=== PATIENT | male | born 1945 | race Caucasian/White ===

== ENCOUNTER 2019-03-18 05:10 | Day surgery (SDC) | payer MEDICARE, OTHER, SELFPAY ==
[2019-03-17 16:34] VITALS: BMI 34.4
[2019-03-18] VITALS (14 sets, daily range): BP systolic 109–154; BP diastolic 58–87; PULSE 63–74; RESP 14–18; TEMP 36.7; O2SAT 96–100
[2019-03-18 09:02] LABS: Basophils Percent Auto 0.2 % (0.2-1.2); Eosinophils Percent Auto 0.2 % (0-4.4); Hematocrit 47.1 % (42.0-52.0); Hemoglobin 15.4 g/dL (14.0-18.0); Immature Granulocyte Absolute 0.04 K/mm3 (0.00-0.031); Immature Granulocyte Percent A 0.3 % (0-0.5); Lymphocytes Absolute Auto 2.06 K/mm3 (0.9-3.2); Lymphocytes Percent Auto 16.9 % (18.3-44.2); Mean Corpuscular HGB Conc 32.7 g/dl (32-36); Mean Corpuscular Hemoglobin 29.4 pg (26-34); Mean Corpuscular Volume 89.9 fl (80-100); Mean Platelet Volume 10.6 fl (7.4-10.4); Monocytes Absolute Auto 0.7 K/mm3 (0.1-0.6); Neutrophils Absolute Auto 9.3 K/mm3 (1.3-6.7); Neutrophils Percent Auto 76.4 % (45.5-73.1); Platelet Count Result 303 k/mm3 (150-375); Red Blood Count 5.24 M/mm3 (4.6-6.20); Red Cell Distribution Width 13.5 % (11.5-14.5); White Blood Count 12.2 K/mm3 (4.5-10.0)
[2019-03-18 09:12] LABS: Prothrombin Time 12.6 Seconds (11.1-14.7)
[2019-03-18 09:14] LABS: Blood Urea Nitrogen 37 mg/dL (9-20); Calcium 9.8 mg/dL (8.4-10.2); Carbon Dioxide 27 mmol/L (22-30); Chloride 99 mmol/L (98-107); Estimated CRCL calculation 42 ml/min; Estimated Glomerular Filt Rate 35; Glucose 110 mg/dL (75-110); Potassium 3.9 mmol/L (3.4-5.0); Sodium 140 mmol/L (137-145)
--- NOTE | 2019-03-18 09:43 | SUR.PREOP ---
0840 PATIENT ARRIVES TO [facility] ROOM 5 FOR R/LHC WITH DR. SOL. AT BEDSIDE, ORIENTED TO UNIT, PROCEDURE EXPLAINED, ALL QUESTIONS ANSWERED, IV STARTED, LABS DRAWN AND SENT, VITALS TAKEN, CONSENT SIGNED, AND GROIN SHAVED.
--- NOTE | 2019-03-18 10:18 | WPDHPUPDATE1 ---
History and Physical Update Update Date/Time: 03/18/19 10:18 Patient with aortic stenosis, a decline in LV function, COPD, chronic kidney disease. I had requested the patient stop his Naprosyn prior to the cardiac catheterization to help protect his renal function, but he only reduced it to once daily. He has not seen Dr. Main yet. History and Physical has been reviewed, including an updated exam of the patient. There are NO changes in the patient's condition. Risks, benefits, and alternatives have been discussed and questions answered. Reviewed possible risks and complications with patient including breathing problems, bleeding problems, blood vessel problems, unanticipated surgery, allergic reactions, kidney problems, CVA, MS, and among others. In particular we discussed the risk of acute renal problems. Patient understands risks and desires to proceed. patient agrees to proceed with procedure.
--- NOTE | 2019-03-18 10:20 | WPDMODSED ---
Moderate Sedation Note-Pt Data Patient Data Allergies Allergy/AdvReac Type Severity Reaction Status Date / Time No Known Allergies Allergy Unknown Verified 02/25/19 12:50 Home Medications Medication Instructions Recorded Confirmed Type amlodipine 10 mg tablet 10 mg PO HS 03/05/19 03/17/19 History aspirin 81 mg tablet,delayed 81 mg PO HS 03/05/19 03/17/19 History release budesonide-formoterol HFA 160 2 puff INHALATION Q12H 03/05/19 03/17/19 History mcg-4.5 mcg/actuation aerosol inhaler chlorthalidone 25 mg tablet 12.5 mg PO DAILY 03/05/19 03/17/19 History furosemide 20 mg tablet 20 mg PO DAILY tablet 03/05/19 03/17/19 History lisinopril 20 mg tablet 20 mg PO DAILY 03/05/19 03/17/19 History naproxen 500 mg tablet,delayed See Rx Instructions PO DAILY 03/05/19 03/17/19 History release tablet tamsulosin 0.4 mg capsule 0.4 mg PO BID 03/05/19 03/17/19 History albuterol sulfate [Ventolin HFA] 2 puff INHALATION Q4H PRN 03/17/19 03/17/19 History lovastatin 20 mg PO QMWF 03/17/19 03/17/19 History montelukast 10 mg PO DAILY 03/17/19 03/17/19 History Current Medications: Active Medications Sodium Chloride (Normal Saline Iv) 500 mls @ 100 mls/hr IV CONT .Q5H HAYLEY Sedation/Anesthesia: No previous sedation/anesthesia problems (including family history). [facility] Past Medical History Medical History Allergic rhinitis Aortic regurgitation Aortic stenosis BCC (basal cell carcinoma of skin) CKD (chronic kidney disease), stage III Congestive heart failure Hypertensive heart disease with heart failure IFG (impaired fasting glucose) Moderate persistent asthma without complication Wellness examination Family History Family History Father Family history of cardiovascular disease Other Asthma Social History Social History Smoking status: Current every day smoker Alcohol intake: current Gender identity (if verbalized by the patient): Male Mod Sed Physical Exam Physical Exam Pre Procedural Exam: Normal: Appearance, Eyes, Ears, Nose, Neck, Throat, Airway, Lungs, Heart Size (3/6 harsh WES upper sternal borders), Heart Rate, Heart Rhythm, Neuro Exam, Abdomen, Kidneys, Genitalia, Extremities (Femoral pulses intact with no bruits. Dorsalis pedis pulses reduced bilaterally, no posterior tibials palpated.) and Skin (Basal cell cancer right near ease) and Variation: Heart Size (3/6 harsh WES upper sternal borders) and Skin (Basal cell cancer right near ease) Hours since solid foods: 12 Hours since liquid intake: 12 Internal Medicine - PN: Obj Da Vital Signs Vital Signs: Vital Signs - 24 hr 03/18/19 09:20 Temperature 36.7 C Pulse Rate 70 Respiratory Rate 18 Blood Pressure 130/87 Pulse Oximetry 99 Meds/Results Medications: Active Medications Generic Name Dose Route Start Last Admin Trade Name Freq PRN Reason Stop Dose Admin Sodium Chloride 500 mls @ 100 mls/hr 03/18/19 06:25 Normal Saline Iv IV CONT .Q5H HAYLEY Labs CBC & Chem 7: 03/18/19 08:47 03/18/19 08:47 Labs: Laboratory Results - last 24 hr 03/18/19 03/18/19 03/18/19 08:47 08:47 08:47 WBC 12.2 H RBC 5.24 Hgb 15.4 Hct 47.1 MCV 89.9 MCH 29.4 MCHC 32.7 RDW 13.5 Plt Count 303 MPV 10.6 H Immature Gran % (Auto) 0.3 Neut % (Auto) 76.4 H Lymph % (Auto) 16.9 L Converse % (Auto) 6.0 Eos % (Auto) 0.2 Baso % (Auto) 0.2 Lymph # (Auto) 2.06 Converse # (Auto) 0.7 H Eos # (Auto) 0.0 Baso # (Auto) 0.0 Abs Immat Gran (auto) 0.04 H Absolute Neuts (auto) 9.3 H Absolute Nucleated RBC 0.0 Nucleated RBC % 0.0 PT 12.6 INR 1.0 Sodium 140 Potassium 3.9 Chloride 99 Carbon Dioxide 27 BUN 37 H Creatinine 1.90 H Estim Creat Clear Calc 42 Estimated GFR
--- NOTE | 2019-03-18 12:08 | PM.OP ---
Procedure Note - Brief Procedure Note - Brief Date of procedure: 03/18/19 Pre-op diagnosis: Severe Aortic stenosis, CAD Post-op diagnosis: same Procedure performed: Procedure: 1. Conscious sedation 2. Left heart catheterization 3. Selective Coronary angiography 4. Left ventriculography Site: Right femoral artery, right femoral vein Description of procedure: left and right heart catheterization, DSA of the aorta and iliacs Anesthesia: local Surgeon: Nora Bueno MD Estimated blood loss (mL): 20 Drains: No Packing: No Pathology: none sent Complications: No immediate complications Condition: stable Disposition: observation Findings: Findings: Occluded right coronary artery which fills by collaterals 60% stenosis of the ramus with a 70% stenosis of a branch of the ramus Calcified proximal vessels and mild plaquing elsewhere Severe aortic stenosis, BHUMI 0.9 cm2 Patent iliacs and common femoral arteries Recommendations: Refer for aortic valve replacement, preferably TAVR
--- NOTE | 2019-03-18 13:17 | SUR.PHASEII ---
1250 importance of bedrest and restrictions reviewed with patient and pts at bedside, both verbalize understanding, vss, no hematoma or bleeding noted to r groin venous/arterial dressing c/d/i, pedal pulse strong, will continue to monitor closely.
--- NOTE | 2019-03-18 17:02 | SUR.PHASEII ---
6401 pt up to chair with ease, tolerated well, r groin sites and dressing remain c/d/i, no hematoma or bleeding noted, pedal pulse strong, will continue to monitor, d/c paperwork reviewed with patient and pts , questions answered, disc sent with patient to take to his f/u appt.
--- NOTE | 2019-03-18 20:26 | PM.PROC ---
Procedure Note - Detailed Date of procedure: 03/18/19 Pre-op diagnosis: Severe Old male with COPD and obesity complaining of progressive LEE. Echo suggested progressive aortic stenosis. Known mild diffuse CAD by catheterization 2012. Post-op diagnosis: other (CAD, severe aortic stenosis) Procedure performed: Procedure: 1. Conscious sedation 2. Left heart catheterization 3. Selective Coronary angiography 4. Left ventriculography 5. Thermodilution and Alee cardiac outputs 6. Right heart catheterization 7. DSA of the aorta and iliacs 8. Central O2 saturations . Description of procedure: Site: Right femoral artery Catheters: 6 Prydeinig arterial sheath, 6 Prydeinig 4 cm right and left Orion catheters, 6 Prydeinig dual-lumen pigtail catheter, 7 Prydeinig venous sheath, 7 Prydeinig Marcell-Rufino catheter Conscious sedation: The patient has no known prior history of adverse affects of conscious sedation. Oropharynx was clear. The patient is deemed a good candidate for conscious sedation. Conscious sedation began at: 10 42 Conscious sedation ended at: 1154 Total conscious sedation time: 62 minutes Medications: Versed 2 mg and fentanyl 50 mcg IV push The patient had continuous hemodynamic monitoring, and was also continuously monitored by: Susana Figueroa RN The patient tolerated conscious sedation well. Detailed procedure: After informed consent the patient brought to the cathode builder and the right femoral area was prepped and draped in the usual fashion. After conscious sedation and local anesthesia the right femoral artery was punctured and cannulated with the arterial sheath. The right femoral vein was anesthetized punctured and cannulated with a venous sheath. The Marcell-Rufino catheter was advanced into the central circulation out into the wedge position. Thermodilution cardiac outputs were obtained. Selective Coronary angiography was performed with the coronary catheters in multiple projections. These were withdrawn. I was unsuccessful in crossing the aortic valve with a pigtail catheter using a straight wire. Using the right coronary catheter I was able to pass a straight wire into the ventricle. The ventricle was quite irritable with nonsustained ventricular tachycardia so it was exchanged for a J-tip wire. Then the right Orion was exchanged for the dual-lumen pigtail. Simultaneous aortic and LV pressure measurements were obtained, then simultaneous right and left heart pressures were obtained. No left ventriculogram was performed because of the patient's chronic kidney disease and attempts to conserve contrast. The pigtail catheter was withdrawn into the distal aorta. The Marcell-Rufino catheter was removed. Digital subtraction angiography of the distal aorta was obtained using 12 cc of contrast. Later the arterial and venous sheaths were removed and hemostasis was obtained using local pressure. The patient tolerated the procedure well with no complications. Estimated blood loss was 15-20 cc (waste). The patient had received a 200 cc normal saline bolus prior to the procedure and IV fluids 125 cc an hour during and after the procedure. Pressures: Mean right atrial pressure was 1 mm Hg, RV 39/4 mm Hg, PA 31/7 with a mean of 20 mmHg, and wedge pressure mean was 20 mmHg. Aortic pressure was 130/52 and LV was 164/8 mmHg. Later LV was 170/9 and aortic was 130/48 mmHg. Cardiac output: Thermodilution cardiac output was 6.2 liters/minute with a cardiac index of 2.6 liters/minute per meter squared. Alee cardiac output was 5.8 liters/minute with a cardiac index of 2.4 liters/minute per meter squared Oximetry: Right atrial O2 sat 64%, PA 71% and of the 90% Aortic valve area: Aortic valve area 0.9 cm2, area index was 0.4 centimeters squared/meter squared, with a mean gradient of 35 mmHg. Coronary angiogram: Left coronary artery: The proximal vessels were calcified and there was mild diffuse plaquing particularly of the proximal Left anterior descend
== END 2019-03-18 17:28 | disposition home or self-care (01) ==
PROVIDERS: PCP Family Medicine; Visit Provider Internal Medicine Cardiovascular Disease
PROC: 4A023N8 Measurement of Cardiac Sampling and Pressure, Bilateral, Percutaneous Approach (ICD-10-PCS; CPT 93453; principal; 2019-03-18 10:00)
DX: I35.0 Nonrheumatic aortic (valve) stenosis (principal); I25.10 Atherosclerotic heart disease of native coronary artery without angina pectoris; R06.09 Other forms of dyspnea; J44.9 Chronic obstructive pulmonary disease, unspecified; I13.0 Hypertensive heart and chronic kidney disease with heart failure and stage 1 through stage 4 chronic kidney disease, or unspecified chronic kidney disease; N18.3 Chronic kidney disease, stage 3 (moderate); I50.9 Heart failure, unspecified; I42.9 Cardiomyopathy, unspecified; E78.00 Pure hypercholesterolemia, unspecified; Z79.82 Long term (current) use of aspirin; F17.210 Nicotine dependence, cigarettes, uncomplicated
CPT/HCPCS: 36415; 80048; 85025; 85610; 93460; C1769; C1887; C1894; J1644; J2250; J3010; J7040

== ENCOUNTER → 2019-04-01 11:51 | Outpatient (CLI) | payer MEDICARE, OTHER, SELFPAY ==
--- NOTE | ~2019-04-01 | US_ITS ---
EXAMINATION: US renal BI EXAM DATE: 04/01/2019 12:11 INDICATION: Chronic kidney disease, stage III. TECHNIQUE: Multiple grayscale and Doppler images of the kidneys were obtained (by a technologist who performed the scan) and subsequently reviewed. Comparison is made to prior examination from 10/02/2014 . FINDINGS: Right kidney: There is normal contour and echogenicity. It measures 10.6 x 5.2 x 5.4 centimeters. T here are no focal renal lesions identified. There is no hydronephrosis. Left kidney: There is normal contour and echogenicity. It measures 11.3 x 4.9 x 5.7 centimeters. The re is a cyst measuring 2.8 cm in the superior pole. There is no hydronephrosis. Bladder unremarkable. IMPRESSION: Left renal cyst. Otherwise unremarkable exam. Reviewed, dictated and finalized at location B. ING AID REPAIR TECHNICIAN
== END ==
PROVIDERS: PCP Family Medicine; Visit Provider Internal Medicine Nephrology
DX: N18.3 Chronic kidney disease, stage 3 (moderate) (principal); N28.1 Cyst of kidney, acquired
CPT/HCPCS: 76775

== ENCOUNTER 2019-06-30 11:55 | Outpatient (CLI) | payer MEDICARE, OTHER, SELFPAY ==
--- NOTE | ~2019-06-30 | XR_ITS ---
EXAMINATION: XR chest 2V DATE: 06/30/2019 12:21 INDICATION: Coronary artery disease TECHNIQUE: Frontal and lateral views of the chest are obtained COMPARISON: 12/07/2012 FINDINGS: The lungs are free of acute opacities. There is no pleural effusion or pneumothorax. There are changes of interval cardiac surgery. The heart size is normal. There is moderate thoracic spondyl osis. IMPRESSION: 1. Changes of interval cardiac surgery without acute cardiopulmonary abnormality. Reviewed, dictated and finalized at location A. IMPRESSION: 1. Changes of interval cardiac surgery without acute cardiopulmonary abnormalit y.
== END 2019-06-30 11:56 | disposition home or self-care (01) ==
LOC: ANHIMG 12:05
PROVIDERS: PCP Family Medicine; Visit Provider Internal Medicine Cardiovascular Disease
DX: Z95.1 Presence of aortocoronary bypass graft (principal)
CPT/HCPCS: 71046

== ENCOUNTER 2020-03-04 08:03 | Outpatient (CLI) | payer MEDICARE, OTHER, SELFPAY ==
--- NOTE | ~2020-03-04 | CT_ITS ---
EXAMINATION: CT lung screening EXAM DATE: 03/04/2020 08:23 INDICATION: Personal history of nicotine dependence. TECHNIQUE: Spiral low dose CT of the chest without contrast. Axial, coronal and sagittal images were reviewed. The dose-length product (DLP) for this examination was 345.65 mGy-cm. The exposure was t ailored according to patient size (auto mA exposure control), and iterative reconstruction (ASIR) was used as additional dose reduction technique. There is no prior study for comparison. FINDINGS: There is moderate to severe emphysema. There is area of right lower lobe predominantly nelly ear contiguous opacities, appearance most consistent with scarring but a closer interval, 3 month fol low-up CT is recommended. Tracheobronchial tree is patent. There is no mediastinal, hilar or axilla ry lymphadenopathy. There are no pleural or pericardial effusions. There is no pneumothorax. He art normal in size. There are sternotomy wires, and cardiac/coronary surgical changes. Correlate wi th prior history. Upper abdomen is unremarkable. There is moderate thoracic spondylosis without os teoblastic or osteolytic lesions identified. IMPRESSION: Lung-RADS category 4A, suspicious (5-15 % chance of malignancy); recommend followup LDCT in 3 months. Reviewed, dictated and finalized at location B. [employer] IMPRESSION: Lung-RADS category 4A, suspicious (5-15 % chance of malignancy); re commend followup LDCT in 3 months.
== END 2020-03-04 08:04 | disposition home or self-care (01) ==
LOC: ANHIMG 08:07
PROVIDERS: PCP Family Medicine; Visit Provider Family Medicine
DX: Z12.2 Encounter for screening for malignant neoplasm of respiratory organs (principal); Z87.891 Personal history of nicotine dependence
CPT/HCPCS: 71271

== ENCOUNTER 2021-01-07 10:19 | Outpatient (CLI) | payer MEDICARE, OTHER, SELFPAY ==
--- NOTE | ~2021-01-07 | NM_ITS ---
EXAMINATION: NM bone scan whole body DATE: 01/07/2021 13:46 INDICATION: Prostate cancer. TECHNIQUE: 25 mCi Tc-99m HDP was administered intravenously. Delayed whole-body scintigrams were obt ained. COMPARISON: CT abdomen and pelvis 01/07/2021, chest CT 03/04/2020 FINDINGS: There is a total right knee arthroplasty. There is increased activity in the right parasymp hyseal pubis and left parasymphyseal pubis and multiple vertebra correlating with sclerotic lesions b y CT. There is increased activity in multiple ribs and in proximal right humerus, consistent metastat ic disease. There is joint-centered increased activity in the sternoclavicular joints and acromioclav icular joints and hands, likely osteoarthritis. IMPRESSION: 1. Scattered foci of increased activity in bone, some correlating with sclerotic lesions on today's C T, consistent with metastatic disease. Reviewed, dictated and finalized at location A. ANDER IMPRESSION: 1. Scattered foci of increased activity in bone, some correlating with scleroti c lesions on today's CT, consistent with metastatic disease.
--- NOTE | ~2021-01-07 | CT_ITS ---
EXAMINATION: CT abdomen pelvis w con DATE: 01/07/2021 10:55 INDICATION: Prostate cancer. TECHNIQUE: Computed tomography (CT) of the abdomen and pelvis was performed with 100 mL Omnipaque 350 intravenous contrast. Automated exposure control and iterative reconstruction technique were employe d. The dose-length product was 1390.15 mGy-cm. COMPARISON: Chest CT 03/04/2020 FINDINGS: The visualized portions of the lung bases demonstrate emphysema. There is mild atelectasis in right lower lobe. There is mucous plugging in the lower lobes. Calcified right hilar lymph nodes a re consistent with old granulomatous disease. No pleural effusion. The heart size is normal. There ar e changes of aortic valve replacement. No pericardial effusion. Sternal dehiscence is noted. There is a subxiphoid hernia containing fat and a portion of liver. The gallbladder is normal. Calcifications in the spleen are consistent with old granulomatous disease. The pancreas and adrenal glands are nor mal. There is cortical thinning of the kidneys. There are cysts in the kidneys measuring up to 3.1 cm on the left. There is diverticulosis of the colon without evidence of diverticulitis. The appendix i s normal. There are no dilated loops of bowel. The prostate is mildly enlarged. There is a 4.1 x 3.9 cm mass involving the prostate and left posterior aspect of the bladder, consistent with malignancy. There is pelvic and retroperitoneal lymphadenopathy. For example, a left para-aortic node measures 2. 4 x 1.3 cm. There is no free intraperitoneal fluid. There are sclerotic lesions of bone involving the right parasymphyseal pubis, left parasymphyseal pubis, iliac bones, sacrum, multiple vertebra, and r ight eighth and seventh ribs. IMPRESSION: 1. Mass involving the prostate and left posterior aspect of the bladder, consistent with prostate can cer. 2. Pelvic and retroperitoneal lymphadenopathy and scattered sclerotic lesions of bone, consistent wit h metastatic disease. Reviewed, dictated and finalized at location A. T MANAGER/DISPATCH IMPRESSION: 1. Mass involving the prostate and left posterior aspect of the bladder, consis tent with prostate cancer. 2. Pelvic and retroperitoneal lymphadenopathy and scattered sclerotic lesions o f bone, consistent with metastatic disease.
--- NOTE | ~2021-01-07 | XR_ITS ---
XR chest 2V DATE: 01/07/2021 10:39 INDICATION: Prostate cancer TECHNIQUE: 2 views, PA and lateral projections COMPARISON: Status post sternotomy and coronary bypass graft surgery and aortic valve replacement. Normal heart size. Is aortic calcification and unfolding. No hilar or mediastinal enlargement. No pulmonary infiltrate or consolidation, pleural effusion or pulmonary vascular congestion or pneumo thorax. FINDINGS: Status post sternotomy and coronary bypass graft surgery and aortic valve replacement. Normal heart size. Is aortic calcification and unfolding. No hilar or mediastinal enlargement. No pulmonary infiltrate or consolidation, pleural effusion or pulmonary vascular congestion or pneumo thorax. Degenerative spurring of the thoracic spine. IMPRESSION: No active cardiopulmonary disease Reviewed, dictated and finalized at location A. AURANT CREW
[2021-01-07 10:45] LABS: Estimated Glomerular Filt Rate 42
== END 2021-01-07 10:20 | disposition home or self-care (01) ==
LOC: ANHIMG 10:24
PROVIDERS: PCP Family Medicine; Visit Provider Urology
DX: C61 Malignant neoplasm of prostate (principal); M89.9 Disorder of bone, unspecified; N32.9 Bladder disorder, unspecified; R59.0 Localized enlarged lymph nodes
CPT/HCPCS: 71046; 74177; 78306; A9561; Q9967

== ENCOUNTER 2021-02-23 11:13 | Outpatient (CLI) | payer MEDICARE, SELFPAY ==
[2021-02-23 12:19] LABS: Anion Gap 10 mmol/L (8-16); Blood Urea Nitrogen 26 mg/dL (9-20); Calcium 9.7 mg/dL (8.4-10.2); Carbon Dioxide 27 mmol/L (22-30); Chloride 104 mmol/L (98-107); Estimated Glomerular Filt Rate 42; Glucose 106 mg/dL (65-110); Magnesium 2.1 mg/dL (1.6-2.3); Sodium 141 mmol/L (137-145)
== END 2021-02-23 11:14 | disposition home or self-care (01) ==
LOC: ANHLAB 11:20
PROVIDERS: PCP Family Medicine; Visit Provider Internal Medicine Cardiovascular Disease
DX: I25.10 Atherosclerotic heart disease of native coronary artery without angina pectoris (principal); I49.3 Ventricular premature depolarization
CPT/HCPCS: 36415; 80048; 83735

== ENCOUNTER 2021-03-31 12:12 | Outpatient (CLI) | payer MEDICARE, SELFPAY ==
--- NOTE | ~2021-03-31 | CT_ITS ---
EXAMINATION: CT abdomen pelvis wo con DATE: 03/31/2021 12:48 INDICATION: Metastatic prostate cancer restaging TECHNIQUE: Computed tomography (CT) of the abdomen and pelvis was performed without intravenous contr ast. Automated exposure control and iterative reconstruction technique were employed. Exam dose: 124 1.48 mGy-cm total exam DLP. COMPARISON: 01/07/2021 CT abdomen pelvis with IV contrast material FINDINGS: Emphysematous changes are noted. Mild atelectasis or fibrotic changes in the peripheral lef t lower lobe. Heart size is within normal range. Status post aortic valve replacement and coronary bypass graft pranav trent. Calcifications or postoperative change of the mitral valve; recommend correlation with surgical histo ry. Coronary artery calcifications. No pericardial or pleural effusion. Calcified splenic granulomas. No hepatic, splenic, pancreatic or adrenal space-occupying mass lesion. The gallbladder is present. No bile duct or pancreatic duct dilatation. 3.2 cm cystic lesion at the upper pole of the left kidney with minimal peripheral calcification, like ly a benign renal cyst. This is a limited noncontrast examination however. One or 2 punctate nonobstructing right renal calculi are suggested. No ureteral calculus or hydrouret eronephrosis. There is extensive calcification of the abdominal aorta, calcification at the origin of the celiac tr unk and prominent calcification at the origin along the course of the superior mesenteric artery. No abdominal aortic aneurysm. There is prominent calcification of the iliac arteries, especially the com mon and internal iliac arteries as well as femoral artery calcifications. No periaortic or aortocaval or retrocrural lymphadenopathy. There is interval considerable improvement of left external iliac lymphadenopathy, with left external iliac nodes currently measuring 7.5 x 12 mm and 9.5 x 12.8 mm, compared to 13.8 x 21 mm and 19.8 x 2 5 mm, respectively on 01/07/2021. There is overall diminished size of the prostate gland and the previously reported 4.1 x 3.9 cm mass at the left posterolateral aspect of the urinary bladder, currently measuring approximately 2.9 x 2.7 cm. Adjacent left pelvic approximate 1.4 cm mass is nearly completely resolved since 01/07/2021. No evidence of appendicitis. There is mild diverticulosis of the left colon; no evidence of diverticu litis. No bowel obstruction, bowel wall thickening, pneumatosis or intraperitoneal free air. Small fat-containing umbilical hernia. Osteosclerotic metastatic disease is again noted, including prominent osteosclerotic lesion of L1 manju tebral body and even more extensive osteosclerotic lesion of left L4 vertebral body extending into th e left L4 pedicle, in addition to right sacral body and interval increased size mid sacral osteoscler otic lesions, prominent osteosclerotic metastatic lesions at both pubic bones, additional scattered s mall vertebral and bilateral ileal osteosclerotic lesions. IMPRESSION: Interval resolution of left periaortic lymphadenopathy and considerable improvement of l eft external iliac lymphadenopathy and diminished size of prostate gland and mass at left posterolate ral aspect of urinary bladder since 01/07/2021 Extensive osteosclerotic metastatic disease is again noted Reviewed, dictated and finalized at Location A. Reviewed, dictated and finalized at location A. [employer] INSURANCE IMPRESSION: Interval resolution of left periaortic lymphadenopathy and conside rable improvement of left external iliac lymphadenopathy and diminished size of prostate gland and mass at left posterolateral aspect of urinary bladder since 01/07/2021 Extensive osteosclerotic metastatic disease is again noted
== END 2021-03-31 12:13 | disposition home or self-care (01) ==
PROVIDERS: PCP Family Medicine; Visit Provider Urology
DX: C61 Malignant neoplasm of prostate (principal); C79.51 Secondary malignant neoplasm of bone; R59.0 Localized enlarged lymph nodes
CPT/HCPCS: 74176

== ENCOUNTER 2021-12-31 14:35 | Emergency (ER) | payer MEDICARE, SELFPAY ==
[2021-12-31 14:40] VITALS: BP 139/82; PULSE 86; RESP 16; TEMP 36.5; O2SAT 98
--- NOTE | 2021-12-31 14:56 | ED.EXTPRO ---
HPI - Extremity Problem General Chief complaint: Wound/Laceration Stated complaint: lt hand swelling Time Seen by Provider: 12/31/21 14:57 Source: patient, RN notes reviewed and old records reviewed Mode of arrival: ambulatory Limitations: no limitations History of Present Illness HPI Narrative: 76-year-old male presents to the [facility] with an infected wound to the left dorsal hands. Redness and swelling over MCP 2, 3, 4 Related Data Home Medications Medication Instructions Recorded Confirmed aspirin 81 mg tablet,delayed 81 mg PO HS 03/05/19 12/31/21 release (Aspir-) albuterol sulfate 90 mcg/actuation 2 puff inhalation Q4H PRN 03/17/19 12/31/21 aerosol inhaler (Ventolin HFA) shortness of breath or wheezing lovastatin 20 mg tablet 20 mg PO QMWF 03/17/19 12/31/21 montelukast 10 mg tablet 10 mg PO DAILY 03/17/19 12/31/21 fluticasone fur. 100 mcg-umeclid 1 inhalation inhalation Q24H 08/26/19 12/31/21 62.5 mcg-vilant 25 mcg inhalat.powder (Trelegy Ellipta) furosemide 20 mg tablet 40 mg PO QAM 08/26/19 12/31/21 amlodipine 10 mg tablet 5 mg PO HS 09/28/21 12/31/21 finasteride 5 mg tablet 5 mg PO DAILY 12/31/21 12/31/21 Allergies Allergy/AdvReac Type Severity Reaction Status Date / Time No Known Allergies Allergy Unknown Verified 09/28/21 08:43 Review of Systems Review of Systems: All systems reviewed & are unremarkable except as noted in HPI and below Constitutional: Constitutional: Reports no additional constitutional complaints, Denies chills and Denies fever(s) Eyes: Eyes: Reports no additional eye complaints ENT: Reports system reviewed and no additional complaints, except as documented Cardiovascular: Cardiovascular: Reports no additional cardiovascular complaints Respiratory: Respiratory: Reports no additional respiratory complaints Gastrointestinal: Gastrointestinal: Reports no additional gastrointestinal complaints Musculoskeletal: Musculoskeletal: Reports no additional musculoskeletal complaints Integumentary/Breasts: Skin/Breast: Reports as per HPI, Reports swelling and Reports erythema Neurologic: Reports system reviewed and no additional complaints, except as documented Psychiatric: Psychiatric: Reports no additional psychiatric complaints Allergic/Immunologic: Allergic/Immunologic: Reports no additional allergic/immunologic complaints PMFSH Past Medical History Medical History Allergic rhinitis Aortic regurgitation Aortic stenosis BCC (basal cell carcinoma of skin) Bilateral foot pain BPH (benign prostatic hyperplasia) CAD (coronary artery disease) Chronic kidney disease, stage 3 unspecified CKD (chronic kidney disease), stage III Congestive heart failure COPD (chronic obstructive pulmonary disease) Cough Former smoker 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 Hypertensive heart disease with heart failure IFG (impaired fasting glucose) Left foot pain Lower extremity edema Moderate persistent asthma without complication 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 Years smoked: 51 Smoking pack-years: 51.00 Smoking status: Former smoker Tobacco type: cigarettes Second hand tobacco smoke exposure: No Smoking end date: 08/11/18 Alcohol intake: never Alcohol use details: rarely Substance use: never Substance use type: does not use Gender identity (if verbalized by the patient): Male Comments At the time of
== END 2021-12-31 15:05 | disposition home or self-care (01) ==
PROVIDERS: Emergency Provider Nurse Practitioner; PCP Family Medicine
DX: S61.402A Unspecified open wound of left hand, initial encounter (principal); L08.9 Local infection of the skin and subcutaneous tissue, unspecified; X58.XXXA Exposure to other specified factors, initial encounter; Z87.891 Personal history of nicotine dependence; I35.0 Nonrheumatic aortic (valve) stenosis; Z85.828 Personal history of other malignant neoplasm of skin; Z85.46 Personal history of malignant neoplasm of prostate; Z85.830 Personal history of malignant neoplasm of bone; Z85.72 Personal history of non-Hodgkin lymphomas; I25.10 Atherosclerotic heart disease of native coronary artery without angina pectoris; I13.0 Hypertensive heart and chronic kidney disease with heart failure and stage 1 through stage 4 chronic kidney disease, or unspecified chronic kidney disease; N18.30 Chronic kidney disease, stage 3 unspecified; I50.9 Heart failure, unspecified; J44.9 Chronic obstructive pulmonary disease, unspecified; R73.01 Impaired fasting glucose; Z95.2 Presence of prosthetic heart valve; Z79.82 Long term (current) use of aspirin
CPT/HCPCS: 99213; G0463

== ENCOUNTER 2022-02-16 04:06 | Emergency (ER) | payer MEDICARE, SELFPAY ==
--- NOTE | ~2022-02-16 | XR_ITS ---
Clinical Indication: Shortness of breath PA and lateral views of the chest: Comparison: 01/07/2021 Findings: Worsening bibasilar pulmonary disease is present. Minimal pleural effusions.. Cardiomedias tinal silhouette is stable, status post aortic valve replacement. Bones and soft tissues are unremark able. Impression: Worsening bibasilar pulmonary edema. Minimal bilateral pleural effusions. Reviewed, dictated and finalized at location . O OPHTHALMOLOGIST Impression: Worsening bibasilar pulmonary edema. Minimal bilateral pleural effusions.
[2022-02-16 04:11] VITALS: BP 168/109; PULSE 72; RESP 24; TEMP 36.1; O2SAT 92
--- NOTE | 2022-02-16 04:21 | ECG_ITS ---
Measurements Intervals [place] Rate: 84 P: 36 CT: 154 QRS: -25 QRSD: 137 T: 133 QT: 412 QTc: 488 Interpretive Statements SINUS RHYTHM WITH FREQUENT VENTRICULAR PREMATURE COMPLEXES POSSIBLE LEFT ATRIAL ENLARGEMENT [-0.1mV P-WAVE IN V1/V2] LEFT BUNDLE BRANCH BLOCK [120+ ms QRS DURATION, 80+ ms Q/S IN V1/V2, 85+ ms R IN I/aVL/V5/V6] NO PREVIOUS ECG AVAILABLE FOR COMPARISON Electronically Signed On 02-16-2022 14:51:40 SPEECH AND HEARING DIRECTOR by Se Presley M.D.
[2022-02-16 04:40] LABS: Basophils Percent Auto 0.4 % (0.2-1.2); Eosinophils Absolute Auto 0.1 K/mm3 (0-0.3); Eosinophils Percent Auto 1.2 % (0-4.4); Hematocrit 44.5 % (42.0-52.0); Hemoglobin 14.4 g/dL (14.0-18.0); Immature Granulocyte Absolute 0.03 K/mm3 (0.00-0.031); Immature Granulocyte Percent A 0.3 % (0-0.5); Lymphocytes Absolute Auto 2.27 K/mm3 (0.9-3.2); Lymphocytes Percent Auto 20.2 % (18.3-44.2); Mean Corpuscular HGB Conc 32.4 g/dl (32-36); Mean Corpuscular Volume 92.7 fl (80-100); Mean Platelet Volume 10.2 fl (7.4-10.4); Monocytes Absolute Auto 0.4 K/mm3 (0.1-0.6); Monocytes Percent Auto 3.9 % (2.6-8.5); Neutrophils Absolute Auto 8.3 K/mm3 (1.3-6.7); Platelet Count Result 305 k/mm3 (150-375); Red Cell Distribution Width 15.6 % (11.5-14.5); White Blood Count 11.2 K/mm3 (4.5-10.0)
--- NOTE | 2022-02-16 04:49 | ED.SOB ---
HPI - SOB/Dyspnea General Chief Complaint: Shortness of Breath/Dyspnea Stated Complaint: I can't breathe Time Seen by Provider: 02/16/22 04:35 History of Present Illness HPI Narrative: Patient with a history of CHF, COPD, asthma presents with several days of worsening cough and difficulty breathing, worse when laying flat. Has been try to take increased doses of his Lasix, as well as starting steroids at home but not improved. Also has been using his inhalers. Related Data Home Medications Medication Instructions Recorded Confirmed aspirin 81 mg tablet,delayed 81 mg PO HS 03/05/19 01/19/22 release (Aspir-) albuterol sulfate 90 mcg/actuation 2 puff inhalation Q4H PRN 03/17/19 01/19/22 aerosol inhaler (Ventolin HFA) shortness of breath or wheezing lovastatin 20 mg tablet 20 mg PO QMWF 03/17/19 01/19/22 montelukast 10 mg tablet 10 mg PO DAILY 03/17/19 01/19/22 fluticasone fur. 100 mcg-umeclid 1 inhalation inhalation Q24H 08/26/19 01/19/22 62.5 mcg-vilant 25 mcg inhalat.powder (Trelegy Ellipta) furosemide 20 mg tablet 40 mg PO QAM 08/26/19 01/19/22 amlodipine 10 mg tablet 5 mg PO HS 09/28/21 01/19/22 finasteride 5 mg tablet 5 mg PO DAILY 12/31/21 01/19/22 Allergies Allergy/AdvReac Type Severity Reaction Status Date / Time No Known Allergies Allergy Unknown Verified 01/19/22 11:09 Review of Systems Review of Systems: CONST: No fever. HEENT: No sore throat C/V: No chest pain RESP: chronic cough, worsening shortness of breath and orthopnea GI: No abdominal pain : No dysuria. M/S: No joint pain. SKIN: No rash. 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 Hypertensive heart disease with heart failure IFG (impaired fasting glucose) Left foot pain Lower extremity edema Moderate persistent asthma without complication 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 Years smoked: 51 Smoking pack-years: 51.00 Smoking status: Former smoker Tobacco type: cigarettes Second hand tobacco smoke exposure: No Smoking end date: 08/11/18 Alcohol intake: never Alcohol use details: rarely Substance use: never Substance use type: does not use Gender identity (if verbalized by the patient): Male Exam Narrative: EXAMINATION OF ORGAN SYSTEMS/BODY AREAS: Constitutional: Vital signs per nursing GENERAL:[No acute distress, non-toxic appearing.] HEAD: Normal with no signs of head trauma. EYES: EOMI, conjunctiva normal ENT: Hearing grossly intact LUNGS: Slight tachypnea. prolonged end expiratory HEART: [Regular rate and rhythm] ABD: [Soft], [nontender to palpation] EXT: Normal range of motion, no lower extremity edema, or tenderness to palpation SKIN: [No rashes or lesions.] NEURO: [Alert and oriented x 3. No gross focal sensory or strength deficits.] PSYCH: Normal affect Course Vital Signs Vital signs: Vital Signs Temperature 96.9 F L 02/16/22 04:11 Pulse Rate 72 02/16/22 04:11 Respiratory Rate 24
[2022-02-16 04:55] VITALS: PULSE 84; RESP 17
[2022-02-16] MEDS: ALBUTEROL SULFATE NEB 2.5 MG/3 ML INH 15 MG INHALATION (04:59)
[2022-02-16] MEDS: IPRATROPIUM BR 0.02% INH SOLN 0.5 MG/2.5 ML VIAL 1 MG INHALATION (04:59)
[2022-02-16 05:05] VITALS: PULSE 75; O2SAT 100
[2022-02-16 05:17] LABS: Alanine Aminotransferase 21 U/L (6-50); Albumin Level 4.1 g/dL (3.5-5.1); Alkaline Phosphatase 91 U/L (38-126); Anion Gap 8 mmol/L (8-16); Aspartate Amino Transferase 33 U/L (17-59); Bilirubin,Total 1.1 mg/dL (0.2-1.3); Blood Urea Nitrogen 27 mg/dL (9-20); Calcium 8.7 mg/dL (8.4-10.2); Carbon Dioxide 25 mmol/L (22-30); Chloride 108 mmol/L (98-107); Estimated CRCL calculation 53 ml/min; Estimated Glomerular Filt Rate 49; Glucose 134 mg/dL (65-110); Potassium 4.8 mmol/L (3.4-5.0); Sodium 141 mmol/L (137-145)
[2022-02-16] MEDS: FUROSEMIDE INJ 40 MG/4 ML VIAL IV PUSH (05:40)
[2022-02-16 05:59] LABS: NT Pro B Type Natriuretic Pept 16000 pg/mL (5-100); Troponin I 0.031 ng/mL (0.000-0.034)
[2022-02-16 06:29] LABS: Influenza A QL RT-PCR Negative (Negative); Influenza B QL RT-PCR Negative (Negative); RSV RNA, RT-PCR Negative (Negative); SARS-CoV-2 RNA PCR Negative
[2022-02-16 06:42] VITALS: PULSE 100; RESP 18
[2022-02-16 07:00] VITALS: BP 160/98; PULSE 98; RESP 18; O2SAT 96
== END 2022-02-16 07:04 | disposition home or self-care (01) ==
PROVIDERS: Emergency Provider Emergency Medicine; PCP Family Medicine
DX: I13.0 Hypertensive heart and chronic kidney disease with heart failure and stage 1 through stage 4 chronic kidney disease, or unspecified chronic kidney disease (principal); I50.9 Heart failure, unspecified; Z20.822 Contact with and (suspected) exposure to COVID-19; N18.30 Chronic kidney disease, stage 3 unspecified; C61 Malignant neoplasm of prostate; C79.51 Secondary malignant neoplasm of bone; C77.5 Secondary and unspecified malignant neoplasm of intrapelvic lymph nodes; J44.9 Chronic obstructive pulmonary disease, unspecified; J45.40 Moderate persistent asthma, uncomplicated; N40.0 Benign prostatic hyperplasia without lower urinary tract symptoms; I35.1 Nonrheumatic aortic (valve) insufficiency; I25.10 Atherosclerotic heart disease of native coronary artery without angina pectoris; Z87.440 Personal history of urinary (tract) infections; Z95.2 Presence of prosthetic heart valve; Z85.828 Personal history of other malignant neoplasm of skin; Z87.891 Personal history of nicotine dependence; Z79.82 Long term (current) use of aspirin; I49.3 Ventricular premature depolarization; I44.7 Left bundle-branch block, unspecified; R94.31 Abnormal electrocardiogram [ECG] [EKG]
CPT/HCPCS: 36415; 71046; 80053; 83880; 84484; 85025; 87637; 93005; 94640; 96374; 99284; J1940

== ENCOUNTER 2022-04-30 16:21 | Observation (INO) | payer MEDICARE, SELFPAY ==
[2022-04-30] VITALS (9 sets, daily range): BP systolic 129–158; BP diastolic 68–104; PULSE 85–109; RESP 17–24; TEMP 36.5; O2SAT 86–100
--- NOTE | ~2022-04-30 | CT_ITS ---
Clinical Indication: Dyspnea, Covid [address] Scan of the Chest with Contrast: Technique: Contiguous sections were acquired throughout the chest after intravenous administration of 100 cc of Omnipaque 350. Dose reduction technique was used on this scan by utilizing automated expos ure control and iterative reconstruction technique. The dose-length product (DLP) was 861.32 mGy-cm. COMPARISON: 03/04/2020 Findings: Stable enlarged subcarinal lymph node. No other lymphadenopathy evident. There is no filling defect i n the pulmonary arterial tree to suggest pulmonary embolus. There is no evidence of aortic dissection or aneurysm. There is no evidence of pleural or pericardial effusion. Severe emphysema noted. No suspicious pulmonary nodule identified. Images through the upper abdomen reveal no abnormalities. Impression: No evidence of pulmonary embolus, aortic dissection, or aortic aneurysm. Severe emphysema. Stable enlarged subcarinal lymph node, nonspecific. Stability over this time interval suggests benign ity. Reviewed, dictated and finalized at [facility]. Impression: No evidence of pulmonary embolus, aortic dissection, or aortic aneurysm. Severe emphysema. Stable enlarged subcarinal lymph node, nonspecific. Stability over this time in terval suggests benignity.
--- NOTE | ~2022-04-30 | XR_ITS ---
Portable chest x-ray Comparison: 04/30/2022 Clinical History: Shortness of breath Findings: There is mild central congestive change and mild interstitial pulmonary edema pattern. No pleural effusion. Cardiomediastinal silhouette is stable. Bones and soft tissues are unremarkable. Impression: Mild interstitial pulmonary edema and mild central congestive change. Reviewed, dictated and finalized at [facility]. Impression: Mild interstitial pulmonary edema and mild central congestive change.
--- NOTE | ~2022-04-30 | XR_ITS ---
Clinical Indication: Shortness of breath PA and lateral views of the chest: Comparison: 02/16/2022 Findings: There is mild bibasilar haziness. No pleural effusion or pneumothorax.. Cardiomediastinal silhouette is stable, status post cardiac valve replacement. Bones and soft tissues are unremarkable. Impression: Mild bibasilar haziness. Correlate for minimal pulmonary edema or possibly COPD change or other chron ic interstitial disease. Stable probable mild cardiomegaly, status post cardiac valve replacement. Reviewed, dictated and finalized at location . Impression: Mild bibasilar haziness. Correlate for minimal pulmonary edema or possibly COPD change or other chronic interstitial disease. Stable probable mild cardiomegaly, status post cardiac valve replacement.
--- NOTE | 2022-04-30 16:39 | ECG_ITS ---
Measurements Intervals [place] Rate: 100 P: 12 [place]: 157 QRS: -35 QRSD: 138 T: 140 QT: 399 QTc: 515 Interpretive Statements SINUS TACHYCARDIA VENTRICULAR COUPLET AND FREQUENT VENTRICULAR PREMATURE COMPLEXES LEFT AXIS DEVIATION INTRAVENTRICULAR CONDUCTION DELAY DELAYED PRECORDIAL R/S TRANSITION LEFT VENTRICULAR HYPERTROPHY AND ST-T CHANGE BASELINE ARTIFACT- I, II, III, AVR, AVL ABNORMAL ECG COMPARED TO ECG 02/16/2022 04:25:48 SINUS TACHYCARDIA NOW PRESENT LEFT-AXIS DEVIATION NOW PRESENT Electronically Signed On 04-30-2022 20:35:44 CDT by Mikey Vieyra D.O.
[2022-04-30 17:15] LABS: Basophils Percent Auto 0.4 % (0.2-1.2); Eosinophils Percent Auto 0.5 % (0-4.4); Hematocrit 44.9 % (42.0-52.0); Hemoglobin 14.6 g/dL (14.0-18.0); Immature Granulocyte Absolute 0.02 K/mm3 (0.00-0.031); Immature Granulocyte Percent A 0.2 % (0-0.5); Lymphocytes Absolute Auto 1.65 K/mm3 (0.9-3.2); Lymphocytes Percent Auto 19.4 % (18.3-44.2); Mean Corpuscular HGB Conc 32.5 g/dl (32-36); Mean Corpuscular Hemoglobin 30.6 pg (26-34); Mean Corpuscular Volume 94.1 fl (80-100); Mean Platelet Volume 10.2 fl (7.4-10.4); Monocytes Absolute Auto 0.7 K/mm3 (0.1-0.6); Monocytes Percent Auto 7.9 % (2.6-8.5); Neutrophils Absolute Auto 6.1 K/mm3 (1.3-6.7); Neutrophils Percent Auto 71.6 % (45.5-73.1); Platelet Count Result 245 k/mm3 (150-375); Red Blood Count 4.77 M/mm3 (4.6-6.20); Red Cell Distribution Width 16.2 % (11.5-14.5); White Blood Count 8.5 K/mm3 (4.5-10.0)
[2022-04-30 17:25] LABS: Alanine Aminotransferase 25 U/L (6-50); Albumin Level 4.2 g/dL (3.5-5.1); Alkaline Phosphatase 87 U/L (38-126); Anion Gap 6 mmol/L (8-16); Aspartate Amino Transferase 32 U/L (17-59); Bilirubin,Total 1.1 mg/dL (0.2-1.3); Blood Urea Nitrogen 29 mg/dL (9-20); Calcium 9.2 mg/dL (8.4-10.2); Carbon Dioxide 30 mmol/L (22-30); Chloride 101 mmol/L (98-107); Estimated CRCL calculation 44 ml/min; Estimated Glomerular Filt Rate 39; Glucose 100 mg/dL (65-110); Potassium 4.3 mmol/L (3.4-5.0); Sodium 137 mmol/L (137-145)
[2022-04-30 17:50] LABS: Influenza A QL RT-PCR Negative (Negative); Influenza B QL RT-PCR Negative (Negative); SARS-CoV-2 RNA PCR Positive
--- NOTE | 2022-04-30 19:59 | ED.GENADULT ---
HPI - General Adult General Chief complaint: Shortness of Breath/Dyspnea Stated complaint: SOB Time Seen by Provider: 04/30/22 19:55 Source: RN notes reviewed History of Present Illness HPI narrative: Patient presents to emergency department from home for shortness of breath. Patient states he began to feel bad 2 days ago. He states he took a home COVID test today came back positive has been using albuterol treatments at home with minimal relief states he does have a history of COPD but is not normally on oxygen. States that his also tested positive for COVID. He denies any fevers or chills he denies any chest pain abdominal pain nausea or vomiting. States he has been feeling generally weak. Patient states that shortness of breath is worse with ambulation he came to the emergency department today and was noted to have a pulse ox down in the 80s and was placed on nasal cannula Related Data Home Medications Medication Instructions Recorded Confirmed aspirin 81 mg tablet,delayed 81 mg PO HS 03/05/19 04/05/22 release (Aspir-) albuterol sulfate 90 mcg/actuation 2 puff inhalation Q4H PRN 03/17/19 04/05/22 aerosol inhaler (Ventolin HFA) shortness of breath or wheezing lovastatin 20 mg tablet 20 mg PO QMWF 03/17/19 04/05/22 montelukast 10 mg tablet 10 mg PO DAILY 03/17/19 04/05/22 fluticasone fur. 100 mcg-umeclid 1 inhalation inhalation Q24H 08/26/19 04/05/22 62.5 mcg-vilant 25 mcg inhalat.powder (Trelegy Ellipta) furosemide 20 mg tablet 40 mg PO QAM 08/26/19 04/05/22 amlodipine 10 mg tablet 5 mg PO HS 09/28/21 04/05/22 finasteride 5 mg tablet 5 mg PO DAILY 12/31/21 04/05/22 Allergies Allergy/AdvReac Type Severity Reaction Status Date / Time No Known Allergies Allergy Unknown Verified 04/30/22 16:22 Review of Systems Review of Systems: Gen.: Denies fevers or chills ENT: Denies congestion Respiratory: See HPI CV: Denies chest pain or palpitations GI: Denies abdominal pain nausea, emesis Musculoskeletal: Denies back pain or muscle pain Neuro: Reports weakness Skin: Denies rash Except as documented, all other systems reviewed and negative [facility] Past Medical History Medical History Allergic rhinitis Aortic regurgitation Aortic stenosis BCC (basal cell carcinoma of skin) Bilateral foot pain BPH (benign prostatic hyperplasia) CAD (coronary artery disease) Chronic kidney disease, stage 3 unspecified CKD (chronic kidney disease), stage III Congestive heart failure COPD (chronic obstructive pulmonary disease) Cough Former smoker HLD (hyperlipidemia) 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 Hypertensive heart disease with heart failure IFG (impaired fasting glucose) Left foot pain Lower extremity edema Moderate persistent asthma without complication 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 Years smoked: 51 Smoking pack-years: 51.00 Smoking status: Former smoker Tobacco type: cigarettes Second hand tobacco smoke exposure: No Smoking end date: 08/11/18 Alcohol intake: never Alcohol use details: rarely Substance use: never Substance use type: does not use Living arrangements: with family Occupation/Education: retired Gender identity (if verbalized by the patient): Male Exam Narrative: APPEARANCE: No acute distress, nontoxic, resting in bed EYES: EOMI HEENT: Normocephalic, atraumatic, OMM RESPIRATORY: No respiratory distress mi
[2022-04-30] MEDS: IPRATROPIUM BR 0.02% INH SOLN 0.5 MG/2.5 ML VIAL INHALATION (20:08)
[2022-04-30] MEDS: methylPREDNISolone SOD SUCC 125 MG VIAL IV PUSH (20:11)
[2022-04-30 20:30] LABS: INR 1.2; Partial Thromboplastin Time 27.7 SECONDS (22.3-36.8); Prothrombin Time 14.3 Seconds (11.1-14.7)
[2022-04-30 20:33] LABS: NT Pro B Type Natriuretic Pept 28600 pg/mL (19.9-100); Troponin I 0.075 ng/mL (0.000-0.034)
--- NOTE | 2022-04-30 21:40 | PM.IMHP ---
H&P: HPI History of Present Illness Date/Time: 04/30/22 21:40 Chief Complaint: Shortness of breath Narrative: This is a 76-year-old male with past medical history significant for aortic stenosis, coronary artery disease, chronic kidney disease, COPD/emphysema, congestive heart failure, former tobacco user, dyslipidemia, hypertension. Patient presents to the emergency room due to shortness of breath and fatigue decreased stamina decided to take a home kit test for COVID which came back positive for him and his decided to come to the emergency room in emergency room patient was found to have an oxygen saturation of 87% he was placed on oxygen by nasal cannula. Patient has been having shortness of breath with mild exertion walking within the house, orthopnea, PND, denies any chest pain, denies dizziness, denies syncope or near syncope, no lightheadedness, no sputum production, no fevers, no rigors, no chills, no nausea, no vomiting. Preliminary workup was significant for a brain natriuretic peptide of 28,000, elevated troponins, creatinine of 1.7. Patient recently had a nuclear stress test which showed ejection fraction of 20% with infarction of the inferoseptal wall and downsloping of the ST segment significant for positive stress test for ischemia this was performed on April 252022. Chest x-ray was reported as: Impression: ? Mild bibasilar haziness. Correlate for minimal pulmonary edema or possibly COPD change or other chronic interstitial disease. Stable probable mild cardiomegaly, status post cardiac valve replacement. CT angiogram of the chest PE protocol: Findings: Stable enlarged subcarinal lymph node. No other lymphadenopathy evident. There is no filling defect in the pulmonary arterial tree to suggest pulmonary embolus. There is no evidence of aortic dissection or aneurysm. There is no evidence of pleural or pericardial effusion. Severe emphysema noted. No suspicious pulmonary nodule identified. Images through the upper abdomen reveal no abnormalities. Impression: No evidence of pulmonary embolus, aortic dissection, or aortic aneurysm. Severe emphysema. Stable enlarged subcarinal lymph node, nonspecific. Stability over this time interval suggests benignity. EKG SINUS TACHYCARDIA VENTRICULAR COUPLET AND FREQUENT VENTRICULAR PREMATURE COMPLEXES LEFT AXIS DEVIATION INTRAVENTRICULAR CONDUCTION DELAY DELAYED PRECORDIAL R/S TRANSITION LEFT VENTRICULAR HYPERTROPHY AND ST-T CHANGE BASELINE ARTIFACT- I, II, III, AVR, AVL ABNORMAL ECG COMPARED TO ECG 02/16/2022 04:25:48 SINUS TACHYCARDIA NOW PRESENT LEFT-AXIS DEVIATION NOW PRESENT Review of Systems Review of Systems: Shortness of breath Constitutional: Constitutional: Denies chills, Reports fatigue, Denies fever(s), Reports lethargy, Denies malaise and Reports weakness Eyes: Eyes: Denies change in vision ENT: Denies dysphagia, Denies nasal discharge and Denies odynophagia Cardiovascular: Cardiovascular: Denies chest pain, Reports leg edema, Denies radiating jaw, neck or arm pain, Reports palpitations, Reports dyspnea, Reports dyspnea on exertion, Reports orthopnea and Reports paroxysmal nocturnal dyspnea Respiratory: Respiratory: Denies chest congestion, Denies cough, Denies excessive phlegm production and Denies wheezing Gastrointestinal: Gastrointestinal: Denies abdominal pain, Denies dyspepsia, Denies heartburn, Denies nausea and Denies vomiting Genitourinary: Genitourinary: Denies dysuria Musculoskeletal: Musculoskeletal: Reports muscle weakness Integumentary/Breasts: Skin/Breast: Denies rash Neurologic: Denies focal weakness and Denies Sensory deficit (Neuro) Psychiatric: Psychiatric: Reports no additional psychiatric complaints and Reports as per HPI Endocrine: Endocrine: Denies cold intolerance, Denies flushing, Denies heat intolerance, Denies polyphagia, Denies polydipsia and Denies palpitations Hematologic/Lymphatic: Hematologic/Lymphatic: Repor
[2022-04-30] MEDS: ASPIRIN 81 MG CHEWABLE TABLET 324 MG PO (22:03)
[2022-05-01] VITALS (21 sets, daily range): BP systolic 130–161; BP diastolic 70–107; PULSE 70–119; RESP 14–26; TEMP 36.4–36.6; O2SAT 92–100; BMI 34.2
--- NOTE | 2022-05-01 00:40 | ADMIMU ---
This patient, Mihir Nguyen, was admitted to IMU status, and placed in Intensive Care Unit-4. Patient/family oriented to hospital policies and general routines including ID bracelet, bed and alarms, visiting hours, pain management, procedures, bathroom and other care routines, personal items, smoking policy, room service/diet, and visiting hours. Valuables list has been completed. Information on how to activate the Rapid Response Team has been discussed. Patient/Family are encouraged to report perceived risks to care and to ask questions if they do not understand what they are told or what they should do.
[2022-05-01 00:57] LABS: Troponin I 0.064 ng/mL (0.000-0.034)
[2022-05-01] MEDS: ALBUTEROL SULFATE NEB 2.5 MG/3 ML INH INHALATION ×4 (03:59→21:32)
[2022-05-01] MEDS: IPRATROPIUM BR 0.02% INH SOLN 0.5 MG/2.5 ML VIAL INHALATION ×4 (03:59→21:32)
[2022-05-01 04:34] LABS: Basophils Percent Auto 0.1 % (0.2-1.2); Hematocrit 42.2 % (42.0-52.0); Immature Granulocyte Absolute 0.02 K/mm3 (0.00-0.031); Immature Granulocyte Percent A 0.3 % (0-0.5); Lymphocytes Percent Auto 9.2 % (18.3-44.2); Mean Corpuscular HGB Conc 33.2 g/dl (32-36); Mean Corpuscular Hemoglobin 30.1 pg (26-34); Mean Corpuscular Volume 90.8 fl (80-100); Mean Platelet Volume 10.3 fl (7.4-10.4); Monocytes Absolute Auto 0.2 K/mm3 (0.1-0.6); Monocytes Percent Auto 2.1 % (2.6-8.5); Neutrophils Absolute Auto 6.7 K/mm3 (1.3-6.7); Neutrophils Percent Auto 88.3 % (45.5-73.1); Platelet Count Result 218 k/mm3 (150-375); Red Blood Count 4.65 M/mm3 (4.6-6.20); Red Cell Distribution Width 15.9 % (11.5-14.5); White Blood Count 7.6 K/mm3 (4.5-10.0)
[2022-05-01 04:44] LABS: Alanine Aminotransferase 24 U/L (6-50); Albumin Level 4.1 g/dL (3.5-5.1); Alkaline Phosphatase 81 U/L (38-126); Anion Gap 8 mmol/L (8-16); Aspartate Amino Transferase 28 U/L (17-59); Bilirubin,Total 0.8 mg/dL (0.2-1.3); Blood Urea Nitrogen 31 mg/dL (9-20); Calcium 8.8 mg/dL (8.4-10.2); Carbon Dioxide 26 mmol/L (22-30); Chloride 101 mmol/L (98-107); Estimated CRCL calculation 45 ml/min; Estimated Glomerular Filt Rate 39; Glucose 242 mg/dL (65-110); Potassium 3.7 mmol/L (3.4-5.0); Sodium 135 mmol/L (137-145)
[2022-05-01 04:57] LABS: Troponin I 0.055 ng/mL (0.000-0.034)
[2022-05-01] MEDS: methylPREDNISolone SOD SUCC 125 MG VIAL 60 MG IV PUSH ×4 (06:21→22:14)
[2022-05-01] MEDS: FUROSEMIDE INJ 40 MG/4 ML VIAL IV PUSH ×2 (08:55→17:11)
[2022-05-01] MEDS: SACUBITRIL/VALSARTAN 49-51 MG TABLET 1 TABLET PO ×2 (08:56→22:14)
[2022-05-01] MEDS: predniSONE 5 MG TABLET PO (08:56)
[2022-05-01] MEDS: METOPROLOL TARTRATE 25 MG TABLET 75 MG PO ×2 (08:56→22:13)
[2022-05-01] MEDS: MONTELUKAST SODIUM 10 MG TABLET PO (08:56)
[2022-05-01] MEDS: FLUTICASONE/SALMETEROL 115-21 MCG INHALER 1 PUFF 2 PUFF INHALATION ×2 (09:03→21:32)
[2022-05-01] MEDS: UMECLIDINIUM BROMIDE 62.5 MCG ELLIPTA 1 PUFF INHALATION (09:03)
--- NOTE | 2022-05-01 10:02 | PM.CNCAR ---
Assessment and Plan Assessment and plan (1) Acute on chronic systolic heart failure, NYHA class 4: Code(s): I50.23 - Acute on chronic systolic (congestive) heart failure Status: Acute Assessment and Plan: Recent decline in EF, 20%. He does have some evidence of decompensated HF on exam. GDMT with Entresto, metoprolol (will shift this to Toprol XL). Add jardiance. Can evan add spironolactone if renal function allows Agree with IV furosemide Daily BMP Strict I&O Daily weights He does need an angiogram at some point because of new reduction in EF and abnormal MPI results. He is not having any ischemic symptoms, so no need to pursue this as an inpatient. Can be scheduled as an outpatient when he has recovered from COVID (2) CAD (coronary artery disease): Code(s): I25.10 - Atherosclerotic heart disease of [place] coronary artery without angina pectoris Status: Acute Assessment and Plan: As above, plan for outpatient left heart cath. Continue ASA, statin (3) COVID-19: Code(s): U07.1 - COVID-19 Status: Acute Assessment and Plan: Management per hospitalist. History of Present Illness History of Present Illness Consult date/time: 05/01/22 10:02 Requesting physician: Carrie Park MD Consult reason: congestive heart failure Reason For Visit: COVID 19,Acute Respiratory Failure w/Hypoxia,[place] Narrative: Mr. Nguyen is a 76-year-old male with a history of coronary artery disease (SVG to the ramus, SVG to the PDA), aortic valve replacement (bio AVR in April 2019), cardiomyopathy with EF 20% by echo on 04/13/2022, COPD, and prostate cancer with bone metastasis diagnosed in January of 2021. This is a patient who presented to the emergency department with a chief complaint of shortness of breath. He took a home COVID test which was positive. Upon his arrival to the emergency department he was hypoxic with an oxygen saturation of 87% on room air. He also had evidence of CHF with some pulmonary edema on chest Xray and proBNP of 28,000. Prior to this presentation his diuretics had been increased because of complaints of edema, orthopnea, and shortness of breath. He also recently underwent a nuclear stress test because of newly decreased LVEF on echo on 04/13/22 - MPI showed a large, severe inferior and inferoseptal infarction as well as a mixed ischemia with infarction defect involving the apex, apical septum, apical anterior and apical lateral wall segments. He was supposed to have follow up in out office today to discus these results and plan for coronary angiogram. 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
--- NOTE | 2022-05-01 12:13 | PM.IMPN ---
Progress Note: A&P Assessment and Plan (1) Acute on chronic systolic heart failure, NYHA class 4: Code(s): I50.23 - Acute on chronic systolic (congestive) heart failure Status: Acute Assessment and Plan: Admit to IMU Fluid restriction to 1500 cc daily Aggressive diuresis A stress test reviewed Echocardiogram reviewed Ejection fraction calculated at 20% Findings significant for acute infarction now evolving Cardiology consult (2) Acute respiratory failure with hypoxia: Code(s): J96.01 - Acute respiratory failure with hypoxia Status: Acute Assessment and Plan: On supplemental oxygen by nasal cannula (3) Elevated troponin: Code(s): R77.8 - Other specified abnormalities of plasma proteins Status: Acute Assessment and Plan: Will continue to trend EKG reviewed (4) CAD (coronary artery disease): Code(s): I25.10 - Atherosclerotic heart disease of [place] coronary artery without angina pectoris Status: Acute Assessment and Plan: Continue home meds (5) COVID-19: Code(s): U07.1 - COVID-19 Status: Acute Assessment and Plan: Supportive care (6) CKD (chronic kidney disease), stage III: Code(s): N18.3 - Chronic kidney disease, stage 3 (moderate) Status: Acute Assessment and Plan: BUN and creatinine within patient's baseline (7) COPD (chronic obstructive pulmonary disease): Code(s): J44.9 - Chronic obstructive pulmonary disease, unspecified Status: Acute Assessment and Plan: Breathing treatments as needed Subjective Date/time seen: 05/01/22 12:13 No complaints Breathing is little better Exam Narrative: Patient is sitting by the edge of the stretcher Const: General: comfortable, no acute distress, well developed, alert, awake, ill appearing chronically and average body habitus Nutritional Appearance: average body habitus Orientation/consciousness: patient oriented x3 HENMT: Head: normal to inspection, normocephalic and atraumatic Ears: hearing grossly normal bilaterally Face/Nose/Sinus: normal facial exam Face and sinus: normal facial exam Eyes: General: appearance normal, both eyes and all related structures Pupils: Equal, round and reactive pupils present EOM: EOMs intact bilaterally Neck: Neck: full ROM, no lymphadenopathy and no JVD Thyroid: thyroid normal Lymphatic: no lymphadenopathy noted Resp: Effort & Inspection: normal respiratory effort and able to speak in complete sentences Auscultation: crackles Cardio: Jugular venous distension: no JVD Rate: regular rate Rhythm: regular rhythm Heart sounds: S1 normal heart sound present and S2 normal heart sound present : General: Yes deferred Skin: Rashes: no rashes Wounds: no wounds Neuro: General: patient oriented x3, CN's II-XI intact bilaterally and Unable to assess gait Cranial nerves: Yes CN's II-XII intact bilaterally and Yes Equal, round and reactive pupils present Cognition (Neuro): normal cognition Speech: normal speech Gait exam (Neuro): Unable to assess gait Motor exam (neuro): 5/5 motor strength present throughout Sensory Exam: No Sensory deficit (Neuro) Extrem: General: normal to inspection, full ROM, no joint enlargement and no pedal edema Objective Data Vital Signs Vital Signs: Vital Signs - 24 hr 04/30/22 16:35 04/30/22 19:54 04/30/22 19:51 Temperature 97.7 F Pulse Rate 85 109 H Respiratory Rate 18 24 H Blood Pressure 148/68 H Pulse Oximetry 96 92 86 L Oxygen Delivery Room Air Nasal Cannula Oxygen Flow Rate 3 Fraction of Inspired Oxygen 04/30/22 19:59 04/30/22 20:12 04/30/22 20:24 Temperature Pulse Rate 85 88 Respiratory Rate 18 18 Blood Pressure Pulse Oximetry 99 Oxygen Delivery Nasal Cannula Oxygen Flow Rate 3 Fraction of Inspired Oxygen 04/30/22 20:00 04/30/22 20:04 04/30/22 20:32 Temperature Pulse Rate 90 88 98 Respiratory Rate 21 H 17 21 H
[2022-05-01 21:05] LABS: Glucose Point of Care 217 mg/dl (65-105)
[2022-05-01] MEDS: cycloSPORINE 0.4 ML OPHTH SOLUTION 1 DROP EACH EYE (22:13)
[2022-05-01] MEDS: ASPIRIN 81 MG ENTERIC TABLET PO (22:13)
[2022-05-02] VITALS: BP 130/70; PULSE 78; RESP 22; TEMP 36.6; O2SAT 99
[2022-05-02 04:00] VITALS: BP 128/74; PULSE 71; RESP 20; TEMP 36.7; O2SAT 99
[2022-05-02] MEDS: methylPREDNISolone SOD SUCC 125 MG VIAL 60 MG IV PUSH (05:49)
[2022-05-02 06:09] LABS: Hematocrit 43.4 % (42.0-52.0); Hemoglobin 14.1 g/dL (14.0-18.0); Immature Granulocyte Absolute 0.05 K/mm3 (0.00-0.031); Immature Granulocyte Percent A 0.5 % (0-0.5); Lymphocytes Absolute Auto 1.13 K/mm3 (0.9-3.2); Lymphocytes Percent Auto 11.1 % (18.3-44.2); Mean Corpuscular HGB Conc 32.5 g/dl (32-36); Mean Corpuscular Hemoglobin 30.3 pg (26-34); Mean Corpuscular Volume 93.1 fl (80-100); Mean Platelet Volume 10.4 fl (7.4-10.4); Monocytes Absolute Auto 0.4 K/mm3 (0.1-0.6); Neutrophils Absolute Auto 8.6 K/mm3 (1.3-6.7); Neutrophils Percent Auto 84.4 % (45.5-73.1); Platelet Count Result 249 k/mm3 (150-375); Red Blood Count 4.66 M/mm3 (4.6-6.20); Red Cell Distribution Width 15.6 % (11.5-14.5); White Blood Count 10.1 K/mm3 (4.5-10.0)
[2022-05-02 06:21] LABS: Anion Gap 7 mmol/L (8-16); Blood Urea Nitrogen 39 mg/dL (9-20); Calcium 8.9 mg/dL (8.4-10.2); Carbon Dioxide 31 mmol/L (22-30); Chloride 95 mmol/L (98-107); Estimated CRCL calculation 45 ml/min; Estimated Glomerular Filt Rate 39; Glucose 165 mg/dL (65-110); Potassium 3.9 mmol/L (3.4-5.0); Sodium 133 mmol/L (137-145)
[2022-05-02 08:42] LABS: Glucose Point of Care 193 mg/dl (65-105)
[2022-05-02 09:32] VITALS: PULSE 90; PULSE 901; RESP 18; RESP 94; O2SAT 94
[2022-05-02] MEDS: ALBUTEROL SULFATE NEB 2.5 MG/3 ML INH INHALATION (09:32)
[2022-05-02] MEDS: IPRATROPIUM BR 0.02% INH SOLN 0.5 MG/2.5 ML VIAL INHALATION (09:32)
--- NOTE | 2022-05-02 09:32 | PM.PNCARD ---
Progress Note: A&P Assessment and Plan (1) Acute on chronic systolic heart failure, NYHA class 4: Code(s): I50.23 - Acute on chronic systolic (congestive) heart failure Status: Acute Assessment and Plan: Recent decline in EF, 20%. CHF improved with IV diuretic. GDMT with Entresto, metoprolol (will shift this to Toprol XL). Add jardiance. Further medication optimization to be done as outpatient Can shift to p.o. furosemide today He does need an angiogram at some point because of new reduction in EF and abnormal MPI results. He is not having any ischemic symptoms, so no need to pursue this as an inpatient. Can be scheduled as an outpatient when he has recovered from COVID OK for discharge today from a cardiac perspective. (2) CAD (coronary artery disease): Code(s): I25.10 - Atherosclerotic heart disease of [place] coronary artery without angina pectoris Status: Acute Assessment and Plan: As above, plan for outpatient left heart cath. Continue ASA, statin (3) COVID-19: Code(s): U07.1 - COVID-19 Status: Acute Assessment and Plan: Management per hospitalist. Subjective Date/time seen: 05/02/22 09:32 Cardiology follow up for cardiomyopathy, CHF Swelling has resolved. He is breathing comfortably on room air. No chest pain or palpitations. Review of Systems Review of Systems: All systems reviewed & are unremarkable except as noted in HPI and below Exam Const: General: comfortable, no acute distress, alert and awake Orientation/consciousness: patient oriented x3 HENMT: Head: normal to inspection Eyes: General: appearance normal, both eyes and all related structures Pupils: Equal, round and reactive pupils present Neck: Neck: normal visual inspection, supple and no JVD Carotids: normal carotid upstroke Resp: Effort & Inspection: normal respiratory effort Auscultation: clear to auscultation bilaterally Cardio: Rate: regular rate Rhythm: regular rhythm Heart sounds: S1 normal heart sound present, S2 normal heart sound present and no murmurs GI: Auscultation: normal bowel sounds Skin: General skin exam: normal color Neuro: General: patient oriented x3 Cranial nerves: Yes Equal, round and reactive pupils present Extrem: General: normal to inspection Other: No edema Psych: Appearance: grossly normal Mental Status: mental status grossly normal Objective Data Vital Signs Vital Signs: Vital Signs - 24 hr 05/01/22 10:00 05/01/22 12:00 05/01/22 12:00 Temperature 36.4 C Pulse Rate 93 79 71 Respiratory Rate 21 H Blood Pressure 140/89 Pulse Oximetry 94 Oxygen Delivery Oxygen Flow Rate Fraction of Inspired Oxygen 05/01/22 13:54 05/01/22 13:54 05/01/22 14:13 Temperature Pulse Rate 80 80 81 Respiratory Rate 16 16 18 Blood Pressure Pulse Oximetry 92 Oxygen Delivery Room Air Oxygen Flow Rate Fraction of Inspired Oxygen 21 05/01/22 16:00 05/01/22 21:33 05/01/22 21:47 Temperature 36.4 C Pulse Rate 88 77 79 Respiratory Rate 18 18 18 Blood Pressure 153/79 H Pulse Oximetry 98 Oxygen Delivery Oxygen Flow Rate Fraction of Inspired Oxygen 05/01/22 20:00 05/01/22 22:13 05/01/22 20:00 Temperature 36.6 C Pulse Rate 70 85 Respiratory Rate 22 H Blood Pressure 130/70 Pulse Oximetry 99 95 Oxygen Delivery Nasal Cannula Oxygen Flow Rate 1 Fraction of Inspired Oxygen 05/02/22 00:00 05/02/22 04:00 Temperature 36.6 C 36.7 C Pulse Rate 78 71 Respiratory Rate 22 H 20 Blood Pressure 130/70 128/74 Pulse Oximetry 99 99 Oxygen Delivery Oxygen Flow Rate Fraction of Inspired Oxygen Intake/Output Intake/Output: Intake & Output 04/29/22 04/30/22 05/01/22 05/02/22 22:59 23:59 23:59 23:59 Intake Total 1165 Output Total 1370 Balance -205 Meds/Results Medications: Active Medications Generic Name Dose Route Start Last Admin Trade Na
[2022-05-02] MEDS: FLUTICASONE/SALMETEROL 115-21 MCG INHALER 1 PUFF 2 PUFF INHALATION (09:33)
[2022-05-02] MEDS: UMECLIDINIUM BROMIDE 62.5 MCG ELLIPTA 1 PUFF INHALATION (09:33)
[2022-05-02 09:52] VITALS: PULSE 92; RESP 18
[2022-05-02 10:34] VITALS: PULSE 89
[2022-05-02] MEDS: METOPROLOL TARTRATE 25 MG TABLET 75 MG PO (10:34)
[2022-05-02] MEDS: amLODIPine BESYLATE 5 MG TABLET PO (10:35)
[2022-05-02] MEDS: SACUBITRIL/VALSARTAN 49-51 MG TABLET 1 TABLET PO (10:35)
[2022-05-02] MEDS: MONTELUKAST SODIUM 10 MG TABLET PO (10:35)
[2022-05-02] MEDS: EMPAGLIFLOZIN 10 MG TABLET PO (10:35)
[2022-05-02] MEDS: FUROSEMIDE INJ 40 MG/4 ML VIAL IV PUSH (10:36)
[2022-05-02] MEDS: predniSONE 5 MG TABLET PO (10:36)
[2022-05-02 11:13] LABS: NT Pro B Type Natriuretic Pept 12700 pg/mL (19.9-100)
--- NOTE | 2022-05-02 11:16 | ECG_ITS ---
Measurements Intervals [place] Rate: 82 P: 53 AL: 147 QRS: -33 QRSD: 144 T: 141 QT: 442 QTc: 517 Interpretive Statements SINUS RHYTHM ATRIAL AND VENTRICULAR PREMATURE COMPLEXES LEFT AXIS DEVIATION POSSIBLE LEFT ATRIAL ENLARGEMENT LEFT BUNDLE BRANCH BLOCK ABNORMAL ECG COMPARED TO ECG 04/30/2022 16:48:43 SINUS RHYTHM NOW PRESENT LEFT BUNDLE BRANCH BLOCK NOW PRESENT Electronically Signed On 05-02-2022 11:36:13 CDT by Mikey Vieyra D.O.
--- NOTE | 2022-05-02 11:18 | PM.DS ---
DS: Admitting Diagnosis Discharge Date May 02, 2022 Admitting Diagnosis CHF, COVID DS: Discharge Diagnosis Discharge Diagnosis (1) Acute on chronic systolic heart failure, NYHA class 4: Code(s): I50.23 - Acute on chronic systolic (congestive) heart failure Status: Acute Assessment and Plan: Admit to IMU Fluid restriction to 1500 cc daily Aggressive diuresis A stress test reviewed Echocardiogram reviewed Ejection fraction calculated at 20% Findings significant for acute infarction now evolving Cardiology consult (2) Acute respiratory failure with hypoxia: Code(s): J96.01 - Acute respiratory failure with hypoxia Status: Acute Assessment and Plan: On supplemental oxygen by nasal cannula (3) Elevated troponin: Code(s): R77.8 - Other specified abnormalities of plasma proteins Status: Acute Assessment and Plan: Will continue to trend EKG reviewed (4) CAD (coronary artery disease): Code(s): I25.10 - Atherosclerotic heart disease of [place] coronary artery without angina pectoris Status: Acute Assessment and Plan: Continue home meds (5) COVID-19: Code(s): U07.1 - COVID-19 Status: Acute Assessment and Plan: Supportive care (6) CKD (chronic kidney disease), stage III: Code(s): N18.3 - Chronic kidney disease, stage 3 (moderate) Status: Acute Assessment and Plan: BUN and creatinine within patient's baseline (7) COPD (chronic obstructive pulmonary disease): Code(s): J44.9 - Chronic obstructive pulmonary disease, unspecified Status: Acute Assessment and Plan: Breathing treatments as needed DS: Summary Hospital Course Hospital Course: Patient is 76-year-old female came in with some shortness of breath found to have CHF exacerbation, acute on chronic systolic. EF of 20%. He was also found have COVID but this was likely not contributing to his shortness of breath. Patient is on room air and tolerating just fine. Patient can be sent home with adjustment of his cardiac medications and adjustment of his diuretic. Follow Cardiology Time Spent with Patient Time attestation: Total time spent providing and/or coordinating discharge services: Exam Narrative: Patient is sitting by the edge of the stretcher Const: General: comfortable, no acute distress, well developed, alert, awake, ill appearing chronically and average body habitus Nutritional Appearance: average body habitus Orientation/consciousness: patient oriented x3 HENMT: Head: normal to inspection, normocephalic and atraumatic Ears: hearing grossly normal bilaterally Face/Nose/Sinus: normal facial exam Face and sinus: normal facial exam Eyes: General: appearance normal, both eyes and all related structures Pupils: Equal, round and reactive pupils present EOM: EOMs intact bilaterally Neck: Neck: full ROM, no lymphadenopathy and no JVD Thyroid: thyroid normal Lymphatic: no lymphadenopathy noted Resp: Effort & Inspection: normal respiratory effort and able to speak in complete sentences Auscultation: crackles Cardio: Jugular venous distension: no JVD Rate: regular rate Rhythm: regular rhythm Heart sounds: S1 normal heart sound present and S2 normal heart sound present : General: Yes deferred Skin: Rashes: no rashes Wounds: no wounds Neuro: General: patient oriented x3, CN's II-XI intact bilaterally and Unable to assess gait Cranial nerves: Yes CN's II-XII intact bilaterally and Yes Equal, round and reactive pupils present Cognition (Neuro): normal cognition Speech: normal speech Gait exam (Neuro): Unable to assess gait Motor exam (neuro): 5/5 motor strength present throughout Sensory Exam: No Sensory deficit (Neuro) Extrem: General: normal to inspection, full ROM, no joint enlargement and no pedal edema DS: Data Data Completed and Pending Labs on day of discharge: Labs from last 24 hours 05/02/22 05/02/22
[2022-05-02] MEDS: cycloSPORINE 0.4 ML OPHTH SOLUTION 1 DROP EACH EYE (11:39)
[2022-05-02 12:15] LABS: Glucose Point of Care 166 mg/dl (65-105)
== END 2022-05-02 13:50 | disposition home or self-care (01) ==
LOC: ANHED 21:51 → ANHICU 05-01 01:21 → ANH3MED 05-02 11:17 → ANHICU 05-03 10:42
PROVIDERS: Emergency Medicine; Nurse Practitioner; Admitting Provider Internal Medicine; Emergency Provider Emergency Medicine; PCP Family Medicine; Visit Provider Chiropractor
DX: I13.0 Hypertensive heart and chronic kidney disease with heart failure and stage 1 through stage 4 chronic kidney disease, or unspecified chronic kidney disease (principal); I50.23 Acute on chronic systolic (congestive) heart failure; N18.30 Chronic kidney disease, stage 3 unspecified; J96.01 Acute respiratory failure with hypoxia; R77.8 Other specified abnormalities of plasma proteins; I25.10 Atherosclerotic heart disease of native coronary artery without angina pectoris; U07.1 COVID-19; J44.9 Chronic obstructive pulmonary disease, unspecified; J45.40 Moderate persistent asthma, uncomplicated; N40.0 Benign prostatic hyperplasia without lower urinary tract symptoms; R79.89 Other specified abnormal findings of blood chemistry; C61 Malignant neoplasm of prostate; C79.51 Secondary malignant neoplasm of bone; E78.5 Hyperlipidemia, unspecified; R94.31 Abnormal electrocardiogram [ECG] [EKG]; Z87.891 Personal history of nicotine dependence; Z95.2 Presence of prosthetic heart valve; Z79.1 Long term (current) use of non-steroidal anti-inflammatories (NSAID); Z79.82 Long term (current) use of aspirin; Z79.52 Long term (current) use of systemic steroids; Z79.51 Long term (current) use of inhaled steroids; Z79.899 Other long term (current) drug therapy; Z82.49 Family history of ischemic heart disease and other diseases of the circulatory system
CPT/HCPCS: 36415; 71045; 71046; 71275; 80048; 80053; 82948; 83880; 84484; 85025; 85610; 85730; 87636; 93005; 94640; 96374; 96375; 96376; 99285; A9270; G0378; J1940; J2930; J7512; Q9967

== ENCOUNTER 2022-05-04 15:46 | Inpatient (IN) | payer MEDICARE, SELFPAY ==
[2022-05-04] VITALS (8 sets, daily range): BP systolic 124–159; BP diastolic 57–94; PULSE 46–94; RESP 11–28; TEMP 36.1–36.7; O2SAT 93–100; BMI 32.8
--- NOTE | ~2022-05-04 | XR_ITS ---
XR chest 2V 05/04/2022 17:06 Indication: Dyspnea. Covid positive. Procedure: 2 view chest Comparison: Comparison to multiple prior studies sequentially, with oldest reviewed study dated 01/20. Findings: There are chronic interstitial infiltrates of the lower lungs. Status post median sternotom y for CABG. Cardiomegaly. No pleural effusion or pneumothorax. No acute osseous abnormality. There is a prosthetic heart valve. There is an epicardial pacing lead. Impression: 1: Chronic interstitial infiltrates of the lower lungs which may represent atelectasis/fibrosis, mild edema or atypical pneumonia. Reviewed, dictated and finalized at location A. Impression: 1: Chronic interstitial infiltrates of the lower lungs which may represent atel ectasis/fibrosis, mild edema or atypical pneumonia.
--- NOTE | ~2022-05-04 | CT_ITS ---
EXAMINATION: CTA chest PE protocol DATE: 05/04/2022 18:07 CDT INDICATION: Increased shortness of breath with Covid positive testing. TECHNIQUE: Computed tomographic angiography (CTA) of the chest was performed with 100 mL Omnipaque-35 0 intravenous contrast. The dose-length product was 842.82 mGy-cm. Maximum intensity projection 3D-re constructions of the aorta and other arteries were constructed by the technologist on a separate work station. Automated exposure control and iterative reconstruction technique were employed. COMPARISON: CT dated 04/30/2022. FINDINGS: Cardiomegaly. Study is technically adequate without evidence for pulmonary embolism. Stable mediastinal lymphadenopathy, likely reactive. No significant pleural or pericardial effusion. There is atherosclerosis of the aorta, great vessels and coronary arteries. There is a low-density lesion u pper pole of the left kidney, partially visualized, most likely a cyst. There are calcified granuloma s of the spleen. Severe emphysema. There are groundglass and interstitial infiltrates of the lower lo bes posteriorly which may represent atelectasis or developing pneumonia. There is right lower lobe br onchiectasis. Status post median sternotomy for CABG. Moderate thoracic spondylosis. IMPRESSION: 1. No evidence for pulmonary embolism. 2: Mixed groundglass and interstitial infiltrates of the lower lobes, atelectasis versus developing pneumonia. 3: Stable mediastinal lymphadenopathy, likely reactive. 4: Severe emphysema. Reviewed, dictated and finalized at location A. IMPRESSION: 1. No evidence for pulmonary embolism. 2: Mixed groundglass and interstitial infiltrates of the lower lobes, atelecta sis versus developing pneumonia. 3: Stable mediastinal lymphadenopathy, likely reactive. 4: Severe emphysema.
--- NOTE | 2022-05-04 15:56 | ECG_ITS ---
Measurements Intervals [place] Rate: 91 P: ID: 0 QRS: -34 QRSD: 141 T: 136 QT: 432 QTc: 533 Interpretive Statements SINUS RHYTHM ATRIAL PREMATURE COMPLEX AND FREQUENT VENTRICULAR PREMATURE COMPLEXES LEFT AXIS DEVIATION LEFT BUNDLE BRANCH BLOCK BASELINE ARTIFACT- I, II, III, AVR, V4-V6 ABNORMAL ECG COMPARED TO ECG 05/02/2022 11:32:13 NO SIGNIFICANT CHANGES Electronically Signed On 05-04-2022 16:15:21 CDT by Mikey Vieyra D.O.
[2022-05-04 16:21] LABS: Basophils Percent Auto 0.2 % (0.2-1.2); Eosinophils Absolute Auto 0.1 K/mm3 (0-0.3); Eosinophils Percent Auto 0.8 % (0-4.4); Hematocrit 48.4 % (42.0-52.0); Hemoglobin 16.2 g/dL (14.0-18.0); Immature Granulocyte Absolute 0.04 K/mm3 (0.00-0.031); Immature Granulocyte Percent A 0.4 % (0-0.5); Lymphocytes Absolute Auto 1.77 K/mm3 (0.9-3.2); Lymphocytes Percent Auto 16.1 % (18.3-44.2); Mean Corpuscular HGB Conc 33.5 g/dl (32-36); Mean Corpuscular Hemoglobin 30.7 pg (26-34); Mean Corpuscular Volume 91.8 fl (80-100); Mean Platelet Volume 10.4 fl (7.4-10.4); Monocytes Absolute Auto 0.6 K/mm3 (0.1-0.6); Monocytes Percent Auto 5.3 % (2.6-8.5); Neutrophils Absolute Auto 8.5 K/mm3 (1.3-6.7); Neutrophils Percent Auto 77.2 % (45.5-73.1); Platelet Count Result 274 k/mm3 (150-375); Red Blood Count 5.27 M/mm3 (4.6-6.20); Red Cell Distribution Width 15.5 % (11.5-14.5)
[2022-05-04 16:28] LABS: Alanine Aminotransferase 22 U/L (6-50); Albumin Level 3.9 g/dL (3.5-5.1); Alkaline Phosphatase 76 U/L (38-126); Anion Gap 5 mmol/L (8-16); Aspartate Amino Transferase 27 U/L (17-59); Bilirubin,Total 1.2 mg/dL (0.2-1.3); Blood Urea Nitrogen 44 mg/dL (9-20); Calcium 8.7 mg/dL (8.4-10.2); Carbon Dioxide 31 mmol/L (22-30); Chloride 98 mmol/L (98-107); Estimated CRCL calculation 44 ml/min; Estimated Glomerular Filt Rate 39; Glucose 134 mg/dL (65-110); Potassium 3.4 mmol/L (3.4-5.0); Sodium 134 mmol/L (137-145)
--- NOTE | 2022-05-04 17:16 | ED.SOB ---
HPI - SOB/Dyspnea General Chief Complaint: Shortness of Breath/Dyspnea <Harmony Alonso PA-C - Last Filed: 05/04/22 20:12> Stated Complaint: covid +, sob <Harmony Alonso PA-C - Last Filed: 05/04/22 20:12> Time Seen by Provider: 05/04/22 17:07 <THOMAS Whitaker Last Filed: 05/04/22 20:12> Source: patient and old records reviewed <THOMAS Whitaker Last Filed: 05/04/22 20:12> Mode of arrival: ambulatory <THOMAS Whitaker Last Filed: 05/04/22 20:12> Limitations: no limitations <THOMAS Whitaker Last Filed: 05/04/22 20:12> History of Present Illness HPI Narrative: Patient is a 76-year-old male, with past medical history of COPD, CHF, CAD, history of aortic valve replacement, who presents to the ED with report of shortness of breath. Patient reports he was diagnosed with COVID-19 via home test last Sunday. He developed shortness of breath on 04/30 and was seen in the ED at that time. He was hypoxic on room air, and admitted to the hospitalist service for acute resp failure, elevated troponin, COPD exacerbation, CHF, given nebulizers, steroids, and discharged on 05/02. Patient states he felt slightly better the day after discharge, but developed increased shortness of breath again today. He has been taking Lasix and using his nebulizers and inhalers as prescribed. He states anytime he moves or exerts himself, his shortness breath worsens. He reports having a persistent productive cough, congestion, rhinorrhea, denies any chest pain, fevers, abdominal pain, N/V. Per patient's records, he was evaluated by cardiology while inpatient and underwent a myocardial perfusion study which was concerning for an active/ongoing ischemia/infarction. Likely explaining elevated troponins. Plan was for an outpatient angiogram once patient recovered from COVID-19. Patient states he was scheduled to follow-up with Dr. Bueno next Sunday. <AMY WhitakerC - Last Filed: 05/04/22 20:12> Related Data Home Medications: Home Medications Medication Instructions Recorded Confirmed aspirin 81 mg tablet,delayed 81 mg PO HS 03/05/19 05/01/22 release (Aspir-) albuterol sulfate 90 mcg/actuation 2 puff inhalation Q4H PRN 03/17/19 05/01/22 aerosol inhaler (Ventolin HFA) shortness of breath or wheezing montelukast 10 mg tablet 10 mg PO DAILY 03/17/19 05/01/22 naproxen 500 mg tablet (Naprosyn) 500 mg PO BID 04/30/22 05/01/22 amlodipine 5 mg tablet 5 mg PO HS 05/01/22 05/01/22 budesonide-formoterol HFA 160 2 puff inhalation BID 05/01/22 05/01/22 mcg-4.5 mcg/actuation aerosol inhaler (Symbicort) cyclosporine 0.05 % eye drops in a 1 drp EACH EYE BID 05/01/22 05/01/22 dropperette (Restasis) enzalutamide 40 mg tablet (Xtandi) 40 mg PO BID 05/01/22 05/01/22 lovastatin 20 mg tablet 25 mg PO QMWF 05/01/22 05/01/22 metoprolol tartrate 50 mg tablet 75 mg PO BID 05/01/22 05/01/22 prednisone 5 mg tablet 5 mg PO DAILY 05/01/22 05/01/22 sacubitril 49 mg-valsartan 51 mg 1 tablet PO BID 05/01/22 05/01/22 tablet (Entresto) tiotropium bromide 2.5 2 puff inhalation BID 05/01/22 05/01/22 mcg/actuation mist for inhalation (Spiriva Respimat) <THOMAS Whitaker Last Filed: 05/04/22 20:12> Allergies/Adverse Reactions: Allergies Allergy/AdvReac Type Severity Reaction Status Date / Time No Known Allergies Allergy Unknown Verified 04/30/22 16:22 <THOMAS Whitaker Last Filed: 05/04/22 20:12> Review of Systems Review of Systems: CONSTITUTIONAL: Denies fever, chills, or sweats. ENT: See HPI. CARDIOVASCULAR: See HPI. RESPIRATORY: See HPI. GASTROINTESTINAL: Denies abdominal pain, nausea, vomiting. GENITOURINARY: Denies dysuria or hematuria. MUSCULOSKELETAL: Denies back pain, joint pain, or myalgia. NEUROLOGIC: Denies headache, numbness, or weakness. <Harmony Alonso PA-C - Last Filed: 05/04/22 20:12> All systems re
[2022-05-04 17:48] LABS: NT Pro B Type Natriuretic Pept 9980 pg/mL (19.9-100); Troponin I 0.068 ng/mL (0.000-0.034)
[2022-05-04] MEDS: IPRATROPIUM BR 0.02% INH SOLN 0.5 MG/2.5 ML VIAL 1.5 MG INHALATION (18:01)
[2022-05-04] MEDS: FUROSEMIDE INJ 40 MG/4 ML VIAL IV PUSH (18:29)
--- NOTE | 2022-05-04 20:13 | PM.IMHP ---
H&P: HPI History of Present Illness Date/Time: 05/04/22 20:13 Chief Complaint: Shortness of breath Narrative: This is a 76-year-old male patient who has a history of COPD, coronary artery disease, CHF with an EF of proximal 20%. And history of aortic valve replacement. The patient came to the emergency room with complaint of shortness of breath. The patient was diagnosed with COVID on 04/30/22 when he was seen in the emergency room. The patient had previously taken home test on the previous Sunday and was already testing positive with a home test. The patient had been hypoxic on room air and was admitted to the hospital with acute respiratory failure an elevated troponin. He was given nebulizers steroids and then discharged on 05/02/2022. The patient was slightly better but still continued to be short of breath with exertion. The patient has been taking Lasix and using his nebulizers as prescribed. The patient stated that he felt like he needed home oxygen. The patient tells me that he was scheduled for an outpatient angiogram once he recovers from COVID-19. The patient is scheduled with Dr. Pressley next Sunday. His white count 11.0. Sodium 134. BUN is 44 creatinine is 1.7 which is his baseline. Glucose 134. Troponin 0.068 and on 04/30/2022 had been 0.075. [place] [address] to 9980 now. Chest x-ray was read as chronic interstitial infiltrates of the lower lungs which may represent atelectasis/fibrosis mild edema or atypical pneumonia. Chest CTA was read as the followingNo evidence for pulmonary embolism. 2:? Mixed groundglass and interstitial infiltrates of the lower lobes, atelectasis versus developing pneumonia. 3:? Stable mediastinal lymphadenopathy, likely reactive. 4:? Severe emphysema. The patient has oxygen on at 2 L per nasal cannula. He was given nebulizer treatments Lasix Rocephin and azithromycin. The patient is being admitted to observation status on the date of service of 05/04/2022 Review of Systems Review of Systems: All systems reviewed & are unremarkable except as noted in HPI and below Constitutional: Constitutional: Reports as per HPI and Reports no additional constitutional complaints Eyes: Eyes: Reports as per HPI and Reports no additional eye complaints ENT: Reports system reviewed and no additional complaints, except as documented and Reports Normal hearing present Cardiovascular: Cardiovascular: Reports no additional cardiovascular complaints Respiratory: Respiratory: Reports no additional respiratory complaints and Reports no additional respiratory complaints Gastrointestinal: Gastrointestinal: Reports as per HPI and Reports no additional gastrointestinal complaints Musculoskeletal: Musculoskeletal: Reports no additional musculoskeletal complaints Integumentary/Breasts: Skin/Breast: Reports system reviewed and no additional complaints, except as docu and Reports as per HPI Neurologic: Reports system reviewed and no additional complaints, except as documented, Reports as per HPI and Reports Normal hearing present Psychiatric: Psychiatric: Reports no additional psychiatric complaints and Reports as per HPI Endocrine: Endocrine: Reports no additional endocrine complaints Hematologic/Lymphatic: Hematologic/Lymphatic: Reports no additional hematologic/lymphatic complaints Allergic/Immunologic: Allergic/Immunologic: Reports no additional allergic/immunologic complaints [facility] Past Medical History Medical History (Updated 05/04/22 @ 22:50 by Deepali Kearns NP) Allergic rhinitis Aortic regurgitation Aortic stenosis BCC (basal cell carcinoma of skin) Bilateral foot pain BPH (benign prostatic hyperplasia) CAD (coronary artery disease) Chronic kidney disease, stage 3 unspecified CKD (chronic kidney disease), stage III Congestive heart failure COPD (chronic obstructive pulmonary disease) Cough Former smoker History of kidney stones History of osteomyelitis HLD (hyperlipidemia) Hy kid N
--- NOTE | 2022-05-04 23:10 | ADMGEN ---
This patient, Mihir Nguyen, was admitted to IMU Room 205-01. Patient/family oriented to hospital policies and general routines including ID bracelet, bed and alarms, visiting hours, pain management, procedures, bathroom and other care routines, personal items, smoking policy, room service/diet, and visiting hours. Information on how to activate the Rapid Response Team has been discussed. Patient/Family are encouraged to report perceived risks to care and to ask questions if they do not understand what they are told or what they should do.
[2022-05-04 23:56] LABS: Troponin I 0.063 ng/mL (0.000-0.034)
[2022-05-05] VITALS (27 sets, daily range): BP systolic 121–154; BP diastolic 61–105; PULSE 45–113; RESP 16–24; TEMP 36.1–37; O2SAT 85–99
[2022-05-05] MEDS: IPRATROPIUM BR 0.02% INH SOLN 0.5 MG/2.5 ML VIAL INHALATION ×5 (00:19→20:11)
[2022-05-05] MEDS: LEVALBUTEROL NEB 1.25 MG/3 ML INHALATION ×4 (02:49→20:11)
[2022-05-05] MEDS: POTASSIUM CHLORIDE 20 MEQ TABLET 40 MEQ PO (03:28)
[2022-05-05 05:10] LABS: Basophils Percent Auto 0.2 % (0.2-1.2); Eosinophils Absolute Auto 0.1 K/mm3 (0-0.3); Eosinophils Percent Auto 0.7 % (0-4.4); Hematocrit 46.3 % (42.0-52.0); Hemoglobin 15.5 g/dL (14.0-18.0); Immature Granulocyte Absolute 0.05 K/mm3 (0.00-0.031); Immature Granulocyte Percent A 0.5 % (0-0.5); Lymphocytes Absolute Auto 1.53 K/mm3 (0.9-3.2); Lymphocytes Percent Auto 13.8 % (18.3-44.2); Mean Corpuscular HGB Conc 33.5 g/dl (32-36); Mean Corpuscular Hemoglobin 30.2 pg (26-34); Mean Corpuscular Volume 90.1 fl (80-100); Mean Platelet Volume 10.1 fl (7.4-10.4); Monocytes Absolute Auto 0.6 K/mm3 (0.1-0.6); Monocytes Percent Auto 5.8 % (2.6-8.5); Neutrophils Absolute Auto 8.8 K/mm3 (1.3-6.7); Platelet Count Result 256 k/mm3 (150-375); Red Blood Count 5.14 M/mm3 (4.6-6.20); Red Cell Distribution Width 15.4 % (11.5-14.5); White Blood Count 11.1 K/mm3 (4.5-10.0)
[2022-05-05 05:22] LABS: Alanine Aminotransferase 21 U/L (6-50); Albumin Level 3.7 g/dL (3.5-5.1); Alkaline Phosphatase 75 U/L (38-126); Anion Gap 6 mmol/L (8-16); Aspartate Amino Transferase 26 U/L (17-59); Bilirubin,Total 1.1 mg/dL (0.2-1.3); Blood Urea Nitrogen 40 mg/dL (9-20); Calcium 8.6 mg/dL (8.4-10.2); Carbon Dioxide 35 mmol/L (22-30); Chloride 97 mmol/L (98-107); Estimated CRCL calculation 39 ml/min; Estimated Glomerular Filt Rate 35; Glucose 125 mg/dL (65-110); Lactate Dehydrogenase 181 U/L (120-246); Magnesium 2.4 mg/dL (1.6-2.3); Potassium 3.5 mmol/L (3.4-5.0); Sodium 138 mmol/L (137-145)
[2022-05-05] MEDS: FUROSEMIDE INJ 40 MG/4 ML VIAL IV PUSH ×3 (06:09→17:29)
--- NOTE | 2022-05-05 10:24 | HOMEO2EVAL ---
Evaluation was performed at [facility] Home Oxygen Evaluation RC: Home Oxygen (O2) Evaluation Start: 05/04/22 22:55 Freq: ONCE Status: Active Protocol: RPE Activity Type Activity Date Activity User E-sign Co-sign Detail Recorded Client Recorded Date Recorded By Document 05/05/22 09:45 NIC [email or web address] 05/05/22 10:24 NIC Document 05/05/22 09:46 NIC [email or web address] 05/05/22 10:24 NIC Document 05/05/22 09:47 NIC [email or web address] 05/05/22 10:24 NIC Document 05/05/22 09:48 NIC [email or web address] 05/05/22 10:24 NIC Document 05/05/22 09:50 NIC [email or web address] 05/05/22 10:24 NIC Document 05/05/22 10:00 NIC [email or web address] 05/05/22 10:24 NIC 05/05/22 05/05/22 05/05/22 09:45 09:46 09:47 Home O2 Evaluation [Oxygen] -Test Phase Resting Resting Resting -Oxygen Delivery Room Air Nasal Cannula Nasal Cannula -Oxygen Flow Rate (L/min) 1 2 [Pulse Oximetry] -Pulse Oximetry (90-100 %) 85 L 87 L 87 L [Pulse Rate] -Pulse Rate (60-100 beats/min) 96 [Comments] -Home Oxygen Evaluation Comments [Charges] -Treatment Charges O2 Evaluation - Inpatient 05/05/22 05/05/22 05/05/22 09:48 09:50 10:00 Home O2 Evaluation [Oxygen] -Test Phase Resting Exercise Resting -Oxygen Delivery Nasal Cannula Nasal Cannula Nasal Cannula -Oxygen Flow Rate (L/min) 3 3 3 [Pulse Oximetry] -Pulse Oximetry (90-100 %) 91 93 93 [Pulse Rate] -Pulse Rate (60-100 beats/min) 113 H 85 [Comments] -Home Oxygen Evaluation Comments Pt requires 3 liters home O2 with rest and activity [Charges] -Treatment Charges
[2022-05-05] MEDS: SACUBITRIL/VALSARTAN 49-51 MG TABLET 1 TABLET PO ×2 (10:42→17:29)
[2022-05-05] MEDS: predniSONE 5 MG TABLET PO (10:42)
[2022-05-05] MEDS: METOPROLOL TARTRATE 25 MG TABLET 75 MG PO (10:43)
[2022-05-05] MEDS: cycloSPORINE 0.4 ML OPHTH SOLUTION 1 DROP EACH EYE ×2 (10:43→17:29)
[2022-05-05] MEDS: MONTELUKAST SODIUM 10 MG TABLET PO (10:43)
[2022-05-05] MEDS: EMPAGLIFLOZIN 10 MG TABLET PO (10:44)
--- NOTE | 2022-05-05 12:16 | PM.CNCAR ---
Assessment and Plan Assessment and plan (1) COVID-19: Code(s): U07.1 - COVID-19 Status: Acute (2) Congestive heart failure: Code(s): I50.9 - Heart failure, unspecified Status: Acute Plan 76-year-old man with worsening shortness of breath or least persistent dyspnea readmitted for this within 48 hours of his discharge. His dyspnea is obviously multifactorial with his ischemic LV dysfunction as well as significant chronic COPD as well as coronavirus complicating all of this. At this time I would transition his metoprolol to metoprolol succinate for treatment of systolic LV dysfunction I will also add some spironolactone to the regimen. I will keep the intravenous Lasix going for another day but he is starting to show signs of pre renal azotemia and that will probably have to be discontinued tomorrow. I am not greatly impressed by physical exam or by x-ray that he is significantly volume overloaded. My guess is he will require home oxygen per he is discharged this time. The patient given this constellation of problems will likely have to adapt to more shortness of breath than he would like to have going forward. Hopefully with medical adjustments and eventual resolution of his COVID he will improve clinically Rodrigo Lemus MD [facility] History of Present Illness History of Present Illness Consult date/time: 05/05/22 12:16 Reason For Visit: COVID 19,COPD/CHF exacerbation,elevated troponin, Narrative: This is a 76-year-old man who apparently is known to Dr. Stanley andrade of our practice with a history of coronary and valvular heart disease as well as well as systolic left ventricular dysfunction. He is being seen today at the request of the hospitalist for evaluation of shortness of breath/CHF. The patient is seen in the IMU he is reporting symptoms of significant shortness of breath with modest activity even shortness of breath with having a conversation. Patient was just released from this hospital about 48 hours before he was readmitted with ongoing dyspnea. He reports no symptoms of chest pain he is not accumulating any lower extremity edema he is not having any palpitations. He does have ongoing orthopnea and PND. The patient is known to have coronary disease and aortic stenosis and underwent bypass grafting and bioprosthetic aortic valve replacement 3 years ago at [facility]. The details of that are in the separately dictated notes from the last time he was here last week. The patient states that he has been doing relatively well apparently his LV systolic function was mildly depressed in the past it now is severely depressed with the enlargement of his LV and ejection fraction in the vicinity of 20-25%. The patient got complicating all of this has significant COPD with about 60 pack years of smoking in the past as well as coronavirus infection he was positive for COVID 19 as well as his this past week. The patient's chest x-ray demonstrates enlargement of the cardiac silhouette but per my review I do not see much in the way of pulmonary congestion. He has been receiving intravenous furosemide since he has been in the hospital his creatinine is 1.9 today with a BUN of 40. He has been treated also with Entresto and furosemide as well as metoprolol tartrate. Review of Systems Constitutional: Constitutional: Reports difficulty sleeping and Reports lethargy Eyes: Eyes: Reports no additional eye complaints ENT: Reports system reviewed and no additional complaints, except as documented Cardiovascular: Cardiovascular: Reports no additional cardiovascular complaints Respiratory: Respiratory: Reports dyspnea Gastrointestinal: Gastrointestinal: Reports no additional gastrointestinal complaints Musculoskeletal: Musculoskeletal: Reports no additional musculoskeletal complaints Neurologic: Reports system reviewed and no additional complaints, except as documented Endocrine: Endocrine: Repor
--- NOTE | 2022-05-05 12:19 | PCRCNOTE ---
home o2 eval done, 3 l rest and activity. set up with IV Resp care. Tank in room
--- NOTE | 2022-05-05 17:15 | PHAR ---
HOME MED: XTANDI 40 MG CAPSULES; TAKE 4 CAPSULES BY MOUTH DAILY. VERIFIED BY PHARMACY
--- NOTE | 2022-05-05 17:52 | PM.IMPN ---
Progress Note: A&P Assessment and Plan (1) Acute exacerbation of CHF (congestive heart failure): Qualifiers: Heart failure type: unspecified Qualified Code(s): I50.9 - Heart failure, unspecified Code(s): I50.9 - Heart failure, unspecified Status: Acute Assessment and Plan: The patient was started on IV Lasix instead of p.o. Strict I&O Strict CHF diet Last echo was on 04/13/2022 where EF appears to be approximately 26%. He also has impaired diastolic relaxation grade 1. Another portion of the echo was read as ejection fraction is visually estimated to 30-35%. Continue with Jardiance Continue with metoprolol Continue with Entresto HPI-Narrative: This is a 76-year-old male patient who has a history of COPD, coronary artery disease, CHF with an EF of proximal 20%.? And history of aortic valve replacement.? The patient came to the emergency room with complaint of shortness of breath.? The patient was diagnosed with COVID on 04/30/22 when he was seen in the emergency room.? The patient had previously taken home test on the previous Sunday and was already testing positive with a home test.? The patient had been hypoxic on room air and was admitted to the hospital with acute respiratory failure an elevated troponin.? He was given nebulizers steroids and then discharged on 05/02/2022.? The patient was slightly better but still continued to be short of breath with exertion.? The patient has been taking Lasix and using his nebulizers as prescribed.? The patient stated that he felt like he needed home oxygen.? The patient tells me that he was scheduled for an outpatient angiogram once he recovers from COVID-19.? The patient is scheduled with Dr. Pressley next Sunday.? His white count 11.0.? Sodium 134.? BUN is 44 creatinine is 1.7 which is his baseline.? Glucose 134.? Troponin 0.068 and on 04/30/2022 had been 0.075.? [place] 77281 to 9980 now.? Chest x-ray was read as chronic interstitial infiltrates of the lower lungs which may represent atelectasis/fibrosis mild edema or atypical pneumonia.? Chest CTA was read as the followingNo evidence for pulmonary embolism. 2:? Mixed groundglass and interstitial infiltrates of the lower lobes, atelectasis versus developing pneumonia. 3:? Stable mediastinal lymphadenopathy, likely reactive. 4:? Severe emphysema. The patient has oxygen on at 2 L per nasal cannula.? He was given nebulizer treatments Lasix Rocephin and azithromycin. 05/05/2022 interval history: 76-year-old male recently diagnosed with COVID and was treated in the hospital and discharge home however patient presented with complaint of shortness of breath with hypoxia and persistent cough most likely multifactorial patient also has coronary artery disease combined systolic and diastolic congestive heart failure recent echo showed ejection fraction of 40% and grade 2 diastolic function, we have consulted Cardiology further recommended, continue to diurese the patient and and provide oxygen, further recommendation to follow. (2) Pneumonia: Qualifiers: Laterality: bilateral Lung location: lower lobe of lung Pneumonia type: due to unspecified organism Qualified Code(s): J18.9 - Pneumonia, unspecified organism Code(s): J18.9 - Pneumonia, unspecified organism Status: Acute Assessment and Plan: Post COVID the patient was started on azithromycin Rocephin Continue with oxygen at 2 L per nasal cannula. An order was placed for evaluation for home oxygen. Continue with nebulizer treatments (3) Elevated troponin: Code(s): R77.8 - Other specified abnormalities of plasma proteins Status: Acute Assessment and Plan: Patient's troponin is level. According to the patient he is supposed to follow-up with Dr. Pressley next week for possible cardiac catheterization. (4) Acute exacerbation of chronic obstructive pulmonary disease: Code(s): J44.1 - Chronic obstructive pulmonary disease w
--- NOTE | 2022-05-05 17:59 | PHAR ---
RX [id number] UROLOGY [facility] BOTTLE IDENTIFED TO CONTAIN DRUG NAME: XTANDI INGREDIENTS: ENZALUTAMIDE -- 40 MG RELATED DOCUMENTS: DRUGDEX EVALUATIONS - ENZALUTAMIDE COLOR: WHITE TO OFF-WHITE SHAPE: OBLONG IMPRINT: ENZ FORM: ORAL CAPSULE, LIQUID FILLED DIRECTIONS ON LABEL 4 CAPSULES DAILY
[2022-05-05] MEDS: ASPIRIN 81 MG ENTERIC TABLET PO (21:13)
[2022-05-05] MEDS: amLODIPine BESYLATE 5 MG TABLET PO (21:13)
[2022-05-05] MEDS: LOVASTATIN 20 MG TABLET PO (21:13)
[2022-05-05] MEDS: ACETAMINOPHEN 325 MG TABLET 650 MG PO (23:37)
[2022-05-05] MEDS: MELATONIN 3 MG TABLET 6 MG PO (23:50)
[2022-05-06] VITALS (17 sets, daily range): BP systolic 112–146; BP diastolic 62–83; PULSE 43–101; RESP 16–20; TEMP 36.2–37.1; O2SAT 90–100
[2022-05-06] MEDS: FUROSEMIDE INJ 40 MG/4 ML VIAL IV PUSH (05:58)
[2022-05-06 07:25] LABS: Hematocrit 44.4 % (42.0-52.0); Hemoglobin 14.8 g/dL (14.0-18.0); Mean Corpuscular HGB Conc 33.3 g/dl (32-36); Mean Corpuscular Hemoglobin 30.3 pg (26-34); Mean Platelet Volume 10.4 fl (7.4-10.4); Platelet Count Result 250 k/mm3 (150-375); Red Blood Count 4.88 M/mm3 (4.6-6.20); Red Cell Distribution Width 15.1 % (11.5-14.5); White Blood Count 8.4 K/mm3 (4.5-10.0)
[2022-05-06 07:30] LABS: Magnesium 2.2 mg/dL (1.6-2.3)
[2022-05-06] MEDS: IPRATROPIUM BR 0.02% INH SOLN 0.5 MG/2.5 ML VIAL INHALATION ×2 (08:01→15:06)
[2022-05-06] MEDS: LEVALBUTEROL NEB 1.25 MG/3 ML INHALATION ×2 (08:02→15:06)
[2022-05-06] MEDS: predniSONE 5 MG TABLET PO (08:52)
[2022-05-06] MEDS: SACUBITRIL/VALSARTAN 49-51 MG TABLET 1 TABLET PO ×2 (08:52→17:34)
[2022-05-06] MEDS: cycloSPORINE 0.4 ML OPHTH SOLUTION 1 DROP EACH EYE ×2 (08:52→17:34)
[2022-05-06] MEDS: EMPAGLIFLOZIN 10 MG TABLET PO (08:52)
[2022-05-06] MEDS: SPIRONOLACTONE 25 MG TABLET PO (08:53)
[2022-05-06] MEDS: MONTELUKAST SODIUM 10 MG TABLET PO (08:53)
[2022-05-06] MEDS: METOPROLOL SUCCINATE EXT REL 100 MG TABCR PO (08:53)
[2022-05-06 10:13] LABS: Anion Gap 9 mmol/L (8-16); Blood Urea Nitrogen 41 mg/dL (9-20); Calcium 8.1 mg/dL (8.4-10.2); Carbon Dioxide 27 mmol/L (22-30); Chloride 97 mmol/L (98-107); Estimated CRCL calculation 39 ml/min; Estimated Glomerular Filt Rate 35; Glucose 104 mg/dL (65-110); Potassium 3.2 mmol/L (3.4-5.0); Sodium 133 mmol/L (137-145)
[2022-05-06] MEDS: POTASSIUM CHLORIDE 20 MEQ TABLET 40 MEQ PO (10:34)
--- NOTE | 2022-05-06 12:35 | PM.PNCARD ---
Progress Note: A&P Assessment and Plan (1) COVID-19: Code(s): U07.1 - COVID-19 Status: Acute Assessment and Plan: being treated for respiratory failure secondary to COVID, pneumonia and CHF. On antibiotics. Still requires O2; home O2 is being set up. (2) Acute on chronic combined systolic and diastolic CHF (congestive heart failure): Code(s): I50.43 - Acute on chronic combined systolic (congestive) and diastolic (congestive) heart failure Status: Acute Assessment and Plan: Mild acute on chronic systolic and diastolic heart failure. The patient does not look volume overloaded. His chest x-ray on admission (personally reviewed) did not appear to be significantly wet. Will change furosemide back to p.o. . (3) Cardiomyopathy: Code(s): I42.9 - Cardiomyopathy, unspecified Status: Acute Assessment and Plan: Continue metoprolol, spironolactone, Entresto, Jardiance. Because he had a somewhat abnormal stress test, we will eventually set up a cardiac catheterization but only after his recovery. Assured the patient we are treating his heart disease with medications and most people have some improvement. (4) History of aortic valve replacement with tissue graft: Code(s): Z95.4 - Presence of other heart-valve replacement Status: Acute (5) CAD (coronary artery disease): Code(s): I25.10 - Atherosclerotic heart disease of [place] coronary artery without angina pectoris Status: Acute Assessment and Plan: history of CAD and CABG, stable. (6) PVCs (premature ventricular contractions): Code(s): I49.3 - Ventricular premature depolarization Status: Acute Assessment and Plan: Frequent PVCs, nonsustained V-tach, also hypokalemia. Mg++ is WNL. -- Replete potassium -- recheck tomorrow -- increase metoprolol to 150 mg daily Subjective Date/time seen: 76-year-old man Followed by Dr. Bueno for his history of CAD, CABG and aortic valve replacement 3 years ago. Over the last few months he has developed progressive left ventricular dysfunction with an ejection fraction now 20-25%. He was admitted with shortness of breath/CHF.? he was admitted with Worsening shortness of breaths due to a COPD exacerbation , acute on chronic systolic and diastolicCHF and COVID infection.? 05/05/2022: Continue IV furosemide another day. Added spironolactone, continue Entresto. 05/06/22 12:35 Patient states his breathing is a little better any hopes to go home tomorrow. remains on 3 L nasal cannula. I's and O's yesterday: 2199 in, 1999 out , on furosemide 40 mg IV push b.i.d. potassium low today at 3.2. Nnot much change in BUN and creatinine since yesterday. Telemetry shows frequent PVCs, some bigeminy, triplets, and 5 beats of V-tach. Review of Systems Constitutional: Constitutional: Denies fever(s) Eyes: Eyes: Reports no additional eye complaints Cardiovascular: Cardiovascular: Denies chest pain, Denies pedal edema, Denies lightheadedness and Reports dyspnea Respiratory: Respiratory: Reports chest congestion, Reports cough, Reports dyspnea, Reports dyspnea on exertion and Reports wheezing Gastrointestinal: Gastrointestinal: Denies abdominal pain and Denies hematochezia Comments: No appetite, aguesia Musculoskeletal: Musculoskeletal: Reports no additional musculoskeletal complaints Integumentary/Breasts: Skin/Breast: Reports system reviewed and no additional complaints, except as docu Neurologic: Reports system reviewed and no additional complaints, except as documented, Denies behavioral changes and Denies confusion Psychiatric: Psychiatric: Denies behavioral changes and Denies confusion Exam Const: General: cooperative and comfortable; No confusion Orientation/consciousness: oriented to person, patient oriented x3 and No confusion HENMT: Mouth: Yes moist mucous membranes Eyes: EOM: EOMs intact bilaterally Neck
--- NOTE | 2022-05-06 13:53 | PM.IMPN ---
Progress Note: A&P Assessment and Plan (1) Acute exacerbation of CHF (congestive heart failure): Qualifiers: Heart failure type: unspecified Qualified Code(s): I50.9 - Heart failure, unspecified Code(s): I50.9 - Heart failure, unspecified Status: Acute Assessment and Plan: The patient was started on IV Lasix instead of p.o. Strict I&O Strict CHF diet Last echo was on 04/13/2022 where EF appears to be approximately 26%. He also has impaired diastolic relaxation grade 1. Another portion of the echo was read as ejection fraction is visually estimated to 30-35%. Continue with Jardiance Continue with metoprolol Continue with Entresto HPI-Narrative: This is a 76-year-old male patient who has a history of COPD, coronary artery disease, CHF with an EF of proximal 20%.? And history of aortic valve replacement.? The patient came to the emergency room with complaint of shortness of breath.? The patient was diagnosed with COVID on 04/30/22 when he was seen in the emergency room.? The patient had previously taken home test on the previous Sunday and was already testing positive with a home test.? The patient had been hypoxic on room air and was admitted to the hospital with acute respiratory failure an elevated troponin.? He was given nebulizers steroids and then discharged on 05/02/2022.? The patient was slightly better but still continued to be short of breath with exertion.? The patient has been taking Lasix and using his nebulizers as prescribed.? The patient stated that he felt like he needed home oxygen.? The patient tells me that he was scheduled for an outpatient angiogram once he recovers from COVID-19.? The patient is scheduled with Dr. Pressley next Sunday.? His white count 11.0.? Sodium 134.? BUN is 44 creatinine is 1.7 which is his baseline.? Glucose 134.? Troponin 0.068 and on 04/30/2022 had been 0.075.? His BNP [place] 34089 to 9980 now.? Chest x-ray was read as chronic interstitial infiltrates of the lower lungs which may represent atelectasis/fibrosis mild edema or atypical pneumonia.? Chest CTA was read as the followingNo evidence for pulmonary embolism. 2:? Mixed groundglass and interstitial infiltrates of the lower lobes, atelectasis versus developing pneumonia. 3:? Stable mediastinal lymphadenopathy, likely reactive. 4:? Severe emphysema. The patient has oxygen on at 2 L per nasal cannula.? He was given nebulizer treatments Lasix Rocephin and azithromycin. 05/06/2022 interval history: 76-year-old male recently diagnosed with COVID and was treated in the hospital and discharge home however o 05/05 patient presented with complaint of shortness of breath with hypoxia and persistent cough most likely multifactorial patient also has coronary artery disease combined systolic and diastolic congestive heart failure recent echo showed ejection fraction of 40% and grade 2 diastolic function, was seen consulted shrimp trawler captain recommended to continue diurese the patient, today patient's symptoms have improved, he is not as short of breath as yesterday, again patient seen by shrimp trawler captain today recommended to continue present management, patient had abnormal stress test shrimp trawler captain will follow-up once patient is clinically is symptoms have improved and may have cardiac catheterization as outpatient, further recommendation to follow. (2) Pneumonia: Qualifiers: Laterality: bilateral Lung location: lower lobe of lung Pneumonia type: due to unspecified organism Qualified Code(s): J18.9 - Pneumonia, unspecified organism Code(s): J18.9 - Pneumonia, unspecified organism Status: Acute Assessment and Plan: Post COVID the patient was started on azithromycin Rocephin Continue with oxygen at 2 L per nasal cannula. An order was placed for evaluation for home oxygen. Continue with nebulizer treatments (3) Elevated troponin: Code(s): R77.8 - Other specified abnormalities of plasma proteins Status: Acu
[2022-05-06] MEDS: METOPROLOL SUCCINATE EXT REL 50 MG TABCR PO (14:36)
[2022-05-06] MEDS: POTASSIUM CHLORIDE 20 MEQ TABLET.ER PO (14:36)
[2022-05-06] MEDS: FUROSEMIDE 40 MG TABLET PO (17:34)
--- NOTE | 2022-05-06 18:20 | PC.NURSE ---
This patient, Mihir Nguyen, was transferred to [facility] on 05/06/22 at 1810. Personal belongings sent with patient. Report given to Oma. Appropriate documentation sent with patient.
[2022-05-06] MEDS: MELATONIN 3 MG TABLET 6 MG PO (21:56)
[2022-05-06] MEDS: ASPIRIN 81 MG ENTERIC TABLET PO (21:56)
[2022-05-06] MEDS: amLODIPine BESYLATE 5 MG TABLET PO (21:56)
[2022-05-07] VITALS (16 sets, daily range): BP systolic 104–127; BP diastolic 45–71; PULSE 51–88; RESP 14–20; TEMP 36.4–36.8; O2SAT 92–100
[2022-05-07 05:39] LABS: Hematocrit 45.3 % (42.0-52.0); Hemoglobin 14.9 g/dL (14.0-18.0); Mean Corpuscular HGB Conc 32.9 g/dl (32-36); Mean Corpuscular Hemoglobin 30.2 pg (26-34); Mean Corpuscular Volume 91.9 fl (80-100); Mean Platelet Volume 10.3 fl (7.4-10.4); Platelet Count Result 278 k/mm3 (150-375); Red Blood Count 4.93 M/mm3 (4.6-6.20); White Blood Count 7.8 K/mm3 (4.5-10.0)
[2022-05-07 05:43] LABS: Anion Gap 5 mmol/L (8-16); Blood Urea Nitrogen 39 mg/dL (9-20); Calcium 8.2 mg/dL (8.4-10.2); Carbon Dioxide 31 mmol/L (22-30); Chloride 98 mmol/L (98-107); Estimated CRCL calculation 37 ml/min; Estimated Glomerular Filt Rate 33; Glucose 97 mg/dL (65-110); Magnesium 2.3 mg/dL (1.6-2.3); Potassium 3.5 mmol/L (3.4-5.0); Sodium 134 mmol/L (137-145)
[2022-05-07] MEDS: IPRATROPIUM BR 0.02% INH SOLN 0.5 MG/2.5 ML VIAL INHALATION ×4 (07:42→21:15)
[2022-05-07] MEDS: LEVALBUTEROL NEB 1.25 MG/3 ML INHALATION ×4 (07:42→21:15)
[2022-05-07] MEDS: SPIRONOLACTONE 25 MG TABLET PO (08:53)
[2022-05-07] MEDS: EMPAGLIFLOZIN 10 MG TABLET PO (08:53)
[2022-05-07] MEDS: predniSONE 5 MG TABLET PO (08:53)
[2022-05-07] MEDS: POTASSIUM CHLORIDE 20 MEQ TABLET.ER PO (08:53)
[2022-05-07] MEDS: cycloSPORINE 0.4 ML OPHTH SOLUTION 1 DROP EACH EYE ×2 (08:54→17:23)
[2022-05-07] MEDS: FUROSEMIDE 40 MG TABLET PO ×2 (08:54→17:23)
[2022-05-07] MEDS: SACUBITRIL/VALSARTAN 49-51 MG TABLET 1 TABLET PO ×2 (08:54→17:23)
[2022-05-07] MEDS: MONTELUKAST SODIUM 10 MG TABLET PO (08:54)
[2022-05-07] MEDS: METOPROLOL SUCCINATE EXT REL 50 MG TABCR 150 MG PO (09:47)
--- NOTE | 2022-05-07 11:23 | PM.PNCARD ---
Progress Note: A&P Assessment and Plan (1) COVID-19: Code(s): U07.1 - COVID-19 Status: Acute Assessment and Plan: being treated for respiratory failure secondary to COVID, pneumonia and CHF. On antibiotics. Still requires O2; home O2 is being set up. (2) Acute on chronic combined systolic and diastolic CHF (congestive heart failure): Code(s): I50.43 - Acute on chronic combined systolic (congestive) and diastolic (congestive) heart failure Status: Acute Assessment and Plan: Mild acute on chronic systolic and diastolic heart failure. The patient does not look volume overloaded. His chest x-ray on admission--personally reviewed, no significant pulmonary vascular congestion or effusions-- Did not appear to be significantly wet. Furosemide changed back to his home dose of 40 mg p.o. b.i.d.. (3) Cardiomyopathy: Code(s): I42.9 - Cardiomyopathy, unspecified Status: Acute Assessment and Plan: Continue metoprolol, spironolactone, Entresto, Jardiance. Because he had a somewhat abnormal stress test, we will eventually set up a cardiac catheterization to see if the patient has had recurrent problems with CAD, but only after his recovery. Assured the patient we are treating his heart disease with medications and most people have some improvement. (4) History of aortic valve replacement with tissue graft: Code(s): Z95.4 - Presence of other heart-valve replacement Status: Acute Assessment and Plan: Normal function by echoes. (5) CAD (coronary artery disease): Code(s): I25.10 - Atherosclerotic heart disease of [place] coronary artery without angina pectoris Status: Acute Assessment and Plan: history of CAD and CABG, no angina, but an abnormal stress test recently. --continue aspirin --Continue lovastatin 20 mg 3 times a week (has a statin myopathy and can tolerate this dose. --eventual cardiac catheterization (6) At risk for sudden cardiac : Code(s): Z91.89 - Other specified personal risk factors, not elsewhere classified Status: Acute Assessment and Plan: Patient's ejection fraction is 22% by stress testing, and 30-35% by recent echo. In addition, he demonstrates nonsustained VT. He is at risk for sudden cardiac . Reviewed the risk of lethel heart rhythms with him, and recommended LifeVest. Provided some written information. Patient is interested (although overwhelmed by all the bad news recently). --Ordered a Life Vest (7) PVCs (premature ventricular contractions): Code(s): I49.3 - Ventricular premature depolarization Status: Acute Assessment and Plan: Frequent PVCs, nonsustained V-tach, -- Potassium has been repleted and level is better. -- increased metoprolol to 150 mg daily (8) Hypokalemia: Code(s): E87.6 - Hypokalemia Status: Acute Assessment and Plan: Potassium 3.2 yesterday, 3.5 today after supplementation. --currently getting KCl p.o., as well as spironolactone and Entresto, and Lasix --His potassium supplement can be discontinued since he is no longer on IV Lasix --will need potassium and renal function followed as an outpatient after discharge Subjective Date/time seen: 76-year-old man followed by Dr. Bueno for his history of? CAD, CABG and aortic valve replacement 3 years ago.? Over the last few months he has developed progressive left ventricular dysfunction with an ejection fraction now 20-25%. ? Hospital FU for worsening shortness of breath due to a COPD exacerbation,? acute on chronic systolic and diastolic CHF and COVID infection.? ?05/05/2022: Continue IV furosemide another day.? Added spironolactone, continue Entresto. 05/06/22? 12:35? ? Patient states his breathing is a little better any hopes to go home tomorrow. remains on 3 L nasal cannula.? I's and O's yesterday: 2199 in, 1999 out , on furosemide 40 mg IV push b.i.d. potassium low to
--- NOTE | 2022-05-07 12:18 | PM.IMPN ---
Progress Note: A&P Assessment and Plan (1) Acute exacerbation of CHF (congestive heart failure): Qualifiers: Heart failure type: unspecified Qualified Code(s): I50.9 - Heart failure, unspecified Code(s): I50.9 - Heart failure, unspecified Status: Acute Assessment and Plan: The patient was started on IV Lasix instead of p.o. Strict I&O Strict CHF diet Last echo was on 04/13/2022 where EF appears to be approximately 26%. He also has impaired diastolic relaxation grade 1. Another portion of the echo was read as ejection fraction is visually estimated to 30-35%. Continue with Jardiance Continue with metoprolol Continue with Entresto HPI-Narrative: This is a 76-year-old male patient who has a history of COPD, coronary artery disease, CHF with an EF of proximal 20%.? And history of aortic valve replacement.? The patient came to the emergency room with complaint of shortness of breath.? The patient was diagnosed with COVID on 04/30/22 when he was seen in the emergency room.? The patient had previously taken home test on the previous Sunday and was already testing positive with a home test.? The patient had been hypoxic on room air and was admitted to the hospital with acute respiratory failure an elevated troponin.? He was given nebulizers steroids and then discharged on 05/02/2022.? The patient was slightly better but still continued to be short of breath with exertion.? The patient has been taking Lasix and using his nebulizers as prescribed.? The patient stated that he felt like he needed home oxygen.? The patient tells me that he was scheduled for an outpatient angiogram once he recovers from COVID-19.? The patient is scheduled with Dr. Pressley next Sunday.? His white count 11.0.? Sodium 134.? BUN is 44 creatinine is 1.7 which is his baseline.? Glucose 134.? Troponin 0.068 and on 04/30/2022 had been 0.075.? His BNP is down from 78633 to 9980 now.? Chest x-ray was read as chronic interstitial infiltrates of the lower lungs which may represent atelectasis/fibrosis mild edema or atypical pneumonia.? Chest CTA was read as the followingNo evidence for pulmonary embolism. 2:? Mixed groundglass and interstitial infiltrates of the lower lobes, atelectasis versus developing pneumonia. 3:? Stable mediastinal lymphadenopathy, likely reactive. 4:? Severe emphysema. The patient has oxygen on at 2 L per nasal cannula.? He was given nebulizer treatments Lasix Rocephin and azithromycin. 05/07/2022 interval history: 76-year-old male recently diagnosed with COVID and was treated in the hospital and discharge home however o 05/05 patient presented with complaint of shortness of breath with hypoxia and persistent cough most likely multifactorial patient also has coronary artery disease combined systolic and diastolic congestive heart failure recent echo showed ejection fraction of 40% and grade 2 diastolic function,patient with cardiomyopathy will need LifeVest, was seen ecological technical officer recommended to continue diurese the patient, today patient's symptoms have improved, he is not as short of breath as yesterday, again patient seen by ecological technical officer today recommended to continue present management, patient had abnormal stress test ecological technical officer will follow-up once patient is clinically and his symptoms have improved and may have cardiac catheterization as outpatient, further recommendation to follow. (2) Pneumonia: Qualifiers: Laterality: bilateral Lung location: lower lobe of lung Pneumonia type: due to unspecified organism Qualified Code(s): J18.9 - Pneumonia, unspecified organism Code(s): J18.9 - Pneumonia, unspecified organism Status: Acute Assessment and Plan: Post COVID the patient was started on azithromycin Rocephin Continue with oxygen at 2 L per nasal cannula. An order was placed for evaluation for home oxygen. Continue with nebulizer treatments (3) Elevated troponin: Code(s): R77.8 - Other specified abnorma
[2022-05-07] MEDS: BENZOCAINE/MENTHOL (*BKC) 18 EA LOZENGE 1 LOZENGE PO (17:22)
[2022-05-07] MEDS: ASPIRIN 81 MG ENTERIC TABLET PO (20:04)
[2022-05-07] MEDS: amLODIPine BESYLATE 5 MG TABLET PO (20:04)
[2022-05-07] MEDS: MELATONIN 3 MG TABLET 6 MG PO (22:10)
[2022-05-08] VITALS (16 sets, daily range): BP systolic 94–118; BP diastolic 63–67; PULSE 52–89; RESP 16–20; TEMP 36.2–36.8; O2SAT 86–100
[2022-05-08] MEDS: LEVALBUTEROL NEB 1.25 MG/3 ML INHALATION ×3 (03:01→14:04)
[2022-05-08] MEDS: IPRATROPIUM BR 0.02% INH SOLN 0.5 MG/2.5 ML VIAL INHALATION ×3 (03:01→14:04)
[2022-05-08 04:56] LABS: Hematocrit 41.5 % (42.0-52.0); Hemoglobin 13.7 g/dL (14.0-18.0); Mean Corpuscular Volume 90.8 fl (80-100); Mean Platelet Volume 10.1 fl (7.4-10.4); Platelet Count Result 277 k/mm3 (150-375); Red Blood Count 4.57 M/mm3 (4.6-6.20); Red Cell Distribution Width 14.9 % (11.5-14.5); White Blood Count 6.8 K/mm3 (4.5-10.0)
[2022-05-08 05:14] LABS: Anion Gap 5 mmol/L (8-16); Blood Urea Nitrogen 46 mg/dL (9-20); Carbon Dioxide 34 mmol/L (22-30); Chloride 95 mmol/L (98-107); Estimated CRCL calculation 37 ml/min; Estimated Glomerular Filt Rate 33; Glucose 131 mg/dL (65-110); Magnesium 2.5 mg/dL (1.6-2.3); Sodium 134 mmol/L (137-145)
--- NOTE | 2022-05-08 08:37 | PM.PNCARD ---
Progress Note: A&P Assessment and Plan (1) COVID-19: Code(s): U07.1 - COVID-19 Status: Acute Assessment and Plan: being treated for respiratory failure secondary to COVID, pneumonia and CHF. On antibiotics. Still requires O2; home O2 is being set up. (2) Acute on chronic combined systolic and diastolic CHF (congestive heart failure): Code(s): I50.43 - Acute on chronic combined systolic (congestive) and diastolic (congestive) heart failure Status: Acute Assessment and Plan: Mild acute on chronic systolic and diastolic heart failure. The patient does not look volume overloaded. Continue home dose of 40 mg p.o. b.i.d. (held this a.m. because of mild hypotension) (3) Cardiomyopathy: Code(s): I42.9 - Cardiomyopathy, unspecified Status: Acute Assessment and Plan: Continue metoprolol, spironolactone, Entresto, Jardiance. Because he had a somewhat abnormal stress test, we will eventually set up a cardiac catheterization to see if the patient has had recurrent problems with CAD, but only after his recovery. (4) History of aortic valve replacement with tissue graft: Code(s): Z95.4 - Presence of other heart-valve replacement Status: Acute Assessment and Plan: Normal function by echoes. (5) CAD (coronary artery disease): Code(s): I25.10 - Atherosclerotic heart disease of [place] coronary artery without angina pectoris Status: Acute Assessment and Plan: history of CAD and CABG, no angina, but an abnormal stress test recently. 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 In addition, he demonstrates nonsustained VT. He is at risk for sudden cardiac . Reviewed the risk of lethel heart rhythms with him, and recommended LifeVest. LifeVest has been ordered, awaiting placement. (7) PVCs (premature ventricular contractions): Code(s): I49.3 - Ventricular premature depolarization Status: Acute Assessment and Plan: Frequent PVCs, nonsustained V-tach, -- increased metoprolol to 150 mg daily (8) Hypokalemia: Code(s): E87.6 - Hypokalemia Status: Acute Assessment and Plan: Repleted and better today, 4.0. --currently getting KCl p.o., as well as spironolactone and Entresto, and Lasix --will need potassium and renal function followed as an outpatient after discharge Subjective Date/time seen: 05/08/22 08:37 Cardiology follow up for cardiomyopathy, CHF He feels well this morning. Breathing is about the same, baseline. He does not have any swelling. Denies chest pain or palpitations. Review of Systems Constitutional: Constitutional: Reports difficulty sleeping, Denies fever(s) and Reports lethargy Eyes: Eyes: Reports no additional eye complaints ENT: Reports system reviewed and no additional complaints, except as documented Cardiovascular: Cardiovascular: Reports no additional cardiovascular complaints, Denies chest pain, Denies pedal edema, Denies lightheadedness, Reports dyspnea and Reports dyspnea on exertion Respiratory: Respiratory: Reports chest congestion, Reports cough, Reports dyspnea, Reports dyspnea on exertion and Reports wheezing Gastrointestinal: Gastrointestinal: Reports no additional gastrointestinal complaints, Denies abdominal pain and Denies hematochezia Musculoskeletal: Musculoskeletal: Reports no additional musculoskeletal complaints Integumentary/Breasts: Skin/Breast: Reports system reviewed and no additional complaints, except as docu Neurologic: Reports system reviewed and no additional complaints, except
[2022-05-08] MEDS: cycloSPORINE 0.4 ML OPHTH SOLUTION 1 DROP EACH EYE (09:19)
[2022-05-08] MEDS: POTASSIUM CHLORIDE 20 MEQ TABLET.ER PO (09:19)
[2022-05-08] MEDS: EMPAGLIFLOZIN 10 MG TABLET PO (09:20)
[2022-05-08] MEDS: MONTELUKAST SODIUM 10 MG TABLET PO (09:20)
[2022-05-08] MEDS: predniSONE 5 MG TABLET PO (09:21)
[2022-05-08] MEDS: METOPROLOL SUCCINATE EXT REL 50 MG TABCR 150 MG PO (09:46)
--- NOTE | 2022-05-08 11:52 | PCRCNOTE ---
RECERT FOR HOME O2 EVALUATION COMPLETED. PT. ROOM AIR SPO2 WAS 86%.
--- NOTE | 2022-05-08 11:53 | HOMEO2EVAL ---
Evaluation was performed at [facility] Home Oxygen Evaluation RC: Home Oxygen (O2) Evaluation Start: 05/04/22 22:55 Freq: ONCE Status: Active Protocol: RPE Activity Type Activity Date Activity User E-sign Co-sign Detail Recorded Client Recorded Date Recorded By Document 05/08/22 11:52 KRM [id number] 05/08/22 11:53 KRM 05/08/22 11:52 Home O2 Evaluation [Oxygen] -Test Phase Resting -Oxygen Delivery Room Air [Pulse Oximetry] -Pulse Oximetry (90-100 %) 86 L [Pulse Rate] -Pulse Rate (60-100 beats/min) 89 [Comments] -Home Oxygen Evaluation Comments ROOM AIR SPO2 CHECK FOR HOME O2. [Charges] -Treatment Charges O2 Evaluation - Inpatient
--- NOTE | 2022-05-08 13:54 | PM.DS ---
DS: Admitting Diagnosis Discharge Date 05/08/2022 Admitting Diagnosis Shortness of breath DS: Discharge Diagnosis Discharge Diagnosis (1) Acute exacerbation of CHF (congestive heart failure): Qualifiers: Heart failure type: unspecified Qualified Code(s): I50.9 - Heart failure, unspecified Code(s): I50.9 - Heart failure, unspecified Status: Acute Assessment and Plan: The patient was started on IV Lasix instead of p.o. Strict I&O Strict CHF diet Last echo was on 04/13/2022 where EF appears to be approximately 26%. He also has impaired diastolic relaxation grade 1. Another portion of the echo was read as ejection fraction is visually estimated to 30-35%. Continue with Jardiance Continue with metoprolol Continue with Entresto HPI-Narrative: This is a 76-year-old male patient who has a history of COPD, coronary artery disease, CHF with an EF of proximal 20%.? And history of aortic valve replacement.? The patient came to the emergency room with complaint of shortness of breath.? The patient was diagnosed with COVID on 04/30/22 when he was seen in the emergency room.? The patient had previously taken home test on the previous Sunday and was already testing positive with a home test.? The patient had been hypoxic on room air and was admitted to the hospital with acute respiratory failure an elevated troponin.? He was given nebulizers steroids and then discharged on 05/02/2022.? The patient was slightly better but still continued to be short of breath with exertion.? The patient has been taking Lasix and using his nebulizers as prescribed.? The patient stated that he felt like he needed home oxygen.? The patient tells me that he was scheduled for an outpatient angiogram once he recovers from COVID-19.? The patient is scheduled with Dr. Pressley next Sunday.? His white count 11.0.? Sodium 134.? BUN is 44 creatinine is 1.7 which is his baseline.? Glucose 134.? Troponin 0.068 and on 04/30/2022 had been 0.075.? His BNP is down from 93824 to 9980 now.? Chest x-ray was read as chronic interstitial infiltrates of the lower lungs which may represent atelectasis/fibrosis mild edema or atypical pneumonia.? Chest CTA was read as the followingNo evidence for pulmonary embolism. 2:? Mixed groundglass and interstitial infiltrates of the lower lobes, atelectasis versus developing pneumonia. 3:? Stable mediastinal lymphadenopathy, likely reactive. 4:? Severe emphysema. The patient has oxygen on at 2 L per nasal cannula.? He was given nebulizer treatments Lasix Rocephin and azithromycin. 05/07/2022 interval history: 76-year-old male recently diagnosed with COVID and was treated in the hospital and discharge home however o 05/05 patient presented with complaint of shortness of breath with hypoxia and persistent cough most likely multifactorial patient also has coronary artery disease combined systolic and diastolic congestive heart failure recent echo showed ejection fraction of 40% and grade 2 diastolic function,patient with cardiomyopathy will need LifeVest, was seen cue worker recommended to continue diurese the patient, today patient's symptoms have improved, he is not as short of breath as yesterday, again patient seen by cue worker today recommended to continue present management, patient had abnormal stress test cue worker will follow-up once patient is clinically and his symptoms have improved and may have cardiac catheterization as outpatient, further recommendation to follow. (2) Pneumonia: Qualifiers: Laterality: bilateral Lung location: lower lobe of lung Pneumonia type: due to unspecified organism Qualified Code(s): J18.9 - Pneumonia, unspecified organism Code(s): J18.9 - Pneumonia, unspecified organism Status: Acute Assessment and Plan: Post COVID the patient was started on azithromycin Rocephin Continue with oxygen at 2 L per nasal cannula. An order was placed for evaluation for home oxygen. Ame
== END 2022-05-08 17:25 | disposition home or self-care (01) | DRG 177 ==
LOC: ANHED 19:27 → ANHIMU 22:18 → ANH2MED 05-06 18:14
PROVIDERS: Emergency Medicine; Nurse Practitioner; Admitting Provider Internal Medicine; Emergency Provider Physician Assistant; PCP Family Medicine; Visit Provider Family Medicine
DX: U07.1 COVID-19 (principal); I50.43 Acute on chronic combined systolic (congestive) and diastolic (congestive) heart failure; J12.82 Pneumonia due to coronavirus disease 2019; I42.9 Cardiomyopathy, unspecified; J44.1 Chronic obstructive pulmonary disease with (acute) exacerbation; C79.51 Secondary malignant neoplasm of bone; I13.0 Hypertensive heart and chronic kidney disease with heart failure and stage 1 through stage 4 chronic kidney disease, or unspecified chronic kidney disease; I25.10 Atherosclerotic heart disease of native coronary artery without angina pectoris; I49.3 Ventricular premature depolarization; E87.6 Hypokalemia; N18.30 Chronic kidney disease, stage 3 unspecified; C61 Malignant neoplasm of prostate; E78.5 Hyperlipidemia, unspecified; N40.0 Benign prostatic hyperplasia without lower urinary tract symptoms; Z87.891 Personal history of nicotine dependence; Z95.1 Presence of aortocoronary bypass graft; Z91.89 Other specified personal risk factors, not elsewhere classified; Z79.899 Other long term (current) drug therapy
CPT/HCPCS: 36415; 71046; 71275; 80048; 80053; 83615; 83735; 83880; 84100; 84484; 85025; 85027; 93005; 94618; 94640; 96365; 96366; 96375; 96376; 99285; A9270; G0378; J0456; J0696; J1940; J7512; Q9967

== ENCOUNTER 2022-06-17 01:36 | Inpatient (IN) | payer MEDICARE, SELFPAY ==
[2022-06-17] VITALS (47 sets, daily range): BP systolic 98–149; BP diastolic 65–80; PULSE 64–83; RESP 10–21; TEMP 36.3–36.4; O2SAT 93–100
--- NOTE | ~2022-06-17 | XR_ITS ---
Portable chest x-ray Comparison: 06/22/2022 at 6:09 AM Clinical History: Shortness of breath Findings: There is probable mild bibasilar pulmonary edema pattern. No pleural effusion or pneumotho rax. Cardiomediastinal silhouette is stable. Bones and soft tissues are unremarkable. Impression: Probable mild bibasilar pulmonary edema. Correlate clinically for infection. Reviewed, dictated and finalized at [facility]. Impression: Probable mild bibasilar pulmonary edema. Correlate clinically for infection.
--- NOTE | ~2022-06-17 | US_ITS ---
EXAMINATION: US renal BI DATE: 06/22/2022 16:06 INDICATION: Acute kidney injury. TECHNIQUE: Multiple ultrasound grayscale images of the kidneys were obtained. COMPARISON: CT abdomen and pelvis 03/31/2021 FINDINGS: The right kidney measures 9.7 x 5.3 x 4.6 cm. The left kidney measures 10.7 x 5.4 x 4.4 cm. The kidne ys demonstrate normal parenchymal echogenicity. There is a 2.9 cm cyst in left kidney. There is no hy dronephrosis. The bladder is decompressed by a Flores catheter. IMPRESSION: 1. Normal kidney sizes. No hydronephrosis. Reviewed, dictated and finalized at location A.
--- NOTE | ~2022-06-17 | CT_ITS ---
EXAMINATION: CT brain wo con DATE: 06/17/2022 04:20 INDICATION: Head injury. TECHNIQUE: Computed tomography (CT) of the head was performed without intravenous contrast. The mA wa s adjusted according to patient size. Iterative reconstruction technique was employed. The dose-lengt h product was 681.00 mGy-cm. COMPARISON: None FINDINGS: There are small old infarcts in right cerebellum. There are scattered areas of low attenuat ion in the cerebral white matter. There is no intracranial hemorrhage, acute infarction, or abnormal intracranial mass lesion. The ventricles are normal in size. There are likely changes of ocular lens replacement surgeries. There is mild mucosal thickening in the paranasal sinuses. The mastoid air jon ls are normal. IMPRESSION: 1. 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 2. Moderate nonspecific cerebral white matter disease, which likely represents chronic small vessel i schemic disease. Reviewed, dictated and finalized at location E. IMPRESSION: 1. 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 2. Moderate nonspecific cerebral white matter disease, which likely represents chronic small vessel ischemic disease.
--- NOTE | ~2022-06-17 | XR_ITS ---
Portable chest x-ray Comparison: 06/22/2022 at 3:42 AM Clinical History: Line placement Findings: Right IJ line is present, tip probably crossing into the left brachiocephalic vein. Suspec janet COPD versus mild interstitial edema. Cardiomediastinal silhouette is stable. Bones and soft tiss ues are unremarkable. Impression: Right IJ line tip just enters left brachiocephalic vein. Repositioning to ensure placement in the SVC is advised. Mild interstitial edema versus COPD. Reviewed, dictated and finalized at [facility]. Impression: Right IJ line tip just enters left brachiocephalic vein. Repositioning to ensur e placement in the SVC is advised. Mild interstitial edema versus COPD.
--- NOTE | ~2022-06-17 | CT_ITS ---
EXAMINATION: CT cervical spine wo con DATE: 06/17/2022 04:20 INDICATION: Neck injury. Fall. TECHNIQUE: Computed tomography (CT) of the cervical spine was performed without intravenous contrast. Automated exposure control and iterative reconstruction technique were employed. The dose-length pro duct was 480.54 mGy-cm. COMPARISON: None FINDINGS: The visualized portions of the lung apices demonstrate emphysema. There is 2 mm anterolisth esis of C6 on C7 and C7 on T1. There is 9 degrees dextrocurvature of cervical thoracic spine. Vertebr al body heights are normal. There is mildly decreased disc height at C4-C5, moderately decreased disc height at C5-C6, and mildly decreased disc height at C6-C7. The following disc levels are specifical ly discussed: C2-C3: There is mild bilateral uncovertebral joint osteoarthritis. There is severe bilateral facet francisca int osteoarthritis. There is mild bilateral neural foraminal stenosis. There is no central canal sten osis. C3-C4: There is mild right and moderate left uncovertebral joint osteoarthritis. There is severe bila teral facet joint osteoarthritis. There is mild bilateral neural foraminal stenosis. There is mild ce ntral canal stenosis. C4-C5: There is mild right and severe left uncovertebral joint osteoarthritis. There is severe bilate ral facet joint osteoarthritis. There is mild right and moderate left neural foraminal stenosis. Ther e is mild central canal stenosis. C5-C6: There is mild bilateral uncovertebral joint osteoarthritis. There is severe bilateral facet francisca int osteoarthritis. There is mild bilateral neural foraminal stenosis. There is mild central canal st enosis. C6-C7: There is mild bilateral uncovertebral joint osteoarthritis. There is severe bilateral facet francisca int osteoarthritis. There is mild bilateral neural foraminal stenosis. There is mild central canal st enosis. C7-T1: There is no uncovertebral joint osteoarthritis. There is severe bilateral facet joint osteoart hritis. There is mild bilateral neural foraminal stenosis. There is no central canal stenosis. IMPRESSION: 1. No fracture. 2. Moderate cervical spondylosis. Reviewed, dictated and finalized at location E.
--- NOTE | ~2022-06-17 | XR_ITS ---
EXAMINATION: XR hip LT 2V w AP pelvis INDICATION: Left hip pain, initial encounter TECHNIQUE: AP view the pelvis and two views of the left hip are obtained on four radiographs. COMPARISON: CT, 03/31/2021 FINDINGS: There is an acute, traumatic, closed, intertrochanteric fracture of the left femur. The fem oral heads are well-seated in their acetabula. There is mild osteoarthritis of the hips. Calcified at herosclerosis is noted. There is at least moderate lumbar spondylosis. Of many known sclerotic metast ases of the pelvis and spine, only the left superior pubic ramus metastasis is well demonstrated. IMPRESSION: 1. Acute intertrochanteric fracture of the left femur. 2. Osseous metastatic disease. Reviewed, dictated and finalized at location A.
--- NOTE | ~2022-06-17 | XR_ITS ---
EXAMINATION: XR chest 1V portable DATE: 06/26/2022 05:58 INDICATION: Respiratory failure. TECHNIQUE: A single frontal view of the chest was obtained. COMPARISON: Chest single view 06/25/2022, chest CT 05/04/2022 FINDINGS: There are lucencies in the lungs, consistent with emphysema. There is mild atelectasis in l eft lower lung zone. No pleural effusion or pneumothorax. Cardiomegaly is noted. There are changes of aortic valve replacement. IMPRESSION: 1. Mild atelectasis in left lower lung zone. 2. Emphysema. 3. Cardiomegaly. Reviewed, dictated and finalized at location A.
--- NOTE | ~2022-06-17 | CT_ITS ---
EXAMINATION: CT brain wo con DATE: 06/22/2022 10:24 INDICATION: Slurred speech. TECHNIQUE: Computed tomography (CT) of the head was performed without intravenous contrast. The mA wa s adjusted according to patient size. Iterative reconstruction technique was employed. The dose-lengt h product was 681.00 mGy-cm. COMPARISON: Head CT 06/17/2022 FINDINGS: There are old infarcts in right cerebellum. There are scattered areas of low attenuation in the cerebral white matter. There is no intracranial hemorrhage, acute infarction, or abnormal intrac ranial mass lesion. The ventricles are normal in size. There are likely changes of ocular lens replac ement surgeries. There is mild mucosal thickening in the paranasal sinuses. The mastoid air cells are normal. IMPRESSION: 1. 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 2. Stable moderate nonspecific cerebral white matter disease, which likely represents chronic small v essel ischemic disease. Reviewed, dictated and finalized at location A. IMPRESSION: 1. 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 2. Stable moderate nonspecific cerebral white matter disease, which likely repr esents chronic small vessel ischemic disease.
--- NOTE | ~2022-06-17 | XR_ITS ---
Portable chest x-ray Comparison: 06/26/2022 Clinical History: Respiratory failure Findings: There is probable mild interstitial prominence bilaterally. No consolidation or pleural ef fusion. Cardiomediastinal silhouette is stable. Bones and soft tissues are unremarkable. Impression: Mild bilateral interstitial prominence. Finding are suggestive of COPD or other chronic interstitial disease. Reviewed, dictated and finalized at [facility]. Impression: Mild bilateral interstitial prominence. Finding are suggestive of COPD or other chronic interstitial disease.
--- NOTE | ~2022-06-17 | XR_ITS ---
EXAMINATION: XR fl Dobhoff insert/rad w img DATE: 06/27/2022 12:11 INDICATION: Dobbhoff tube placement requested for medication administration and tube feeding TECHNIQUE: Attempt was made to advance a Dobbhoff type feeding tube utilizing fluoroscopic guidance. The cathete r was advanced into the right nares. The advancement was halted prior to encounter during resistance as the catheter tip was observed to curve cephalad. The catheter was withdrawn in order to place a cu rvilinear wire to aid in directing the catheter more caudally. The patient was noted at this time to have developed significant epistaxis. Patient reports discomfort with prior attempted catheter placem ent on the prior evening. Patient also reported the presence of nasal polyps with history of prior mendoza rgery. The procedure was terminated at this time both due to the epistaxis as well as at patient requ est. A single fluoroscopic image was recorded. The amount of fluoroscopy time used during this proced ure was 0.2 minutes. FINDINGS/IMPRESSION: Unsuccessful attempt at fluoroscopy-guided Dobbhoff feeding tube placement due to the development of epistaxis. This occurred without significant resistance encountered during catheter placement and may reflect reinitiation of bleeding due to prior attempted catheter placement. If enteric access is req uired would consider at least temporary orogastric tube placement until the nasal and nasopharyngeal injury has healed. Review of patient's head CT however also demonstrates multiple nasal polyps and co uld also consider placement utilizing endoscopic guidance. Reviewed, dictated and finalized at location A.
--- NOTE | ~2022-06-17 | XR_ITS ---
EXAMINATION: XR barium swallow modified DATE: 06/25/2022 12:00 INDICATION: Respiratory failure. TECHNIQUE: The patient was given barium-containing material of multiple consistencies to swallow by t unruly speech pathologist while I performed fluoroscopy. Fluoroscopy exposure time was 1.5 minutes. The n umber of fluoroscopy images saved to the PACS was 1. Dose-area product was 1.185 Gy-cm^2. FINDINGS: There is reduced laryngeal elevation, reduced laryngeal adduction, reduced tongue base retraction, re duced pharyngeal squeeze, vallecular residue, piriform sinus residue, and pharyngeal wall residue. Th ere is laryngeal penetration and aspiration with thin liquids and pudding. IMPRESSION: 1. Aspiration of thin liquids and pudding. 2. Please refer to the speech therapy report for recommendations. Reviewed, dictated and finalized at location A.
--- NOTE | ~2022-06-17 | NM_ITS ---
EXAMINATION: NM pulmonary perfusion DATE: 06/22/2022 10:58 INDICATION: Tachypnea and tachycardia post recent hip fracture TECHNIQUE: 5.5 mCi Tc-99m MAA by intravenous route. Scintigraphic images of the chest were obtained. COMPARISON: Chest radiograph dated 06/22/[address] dated 05/04/2022 FINDINGS: There are several moderate to large perfusion defects in the bilateral upper lobes which correspond t o severe bullous changes related to emphysema on prior CT. IMPRESSION: 1. Intermediate probability for pulmonary embolism. Reviewed, dictated and finalized at location L.
--- NOTE | ~2022-06-17 | XR_ITS ---
EXAMINATION: XR surgery orthopedic DATE: 06/18/2022 08:51 INDICATION: Intertrochanteric fracture of proximal left femur. TECHNIQUE: 4 intraoperative fluoroscopic views of left hip were obtained. I was not present. Fluorosc opy exposure time was 60 seconds. COMPARISON: Left hip radiograph 06/17/2022 FINDINGS: There is an intertrochanteric fracture of proximal left femur status post open reduction in ternal fixation in near anatomic alignment with antegrade intramedullary nail and femoral head/neck s crew. There is mild left hip osteoarthritis. IMPRESSION: 1. Intertrochanteric fracture of proximal left femur status post open reduction internal fixation. Reviewed, dictated and finalized at location A.
--- NOTE | ~2022-06-17 | XR_ITS ---
EXAMINATION: XR abdomen NG/feed tube insert DATE: 06/22/2022 13:32 INDICATION: Orogastric tube placement. TECHNIQUE: A supine view of the abdomen was obtained. COMPARISON: None. FINDINGS: The lower abdomen is excluded. The orogastric tube tip is in the stomach. IMPRESSION: 1. Orogastric tube tip in the stomach. Reviewed, dictated and finalized at location A.
--- NOTE | ~2022-06-17 | XR_ITS ---
Portable chest x-ray Comparison: 06/22/2022 Clinical History: Respiratory failure Findings: Endotracheal tube and NG tube are in satisfactory positions. There is mild interstitial ed kathy and/or chronic interstitial disease. No definite pleural effusion or pneumothorax. Cardiomediast inal silhouette is stable. Bones and soft tissues are unremarkable. Impression: Mild chronic interstitial disease and/or COPD, with questionable superimposed mild interstitial pulmo nary edema. Support tubes, as above. Reviewed, dictated and finalized at location M. Impression: Mild chronic interstitial disease and/or COPD, with questionable superimposed m ild interstitial pulmonary edema. Support tubes, as above.
--- NOTE | ~2022-06-17 | XR_ITS ---
Portable chest x-ray Comparison: 05/04/2022 Clinical History: Cough Findings: Lungs are clear, without focal consolidation or pleural effusion. Cardiomediastinal silho uette is stable. Bones and soft tissues are unremarkable. Impression: Clear lungs. Reviewed, dictated and finalized at location . Impression: Clear lungs.
--- NOTE | ~2022-06-17 | XR_ITS ---
EXAMINATION: XR chest 1V portable DATE: 06/24/2022 05:54 INDICATION: Respiratory failure. TECHNIQUE: A single frontal view of the chest was obtained. COMPARISON: Chest single view 06/23/2022, chest CT 05/04/2022 FINDINGS: There are lucencies in the lungs, consistent with emphysema. No pleural effusion or pneumot horax. The heart size is normal. There are changes of aortic valve replacement. The endotracheal tube tip is 4.2 cm above the cristina. The nasogastric tube tip is in the stomach. IMPRESSION: 1. Emphysema. Reviewed, dictated and finalized at location A. IMPRESSION: 1. Emphysema.
--- NOTE | ~2022-06-17 | XR_ITS ---
EXAMINATION: XR chest ET placement DATE: 06/22/2022 13:32 INDICATION: Intubation. TECHNIQUE: A single frontal view of the chest was obtained. COMPARISON: Chest single view at 11:53 AM, chest CT 05/04/2022 FINDINGS: There are lucencies in the lungs, consistent with emphysema. There are airspace opacities i n all lung zones bilaterally with a lower lung predominance. No pleural effusion or pneumothorax. Car diomegaly is noted. The endotracheal tube tip is 3.0 cm above the cristina. The nasogastric tube tip is beyond the inferior margin of the radiograph, but at least to the stomach. There are changes of hear t valve replacement. IMPRESSION: 1. Worsened diffuse lung disease, consistent with pulmonary edema versus pneumonia. 2. Emphysema. 3. Cardiomegaly. Reviewed, dictated and finalized at location A. IMPRESSION: 1. Worsened diffuse lung disease, consistent with pulmonary edema versus pneumo lillian. 2. Emphysema. 3. Cardiomegaly.
--- NOTE | ~2022-06-17 | US_ITS ---
EXAMINATION: US venous doppler [facility] DATE: 06/22/2022 16:07 INDICATION: Hip fracture. Rule out DVT . TECHNIQUE: Grayscale images without and with compression and Doppler images of the bilateral lower ex tremity veins were obtained. COMPARISON: None FINDINGS: Right common femoral, greater saphenous, and profunda femoral veins not visualized due to the presenc e of an indwelling catheter. The right femoral vein, popliteal vein, peroneal vein, posterior tibial veins, gastrocnemius vein, and greater saphenous vein are patent. The left common femoral vein, profunda (deep) femoral vein, femoral vein, popliteal vein, peroneal v ein, posterior tibial veins, gastrocnemius vein, and greater saphenous vein are patent. IMPRESSION: 1. Indwelling catheter obscures evaluation of the right common femoral, greater saphenous, and profu nda femoral veins. 2. Otherwise patent bilateral lower extremity veins. No evidence of deep venous thrombosis. Reviewed, dictated and finalized at location K. IMPRESSION: 1. Indwelling catheter obscures evaluation of the right common femoral, greate r saphenous, and profunda femoral veins. 2. Otherwise patent bilateral lower extremity veins. No evidence of deep venous thrombosis.
--- NOTE | ~2022-06-17 | XR_ITS ---
EXAMINATION: XR chest 1V portable DATE: 06/25/2022 06:08 INDICATION: Respiratory failure. TECHNIQUE: A single frontal view of the chest was obtained. COMPARISON: Chest single view 06/24/2022 FINDINGS: There are lucencies and interstitial opacities in the lungs, consistent with emphysema. The re are airspace opacities in the lower lung zones. No pleural effusion or pneumothorax. The heart siz e is normal. There are changes of heart valve replacement. IMPRESSION: 1. Worsened airspace opacities in the lower lung zones, consistent with atelectasis versus pneumonia. 2. Emphysema. Reviewed, dictated and finalized at location A. IMPRESSION: 1. Worsened airspace opacities in the lower lung zones, consistent with atelect asis versus pneumonia. 2. Emphysema.
--- NOTE | 2022-06-17 03:20 | ECG_ITS ---
Measurements Intervals [place] Rate: 76 P: 63 [place]: 171 QRS: -48 QRSD: 140 T: 134 QT: 443 QTc: 498 Interpretive Statements SINUS RHYTHM POSSIBLE LEFT ATRIAL ENLARGEMENT [-0.1mV P WAVE IN V1/V2] LEFT BUNDLE BRANCH BLOCK COMPARED TO ECG 05/04/2022 16:05:23 NO SIGNIFICANT CHANGES Electronically Signed On 06-17-2022 12:16:28 CDT by Se Presley M.D.
[2022-06-17 04:14] LABS: Prothrombin Time 13.8 Seconds (11.1-14.7)
[2022-06-17 04:14] LABS: Appearance Urine Clear (Clear); Bacteria Urine None Seen /hpf; Bilirubin Urine Negative (Negative); Blood Urine Negative (Negative); Color Urine Yellow (Yellow); Glucose Urine UA 3+ mg/dL (Negative); Hyaline Casts Urine Present /lpf; Ketones Urine Negative (Negative); Leukocyte Esterase Ur Negative LEU/UL (Negative); Mucus Urine Present /lpf; Nitrate Urine Negative (Negative); Protein Urine Trace mg/dL (Negative); RBC Urine 0-2 /hpf (0-2); Specific Grav Ur 1.022 (1.001-1.035); Squamous Epithelial Cell Urine None seen /hpf (Few); Urobilinogen Urine 0.2 mg/dL (<2.0); WBC Urine 0-5 /hpf
[2022-06-17 04:50] LABS: Basophils Percent Auto 0.3 % (0.2-1.2); Eosinophils Absolute Auto 0.2 K/mm3 (0-0.3); Eosinophils Percent Auto 1.6 % (0-4.4); Hematocrit 44.7 % (42.0-52.0); Hemoglobin 14.6 g/dL (14.0-18.0); Immature Granulocyte Absolute 0.05 K/mm3 (0.00-0.031); Immature Granulocyte Percent A 0.5 % (0-0.5); Lymphocytes Absolute Auto 1.81 K/mm3 (0.9-3.2); Mean Corpuscular HGB Conc 32.7 g/dl (32-36); Mean Platelet Volume 10.4 fl (7.4-10.4); Monocytes Absolute Auto 0.5 K/mm3 (0.1-0.6); Monocytes Percent Auto 5.7 % (2.6-8.5); Neutrophils Absolute Auto 6.9 K/mm3 (1.3-6.7); Neutrophils Percent Auto 72.9 % (45.5-73.1); Platelet Count Result 301 k/mm3 (150-375); Red Blood Count 4.86 M/mm3 (4.6-6.20); Red Cell Distribution Width 16.2 % (11.5-14.5); White Blood Count 9.5 K/mm3 (4.5-10.0)
[2022-06-17 04:56] LABS: Add Urine Microscopic? YES
[2022-06-17 05:36] LABS: Alanine Aminotransferase 20 U/L (6-50); Alkaline Phosphatase 66 U/L (38-126); Anion Gap 11 mmol/L (8-16); Aspartate Amino Transferase 28 U/L (17-59); Bilirubin,Total 0.6 mg/dL (0.2-1.3); Blood Urea Nitrogen 50 mg/dL (9-20); Calcium 8.3 mg/dL (8.4-10.2); Carbon Dioxide 24 mmol/L (22-30); Chloride 100 mmol/L (98-107); Estimated CRCL calculation 33 ml/min; Estimated Glomerular Filt Rate 28; Glucose 108 mg/dL (65-110); Potassium 4.5 mmol/L (3.4-5.0); Sodium 135 mmol/L (137-145)
[2022-06-17 05:47] LABS: Troponin I 0.032 ng/mL (0.000-0.034)
[2022-06-17] MEDS: HYDROmorphone HCL INJ (*CRX) 1 MG/ML SYR 0.5 MG IV PUSH ×5 (05:48→20:52)
--- NOTE | 2022-06-17 07:11 | ED.LOWEXIN ---
HPI - Extremity Injury (Lower) General Chief Complaint: Extremity Injury, Lower Stated Complaint: FALL Time Seen by Provider: 06/17/22 02:39 History of Present Illness HPI Narrative: This is a 76-year-old male with past history of coronary artery disease, cardiomyopathy, CHF with a LifeVest, who is brought to the emergency department by EMS after a fall. The patient states he was drinking this evening, when he tripped and fell landing on the left side with immediate 8/10, dull and intermittently sharp pain in the hip. He denies weakness/numbness, chest pain, shortness of breath or palpitations. Related Data Home Medications Medication Instructions Recorded Confirmed aspirin 81 mg tablet,delayed 81 mg PO HS 03/05/19 05/04/22 release (Aspir-) albuterol sulfate 90 mcg/actuation 2 puff inhalation Q4H PRN 03/17/19 05/04/22 aerosol inhaler (Ventolin HFA) shortness of breath or wheezing montelukast 10 mg tablet 10 mg PO DAILY 03/17/19 05/04/22 naproxen 500 mg tablet (Naprosyn) 500 mg PO BID 04/30/22 05/04/22 amlodipine 5 mg tablet 5 mg PO HS 05/01/22 05/04/22 budesonide-formoterol HFA 160 2 puff inhalation BID 05/01/22 05/04/22 mcg-4.5 mcg/actuation aerosol inhaler (Symbicort) cyclosporine 0.05 % eye drops in a 1 drp EACH EYE BID 05/01/22 05/04/22 dropperette (Restasis) enzalutamide 40 mg tablet (Xtandi) 80 mg PO QHS 05/01/22 05/05/22 lovastatin 20 mg tablet 25 mg PO QMWF 05/01/22 05/04/22 metoprolol tartrate 50 mg tablet 75 mg PO BID 05/01/22 05/04/22 prednisone 5 mg tablet 5 mg PO DAILY 05/01/22 05/04/22 sacubitril 49 mg-valsartan 51 mg 1 tablet PO BID 05/01/22 05/04/22 tablet (Entresto) tiotropium bromide 2.5 2 puff inhalation BID 05/01/22 05/04/22 mcg/actuation mist for inhalation (Spiriva Respimat) Allergies Allergy/AdvReac Type Severity Reaction Status Date / Time No Known Allergies Allergy Unknown Verified 04/30/22 16:22 Review of Systems Review of Systems: CONSTITUTIONAL: Denies fever, chills, or sweats. EYES: Denies visual changes, redness, or discharge. ENT: Denies rhinorrhea, congestion, sore throat, or otalgia. CARDIOVASCULAR: Denies chest pain, palpitations, or edema. RESPIRATORY: Denies cough or dyspnea. GASTROINTESTINAL: Denies abdominal pain, nausea, vomiting, or diarrhea. GENITOURINARY: Denies dysuria or hematuria. SKIN: Denies rash or itching. MUSCULOSKELETAL: Left hip pain denies back pain, or myalgia. NEUROLOGIC: Denies headache, numbness, dizziness, or weakness. PSYCHIATRIC: Denies anxiety or depression. 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 Hypertensive heart disease with heart failure IFG (impaired fasting glucose) Left foot pain Lower extremity edema Moderate persistent asthma without complication 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
--- NOTE | 2022-06-17 08:17 | PM.IMHP ---
H&P: HPI History of Present Illness Date/Time: 06/17/22 08:17 Chief Complaint: Left hip pain after fall Narrative: This 76-year-old a gentleman with coronary artery disease congestive heart failure with low ejection fraction around 15% and of was still wearing a life vest had undergone a coronary angiogram with stenting approximately 1 week ago. He was in his usual state of health having no chest pain palpitations dizzy spells or increased dyspnea. He has chronic mild dyspnea on exertion. He normally plays golf but has not done so since last year. He survive COVID-19 in April of this year. He was on oxygen after that episode but weaned himself off gradually and has not used it for the past few weeks. He did quit smoking in 2019. He underwent a bovine tissue AVR in 2019. He is treated for metastatic prostate cancer with hormonal therapy only. His PSA is decline from over 200-2.5. Currently with that he has only frequent urination and slow stream but no pain. He has been taking his medication regularly and following up regularly with his physicians Dr. Terrazas, Dr. Martínez, and Dr. Bueno. Last night is is his habit on Fridays he had 7 ?heavy handed ?Severo and Cokes with his family. He made it home all right but got out of bed 1 last time to urinate prior to turning off the TV in going to sleep. When he got up he tripped and fell, landing on his left hip. He was unable to get up. He had severe pain in the left hip. EMS was summoned and he was transported the emergency department where he was found to have an intertrochanteric fracture of left femur. He denied any other or GI issues. He denied abnormal bleeding. He denied dizzy spells or fainting spells. Review of Systems Review of Systems: All systems reviewed & are unremarkable except as noted in HPI and below [facility] Past Medical History Medical History (Updated 06/17/22 @ 09:05 by Chidi Hill MD) Allergic rhinitis Aortic regurgitation Aortic stenosis BCC (basal cell carcinoma of skin) Bilateral foot pain BPH (benign prostatic hyperplasia) CAD (coronary artery disease) Chronic kidney disease, stage 3 unspecified CKD (chronic kidney disease), stage III Congestive heart failure COPD (chronic obstructive pulmonary disease) Cough Former smoker History of kidney stones History of osteomyelitis HLD (hyperlipidemia) 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 Hypertensive heart disease with heart failure IFG (impaired fasting glucose) Impaired glucose tolerance Left foot pain Lower extremity edema Moderate persistent asthma without complication 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 He has 2 children . He is retired from [employer] representative Code status full code Smoking packs per day: 1 Smoking cigarettes per day: 20.0 Years smoked: 54 Smoking pack-years: 54.00 Smoking status: Former smoker Tobacco type: cigarettes Second hand tobacco smoke exposure: No Smoking end date: 08/11/18 Alcohol intake: current Drinks per week: 7 Alcohol use details: 5-7 heavy handed Severo and Cokes per week on most Fridays. Substance use: never Substance use type: does not use Lack of Transportation: No Lack of Food: Never True Current Housing: I Have Housing Concerned About Future Housing: No Difficul
[2022-06-17] MEDS: TICAGRELOR 90 MG TABLET PO (11:39)
[2022-06-17] MEDS: ASPIRIN 81 MG CHEWABLE TABLET PO (11:41)
--- NOTE | 2022-06-17 11:42 | PM.CNCAR ---
Assessment and Plan Assessment and plan (1) Closed intertrochanteric fracture of left femur: Code(s): S72.142A - Displaced intertrochanteric fracture of left femur, initial encounter for closed fracture Status: Acute Assessment and Plan: Ortho consult pending. If surgery is needed, cannot stop his ASA or Brilinta at all given his recent PCI with stent placement. Continue ASA 81mg once daily and Brilinta 90mg BID without any interruption. Given his coronary disease and heart failure with reduced ejection fraction, patient would be at least moderate-high risk for major adverse cardiac events for surgery. If surgery is pursued, can hold his diuretics and antihypertensives perioperatively to reduce risk of hypotension. Continue Metoprolol throughout the perioperative period. If undergoing surgery, can remove Life Vest during the surgery and place defibrillator pads on patient during surgery. (2) Cardiomyopathy: Code(s): I42.9 - Cardiomyopathy, unspecified Status: Acute Assessment and Plan: Compensated. If surgery is pursued, can hold his diuretics and antihypertensives perioperatively to reduce risk of hypotension. Continue Metoprolol throughout the perioperative period. (3) CAD (coronary artery disease): Code(s): I25.10 - Atherosclerotic heart disease of [place] coronary artery without angina pectoris Status: Acute Assessment and Plan: Continue ASA 81mg once daily and Brilinta 90mg BID without any interruption given recent PCI on 06/08. History of Present Illness History of Present Illness Consult date/time: 06/17/22 11:42 Requesting physician: Chidi Hill MD Consult reason: Other ([facility] management) Reason For Visit: Left Intertrochanteric Fracture Narrative: This is a 76-year-old male with coronary artery disease s/p CABG, aortic valve replacement with 25mm bioprosthetic valve in 2019, heart failure with reduced ejection fraction who presented after a fall. Follows with Dr. Bueno in clinic. Last night, patient had 7 heavy handed [place]ev[place] and Cokes. When he was getting out of his bed last night to urinate, he tripped and fell and landed on his left hip. Found with left intertrochanteric fracture. No syncope. Patient is being admitted for further evaluation. Patient recently had PCI done on 06/08 and had stent placed in his proximal-mid LAD. Is on ASA and Brilinta. Review of Systems Review of Systems: All systems reviewed & are unremarkable except as noted in HPI and below (HPI) [facility] Past Medical History Medical History Allergic rhinitis Aortic regurgitation Aortic stenosis BCC (basal cell carcinoma of skin) Bilateral foot pain BPH (benign prostatic hyperplasia) CAD (coronary artery disease) Chronic kidney disease, stage 3 unspecified CKD (chronic kidney disease), stage III Congestive heart failure COPD (chronic obstructive pulmonary disease) Cough Former smoker History of kidney stones History of osteomyelitis HLD (hyperlipidemia) 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 Hypertensive heart disease with heart failure IFG (impaired fasting glucose) Impaired glucose tolerance Left foot pain Lower extremity edema Moderate persistent asthma without complication 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
--- NOTE | 2022-06-17 13:29 | PM.CNOR ---
Assessment and Plan Assessment and plan (1) Closed intertrochanteric fracture of left femur: Qualifiers: Encounter type: initial encounter Fracture alignment: displaced Qualified Code(s): S72.142A - Displaced intertrochanteric fracture of left femur, initial encounter for closed fracture Code(s): S72.142A - Displaced intertrochanteric fracture of left femur, initial encounter for closed fracture Status: Acute Plan 76-year-old male with displaced left hip intertrochanteric fracture. I had a lengthy discussion with the patient and his family about the injury and treatment. Nonsurgical treatment I think given his list of medical comorbidities would not have an unfavorable outcome. That being said, surgical treatment certainly carries markedly elevated risk of significant complications including . The patient is adamant that he wants to try and get back to his life. Plan on proceeding tomorrow with open reduction internal fixation left intertrochanteric hip fracture. Risks and potential complications were discussed in detail and questions answered. Thank you for the consultation. History of Present Illness HPI Consult date: 06/17/22 Chief complaint: Left Intertrochanteric Fracture Narrative: 76-year-old male who fell last night after having some cocktails. He suffered a displaced left intertrochanteric hip fracture. He was brought to the emergency room for further evaluation and management. His medical history significant. Recently underwent cardiac stent placement and is currently on aspirin and Brilinta. The Brilinta under no circumstances can be stopped. History also significant for hypertension, history of aortic valve replacement, metastatic prostate cancer, chronic kidney disease, impaired glucose tolerance, and the list goes on. Well detailed in the past medical history. Review of Systems Constitutional: Constitutional: Denies anorexia Eyes: Eyes: Denies irritation and Denies loss of vision ENT: Reports Normal hearing present Cardiovascular: Cardiovascular: Denies chest pain and Denies dyspnea on exertion Respiratory: Respiratory: Denies cough and Denies dyspnea on exertion Gastrointestinal: Gastrointestinal: Denies abdominal pain and Denies bloating Genitourinary: Genitourinary: Denies dysuria Musculoskeletal: Musculoskeletal: Denies arthralgias Integumentary/Breasts: Skin/Breast: Denies skin ulcer Neurologic: Reports Normal hearing present and Denies loss of vision Hematologic/Lymphatic: Hematologic/Lymphatic: Denies easy bleeding PMFSH Past Medical History Medical History Allergic rhinitis Aortic regurgitation Aortic stenosis BCC (basal cell carcinoma of skin) Bilateral foot pain BPH (benign prostatic hyperplasia) CAD (coronary artery disease) Chronic kidney disease, stage 3 unspecified CKD (chronic kidney disease), stage III Congestive heart failure COPD (chronic obstructive pulmonary disease) Cough Former smoker History of kidney stones History of osteomyelitis HLD (hyperlipidemia) 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 Hypertensive heart disease with heart failure IFG (impaired fasting glucose) Impaired glucose tolerance Left foot pain Lower extremity edema Moderate persistent asthma without complication 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
--- NOTE | 2022-06-17 15:01 | ADMGEN ---
This patient, Mihir Nguyen, was admitted to 2 Medical Room 256-. Patient/family oriented to hospital policies and general routines including ID bracelet, bed and alarms, visiting hours, pain management, procedures, bathroom and other care routines, personal items, smoking policy, room service/diet, and visiting hours. Information on how to activate the Rapid Response Team has been discussed. Patient/Family are encouraged to report perceived risks to care and to ask questions if they do not understand what they are told or what they should do.
[2022-06-17 20:01] LABS: Anion Gap 7 mmol/L (8-16); Blood Urea Nitrogen 53 mg/dL (9-20); Calcium 8.4 mg/dL (8.4-10.2); Carbon Dioxide 27 mmol/L (22-30); Chloride 102 mmol/L (98-107); Estimated CRCL calculation 34 ml/min; Estimated Glomerular Filt Rate 29; Glucose 115 mg/dL (65-110); Magnesium 2.7 mg/dL (1.6-2.3); Potassium 5.1 mmol/L (3.4-5.0); Sodium 136 mmol/L (137-145)
[2022-06-17] MEDS: TICAGRELOR 90 MG TABLET BY MOUTH (21:47)
[2022-06-17] MEDS: amLODIPine BESYLATE 5 MG TABLET PO (21:57)
[2022-06-17] MEDS: cycloSPORINE 0.4 ML OPHTH SOLUTION 1 DROP EACH EYE (21:57)
[2022-06-17 22:18] LABS: Glucose Point of Care 112 mg/dl (65-105)
[2022-06-18] VITALS (24 sets, daily range): BP systolic 108–165; BP diastolic 56–101; PULSE 71–119; RESP 14–20; TEMP 36–36.6; O2SAT 91–100
[2022-06-18] MEDS: HYDROmorphone HCL INJ (*CRX) 1 MG/ML SYR 0.5 MG IV PUSH ×2 (01:06→05:01)
[2022-06-18] MEDS: ALPRAZolam (*CRX) 0.5 MG TABLET 1 MG PO ×2 (01:11→21:46)
[2022-06-18] MEDS: HYDROCORTISONE SODIUM SUCCINATE 100 MG/2 ML VIAL IV PUSH (05:02)
[2022-06-18 07:06] LABS: Basophils Percent Auto 0.4 % (0.2-1.2); Eosinophils Absolute Auto 0.6 K/mm3 (0-0.3); Eosinophils Percent Auto 5.4 % (0-4.4); Hematocrit 44.7 % (42.0-52.0); Hemoglobin 14.4 g/dL (14.0-18.0); Immature Granulocyte Absolute 0.05 K/mm3 (0.00-0.031); Immature Granulocyte Percent A 0.5 % (0-0.5); Lymphocytes Absolute Auto 1.59 K/mm3 (0.9-3.2); Lymphocytes Percent Auto 14.5 % (18.3-44.2); Mean Corpuscular HGB Conc 32.2 g/dl (32-36); Mean Corpuscular Hemoglobin 30.6 pg (26-34); Mean Corpuscular Volume 94.9 fl (80-100); Mean Platelet Volume 9.9 fl (7.4-10.4); Monocytes Absolute Auto 0.8 K/mm3 (0.1-0.6); Monocytes Percent Auto 6.9 % (2.6-8.5); Neutrophils Absolute Auto 7.9 K/mm3 (1.3-6.7); Neutrophils Percent Auto 72.3 % (45.5-73.1); Platelet Count Result 218 k/mm3 (150-375); Red Blood Count 4.71 M/mm3 (4.6-6.20); Red Cell Distribution Width 16.1 % (11.5-14.5)
[2022-06-18 07:14] LABS: Albumin Level 3.8 g/dL (3.5-5.1); Anion Gap 9 mmol/L (8-16); Blood Urea Nitrogen 53 mg/dL (9-20); Calcium 8.6 mg/dL (8.4-10.2); Carbon Dioxide 22 mmol/L (22-30); Chloride 104 mmol/L (98-107); Estimated CRCL calculation 41 ml/min; Estimated Glomerular Filt Rate 37; Glucose 112 mg/dL (65-110); Phosphorus 4.4 mg/dL (2.5-4.5); Potassium 5.2 mmol/L (3.4-5.0); Sodium 135 mmol/L (137-145)
--- NOTE | 2022-06-18 07:15 | PC.NURSE ---
pt to surgery via bed
--- NOTE | 2022-06-18 07:31 | WPDHPUPDATE1 ---
History and Physical Update Update Date/Time: 06/18/22 07:31 History and Physical has been reviewed, including an updated exam of the patient. There are NO changes in the patient's condition. Risks, benefits, and alternatives have been discussed and questions answered. Patient agrees to proceed with procedure.
[2022-06-18] MEDS: LACTATED RINGERS 1,000 ML 30 ML IV CONT (07:45)
--- NOTE | 2022-06-18 07:45 | WPDANESEPPF ---
Anes - Initial Pre Proc Eval Procedure: Operation Date: 06/18/22 07:30 Proposed Procedures p Intertrochanteric Nail(Left) - Catrachito Prieto MD Date/Time: 06/18/22 07:45 Surgeon: Chidi Hill MD Pre Op Diagnosis: Left Intertrochanteric Fracture Patient Data Age: 76 Gender: M Height: 1.83 m Weight: 111.13 kg Last Vital Signs Temp 36.6 C 06/18/22 05:02 Pulse 85 06/18/22 05:02 Resp 14 06/18/22 05:02 BP 120/67 06/18/22 05:02 Pulse Ox 98 06/18/22 05:02 O2 Del Method Nasal Cannula 06/17/22 20:00 O2 Flow Rate 3 06/17/22 20:00 Allergies Allergy/AdvReac Type Severity Reaction Status Date / Time No Known Allergies Allergy Unknown Verified 06/17/22 15:36 Home Medications Medication Instructions Recorded Confirmed Type aspirin 81 mg tablet,delayed 81 mg PO QTUTHSA 03/05/19 06/17/22 History release (Aspir-) albuterol sulfate 90 mcg/actuation 2 puff inhalation Q4H PRN 03/17/19 06/17/22 History aerosol inhaler (Ventolin HFA) shortness of breath or wheezing montelukast 10 mg tablet 10 mg PO DAILY 03/17/19 06/17/22 History naproxen 500 mg tablet (Naprosyn) 500 mg PO BID 04/30/22 06/17/22 History amlodipine 5 mg tablet 5 mg PO HS 05/01/22 06/17/22 History budesonide-formoterol HFA 160 2 puff inhalation BID 05/01/22 06/17/22 History mcg-4.5 mcg/actuation aerosol inhaler (Symbicort) cyclosporine 0.05 % eye drops in a 1 drp EACH EYE BID 05/01/22 06/17/22 History dropperette (Restasis) enzalutamide 40 mg tablet (Xtandi) 80 mg PO 1400 05/01/22 06/17/22 History lovastatin 20 mg tablet 25 mg PO QMWF 05/01/22 06/17/22 History prednisone 5 mg tablet 5 mg PO DAILY 05/01/22 06/17/22 History sacubitril 49 mg-valsartan 51 mg 1 tablet PO BID 05/01/22 06/17/22 History tablet (Entresto) tiotropium bromide 2.5 2 puff inhalation BID 05/01/22 06/17/22 History mcg/actuation mist for inhalation (Spiriva Respimat) empagliflozin 10 mg tablet 10 mg PO DAILY 30 days #30 tabs 05/02/22 06/17/22 Rx (Jardiance) furosemide 40 mg tablet 40 mg PO BID #60 tabs 05/08/22 06/17/22 Rx potassium chloride 20 mEq 20 meq PO DAILY@0800 #30 tabs 05/08/22 06/17/22 Rx tablet,extended release (K-Tab) spironolactone 25 mg tablet 25 mg PO QAM #30 tabs 05/08/22 06/17/22 Rx alprazolam 1 mg tablet 1 mg PO PRN PRN Anxiety 06/17/22 06/17/22 History casanthranol-docusate sodium 30 1 cap PO HS PRN Constipation 06/17/22 06/17/22 History mg-100 mg capsule melatonin 3 mg tablet 10 mg PO HS PRN Sleep 06/17/22 06/17/22 History metoprolol succinate 50 mg 150 mg PO DAILY 06/17/22 06/17/22 History tablet,extended release 24 hr ticagrelor 90 mg tablet (Brilinta) 90 mg BID 06/17/22 06/17/22 History Laboratory Tests 06/17/22 06/17/22 06/18/22 19:43 22:16 06:24 WBC 11.0 H K/mm3 (4.5-10.0) RBC 4.71 M/mm3 (4.6-6.20) Hgb 14.4 g/dL (14.0-18.0) Hct 44.7 % (42.0-52.0) MCV 94.9 fl (80-100) MCH 30.6 pg (26-34) MCHC 32.2 g/dl (32-36) RDW 16.1 H % (11.5-14.5) Plt Count 218 k/mm3 (150-375) MPV 9.9 fl (7.4-10.4) Immature Gran % (Auto) 0.5 % (0-0.5) Neut % (Auto) 72.3 % (45.5-73.1) Lymph % (Auto) 14.5 L % (18.3-44.2) [place] % (Auto) 6.9 % (2.6-8.5) Eos % (Auto) 5.4 H % (0-4.4) Baso % (Auto) 0.4 % (0.2-1.2) Lymph # (Auto) 1.59 K/mm3 (0.9-3.2) [place] # (Auto) 0.8 H K/mm3 (0.1-0.6) Eos # (Auto) 0.6 H K/mm3 (0-0.3) Baso # (Auto) 0.0 K/mm3 (0.0-0.1) Abs Immat Gran (auto) 0.05 H K/mm3 (0.00-0.031) Absolute Neuts (auto) 7.9 H K/mm3 (1.3-6.7) Absolute Nucleated RBC 0.0 K/mm3 (0.0-0.012) Nucleated RBC % 0.0 % (0.0-0.2) Sodium 136 L mmol/L 135 L mmol/L (137-145) (137-145) Potassium 5.1 H mmol/L 5.2 H mmol/L (3.4-5.0) (3.4-5.0
[2022-06-18] MEDS: ceFAZolin 2 GM/D5W 50 ML 2 GM/50 ML BAG IVPB ×2 (08:12→17:09)
[2022-06-18] MEDS: ceFAZolin SODIUM 1 GM VIAL 2 GM IV PUSH (08:12)
--- NOTE | 2022-06-18 09:09 | P.OP_ITS ---
Procedure Note - Detailed Date of Procedure 06/18/22 Pre-op Diagnosis Left Intertrochanteric Hip Fracture Post-op Diagnosis Same Procedure Performed ORIF left IT hip fracture with trochanteric nail device Surgeon Catrachito Prieto MD [employer] Anesthesia General Description of Procedure The patient was identified and proper site identified, then was taken to the operating room and after general anesthetic induction and intubation was transferred to the [place] table positioning supine taking care to properly pad position the torso and extremities. A provisional reduction was able to be obtained with fluoroscopic assistance. The left hip and thigh was then prepped and draped in the usual sterile fashion. A short incision was made proximal to the tip of the greater trochanter. Subcutaneous tissue was sharply dissected down to the gluteus fascia which was incised over the tip of the greater trochanter. An awl was used to create a starting hole through which a guide josiah was inserted into the femoral canal verifying its position fluoroscopically. The one-step Reamer was used to prepare the entry point for the josiah. There was a little bit of hard bone in the intertrochanteric region consistent with prostate Mets. This was able to be bypassed with little fanfare. A 125 degree, 9 millimeter short nail was then inserted to the appropriate level using the targeting device. Through a 2nd more distal incision under fluoroscopic visualization a 100 mm lag screw was inserted over a guidewire into the femoral neck and head securing it with the set screw. The overall construct was assessed fluoroscopically on the AP and lateral views, and was noted to be sati sfactory. The targeting device was removed. The wounds were irrigated with sterile antibiotic solution. The fascia was reapproximated with 0 Vicryl as was the deeper layers of the subcu. Skin edges were reapproximated with three 0 V lock and [place]. Sterile dressing was applied. The procedure was well tolerated. There were no known intraoperative complications. Perioperative antibiotics were administered. Estimated Blood Loss 30 Urine Output 500 Drains No Packing No Pathology None sent Complications No immediate complications Condition Stable Disposition PACU [facility] Billing Surgery - Charge Forward: Surgery Billing ([id number]; [id number] for intraoperative fluoro use)
[2022-06-18] MEDS: fentaNYL CITRATE INJ (*CRX) 100 MCG/2 ML VIAL 25 MCG IV PUSH ×8 (09:19→10:31)
[2022-06-18 09:41] LABS: Glucose Point of Care 162 mg/dl (65-105)
--- NOTE | 2022-06-18 11:25 | SUR.PHASEI ---
1125- IMU RN transporting patient to floor with defibrillator monitor in place and on. Patient's life vest given to RN and she confirmed she will place patient on life vest in room.
[2022-06-18] MEDS: MORPHINE SULFATE (*CRX) 4 MG/ML INJ 3 MG IV PUSH (12:05)
--- NOTE | 2022-06-18 13:19 | P.PNIM_ITS ---
Progress Note: A&P Assessment and Plan (1) Closed intertrochanteric fracture of left femur: Qualifiers: Encounter type: initial encounter Fracture alignment: displaced Qualified Code(s): S72.142A - Displaced intertrochanteric fracture of left femur, initial encounter for closed fracture Code(s): S72.142A - Displaced intertrochanteric fracture of left femur, initial encounter for closed fracture Status: Acute Assessment and Plan: * 06/18 Did well with anesthesia despite CHF with low EF, CAD, CKD, IGT, COPD * 06/18 ORIF left hip went well (2) At risk for sudden cardiac : Code(s): Z91.89 - Other specified personal risk factors, not elsewhere classified Status: Acute Assessment and Plan: * Telemetry * Life Vest at home, now with defibrillator pads post op (3) PVCs (premature ventricular contractions): Code(s): I49.3 - Ventricular premature depolarization Status: Acute Assessment and Plan: * Telemetry (4) History of aortic valve replacement with tissue graft: Code(s): Z95.4 - Presence of other heart-valve replacement Status: Acute Assessment and Plan: * Bovine aortic valve * Clinically stable (5) Cardiomyopathy: Code(s): I42.9 - Cardiomyopathy, unspecified Status: Acute Assessment and Plan: * Discussed need to moderate alcohol intake * Continue home meds (6) CKD (chronic kidney disease), stage III: Code(s): N18.3 - Chronic kidney disease, stage 3 (moderate) Status: Acute Assessment and Plan: * Creatinine up from 2.0 to 2.3 06/17 * 06/08 creatinine 1.8 (7) CAD (coronary artery disease): Code(s): I25.10 - Atherosclerotic heart disease of [place] coronary artery without angina pectoris Status: Acute Assessment and Plan: * Clinically stable (8) COPD (chronic obstructive pulmonary disease): Code(s): J44.9 - Chronic obstructive pulmonary disease, unspecified Status: Acute Assessment and Plan: * Clincally stable (9) Former smoker: Code(s): Z87.891 - Personal history of nicotine dependence Status: Acute (10) Prostate cancer metastatic to bone: Code(s): C61 - Malignant neoplasm of prostate; C79.51 - Secondary malignant neoplasm of bone Status: Acute (11) Impaired glucose tolerance: Code(s): R73.02 - Impaired glucose tolerance (oral) Status: Acute Assessment and Plan: * A1c 6.0 * SSI ordered 06/18 due to preop hydrocortisone, can likely d/c 06/19 (12) Steroid long-term use: Status: Acute Assessment and Plan: * 06/18 received hydrocortisone 100 mg IV preop * Continued prednisone postop Plan SCD's for PE prophylaxis pending ortho eval and tx. Subjective Date/time seen: 06/18/22 13:19 Interval history: Did well with surgery. Tolerating small amounts of food postop. Complains of severe pain even at rest and more severe with any movement in the left hip only. No shortness of breath at rest. No chest pain or palpitations. No defibrillator discharge. Poor appetite otherwise no GI or complaints. Review of Systems Review of Systems: All systems reviewed & are unremarkable except as noted in HPI and below Exam Narrative: HEENT: EOMI, PERRL, sclerae nonicteric, pharyngeal mucosa pink and intact
--- NOTE | 2022-06-18 13:19 | PM.IMPN ---
Progress Note: A&P Assessment and Plan (1) Closed intertrochanteric fracture of left femur: Qualifiers: Encounter type: initial encounter Fracture alignment: displaced Qualified Code(s): S72.142A - Displaced intertrochanteric fracture of left femur, initial encounter for closed fracture Code(s): S72.142A - Displaced intertrochanteric fracture of left femur, initial encounter for closed fracture Status: Acute Assessment and Plan: 06/18 Did well with anesthesia despite CHF with low EF, CAD, CKD, IGT, COPD 06/18 ORIF left hip went well (2) At risk for sudden cardiac : Code(s): Z91.89 - Other specified personal risk factors, not elsewhere classified Status: Acute Assessment and Plan: Telemetry Life Vest at home, now with defibrillator pads post op (3) PVCs (premature ventricular contractions): Code(s): I49.3 - Ventricular premature depolarization Status: Acute Assessment and Plan: Telemetry (4) History of aortic valve replacement with tissue graft: Code(s): Z95.4 - Presence of other heart-valve replacement Status: Acute Assessment and Plan: Bovine aortic valve Clinically stable (5) Cardiomyopathy: Code(s): I42.9 - Cardiomyopathy, unspecified Status: Acute Assessment and Plan: Discussed need to moderate alcohol intake Continue home meds (6) CKD (chronic kidney disease), stage III: Code(s): N18.3 - Chronic kidney disease, stage 3 (moderate) Status: Acute Assessment and Plan: Creatinine up from 2.0 to 2.3 06/17 06/08 creatinine 1.8 (7) CAD (coronary artery disease): Code(s): I25.10 - Atherosclerotic heart disease of [place] coronary artery without angina pectoris Status: Acute Assessment and Plan: Clinically stable (8) COPD (chronic obstructive pulmonary disease): Code(s): J44.9 - Chronic obstructive pulmonary disease, unspecified Status: Acute Assessment and Plan: Clincally stable (9) Former smoker: Code(s): Z87.891 - Personal history of nicotine dependence Status: Acute (10) Prostate cancer metastatic to bone: Code(s): C61 - Malignant neoplasm of prostate; C79.51 - Secondary malignant neoplasm of bone Status: Acute (11) Impaired glucose tolerance: Code(s): R73.02 - Impaired glucose tolerance (oral) Status: Acute Assessment and Plan: A1c 6.0 SSI ordered 06/18 due to preop hydrocortisone, can likely d/c 06/19 (12) Steroid long-term use: Status: Acute Assessment and Plan: 06/18 received hydrocortisone 100 mg IV preop Continued prednisone postop Plan SCD's for PE prophylaxis pending ortho eval and tx. Subjective Date/time seen: 06/18/22 13:19 Interval history: Did well with surgery. Tolerating small amounts of food postop. Complains of severe pain even at rest and more severe with any movement in the left hip only. No shortness of breath at rest. No chest pain or palpitations. No defibrillator discharge. Poor appetite otherwise no GI or complaints. Review of Systems Review of Systems: All systems reviewed & are unremarkable except as noted in HPI and below Exam Narrative: HEENT: EOMI, PERRL, sclerae nonicteric, pharyngeal mucosa pink and intact NECK: No JVD, adenopathy, or thyromegaly CHEST: Clear to auscultation. Normal effort. HEART: NL S1/S2, regular, no murmur ABDOMEN: BS+, soft, nontender, no mass, no bruits EXTREMITIES: No cyanosis, edema, or clubbing. Pedal pulses palpable NEUROLOGIC: CN intact and symmetric to inspection. MUSCULOSKELETAL: Left lower extremity abducted and externally rotated PSYCH: Alert. Oriented to person, place, and time. SKIN: About 2-3 cm longitudinal skin tear medial distal left lower extremity Objective Data Vital Signs Vital Signs: Vital Signs - 24 hr 06/17/22 14:41 06/17/22 15:03 06/17/22 16:00 Temperature
[2022-06-18] MEDS: HYDROmorphone HCL INJ (*CRX) 1 MG/ML SYR IV PUSH ×3 (13:51→21:47)
[2022-06-18] MEDS: cycloSPORINE 0.4 ML OPHTH SOLUTION 1 DROP EACH EYE (14:10)
[2022-06-18] MEDS: FUROSEMIDE 40 MG TABLET PO ×2 (14:11→18:58)
[2022-06-18] MEDS: EMPAGLIFLOZIN 10 MG TABLET PO (14:11)
[2022-06-18] MEDS: METOPROLOL SUCCINATE EXT REL 50 MG TABCR 150 MG PO (14:11)
[2022-06-18] MEDS: MONTELUKAST SODIUM 10 MG TABLET PO (14:12)
[2022-06-18] MEDS: predniSONE 5 MG TABLET PO (14:13)
[2022-06-18] MEDS: TICAGRELOR 90 MG TABLET BY MOUTH (14:13)
[2022-06-18] MEDS: SACUBITRIL/VALSARTAN 49-51 MG TABLET 1 TABLET PO (14:13)
[2022-06-18] MEDS: SPIRONOLACTONE 25 MG TABLET PO (14:14)
[2022-06-18] MEDS: ASPIRIN 81 MG CHEWABLE TABLET PO (14:16)
[2022-06-18 14:40] LABS: Glucose Point of Care 157 mg/dl (65-105)
--- NOTE | 2022-06-18 15:11 | PCPTNOTE ---
Attempted to see patient for initial evaluation. Patient, family, and nursing all okay with holding today secondary to severe uncontrolled pain and medical issues.
--- NOTE | 2022-06-18 15:15 | PCOTNOTE ---
Per PT, patient not medically stable enough to participate in therapy. RN and MD aware and agree. Will follow.
--- NOTE | 2022-06-18 16:37 | PC.NURSE ---
This patient, Mihir Nguyen, was received from PACU on 06/18/22 at 1125. Patient/family oriented to unit policies and routines
[2022-06-18 18:17] LABS: Glucose Point of Care 163 mg/dl (65-105)
[2022-06-18] MEDS: SENNA/DOCUSATE SODIUM TABLET 2 TAB PO (18:58)
[2022-06-18 20:38] LABS: Glucose Point of Care 178 mg/dl (65-105)
[2022-06-18 21:36] LABS: Anion Gap 9 mmol/L (8-16); Blood Urea Nitrogen 49 mg/dL (9-20); Calcium 8.8 mg/dL (8.4-10.2); Carbon Dioxide 26 mmol/L (22-30); Chloride 102 mmol/L (98-107); Estimated CRCL calculation 39 ml/min; Estimated Glomerular Filt Rate 35; Glucose 146 mg/dL (65-110); Potassium 5.2 mmol/L (3.4-5.0); Sodium 137 mmol/L (137-145)
[2022-06-18] MEDS: MELATONIN 5 MG TABLET 10 MG PO (21:47)
[2022-06-19] VITALS (15 sets, daily range): BP systolic 96–126; BP diastolic 50–79; PULSE 63–87; RESP 16–20; TEMP 36–36.6; O2SAT 92–98
[2022-06-19] MEDS: ceFAZolin 2 GM/D5W 50 ML 2 GM/50 ML BAG IVPB ×2 (00:11→08:21)
[2022-06-19] MEDS: SODIUM ZIRCONIUM CYCLOSILICATE 10 GM POWD.PACK PO (00:13)
[2022-06-19] MEDS: HYDROmorphone HCL INJ (*CRX) 1 MG/ML SYR IV PUSH ×4 (00:53→13:29)
[2022-06-19 04:50] LABS: Hematocrit 42.6 % (42.0-52.0); Mean Corpuscular HGB Conc 32.9 g/dl (32-36); Mean Corpuscular Hemoglobin 30.6 pg (26-34); Mean Corpuscular Volume 93.2 fl (80-100); Mean Platelet Volume 10.2 fl (7.4-10.4); Platelet Count Result 224 k/mm3 (150-375); Red Blood Count 4.57 M/mm3 (4.6-6.20); Red Cell Distribution Width 16.2 % (11.5-14.5)
[2022-06-19 04:59] LABS: Anion Gap 10 mmol/L (8-16); Blood Urea Nitrogen 49 mg/dL (9-20); Calcium 9.1 mg/dL (8.4-10.2); Carbon Dioxide 27 mmol/L (22-30); Chloride 100 mmol/L (98-107); Estimated CRCL calculation 37 ml/min; Estimated Glomerular Filt Rate 33; Glucose 144 mg/dL (65-110); Potassium 4.8 mmol/L (3.4-5.0); Sodium 137 mmol/L (137-145)
[2022-06-19] MEDS: UMECLIDINIUM BROMIDE 62.5 MCG ELLIPTA 2 PUFF INHALATION (07:05)
[2022-06-19] MEDS: FLUTICASONE/SALMETEROL 115-21 MCG INHALER 1 PUFF 2 PUFF INHALATION (07:05)
[2022-06-19] MEDS: TICAGRELOR 90 MG TABLET BY MOUTH (08:14)
[2022-06-19] MEDS: cycloSPORINE 0.4 ML OPHTH SOLUTION 1 DROP EACH EYE (08:15)
[2022-06-19] MEDS: ASPIRIN 81 MG CHEWABLE TABLET PO (08:19)
[2022-06-19] MEDS: HYDROcodone/acetaminophen (*CRX) 7.5-325 MG TABLET 2 TAB PO (08:19)
[2022-06-19] MEDS: SPIRONOLACTONE 25 MG TABLET PO (09:15)
[2022-06-19] MEDS: METOPROLOL SUCCINATE EXT REL 50 MG TABCR 150 MG PO (09:16)
[2022-06-19] MEDS: FAMOTIDINE 20 MG TABLET PO ×2 (09:16→21:29)
[2022-06-19] MEDS: predniSONE 5 MG TABLET PO (09:16)
[2022-06-19] MEDS: SACUBITRIL/VALSARTAN 49-51 MG TABLET 1 TABLET PO (09:16)
[2022-06-19] MEDS: EMPAGLIFLOZIN 10 MG TABLET PO (09:16)
[2022-06-19] MEDS: SENNA/DOCUSATE SODIUM TABLET 2 TAB PO ×2 (09:16→17:14)
[2022-06-19] MEDS: MONTELUKAST SODIUM 10 MG TABLET PO (09:16)
[2022-06-19] MEDS: FUROSEMIDE 40 MG TABLET PO (09:16)
--- NOTE | 2022-06-19 10:36 | PM.PNORT ---
Progress Note: A&P Assessment and Plan (1) Closed intertrochanteric fracture of left femur: Qualifiers: Encounter type: initial encounter Fracture alignment: displaced Qualified Code(s): S72.142A - Displaced intertrochanteric fracture of left femur, initial encounter for closed fracture Code(s): S72.142A - Displaced intertrochanteric fracture of left femur, initial encounter for closed fracture Status: Acute Plan 76-year-old male postop day one status post internal fixation left IT hip fracture. Is experiencing a moderate amount of discomfort however he probably has some degree of hematoma, since he is on the blood thinners. Hemoglobin and hematocrit really have not changed considerably. Will slowly start to mobilize. Continue pain medication. Is being transferred from IMU to regular floor today. Following. Subjective Subjective Date/Time Seen: 06/19/22 10:36 Post Op day: 1 Principal diagnosis: Left intertrochanteric hip fracture, status post internal fixation Interval history: 76-year-old male postop day one status post ORIF left IT hip fracture with trochanteric nail device. Has primarily left hip area pain. Has been in the chair for a bit this morning which tired him out Exam Const: General: cooperative; No comfortable ( complains of left hip pain) Extrem: Other: left hip wounds dry. Moderate bruising left thigh area. Soft tissue tenderness about the incisions. Grossly motor and sensory function intact left lower extremity but exam limited secondary to discomfort. Very weak pulses distally left leg. Upper extremity and right lower extremity exam nonfocal this morning. Objective Data Vital Signs Vital Signs: Vital Signs - 24 hr 06/18/22 10:45 06/18/22 10:55 06/18/22 11:10 Temperature 97.0 F L Pulse Rate 104 H 106 H 105 H Respiratory Rate 14 16 14 Blood Pressure 146/65 H 147/66 H 161/73 H Pulse Oximetry 96 99 100 Oxygen Delivery Nasal Cannula Nasal Cannula Nasal Cannula Oxygen Flow Rate 3 3 3 06/18/22 11:25 06/18/22 11:15 06/18/22 14:11 Temperature 97.6 F Pulse Rate 107 H 71 111 H Respiratory Rate 16 18 Blood Pressure 135/64 139/84 Pulse Oximetry 100 94 Oxygen Delivery Nasal Cannula Oxygen Flow Rate 3 06/18/22 14:25 06/18/22 16:00 06/18/22 13:00 Temperature Pulse Rate 119 H Respiratory Rate 18 Blood Pressure 144/56 H 155/101 H Pulse Oximetry 93 93 Oxygen Delivery Nasal Cannula Oxygen Flow Rate 3 06/18/22 16:00 06/18/22 12:00 06/18/22 16:00 Temperature 96.8 F L Pulse Rate 91 111 H 102 H Respiratory Rate 20 Blood Pressure 108/62 Pulse Oximetry 91 Oxygen Delivery Oxygen Flow Rate 06/18/22 20:45 06/18/22 23:17 06/18/22 20:00 Temperature 97.8 F 97.8 F Pulse Rate 82 75 92 Respiratory Rate 20 20 Blood Pressure 112/66 109/64 Pulse Oximetry 94 94 Oxygen Delivery Oxygen Flow Rate 06/18/22 20:00 06/19/22 00:00 06/19/22 00:00 Temperature Pulse Rate 76 Respiratory Rate Blood Pressure Pulse Oximetry 94 94 Oxygen Delivery Nasal Cannula Nasal Cannula Oxygen Flow Rate 3 3 06/19/22 02:00 06/19/22 02:00 06/19/22 04:00 Temperature Pulse Rate 72 72 83 Respiratory Rate Blood Pressure Pulse Oximetry Oxygen Delivery Oxygen Flow Rate 06/19/22 04:00 06/19/22 04:59 06/19/22 06:00 Temperature 97.8 F Pulse Rate 81 73 Respiratory Rate 20 Blood Pressure 106/50 L Pulse Oximetry 94 96 Oxygen Delivery Nasal Cannula Oxygen Flow Rate 3 06/19/22 08:17 06/19/22 08:01 06/19/22 08:00 Temperature 96.8 F L Pulse Rate 78 Respiratory Rate 16 Blood Pressure 126/79 Pulse Oximetry 98 Oxygen Delivery Nasal Cannula Nasal Cannula Oxygen Flow Rate 2.5 2.5 06/19/22 07:05 06/19/22 07:05 06/19/22 09:16 Temperature Pulse Rate 71 71 87 Respiratory Rate 18 18 Blood Pressure Pulse Oximetry 94 Oxygen Delivery Nasal Cannula Oxygen Flow
[2022-06-19] MEDS: LOVASTATIN 20 MG TABLET PO (10:42)
--- NOTE | 2022-06-19 10:54 | PC.NURSE ---
Addendum entered by Anabela De La Garza RN 06/19/22 10:55: Pt's daughter, Lalitha informed of the room change. Original Note: This patient, Mihir Nguyen, was transferred to [249 ] on 06/19/22 at 1054. Personal belongings sent with patient. Report given to [TOMASZ Sanz @ 1050 ]. Appropriate documentation sent with patient.
--- NOTE | 2022-06-19 11:12 | ADMGEN ---
This patient, Mihir Nguyen, was admitted to Medical Room 249-01. Patient/family oriented to hospital policies and general routines including ID bracelet, bed and alarms, visiting hours, pain management, procedures, bathroom and other care routines, personal items, smoking policy, room service/diet, and visiting hours. Information on how to activate the Rapid Response Team has been discussed. Patient/Family are encouraged to report perceived risks to care and to ask questions if they do not understand what they are told or what they should do.
--- NOTE | 2022-06-19 11:23 | P.PNIM_ITS ---
Progress Note: A&P Assessment and Plan (1) Closed intertrochanteric fracture of left femur: Qualifiers: Encounter type: initial encounter Fracture alignment: displaced Qualified Code(s): S72.142A - Displaced intertrochanteric fracture of left femur, initial encounter for closed fracture Code(s): S72.142A - Displaced intertrochanteric fracture of left femur, initial encounter for closed fracture Status: Acute Assessment and Plan: * 06/18 ORIF left hip went well (2) At risk for sudden cardiac : Code(s): Z91.89 - Other specified personal risk factors, not elsewhere classified Status: Acute Assessment and Plan: * Telemetry * Life Vest at home, now with defibrillator pads post op (3) PVCs (premature ventricular contractions): Code(s): I49.3 - Ventricular premature depolarization Status: Acute Assessment and Plan: * Telemetry (4) History of aortic valve replacement with tissue graft: Code(s): Z95.4 - Presence of other heart-valve replacement Status: Acute Assessment and Plan: * Bovine aortic valve * Clinically stable (5) Cardiomyopathy: Code(s): I42.9 - Cardiomyopathy, unspecified Status: Acute Assessment and Plan: * Discussed need to moderate alcohol intake * Continue home meds (6) CKD (chronic kidney disease), stage III: Code(s): N18.3 - Chronic kidney disease, stage 3 (moderate) Status: Acute Assessment and Plan: Continue to monitor (7) CAD (coronary artery disease): Code(s): I25.10 - Atherosclerotic heart disease of [place] coronary artery without angina pectoris Status: Acute Assessment and Plan: * Clinically stable (8) COPD (chronic obstructive pulmonary disease): Code(s): J44.9 - Chronic obstructive pulmonary disease, unspecified Status: Acute Assessment and Plan: * Clincally stable (9) Prostate cancer metastatic to bone: Code(s): C61 - Malignant neoplasm of prostate; C79.51 - Secondary malignant neoplasm of bone Status: Acute (10) Impaired glucose tolerance: Code(s): R73.02 - Impaired glucose tolerance (oral) Status: Acute Assessment and Plan: * A1c 6.0 (11) Steroid long-term use: Status: Acute Assessment and Plan: * 06/18 received hydrocortisone 100 mg IV preop * Continued prednisone postop Plan Pending placement Subjective Date/time seen: 06/19/22 11:23 Interval history: Doing well postoperatively Review of Systems Review of Systems: All systems reviewed & are unremarkable except as noted in HPI and below Exam Narrative: HEENT: EOMI, PERRL, sclerae nonicteric, pharyngeal mucosa pink and intact NECK: No JVD, adenopathy, or thyromegaly CHEST: Clear to auscultation. Normal effort. HEART: NL S1/S2, regular, no murmur ABDOMEN: BS+, soft, nontender, no mass, no bruits EXTREMITIES: No cyanosis, edema, or clubbing. Pedal pulses palpable NEUROLOGIC: CN intact and symmetric to inspection. MUSCULOSKELETAL: Left lower extremity abducted and externally rotated PSYCH: Alert. Oriented to person, place, and time. SKIN: About 2-3 cm longitudinal skin tear medial distal left lower extremity Objective Data Vital Signs Vital Signs:
--- NOTE | 2022-06-19 11:23 | PM.IMPN ---
Progress Note: A&P Assessment and Plan (1) Closed intertrochanteric fracture of left femur: Qualifiers: Encounter type: initial encounter Fracture alignment: displaced Qualified Code(s): S72.142A - Displaced intertrochanteric fracture of left femur, initial encounter for closed fracture Code(s): S72.142A - Displaced intertrochanteric fracture of left femur, initial encounter for closed fracture Status: Acute Assessment and Plan: 06/18 ORIF left hip went well (2) At risk for sudden cardiac : Code(s): Z91.89 - Other specified personal risk factors, not elsewhere classified Status: Acute Assessment and Plan: Telemetry Life Vest at home, now with defibrillator pads post op (3) PVCs (premature ventricular contractions): Code(s): I49.3 - Ventricular premature depolarization Status: Acute Assessment and Plan: Telemetry (4) History of aortic valve replacement with tissue graft: Code(s): Z95.4 - Presence of other heart-valve replacement Status: Acute Assessment and Plan: Bovine aortic valve Clinically stable (5) Cardiomyopathy: Code(s): I42.9 - Cardiomyopathy, unspecified Status: Acute Assessment and Plan: Discussed need to moderate alcohol intake Continue home meds (6) CKD (chronic kidney disease), stage III: Code(s): N18.3 - Chronic kidney disease, stage 3 (moderate) Status: Acute Assessment and Plan: Continue to monitor (7) CAD (coronary artery disease): Code(s): I25.10 - Atherosclerotic heart disease of [place] coronary artery without angina pectoris Status: Acute Assessment and Plan: Clinically stable (8) COPD (chronic obstructive pulmonary disease): Code(s): J44.9 - Chronic obstructive pulmonary disease, unspecified Status: Acute Assessment and Plan: Clincally stable (9) Prostate cancer metastatic to bone: Code(s): C61 - Malignant neoplasm of prostate; C79.51 - Secondary malignant neoplasm of bone Status: Acute (10) Impaired glucose tolerance: Code(s): R73.02 - Impaired glucose tolerance (oral) Status: Acute Assessment and Plan: A1c 6.0 (11) Steroid long-term use: Status: Acute Assessment and Plan: 06/18 received hydrocortisone 100 mg IV preop Continued prednisone postop Plan Pending placement Subjective Date/time seen: 06/19/22 11:23 Interval history: Doing well postoperatively Review of Systems Review of Systems: All systems reviewed & are unremarkable except as noted in HPI and below Exam Narrative: HEENT: EOMI, PERRL, sclerae nonicteric, pharyngeal mucosa pink and intact NECK: No JVD, adenopathy, or thyromegaly CHEST: Clear to auscultation. Normal effort. HEART: NL S1/S2, regular, no murmur ABDOMEN: BS+, soft, nontender, no mass, no bruits EXTREMITIES: No cyanosis, edema, or clubbing. Pedal pulses palpable NEUROLOGIC: CN intact and symmetric to inspection. MUSCULOSKELETAL: Left lower extremity abducted and externally rotated PSYCH: Alert. Oriented to person, place, and time. SKIN: About 2-3 cm longitudinal skin tear medial distal left lower extremity Objective Data Vital Signs Vital Signs: Vital Signs - 24 hr 06/18/22 11:25 06/18/22 14:11 06/18/22 14:25 Temperature Pulse Rate 107 H 111 H 119 H Respiratory Rate 16 18 Blood Pressure 135/64 144/56 H Pulse Oximetry 100 93 Oxygen Delivery Nasal Cannula Oxygen Flow Rate 3 06/18/22 16:00 06/18/22 13:00 06/18/22 16:00 Temperature 96.8 F L Pulse Rate 91 Respiratory Rate 20 Blood Pressure 155/101 H 108/62 Pulse Oximetry 93 91 Oxygen Delivery Nasal Cannula Oxygen Flow Rate 3 06/18/22 12:00 06/18/22 16:00 06/18/22 20:45 Temperature 97.8 F Pulse Rate 111 H 102 H 82 Respiratory Rate 20 Blood Pressure 112/66 Pulse Oximetry 94 Oxygen Delivery Oxygen Flow Rat
[2022-06-19 11:51] LABS: Glucose Point of Care 123 mg/dl (65-105)
--- NOTE | 2022-06-19 12:09 | PHAR ---
HOME: XTANDI 40 MG TABLETS; TAKE 4 CAPSULES BY MOUTH DAILY. VERIFIED BY PHARMACY.
[2022-06-19 12:33] LABS: Magnesium 2.5 mg/dL (1.6-2.3)
[2022-06-19 13:29] LABS: Glucose Point of Care 126 mg/dl (65-105)
--- NOTE | 2022-06-19 13:31 | PCCCNOTE ---
On 06/19/22, the student, [Cara Peñaloza ], provided care and completed [facility] documentation on this patient. I have reviewed the student's documentation and agree with the findings.
[2022-06-19] MEDS: ONDANSETRON INJ 4 MG/2 ML VIAL IV PUSH ×2 (17:09→21:29)
[2022-06-19 17:12] LABS: Glucose Point of Care 119 mg/dl (65-105)
[2022-06-19] MEDS: SODIUM CHLORIDE 0.9% IV 500 ML 50 ML IV CONT (18:46)
[2022-06-19 22:01] LABS: Glucose Point of Care 129 mg/dl (65-105)
[2022-06-20] VITALS (17 sets, daily range): BP systolic 76–121; BP diastolic 49–67; PULSE 62–100; RESP 16–18; TEMP 36.5–36.8; O2SAT 94–98
[2022-06-20 05:49] LABS: Hemoglobin 12.6 g/dL (14.0-18.0); Mean Corpuscular HGB Conc 33.2 g/dl (32-36); Mean Corpuscular Volume 93.4 fl (80-100); Mean Platelet Volume 10.1 fl (7.4-10.4); Platelet Count Result 217 k/mm3 (150-375); Red Blood Count 4.07 M/mm3 (4.6-6.20); Red Cell Distribution Width 16.1 % (11.5-14.5); White Blood Count 10.6 K/mm3 (4.5-10.0)
[2022-06-20 06:01] LABS: Albumin Level 3.5 g/dL (3.5-5.1); Anion Gap 9 mmol/L (8-16); Blood Urea Nitrogen 63 mg/dL (9-20); Calcium 8.4 mg/dL (8.4-10.2); Carbon Dioxide 26 mmol/L (22-30); Chloride 100 mmol/L (98-107); Estimated CRCL calculation 29 ml/min; Estimated Glomerular Filt Rate 24; Glucose 121 mg/dL (65-110); Potassium 4.7 mmol/L (3.4-5.0); Sodium 135 mmol/L (137-145)
[2022-06-20] MEDS: HYDROcodone/acetaminophen (*CRX) 7.5-325 MG TABLET 2 TAB PO (07:38)
[2022-06-20 08:18] LABS: Glucose Point of Care 102 mg/dl (65-105)
[2022-06-20] MEDS: EMPAGLIFLOZIN 10 MG TABLET PO (09:21)
[2022-06-20] MEDS: FAMOTIDINE 20 MG TABLET PO ×2 (09:21→20:08)
[2022-06-20] MEDS: ASPIRIN 81 MG CHEWABLE TABLET PO (09:22)
[2022-06-20] MEDS: FUROSEMIDE 40 MG TABLET PO ×2 (09:22→17:34)
[2022-06-20] MEDS: SENNA/DOCUSATE SODIUM TABLET 2 TAB PO (09:22)
[2022-06-20] MEDS: cycloSPORINE 0.4 ML OPHTH SOLUTION 1 DROP EACH EYE ×2 (09:22→20:08)
[2022-06-20] MEDS: predniSONE 5 MG TABLET PO (09:23)
[2022-06-20] MEDS: MONTELUKAST SODIUM 10 MG TABLET PO (09:23)
[2022-06-20] MEDS: METOPROLOL SUCCINATE EXT REL 50 MG TABCR 150 MG PO (09:23)
[2022-06-20] MEDS: TICAGRELOR 90 MG TABLET BY MOUTH ×2 (09:23→20:07)
[2022-06-20] MEDS: SPIRONOLACTONE 25 MG TABLET PO (09:23)
[2022-06-20] MEDS: SACUBITRIL/VALSARTAN 49-51 MG TABLET 1 TABLET PO (09:24)
[2022-06-20] MEDS: UMECLIDINIUM BROMIDE 62.5 MCG ELLIPTA 2 PUFF INHALATION (09:35)
[2022-06-20] MEDS: FLUTICASONE/SALMETEROL 115-21 MCG INHALER 1 PUFF 2 PUFF INHALATION (09:36)
--- NOTE | 2022-06-20 10:19 | P.CDI_ITS ---
CDI Query Clarification Request Documented history of CHF. CHF noted on the assessment and plan. Entresto and Lasix listed as home medications. Patient receiving Entresto and Lasix. Please specify type and acuity of heart failure if known. * Acute * Chronic * Acute on Chronic * Unknown * Systolic * Diastolic * Combined Systolic and Diastolic * Unknown <Cheryl De RN - Last Filed: 06/20/22 10:22> chronic systolic chf Documented history of CHF. CHF noted on the assessment and plan. Entresto and Lasix listed as home medications. Patient receiving Entresto and Lasix. Please specify type and acuity of heart failure if known. * Acute * Chronic * Acute on Chronic * Unknown * Systolic * Diastolic * Combined Systolic and Diastolic * Unknown <Sourav Sevilla MD - Last Filed: 06/20/22 10:29>
--- NOTE | 2022-06-20 10:19 | WPDCDIQUERY2 ---
CDI Query Clarification Request Documented history of CHF. CHF noted on the assessment and plan. Entresto and Lasix listed as home medications. Patient receiving Entresto and Lasix. Please specify type and acuity of heart failure if known. Acute Chronic Acute on Chronic Unknown Systolic Diastolic Combined Systolic and Diastolic Unknown <Cheryl De RN - Last Filed: 06/20/22 10:22> chronic systolic chf Documented history of CHF. CHF noted on the assessment and plan. Entresto and Lasix listed as home medications. Patient receiving Entresto and Lasix. Please specify type and acuity of heart failure if known. Acute Chronic Acute on Chronic Unknown Systolic Diastolic Combined Systolic and Diastolic Unknown <Sourav Sevilla MD - Last Filed: 06/20/22 10:29>
--- NOTE | 2022-06-20 10:46 | PM.IMPN ---
Progress Note: A&P Assessment and Plan (1) Closed intertrochanteric fracture of left femur: Qualifiers: Encounter type: initial encounter Fracture alignment: displaced Qualified Code(s): S72.142A - Displaced intertrochanteric fracture of left femur, initial encounter for closed fracture Code(s): S72.142A - Displaced intertrochanteric fracture of left femur, initial encounter for closed fracture Status: Acute Assessment and Plan: 06/18 ORIF left hip went well. Patient participating in therapy. Possible discharge tomorrow. Home health already arranged for PT and OT (2) At risk for sudden cardiac : Code(s): Z91.89 - Other specified personal risk factors, not elsewhere classified Status: Acute Assessment and Plan: Telemetry Life Vest at home, now with defibrillator pads post op (3) PVCs (premature ventricular contractions): Code(s): I49.3 - Ventricular premature depolarization Status: Acute Assessment and Plan: Telemetry (4) History of aortic valve replacement with tissue graft: Code(s): Z95.4 - Presence of other heart-valve replacement Status: Acute Assessment and Plan: Bovine aortic valve Clinically stable (5) Cardiomyopathy: Code(s): I42.9 - Cardiomyopathy, unspecified Status: Acute Assessment and Plan: Discussed need to moderate alcohol intake Continue home meds (6) CKD (chronic kidney disease), stage III: Code(s): N18.3 - Chronic kidney disease, stage 3 (moderate) Status: Acute Assessment and Plan: Continue to monitor (7) CAD (coronary artery disease): Code(s): I25.10 - Atherosclerotic heart disease of [place] coronary artery without angina pectoris Status: Acute Assessment and Plan: Clinically stable (8) COPD (chronic obstructive pulmonary disease): Code(s): J44.9 - Chronic obstructive pulmonary disease, unspecified Status: Acute Assessment and Plan: Clincally stable (9) Prostate cancer metastatic to bone: Code(s): C61 - Malignant neoplasm of prostate; C79.51 - Secondary malignant neoplasm of bone Status: Acute (10) Impaired glucose tolerance: Code(s): R73.02 - Impaired glucose tolerance (oral) Status: Acute Assessment and Plan: A1c 6.0 (11) Steroid long-term use: Status: Acute Assessment and Plan: 06/18 received hydrocortisone 100 mg IV preop Continued prednisone postop Plan Pending placement Subjective Date/time seen: 06/20/22 10:46 Interval history: Patient states he feels weak Review of Systems Review of Systems: All systems reviewed & are unremarkable except as noted in HPI and below Exam Narrative: HEENT: EOMI, PERRL, sclerae nonicteric, pharyngeal mucosa pink and intact NECK: No JVD, adenopathy, or thyromegaly CHEST: Clear to auscultation. Normal effort. HEART: NL S1/S2, regular, no murmur ABDOMEN: BS+, soft, nontender, no mass, no bruits EXTREMITIES: No cyanosis, edema, or clubbing. Pedal pulses palpable NEUROLOGIC: CN intact and symmetric to inspection. MUSCULOSKELETAL: Left lower extremity abducted and externally rotated PSYCH: Alert. Oriented to person, place, and time. SKIN: About 2-3 cm longitudinal skin tear medial distal left lower extremity Objective Data Vital Signs Vital Signs: Vital Signs - 24 hr 06/19/22 12:30 06/19/22 12:00 06/19/22 14:29 Temperature 97.8 F Pulse Rate 77 68 Respiratory Rate 18 Blood Pressure 96/70 L Pulse Oximetry 98 92 Oxygen Delivery Nasal Cannula Oxygen Flow Rate 3 06/19/22 16:00 06/19/22 16:00 06/19/22 20:45 Temperature 97.4 F L 97.7 F Pulse Rate 63 71 76 Respiratory Rate 16 16 Blood Pressure 98/64 L 98/60 L Pulse Oximetry 97 95 Oxygen Delivery Oxygen Flow Rate 06/19/22 21:10 06/20/22 00:40 06/19/22 20:00 Temperature 98.0 F Pulse Rate 96 77 Respiratory Rate 18
[2022-06-20 10:54] LABS: Glucose Point of Care 129 mg/dl (65-105)
--- NOTE | 2022-06-20 11:19 | PCOTNOTE ---
Per RN, Patient had a bid decrease in blood pressure this morning. No therapy services at this time.
[2022-06-20 12:14] LABS: Glucose Point of Care 114 mg/dl (65-105)
--- NOTE | 2022-06-20 14:32 | PM.PNCARD ---
Progress Note: A&P Assessment and Plan (1) Closed intertrochanteric fracture of left femur: Qualifiers: Encounter type: initial encounter Fracture alignment: displaced Qualified Code(s): S72.142A - Displaced intertrochanteric fracture of left femur, initial encounter for closed fracture Code(s): S72.142A - Displaced intertrochanteric fracture of left femur, initial encounter for closed fracture Status: Acute Assessment and Plan: He is now s/p ORIF Continue ASA 81mg once daily and Brilinta 90mg BID without any interruption. Intermittently hypotensive. Will decrease Entresto dose to 24-26 and hold spironolactone. Observe BP response and make adjustments accordingly. He does have frequent PVC's, bigeminy, and occasional NSVT, so will continue BB at current dose. Continue diuretic for now as he has not had persistent, significant, or symptomatic hypotension and want to avoid volume overload. (2) Cardiomyopathy: Code(s): I42.9 - Cardiomyopathy, unspecified Status: Acute Assessment and Plan: Compensated. Medication adjustments as above. (3) CAD (coronary artery disease): Code(s): I25.10 - Atherosclerotic heart disease of [place] coronary artery without angina pectoris Status: Acute Assessment and Plan: Continue ASA 81mg once daily and Brilinta 90mg BID without any interruption given recent PCI on 06/08. Subjective Date/time seen: 06/20/22 14:32 Cardiology follow up for CAD, CMY Interval history: Patient was initially seen in consultation for preoperative risk assessment. Cardiology asked to follow up on patient today due to hypotension. Per RN, patient had hypotension during physical therapy that limited ability to proceed with therapy. Patient does report feeling very fatigued during his therapy session. No syncope or pre-syncope. Denies any chest pain or palpitations. Does have dyspnea with exertion and orthopnea. Review of Systems Review of Systems: All systems reviewed & are unremarkable except as noted in HPI and below Exam Const: General: comfortable and no acute distress HENMT: Mouth: Yes moist mucous membranes Eyes: General: appearance normal, both eyes and all related structures Sclera: sclerae normal Neck: Neck: supple Resp: Effort & Inspection: normal respiratory effort Auscultation: clear to auscultation bilaterally Cardio: Rate: regular rate Rhythm: regular rhythm and abnormal rhythm with ectopic beats Heart sounds: no murmurs Urinary Catheter: Urinary Catheter: patent and draining Skin: General skin exam: normal color Other: bilateral forearm ecchymosis Neuro: Speech: normal speech Extrem: General: normal to inspection Left lower extremity: hip/thigh (dressing clean, dry, intact. ) Details: other Psych: Mental Status: mental status grossly normal Affect: normal affect Objective Data Vital Signs Vital Signs: Vital Signs - 24 hr 06/19/22 16:00 06/19/22 16:00 06/19/22 20:45 Temperature 36.3 C L 36.5 C Pulse Rate 63 71 76 Respiratory Rate 16 16 Blood Pressure 98/64 L 98/60 L Pulse Oximetry 97 95 Oxygen Delivery Oxygen Flow Rate 06/19/22 21:10 06/20/22 00:40 06/19/22 20:00 Temperature 36.7 C Pulse Rate 96 77 Respiratory Rate 18 Blood Pressure 115/54 L Pulse Oximetry 95 96 Oxygen Delivery Nasal Cannula Oxygen Flow Rate 3 06/20/22 00:00 06/20/22 04:00 06/20/22 04:45 Temperature 36.8 C Pulse Rate 88 94 76 Respiratory Rate 18 Blood Pressure 121/61 Pulse Oximetry 96 Oxygen Delivery Oxygen Flow Rate 06/20/22 09:21 06/20/22 09:23 06/20/22 09:40 Temperature Pulse Rate 74 62 Respiratory Rate Blood Pressure 112/49 L Pulse Oximetry 96 Oxygen Delivery Nasal Cannula Oxygen Flow Rate 3 06/20/22 07:35 06/20/22 10:30 06/20/22 10:44 Temperature Pulse Rate 62 Respiratory Rate 18 Blood Pressure 76/50 L 104/50 L Pulse Oximet
--- NOTE | 2022-06-20 15:08 | PCOTNOTE ---
Attempted to see Patient this P.M. Patient declined performing therapy this afternoon, stating the financial planning analyst is changing some of his medications and he is feeling weak. Patient stated he will start over in the morning.
[2022-06-20 17:16] LABS: Glucose Point of Care 125 mg/dl (65-105)
[2022-06-20] MEDS: HYDROcodone/acetaminophen (*CRX) 7.5-325 MG TABLET 1 TAB PO ×2 (17:35→20:08)
[2022-06-20] MEDS: SACUBITRIL/VALSARTAN 24-26 MG TABLET 1 TAB PO (20:07)
[2022-06-20] MEDS: MELATONIN 5 MG TABLET 10 MG PO (20:08)
[2022-06-20 21:16] LABS: Glucose Point of Care 128 mg/dl (65-105)
[2022-06-21] VITALS (15 sets, daily range): BP systolic 75–148; BP diastolic 43–79; PULSE 47–130; RESP 18; TEMP 36.1–37.1; O2SAT 95–98
[2022-06-21] MEDS: FLUTICASONE/SALMETEROL 115-21 MCG INHALER 1 PUFF 2 PUFF INHALATION ×2 (07:05→21:54)
[2022-06-21] MEDS: UMECLIDINIUM BROMIDE 62.5 MCG ELLIPTA 2 PUFF INHALATION (07:05)
[2022-06-21] MEDS: ASPIRIN 81 MG CHEWABLE TABLET PO (08:13)
[2022-06-21] MEDS: MONTELUKAST SODIUM 10 MG TABLET PO (08:13)
[2022-06-21] MEDS: LOVASTATIN 20 MG TABLET PO (08:13)
[2022-06-21] MEDS: FUROSEMIDE 40 MG TABLET PO ×2 (08:14→17:34)
[2022-06-21] MEDS: FAMOTIDINE 20 MG TABLET PO ×2 (08:14→20:22)
[2022-06-21] MEDS: cycloSPORINE 0.4 ML OPHTH SOLUTION 1 DROP EACH EYE ×2 (08:14→20:21)
[2022-06-21] MEDS: predniSONE 5 MG TABLET PO (08:14)
[2022-06-21] MEDS: EMPAGLIFLOZIN 10 MG TABLET PO (08:14)
[2022-06-21] MEDS: TICAGRELOR 90 MG TABLET BY MOUTH ×2 (08:14→20:21)
[2022-06-21 08:35] LABS: Glucose Point of Care 125 mg/dl (65-105)
[2022-06-21] MEDS: SENNA/DOCUSATE SODIUM TABLET 2 TAB PO (08:50)
--- NOTE | 2022-06-21 10:20 | PC.NURSE ---
pt requesting dilaudid for pain, he states that after working with therapy that will be the only thing that helps, will check BP and continue to monitor
[2022-06-21] MEDS: HYDROmorphone HCL INJ (*CRX) 1 MG/ML SYR IV PUSH ×2 (10:29→20:26)
--- NOTE | 2022-06-21 11:15 | PM.PNORT ---
Progress Note: A&P Assessment and Plan (1) Closed intertrochanteric fracture of left femur: Qualifiers: Encounter type: initial encounter Fracture alignment: displaced Qualified Code(s): S72.142A - Displaced intertrochanteric fracture of left femur, initial encounter for closed fracture Code(s): S72.142A - Displaced intertrochanteric fracture of left femur, initial encounter for closed fracture Status: Acute Plan Continue to try and mobilize. Is certainly going to need rehab. Following. Subjective Subjective Date/Time Seen: 06/21/22 11:15 Post Op day: 3 Interval history: Postop day three ORIF left IT hip fracture. Is experiencing pain still in the left hip thigh. Having some issues with blood pressure currently. This is getting in the way of therapy. Exam Const: General: cooperative Extrem: Other: Examination of the left hip incision so that they are dry. No significant bruising in the left buttock or thigh. On the left thigh compartments are all supple although does have soft tissue tenderness to palpation in the area around the proximal femur. No warmth or erythema anywhere in the left lower extremity. Objective Data Vital Signs Vital Signs: Vital Signs - 24 hr 06/20/22 14:21 06/20/22 12:00 06/20/22 16:00 Temperature 98.0 F Pulse Rate 69 100 84 Respiratory Rate 16 Blood Pressure 108/54 L Pulse Oximetry 98 Oxygen Delivery Oxygen Flow Rate 06/20/22 18:00 06/20/22 20:01 06/20/22 20:00 Temperature 97.7 F 97.9 F Pulse Rate 73 72 72 Respiratory Rate 18 18 18 Blood Pressure 97/67 L 89/59 L Pulse Oximetry 96 94 94 Oxygen Delivery Nasal Cannula Oxygen Flow Rate 3 06/21/22 00:00 06/20/22 20:00 06/21/22 00:00 Temperature 97.0 F L Pulse Rate 66 71 74 Respiratory Rate 18 Blood Pressure 117/70 Pulse Oximetry 96 Oxygen Delivery Oxygen Flow Rate 06/21/22 03:16 06/21/22 04:00 06/21/22 07:05 Temperature 97 F L Pulse Rate 70 75 68 Respiratory Rate 18 18 Blood Pressure 132/58 L Pulse Oximetry 97 98 Oxygen Delivery Nasal Cannula Oxygen Flow Rate 3 06/21/22 07:05 06/21/22 08:05 06/21/22 10:23 Temperature Pulse Rate 68 130 H Respiratory Rate 18 Blood Pressure 98/50 L 108/58 L Pulse Oximetry 95 Oxygen Delivery Oxygen Flow Rate 06/21/22 08:00 Temperature Pulse Rate Respiratory Rate Blood Pressure Pulse Oximetry 95 Oxygen Delivery Nasal Cannula Oxygen Flow Rate 3 Intake/Output Intake/Output: Intake & Output 06/18/22 06/19/22 06/20/22 06/21/22 23:59 23:59 23:59 23:59 Intake Total 820 / 820 1690 / 1690 1100 / 1100 430 / 430 Output Total 1730 / 1730 1300 / 1300 1400 / 1400 200 / 200 Balance -910 / -910 390 / 390 -300 / -300 230 / 230 Meds/Results Medications: Active Medications Generic Name Dose Route Start Last Admin Trade Name Freq PRN Reason Stop Dose Admin Acetaminophen 650 mg 06/18/22 11:22 Acetaminophen 325 Mg Tablet PO Q6H PRN Mild Pain (1-3) or Fever Hydrocodone Bitart/Acetaminophen 1 tab 06/18/22 11:22 06/20/22 20:08 Hydrocodone/Acetaminophen (*Crx) 7.5-325 Mg Tablet PO 1 tab Q3H PRN Administration Pain Rated 4-6 Hydrocodone Bitart/Acetaminophen 2 tab 06/18/22 11:22 06/20/22 07:38 Hydrocodone/Acetaminophen (*Crx) 7.5-325 Mg Tablet PO 2 tab Q6H PRN Administration Pain Rated 7-10 Albuterol 2 puff 06/17/22 19:07 Albuterol Sulfate (*Sp) Aerosol 1 Puff INHALATION Q4HRT PRN shortness of breath or wheezing Alprazolam 1 mg 06/17/22 19:07 06/18/22 21:46 Alprazolam (*Crx) 0.5 Mg Tablet PO 1 mg Q12H PRN Administration Anxiety Amlodipine Besylate 5 mg 06/17/22 21:00 06/20/22 20:08 Amlodipine Besylate 5 Mg Tablet PO Not Given HS HAYLEY Aspirin 81 mg 06/17/22 11:40 06/21/22 08:13 Aspirin 81 Mg Chewable Tablet PO 81 mg DAILY@0800 HAYLEY Administration Cyclosporine 1 ralph
--- NOTE | 2022-06-21 11:21 | PCPTNOTE ---
Attempted to see patient for PT, however patient declined and asked PT to come back later. Patient reported he was worn out from working with OT and wanted a little more time to rest.
--- NOTE | 2022-06-21 11:32 | PC.NURSE ---
On 06/21/22, the student, [Valerie Reed], provided care and completed [facility] documentation on this patient. I have reviewed the student's documentation and agree with the findings.
[2022-06-21 11:54] LABS: Glucose Point of Care 135 mg/dl (65-105)
--- NOTE | 2022-06-21 13:03 | PM.IMPN ---
Progress Note: A&P Assessment and Plan (1) Closed intertrochanteric fracture of left femur: Qualifiers: Encounter type: initial encounter Fracture alignment: displaced Qualified Code(s): S72.142A - Displaced intertrochanteric fracture of left femur, initial encounter for closed fracture Code(s): S72.142A - Displaced intertrochanteric fracture of left femur, initial encounter for closed fracture Status: Acute Assessment and Plan: 06/18 ORIF left hip went well. Bp went low today, cont to watch in hospital today. Home health already arranged for PT and OT (2) At risk for sudden cardiac : Code(s): Z91.89 - Other specified personal risk factors, not elsewhere classified Status: Acute Assessment and Plan: Telemetry Life Vest at home, now with defibrillator pads post op (3) PVCs (premature ventricular contractions): Code(s): I49.3 - Ventricular premature depolarization Status: Acute Assessment and Plan: Telemetry (4) History of aortic valve replacement with tissue graft: Code(s): Z95.4 - Presence of other heart-valve replacement Status: Acute Assessment and Plan: Bovine aortic valve Clinically stable (5) Cardiomyopathy: Code(s): I42.9 - Cardiomyopathy, unspecified Status: Acute Assessment and Plan: Discussed need to moderate alcohol intake Continue home meds (6) CKD (chronic kidney disease), stage III: Code(s): N18.3 - Chronic kidney disease, stage 3 (moderate) Status: Acute Assessment and Plan: Continue to monitor (7) CAD (coronary artery disease): Code(s): I25.10 - Atherosclerotic heart disease of [place] coronary artery without angina pectoris Status: Acute Assessment and Plan: Clinically stable (8) COPD (chronic obstructive pulmonary disease): Code(s): J44.9 - Chronic obstructive pulmonary disease, unspecified Status: Acute Assessment and Plan: Clincally stable (9) Prostate cancer metastatic to bone: Code(s): C61 - Malignant neoplasm of prostate; C79.51 - Secondary malignant neoplasm of bone Status: Acute (10) Impaired glucose tolerance: Code(s): R73.02 - Impaired glucose tolerance (oral) Status: Acute Assessment and Plan: A1c 6.0 (11) Steroid long-term use: Status: Acute Assessment and Plan: 06/18 received hydrocortisone 100 mg IV preop Continued prednisone postop Subjective Date/time seen: 06/21/22 13:03 Interval history: Patient Bp dropped again on walking Pt is still very weak wants to take him home Exam Narrative: HEENT: EOMI, PERRL, sclerae nonicteric, pharyngeal mucosa pink and intact NECK: No JVD, adenopathy, or thyromegaly CHEST: Clear to auscultation. Normal effort. HEART: NL S1/S2, regular, no murmur ABDOMEN: BS+, soft, nontender, no mass, no bruits EXTREMITIES: No cyanosis, edema, or clubbing. Pedal pulses palpable NEUROLOGIC: CN intact and symmetric to inspection. MUSCULOSKELETAL: Left lower extremity abducted and externally rotated PSYCH: Alert. Oriented to person, place, and time. SKIN: About 2-3 cm longitudinal skin tear medial distal left lower extremity Objective Data Vital Signs Vital Signs: Vital Signs - 24 hr 06/20/22 14:21 06/20/22 16:00 06/20/22 18:00 Temperature 36.7 C 36.5 C Pulse Rate 69 84 73 Respiratory Rate 16 18 Blood Pressure 108/54 L 97/67 L Pulse Oximetry 98 96 Oxygen Delivery Oxygen Flow Rate 06/20/22 20:01 06/20/22 20:00 06/21/22 00:00 Temperature 36.6 C 36.1 C L Pulse Rate 72 72 66 Respiratory Rate 18 18 18 Blood Pressure 89/59 L 117/70 Pulse Oximetry 94 94 96 Oxygen Delivery Nasal Cannula Oxygen Flow Rate 3 06/20/22 20:00 06/21/22 00:00 06/21/22 03:16 Temperature 36.1 C L Pulse Rate 71 74 70 Respiratory Rate 18 Blood Pressure 132/58 L Pulse Oximetry 97 Oxygen Delivery
[2022-06-21 17:08] LABS: Glucose Point of Care 127 mg/dl (65-105)
[2022-06-21] MEDS: HYDROcodone/acetaminophen (*CRX) 7.5-325 MG TABLET 2 TAB PO (17:35)
[2022-06-21] MEDS: MELATONIN 5 MG TABLET 10 MG PO (20:21)
[2022-06-21] MEDS: SACUBITRIL/VALSARTAN 24-26 MG TABLET 1 TAB PO (20:22)
[2022-06-21] MEDS: amLODIPine BESYLATE 5 MG TABLET PO (20:22)
[2022-06-21 20:33] LABS: Glucose Point of Care 122 mg/dl (65-105)
[2022-06-22] VITALS (44 sets, daily range): BP systolic 66–223; BP diastolic 41–101; PULSE 60–133; RESP 15–26; TEMP 36.7–38.7; O2SAT 89–100
--- NOTE | 2022-06-22 | ECHO_ITS ---
Patient Info Name: Mihir Nguyen Age: 76 years : 1945 Gender: Male Ht: 72 in Wt: 244 lbs BSA: 2.40 m2 HR: 85 bpm BP: 105 / 46 mmHg Technical Quality: Poor Exam Date: 06/22/2022 11:02 AM Exam Location: [facility] Pulmonary Exam Room: ICU9 Patient Status: Inpatient Admit Date: 06/18/2022 Staff Ordering Physician: Carrie Park MD Production Tech: Vilma Vance RDCS Attending Provider: Sourav Sevilla MD Referring Physician: Xavier NORWOOD; Exam Type: CA echo dop color flow w con Study Info Indications - hypotension cad cabg AVR Complete two-dimensional, color flow and Doppler transthoracic echocardiogram is performed with contrast to opacify the left ventricle and to improve the deliniation of the left ventricle endocardial borders. Contrast/Agitated Saline Contrast/Ag. Saline: Definity Amount: 3.00 ml Administered By: Vilma Vance [facility] Existing IV Access: Yes IV Access Condition: patent with no signs of infiltration Reason for Poor Study: patient body habitus Summary 1. Left ventricular chamber dimension is normal. 2. Left ventricular systolic function is severely reduced, estimated at 20-25%. 3. There is mildly increased left ventricular wall thickness. 4. Left ventricular septal wall motion is abnormal with septal motion related to bundle branch block. 5. The left ventricular diastolic function is grade I diastolic dysfunction. 6. Right ventricular chamber dimension is moderately enlarged. 7. Left atrial chamber dimension is moderately enlarged. 8. Right atrial chamber dimension is moderately enlarged. 9. There is mild mitral valve regurgitation. 10. There is moderate tricuspid valve regurgitation. 11. Normal inferior vena cava with >50% collapse upon inspiration consistent with normal right atrial pressure, 3 mmHg. Left Ventricle Left ventricular chamber dimension is normal. Left ventricular systolic function is severely reduced, estimated at 20-25%. There is mildly increased left ventricular wall thickness. Left ventricular septal wall motion is abnormal with septal motion related to bundle branch block. The left ventricular diastolic function is grade I diastolic dysfunction. Right Ventricle Right ventricular chamber dimension is moderately enlarged. Left Atria Left atrial chamber dimension is moderately enlarged. Right Atria Right atrial chamber dimension is moderately enlarged. Atrial Septum Intact interatrial septum visualized by color flow imaging. Aortic Valve Bioprosthetic aortic valve not well visualized. Mean gradient of 14mmHg. No aortic valve regurgitation. Pulmonic Valve The pulmonic valve is not well visualized. Mitral Valve The mitral valve has thickened leaflets. There is mild mitral valve regurgitation. The mitral valve annulus is moderately calcified. Tricuspid Valve There is moderate tricuspid valve regurgitation. Pericardium/Pleural The pericardium appears epicardial fat pad. There is no pericardial effusion. Inferior Vena Cava Normal inferior vena cava with >50% collapse upon inspiration consistent with normal right atrial pressure, 3 mmHg. Aorta The aortic root size at the sinus of Valsalva is normal. Left Ventricular Outflow Tract Name Value Normal LVOT 2D LVOT Diameter
--- NOTE | 2022-06-22 00:28 | ECG_ITS ---
Measurements Intervals [place] Rate: 120 P: -54 WV: 141 QRS: -42 QRSD: 130 T: 129 QT: 334 QTc: 474 Interpretive Statements SINUS OR ECTOPIC ATRIAL TACHYCARDIA VENTRICULAR COUPLETS, ATRIAL COUPLETS, ATRIAL AND VENTRICULAR PREMATURE COMPLEXES LEFT BUNDLE BRANCH BLOCK ABNORMAL ECG COMPARED TO ECG 06/17/2022 03:29:30 SINUS OR ECTOPIC ATRIAL TACHYCARDIA IS NOW PRESENT Electronically Signed On 06-22-2022 6:31:24 CDT by Mikey Vieyra D.O.
--- NOTE | 2022-06-22 00:54 | PC.NURSE ---
Called exchange for Cardiology to report sustained high pulse rates in the 140s. Dr. Bo requested a stat EKG and to call back with anything we found abnormal or concerning. Called exchange back. Wanted to send 4 photos for viewing. He declined. Read the results from the EKG. Also stated that the patient was now reaching 150s regularly and wanting to maintain near 140. New order to give 0900 dose of Metoprolol now and not give 0900 dose of Metoprolol. EKG and three other viewings from tele placed in patient's chart.
[2022-06-22] MEDS: METOPROLOL SUCCINATE EXT REL 50 MG TABCR 150 MG PO (01:00)
--- NOTE | 2022-06-22 03:26 | PC.NURSE ---
Call placed to Dr Bo related to HR remaining elevated 118 to 140's, BP 100/60 and patient stated does not feel well and is very tired. He has a loose non productive cough and is diaphoretic with coarse breath sounds. Dr Bo stated to call hospitalist to evaluate patient, Dr Park notified and stated she would come see him and ordered labs, chest x ray, ekg.
--- NOTE | 2022-06-22 03:27 | ECG_ITS ---
Measurements Intervals [place] Rate: 116 P: RI: 0 QRS: -43 QRSD: 133 T: 133 QT: 339 QTc: 473 Interpretive Statements SINUS TACHYCARDIA FREQUENT VENTRICULAR COUPLETS AND ATRIAL AND VENTRICULAR PREMATURE COMPLEXES LEFT BUNDLE BRANCH BLOCK ABNORMAL ECG COMPARED TO ECG 06/22/2022 00:33:37 NO SIGNIFICANT CHANGES Electronically Signed On 06-22-2022 6:35:03 CDT by Mikey GALE
[2022-06-22 03:43] LABS: Glucose Point of Care 133 mg/dl (65-105)
--- NOTE | 2022-06-22 03:52 | PC.NURSE ---
Dr Park placing order to transfer patient to ICU and Eda called and notified of need for patient to be moved to ICU.
[2022-06-22 03:57] LABS: Hematocrit 36.6 % (42.0-52.0); Hemoglobin 12.4 g/dL (14.0-18.0); Mean Corpuscular HGB Conc 33.9 g/dl (32-36); Mean Corpuscular Hemoglobin 30.8 pg (26-34); Mean Platelet Volume 9.8 fl (7.4-10.4); Platelet Count Result 270 k/mm3 (150-375); Red Blood Count 4.02 M/mm3 (4.6-6.20); Red Cell Distribution Width 16.1 % (11.5-14.5); White Blood Count 19.2 K/mm3 (4.5-10.0)
[2022-06-22 04:08] LABS: Anion Gap 10 mmol/L (8-16); Blood Urea Nitrogen 85 mg/dL (9-20); Calcium 8.5 mg/dL (8.4-10.2); Carbon Dioxide 24 mmol/L (22-30); Chloride 101 mmol/L (98-107); Estimated CRCL calculation 27 ml/min; Estimated Glomerular Filt Rate 22; Glucose 137 mg/dL (65-110); Magnesium 2.5 mg/dL (1.6-2.3); Phosphorus 3.6 mg/dL (2.5-4.5); Potassium 4.1 mmol/L (3.4-5.0); Sodium 135 mmol/L (137-145)
--- NOTE | 2022-06-22 04:14 | PM.CCN ---
Critical Care Event Note Summary Code activated: No Narrative: This case had a high probability of a clinically significant, sudden, or life threatening deterioration of this patient's condition which required my full and direct attention, intervention and personal management. I was called to patient's room after patient complained of not feeling well , can not explain , Subjective: I do not feel well Objective: Ill-appearing, diaphoretic, tachypneic Vitals heart rate: 116 blood pressure 105/46 blood sugar 133 oxygen saturation 90% on room air respiratory rate 18 temp 98? General: Ill-appearing, tachypneic, diaphoretic. HEENT: Atraumatic normocephalic PERRLA EOM intact neck supple no JVD no lymphadenopathies Respiratory: Diminished throughout, crackles bibasilar. Cardiovascular: Tachycardic, irregularly irregular rhythm no murmurs rubs or gallops low tone and intensity heart sounds Abdomen: Soft nontender nondistended no hepatosplenomegaly Skin: Warm and flushed Extremities: No edema Assessment and plan: 1. CHF: ef=20% as per 04/13 ECHO, BNP upwards 6000, diuresis as needed will repeat ECHO. Cardiology on board.Re start meds as needed 2.Sepsis: Early goal directed therapy in progress, cultures in progress, on broad spectrum antibiotics. 3.L hip fx: S/p surgery, pain management. 4.EDGAR on CKD: Likely pre renal on chronic patient with significant hypotension.Continue to monitor.Nephrology consult. Critical care time: 105 - 134 mins
[2022-06-22 04:22] LABS: NT Pro B Type Natriuretic Pept 6900 pg/mL (19.9-100); Troponin I 0.092 ng/mL (0.000-0.034)
--- NOTE | 2022-06-22 04:23 | PC.NURSE ---
Report received from Mar, RN
--- NOTE | 2022-06-22 04:44 | PC.NURSE ---
Transferred Patient to ICU 9. Gave report to Mckayla. [id number].
--- NOTE | 2022-06-22 05:19 | PC.NURSE ---
Addendum entered by Mckayla Kimball RN 06/22/22 05:20: arrival time 0430 Original Note: 0530 Patient arrived to ICU 9 via bed from 2 medical.
[2022-06-22] MEDS: SODIUM CHLORIDE 0.9% IV 1,000 ML 999 ML IV CONT (06:12)
[2022-06-22] MEDS: MORPHINE SULFATE (*CRX) 4 MG/ML INJ IV PUSH (06:13)
[2022-06-22] MEDS: ALBUTEROL SULFATE (*SP) AEROSOL 1 PUFF 2 PUFF INHALATION (06:23)
[2022-06-22] MEDS: SILVER NITRATE (*SP) STICK 1 EACH TOPICAL (06:32)
--- NOTE | 2022-06-22 06:45 | P.PCNBED_ITS ---
Procedures Central Line Placement Right IJ: Central Line Date: 06/22/22 Central Line Time: 06:20 Consent: I have discussed with the patient and/or surrogate, the non-emergent placement of a central venous catheter, including its clinical necessity/indication and associated potential risks and complications. The patient and/or surrogate understand(s) and acknowledge(s) the need to proceed with central venous catheter insertion as an important element of the patient's clinical management. Time Out Performed: Yes Patient Position: trendelenburg Patient placed on monitor/pulse ox: Yes Provider Prep: mask, sterile gown, sterile gloves, Max. sterile barrier precautions, cap and hand hygiene with conventional soap/water or alcohol based hand rub Central line prep: 2% Chlorhexidine scrub Local anesthesia used: lidocaine 1% Amount of anesthesia used (ml): 15 Central line lumen inserted: triple [place]: 16 Length (cm): 16 Depth of Insertion (cm): 15 Additional comments: Line pulled out was in the artery compression applied, silver nitrate applied, compression dressing in place. No complications, Hemostasis achieved.
[2022-06-22 07:49] LABS: Glucose Point of Care 130 mg/dl (65-105)
[2022-06-22 08:34] LABS: Troponin I 0.109 ng/mL (0.000-0.034)
[2022-06-22] MEDS: PIPERACILLIN/TAZ 2.25G/NS 50ML 2.25 GM/50 ML BAG IVPB (08:37)
--- NOTE | 2022-06-22 08:45 | PC.NURSE ---
Right IJ TLC placed by Dr. Park. Following chest x-ray Dr. Park noted blood pulsating in the lumens - directly removed per Dr. Park. Pressure held via Dr. Park. Dr. Park then utilized silver nitrate to stop the bleeding. Pressure dressing applied via Dr. Park. Patient tolerated procedure well.
[2022-06-22 08:48] LABS: Creatine Kinase 104 U/L (55-170)
--- NOTE | 2022-06-22 08:49 | PCOTNOTE ---
Patient transferred to ICU over night, per RN hold today due to tests being performed today. Will follow.
[2022-06-22] MEDS: ASPIRIN 81 MG CHEWABLE TABLET PO (08:53)
[2022-06-22] MEDS: EMPAGLIFLOZIN 10 MG TABLET PO (08:54)
[2022-06-22] MEDS: MONTELUKAST SODIUM 10 MG TABLET PO (08:54)
[2022-06-22] MEDS: SENNA/DOCUSATE SODIUM TABLET 2 TAB PO ×2 (08:54→16:24)
[2022-06-22] MEDS: TICAGRELOR 90 MG TABLET BY MOUTH ×2 (08:54→20:09)
[2022-06-22] MEDS: predniSONE 5 MG TABLET PO (08:54)
[2022-06-22] MEDS: FAMOTIDINE 20 MG TABLET PO (08:54)
[2022-06-22] MEDS: FLUTICASONE/SALMETEROL 115-21 MCG INHALER 1 PUFF 2 PUFF INHALATION (09:02)
[2022-06-22] MEDS: UMECLIDINIUM BROMIDE 62.5 MCG ELLIPTA 2 PUFF INHALATION (09:02)
--- NOTE | 2022-06-22 09:20 | WPDCNINT ---
Assessment and Plan Assessment and plan (1) Acute respiratory failure with hypoxia: Code(s): J96.01 - Acute respiratory failure with hypoxia Status: Acute Assessment and Plan: 06/22: Patient was transferred from the medical floor in the early hours with tachycardia, tachypnea, hypotension, diaphoresis -could be related to volume overload, PE as patient recently had left hip surgery, COPD exacerbation, CHF -V/Q scan showed intermediate probability for PE, started on heparin infusion -discussed with orthopedic angie Walden to start heparin infusion -lower extremity Dopplers have been ordered -patient developed more tachypneic and shortness of breath, placed on BiPAP 10/5 with adequate tidal volumes, and 40% FiO2 with adequate O2 sats -overnight patient was started on cefepime and vancomycin (06/22) -continue bronchodilators -add Pulmicort -will give 1 dose of Lasix as chest x-ray shows pulmonary edema (2) Shock: Code(s): R57.9 - Shock, unspecified Status: Acute Assessment and Plan: Likely related to sepsis with leukocytosis, hypotension, fevers -check lactic acid -started patient on cefepime, vancomycin (06/22) -06/22: Blood cultures have been obtained and pending -check UA and culture (3) Acute on chronic combined systolic and diastolic CHF (congestive heart failure): Code(s): I50.43 - Acute on chronic combined systolic (congestive) and diastolic (congestive) heart failure Status: Acute Assessment and Plan: Patient with CHF with reduced ejection fraction -echocardiogram on 04/13/2022 showed an EF of 20%, grade 1 diastolic dysfunction, concentric LVH with moderate global left ventricular systolic dysfunction mild mitral valve regurg, normal-appearing aortic valve bioprosthesis RVSP estimated at 34 mmHg Patient was on Entresto, Lasix, spironolactone, amlodipine which are currently on hold due to low blood pressures requiring vasopressors 06/22/2022: Repeat echo has been done and pending report (4) CKD (chronic kidney disease), stage III: Code(s): N18.3 - Chronic kidney disease, stage 3 (moderate) Status: Acute Assessment and Plan: Patient has a history of chronic kidney disease stage III -creatinine has increased this morning likely related to hypotension, shock -patient was given IV fluid bolus -increased dyspnea with chest x-ray showing volume overload -Lasix IV x1 was given -continue to monitor urine output, renal function and electrolytes -check urine lytes, renal ultrasound -nephrology consulted (5) Closed intertrochanteric fracture of left femur: Qualifiers: Encounter type: initial encounter Fracture alignment: displaced Qualified Code(s): S72.142A - Displaced intertrochanteric fracture of left femur, initial encounter for closed fracture Code(s): S72.142A - Displaced intertrochanteric fracture of left femur, initial encounter for closed fracture Status: Acute Assessment and Plan: 06/17/2022 patient had a fall with left hip pain and left intertrochanteric fracture s 06/18: Status postORIF left intertrochanteric hip fracture with trochanteric nail device -continue pain control -orthopedics following the patient (6) COPD (chronic obstructive pulmonary disease): Code(s): J44.9 - Chronic obstructive pulmonary disease, unspecified Status: Acute Assessment and Plan: Patient has a history of chronic COPD, continue bronchodilators, BiPAP -will add steroids (7) CAD (coronary artery disease): Code(s): I25.10 - Atherosclerotic heart disease of [place] coronary artery without angina pectoris Status: Acute Assessment and Plan: Patient had a recent PCI on 06/08/2022 with stent to proximal mid LAD -continue Brilinta, aspirin, statin -hold Entresto, spironolactone, Lasix and amlodipine since patient is on pressors (8) Prostate cancer metastatic to bone: Code(s): C61 - Malignant neoplasm of pros
--- NOTE | 2022-06-22 09:31 | PM.PNCARD ---
Progress Note: A&P Assessment and Plan (1) Cardiomyopathy: Code(s): I42.9 - Cardiomyopathy, unspecified Status: Acute Assessment and Plan: Severe cardiomyopathy with EF 20-25%. He became hypotensive overnight and all of his cardiac medications are currently on hold. He is requiring vasopressors. Concern for septic shock. Resume GDMT when blood pressure allows. Will continue to follow. (2) CAD (coronary artery disease): Code(s): I25.10 - Atherosclerotic heart disease of [place] coronary artery without angina pectoris Status: Acute Assessment and Plan: Continue ASA 81mg once daily and Brilinta 90mg BID without any interruption given recent PCI on 06/08. (3) Closed intertrochanteric fracture of left femur: Qualifiers: Encounter type: initial encounter Fracture alignment: displaced Qualified Code(s): S72.142A - Displaced intertrochanteric fracture of left femur, initial encounter for closed fracture Code(s): S72.142A - Displaced intertrochanteric fracture of left femur, initial encounter for closed fracture Status: Acute Assessment and Plan: He is now s/p ORIF Continue ASA 81mg once daily and Brilinta 90mg BID without any interruption. Subjective Date/time seen: 06/22/22 09:31 Cardiology follow up for CMY, CHF Interval history: He decompensated overnight, was tachycardic and hypotensive. He was transferred to the ICU and is on pressor support now. He states he doesn't know what happened but he just didn't feel right. Currently does not have any cardiac complaints but he does feel like he is having difficulty speaking. Review of Systems Review of Systems: All systems reviewed & are unremarkable except as noted in HPI and below Exam Const: General: comfortable, no acute distress and ill appearing Orientation/consciousness: patient oriented x3 and lethargic HENMT: Mouth: Yes moist mucous membranes Eyes: General: appearance normal, both eyes and all related structures Sclera: sclerae normal Pupils: Equal, round and reactive pupils present and Pupil size comments bilaterally 2 Neck: Neck: supple Resp: Effort & Inspection: normal respiratory effort Auscultation: crackles Cardio: Rate: regular rate Rhythm: regular rhythm and abnormal rhythm with ectopic beats Heart sounds: no murmurs Skin: General skin exam: normal color Other: bilateral forearm ecchymosis Neuro: General: moves all extremities Cranial nerves: Yes CN's II-XII intact bilaterally, Yes Normal facial strength present, Yes facial symmetry and Yes Midline tongue present Speech: No normal speech and Abnormal speech present slurred Motor exam (neuro): 5/5 motor strength present throughout Pupils: Normal pupillary reactivity/response: bilateral Extrem: General: normal to inspection Left lower extremity: hip/thigh (dressing clean, dry, intact. ) Details: other Psych: Mental Status: mental status grossly normal Affect: normal affect Objective Data Vital Signs Vital Signs: Vital Signs - 24 hr 06/21/22 10:23 06/21/22 10:25 06/21/22 14:25 Temperature 36.4 C Pulse Rate 82 Respiratory Rate 18 Blood Pressure 108/58 L 90/58 L Pulse Oximetry 95 97 Oxygen Delivery Nasal Cannula Oxygen Flow Rate 3 06/21/22 12:00 06/21/22 16:00 06/21/22 18:25 Temperature 36.5 C Pulse Rate 84 90 80 Respiratory Rate 18 Blood Pressure 102/56 L Pulse Oximetry 97 Oxygen Delivery Oxygen Flow Rate 06/21/22 20:00 06/21/22 20:00 06/21/22 20:00 Temperature 37.1 C Pulse Rate 47 L 92 Respiratory Rate 18 Blood Pressure 105/79 Pulse Oximetry 97 Oxygen Delivery Nasal Cannula Oxygen Flow Rate 3 06/21/22 23:29 06/22/22 00:00 06/22/22 01:00 Temperature 36.5 C Pulse Rate 61 113 H 131 H Respiratory Rate 18 Blood Pressure 148/57 H Pulse Oximetry 96 Oxygen Delivery Oxygen Flow Rate 06/22/22 01:04 06/22/22 02:15 06/22/22 03
[2022-06-22 10:03] LABS: Creatinine Urine 100.5 mg/dL
[2022-06-22 10:10] LABS: Potassium Urine Random 39.3 meq/L; Sodium Urine Random 19 meq/L
[2022-06-22 10:36] LABS: Eosinophil Urine None Seen % (None Seen); Urine Eos QC 2nd Tech Confirmed
[2022-06-22] MEDS: HYDROmorphone HCL INJ (*CRX) 1 MG/ML SYR IV PUSH (10:52)
[2022-06-22] MEDS: NOREPINEPHRINE 8 MG/D5W 250 ML 8 MG/250 ML BAG 3.75 MG IV CONT (11:08)
[2022-06-22] MEDS: cycloSPORINE 0.4 ML OPHTH SOLUTION 1 DROP EACH EYE ×2 (11:10→20:09)
[2022-06-22] MEDS: SODIUM CHLORIDE 0.9% IV 250 ML 100 ML IV CONT (11:19)
[2022-06-22] MEDS: PERFLUTREN LIPID MICROSPHERES 1.5 ML VIAL DILUTED TO 10 ML TOTAL VOLUME IV PUSH (11:40)
[2022-06-22] MEDS: methylPREDNISolone SOD SUCC 125 MG VIAL IV PUSH (12:01)
[2022-06-22 12:03] LABS: Glucose Point of Care 121 mg/dl (65-105)
[2022-06-22] MEDS: HEPARIN SODIUM 5,000 UNITS/ML VIAL 7500 UNITS IV PUSH (12:04)
[2022-06-22] MEDS: LEVALBUTEROL NEB 1.25 MG/3 ML 5 MG INHALATION (12:10)
[2022-06-22] MEDS: HEPARIN SOD/D5W 100 UNITS/ML 25,000 UNITS/250 ML BAG 15 UNITS IV CONT (12:13)
[2022-06-22 12:17] LABS: Basophils Absolute Auto 0.1 K/mm3 (0.0-0.1); Basophils Percent Auto 0.5 % (0.2-1.2); Eosinophils Absolute Auto 0.1 K/mm3 (0-0.3); Eosinophils Percent Auto 0.5 % (0-4.4); Hemoglobin 12.5 g/dL (14.0-18.0); Immature Granulocyte Absolute 0.13 K/mm3 (0.00-0.031); Immature Granulocyte Percent A 0.5 % (0-0.5); Lymphocytes Absolute Auto 3.32 K/mm3 (0.9-3.2); Lymphocytes Percent Auto 12.7 % (18.3-44.2); Mean Corpuscular HGB Conc 32.9 g/dl (32-36); Mean Corpuscular Hemoglobin 31.1 pg (26-34); Mean Corpuscular Volume 94.5 fl (80-100); Monocytes Absolute Auto 0.9 K/mm3 (0.1-0.6); Monocytes Percent Auto 3.4 % (2.6-8.5); Neutrophils Absolute Auto 21.7 K/mm3 (1.3-6.7); Neutrophils Percent Auto 82.4 % (45.5-73.1); Platelet Count Result 303 k/mm3 (150-375); Red Blood Count 4.02 M/mm3 (4.6-6.20); Red Cell Distribution Width 16.3 % (11.5-14.5); White Blood Count 26.2 K/mm3 (4.5-10.0)
[2022-06-22] MEDS: FUROSEMIDE INJ 40 MG/4 ML VIAL IV PUSH (12:17)
[2022-06-22 12:27] LABS: INR 1.2; Prothrombin Time 15.8 Seconds (11.1-14.7)
[2022-06-22 12:29] LABS: Partial Thromboplastin Time 27.5 SECONDS (22.3-36.8)
--- NOTE | 2022-06-22 12:30 | PM.CNNEP ---
Assessment and Plan Assessment and plan (1) EDGAR (acute kidney injury): Code(s): N17.9 - Acute kidney failure, unspecified Status: Acute Assessment and Plan: most likely related to hypotension/hemodynamic instability and shock complicated by CXR evidence of volume overload (limitimg further IVF resuscitation) follow-up on renal ultrasound and urine testing follow repeat labs and UOP follow response to IV diuretics (2) Stage 3b chronic kidney disease: Code(s): N18.32 - Chronic kidney disease, stage 3b Status: Chronic Assessment and Plan: baseline creatiine runs around 1.8 - 2.3mg/dl secondary to hypertension based on previous outpatient evaluation (3) Acute respiratory failure with hypoxia: Code(s): J96.01 - Acute respiratory failure with hypoxia Status: Acute Assessment and Plan: volume overload versus pulmonary embolus (mutliple risk factors) versus COPD versus CHF versus all of these issues... V/Q scan intermediate probability initiated on heparin gtt LE dopplers ordered on BiPAP therapy at this time at risk for intubation and mechanical ventilation empiric antibiotics for sepsis IV lasix today complicated by known COPD on steroids and bronchodilators follow respiratory status (4) Shock: Code(s): R57.9 - Shock, unspecified Status: Acute Assessment and Plan: concern for sepsis given elevated WBC, low BP, and fevers follow culture data on antibiotics vasopressor therapy as needed (5) Acute on chronic combined systolic and diastolic CHF (congestive heart failure): Code(s): I50.43 - Acute on chronic combined systolic (congestive) and diastolic (congestive) heart failure Status: Acute Assessment and Plan: known cardiomyopathy last echo (04/13/22) with EF of 20%, grade 1 diastolic dysfunction, concentric LVH with moderate global left ventricular systolic dysfunction mild mitral valve regurgitation, normal-appearing aortic valve bioprosthesis RVSP estimated at 34 mmHg entresto, Lasix, spironolactone, amlodipine on hold (due to low blood pressures requiring vasopressors) repeat Echo ordered recent PCI on 06/08/2022 with stent to proximal mid LAD continue Brilinta, aspirin, statin Cardiology following (6) Closed intertrochanteric fracture of left femur: Qualifiers: Encounter type: initial encounter Fracture alignment: displaced Qualified Code(s): S72.142A - Displaced intertrochanteric fracture of left femur, initial encounter for closed fracture Code(s): S72.142A - Displaced intertrochanteric fracture of left femur, initial encounter for closed fracture Status: Acute Assessment and Plan: s/p ORIF left intertrochanteric hip fracture with trochanteric nail device Orthopedics following (7) Prostate cancer metastatic to bone: Code(s): C61 - Malignant neoplasm of prostate; C79.51 - Secondary malignant neoplasm of bone Status: Acute Assessment and Plan: on enzalutamide continue supportive therapy Long and extensive discussion (> 25 minutes) with the patient's family at bedside regarding his multiple medical issues and problems complicated by his multitude of comorbid diseases at this time including his acute kidney injury on top of his baseline kidney disease. Discussed case with Dr. Flores as well. I will continue to follow the patient with you while he remains hospitalized and make further recommendations during his hospital course. Thank you for allowing me to precipitate in care this patient. History of Present Illness Reason for Consult Consult date: 06/22/22 Reason for consult: acute renal failure (on chronic kidney disease) Chief Complaint Chief complaint: Left Intertrochanteric Fracture History of Present Illness Narrative: The patient is a 76-year-old male with a past medical history as outlined below who presented to [facility]
--- NOTE | 2022-06-22 12:30 | P.CONNP_ITS ---
Assessment and Plan Assessment and plan (1) EDGAR (acute kidney injury): Code(s): N17.9 - Acute kidney failure, unspecified Status: Acute Assessment and Plan: * most likely related to hypotension/hemodynamic instability and shock * complicated by CXR evidence of volume overload (limitimg further IVF resuscitation) * follow-up on renal ultrasound and urine testing * follow repeat labs and UOP * follow response to IV diuretics (2) Stage 3b chronic kidney disease: Code(s): N18.32 - Chronic kidney disease, stage 3b Status: Chronic Assessment and Plan: * baseline creatiine runs around 1.8 - 2.3mg/dl * secondary to hypertension based on previous outpatient evaluation (3) Acute respiratory failure with hypoxia: Code(s): J96.01 - Acute respiratory failure with hypoxia Status: Acute Assessment and Plan: * volume overload versus pulmonary embolus (mutliple risk factors) versus COPD versus CHF versus all of these issues... * V/Q scan intermediate probability * initiated on heparin gtt * LE dopplers ordered * on BiPAP therapy at this time * at risk for intubation and mechanical ventilation * empiric antibiotics for sepsis * IV lasix today * complicated by known COPD * on steroids and bronchodilators * follow respiratory status (4) Shock: Code(s): R57.9 - Shock, unspecified Status: Acute Assessment and Plan: * concern for sepsis given elevated WBC, low BP, and fevers * follow culture data * on antibiotics * vasopressor therapy as needed (5) Acute on chronic combined systolic and diastolic CHF (congestive heart failure): Code(s): I50.43 - Acute on chronic combined systolic (congestive) and diastolic (c ongestive) heart failure Status: Acute Assessment and Plan: * known cardiomyopathy * last echo (04/13/22) with EF of 20%, grade 1 diastolic dysfunction, concentric LVH with moderate global left ventricular systolic dysfunction mild mitral valve regurgitation, normal-appearing aortic valve bioprosthesis RVSP estimated at 34 mmHg * entresto, Lasix, spironolactone, amlodipine on hold (due to low blood press ures requiring vasopressors) * repeat Echo ordered * recent PCI on 06/08/2022 with stent to proximal mid LAD * continue Brilinta, aspirin, statin * Cardiology following (6) Closed intertrochanteric fracture of left femur: Qualifiers: Encounter type: initial encounter Fracture alignment: displaced Qualified Code(s): S72.142A - Displaced intertrochanteric fracture of left femur, initial encounter for closed fracture Code(s): S72.142A - Displaced intertrochanteric fracture of left femur, initial encounter for closed fracture Status: Acute Assessment and Plan: * s/p ORIF left intertrochanteric hip fracture with trochanteric nail device * Orthopedics following (7) Prostate cancer metastatic to bone: Code(s): C61 - Malignant neoplasm of prostate; C79.51 - Secondary malignant neoplasm of bone Status: Acute Assessment and Plan: * on enzalutamide * continue supportive therapy Long and extensive discussion (> 25 minutes) with the patient's family at bedside regarding his multiple medical issues and problems complicated by his multitude of comorbid diseases at this time including his acute kidney injury on top of his baseline kidney disease. Discussed case with Dr. Flores as well. I will continue to follow the patient with you while he remains hospitalized and make further recommendations during his hospital c
--- NOTE | 2022-06-22 12:34 | PM.PNORT ---
Progress Note: A&P Assessment and Plan (1) Closed intertrochanteric fracture of left femur: Qualifiers: Encounter type: initial encounter Fracture alignment: displaced Qualified Code(s): S72.142A - Displaced intertrochanteric fracture of left femur, initial encounter for closed fracture Code(s): S72.142A - Displaced intertrochanteric fracture of left femur, initial encounter for closed fracture Status: Acute Assessment and Plan: Spoke with the director of student financial aid. He has an intermediate probability for PE V/Q scan. With the composition sepsis is also concerned. I do not believe that the hip is a source for this. Needs to be full anticoagulated and if there is an issue with wound hematoma we will deal with that later. Following. Subjective Subjective Date/Time Seen: 06/22/22 12:35 Post Op day: 4 Principal diagnosis: Status post ORIF left IT hip fracture Interval history: 76-year-old male postop day four ORIF left IT hip fracture. Decompensated overnight and has been moved to the ICU. Exam Const: Other: Sedated and on CPAP currently Extrem: Other: One tiny little spot of drainage proximal aspect of the proximal wound. There is some bruising in the thigh but no erythema. Tissues about the incision all supple. No tenseness anywhere in the thigh. Objective Data Vital Signs Vital Signs: Vital Signs - 24 hr 06/21/22 14:25 06/21/22 16:00 06/21/22 18:25 Temperature 97.6 F 97.7 F Pulse Rate 82 90 80 Respiratory Rate 18 18 Blood Pressure 90/58 L 102/56 L Pulse Oximetry 97 97 Oxygen Delivery Oxygen Flow Rate 06/21/22 20:00 06/21/22 20:00 06/21/22 20:00 Temperature 98.7 F Pulse Rate 47 L 92 Respiratory Rate 18 Blood Pressure 105/79 Pulse Oximetry 97 Oxygen Delivery Nasal Cannula Oxygen Flow Rate 3 06/21/22 23:29 06/22/22 00:00 06/22/22 01:00 Temperature 97.7 F Pulse Rate 61 113 H 131 H Respiratory Rate 18 Blood Pressure 148/57 H Pulse Oximetry 96 Oxygen Delivery Oxygen Flow Rate 06/22/22 01:04 06/22/22 02:15 06/22/22 03:37 Temperature 98.0 F Pulse Rate 131 H 130 H 60 Respiratory Rate 18 Blood Pressure 158/99 H 114/77 105/46 L Pulse Oximetry 90 Oxygen Delivery Oxygen Flow Rate 06/22/22 04:00 06/22/22 08:00 06/22/22 04:30 Temperature 98.2 F Pulse Rate 116 H 89 104 H Respiratory Rate 20 Blood Pressure 90/49 L Pulse Oximetry 94 97 Oxygen Delivery Nasal Cannula Oxygen Flow Rate 3 06/22/22 04:45 06/22/22 05:00 06/22/22 05:30 Temperature 98.4 F Pulse Rate 103 H 101 H 129 H Respiratory Rate 21 H 23 H 19 Blood Pressure 85/64 L 109/74 77/60 L Pulse Oximetry 89 L 94 98 Oxygen Delivery Oxygen Flow Rate 06/22/22 05:45 06/22/22 06:00 06/22/22 06:15 Temperature Pulse Rate 127 H 94 95 Respiratory Rate 19 17 19 Blood Pressure 74/64 L 103/73 110/50 L Pulse Oximetry 100 100 94 Oxygen Delivery Oxygen Flow Rate 06/22/22 06:30 06/22/22 06:45 06/22/22 07:00 Temperature Pulse Rate 93 99 92 Respiratory Rate 17 18 20 Blood Pressure 93/49 L 97/64 L 99/67 L Pulse Oximetry 93 94 93 Oxygen Delivery Oxygen Flow Rate 06/22/22 07:15 06/22/22 07:30 06/22/22 09:03 Temperature Pulse Rate 88 84 Respiratory Rate 20 15 Blood Pressure 96/41 L 95/63 L Pulse Oximetry 91 94 96 Oxygen Delivery Nasal Cannula Oxygen Flow Rate 3 06/22/22 08:00 06/22/22 12:00 06/22/22 12:00 Temperature 98.4 F Pulse Rate 83 116 H 121 H Respiratory Rate 26 H Blood Pressure 223/101 H Pulse Oximetry 97 Oxygen Delivery Oxygen Flow Rate 06/22/22 12:08 06/22/22 12:11 Temperature Pulse Rate 115 H 115 H Respiratory Rate 25 H 25 H Blood Pressure Pulse Oximetry 97 Oxygen Delivery BiPAP Oxygen Flow Rate Intake/Output Intake/Output: Intake & Output 06/19/22 06/20/22 06/21/22 06/22/22 23:59 23:59 23:59 23:59 Intake Total 1690 / 1690 1100 / 1100
[2022-06-22] MEDS: ETOMIDATE 40 MG/20 ML VIAL 24 MG IV PUSH (13:07)
[2022-06-22] MEDS: ROCURONIUM BROMIDE 50 MG/5 ML VIAL IV PUSH (13:08)
[2022-06-22] MEDS: MIDAZOLAM 100MG/NS 100ML(*CRX) 100 MG/100 ML BAG IV CONT (13:15)
[2022-06-22] MEDS: FENTANYL 2,500MCG/NS250ML(*CRX 2,500 MCG/250 ML BAG IV CONT (13:16)
[2022-06-22 13:29] LABS: Lactic Acid Reflex 2.1 mmol/L (0.7-2.0)
--- NOTE | 2022-06-22 13:32 | WPDPROCEDUR ---
Procedures Intubation Intubation Date: 06/22/22 Intubation Time: 13:09 Consent: Obtain consent from POA daughter, explained to her and the in details regarding need for intubation at this time as patient was short of breath, altered mental status, possible pulmonary edema/pneumonia. The give the consent for intubation A pre-procedural Time-Out was completed immediately before starting the procedure and confirmed: Patient Identification, Site, Procedure, Patient Position and the Availability of Requisite Equipment: Yes Sedative: etomidate Paralytic: rocuronium Laryngoscope: fiber optic video scope Assist device used: fiber optic device ET tube size: 8 Tube secured depth (cm): 24 Tube secured location: lips Tube placement confirmation: visualized tube passing through cords, equal breath sounds bilaterally, no breath sounds over epigastrium and confirmation by capnometry Patient tolerated procedure: well Intubation complications: none Additional comments: Chest x-ray showed ET tube in appropriate position
[2022-06-22 13:48] LABS: Atypical Lymphocytes Present; Platelet Estimate Adequate (Adequate); Schistocytes None Seen (NORMAL)
--- NOTE | 2022-06-22 13:54 | PM.IMPN ---
Progress Note: A&P Assessment and Plan (1) Acute respiratory failure with hypoxia: Code(s): J96.01 - Acute respiratory failure with hypoxia Status: Acute Assessment and Plan: Decompensation on 06/22/2022 with tachycardia tachypnea and hypotension diaphoresis Chest x-ray with pulmonary edema V/Q scan with intermediate probability Started on heparin infusion Venous duplex pending BiPAP placed however plans for intubation and mechanical ventilation Broad-spectrum antibiotic with cefepime and vancomycin started on 06/22/2022 Diuresis as tolerated as patient already hypotensive. Continue bronchodilators (2) Shock: Code(s): R57.9 - Shock, unspecified Status: Acute Assessment and Plan: Likely related to sepsis with leukocytosis, hypotension, fevers started patient on cefepime, vancomycin (06/22) -06/22: Blood cultures have been obtained and pending -check UA and culture (3) Acute on chronic combined systolic and diastolic CHF (congestive heart failure): Code(s): I50.43 - Acute on chronic combined systolic (congestive) and diastolic (congestive) heart failure Status: Acute Assessment and Plan: Patient with CHF with reduced ejection fraction -echocardiogram on 04/13/2022 showed an EF of 20%, grade 1 diastolic dysfunction, concentric LVH with moderate global left ventricular systolic dysfunction mild mitral valve regurg, normal-appearing aortic valve bioprosthesis RVSP estimated at 34 mmHg Patient was on Entresto, Lasix, spironolactone, amlodipine which are currently on hold due to low blood pressures requiring vasopressors 06/22/2022: Repeat echo has been done and pending report (4) CKD (chronic kidney disease), stage III: Code(s): N18.3 - Chronic kidney disease, stage 3 (moderate) Status: Acute Assessment and Plan: Patient has a history of chronic kidney disease stage III EDGAR on CKD stage 3 likely due to hypotension and shock. Received IV fluid bolus now on vasopressors Chest x-ray with volume overload signs. Diuresis as tolerated now off IV fluids. Nephrology consulted. (5) Closed intertrochanteric fracture of left femur: Qualifiers: Encounter type: initial encounter Fracture alignment: displaced Qualified Code(s): S72.142A - Displaced intertrochanteric fracture of left femur, initial encounter for closed fracture Code(s): S72.142A - Displaced intertrochanteric fracture of left femur, initial encounter for closed fracture Status: Acute Assessment and Plan: 06/17/2022 patient had a fall with left hip pain and left intertrochanteric fracture s 06/18: Status post ORIF left intertrochanteric hip fracture with trochanteric nail device -continue pain control -orthopedics following the patient (6) COPD (chronic obstructive pulmonary disease): Code(s): J44.9 - Chronic obstructive pulmonary disease, unspecified Status: Acute Assessment and Plan: Patient has a history of chronic COPD, continue bronchodilators, BiPAP Started on steroid by runner worker (7) CAD (coronary artery disease): Code(s): I25.10 - Atherosclerotic heart disease of [place] coronary artery without angina pectoris Status: Acute Assessment and Plan: Patient had a recent PCI on 06/08/2022 with stent to proximal mid LAD -continue Brilinta, aspirin, statin -hold Entresto, spironolactone, Lasix and amlodipine since patient is on pressors (8) Prostate cancer metastatic to bone: Code(s): C61 - Malignant neoplasm of prostate; C79.51 - Secondary malignant neoplasm of bone Status: Acute Assessment and Plan: 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 Hypotensive and pressors started
[2022-06-22] MEDS: AMIODARONE 360 MG/D5W 200 ML 360 MG/200 ML BAG 33.33 MG IV CONT (13:59)
[2022-06-22] MEDS: AMIODARONE 150 MG/D5W 100 ML 150 MG/100 ML BAG 600 MG IV CONT (13:59)
[2022-06-22] MEDS: CENTRAL LINE FLUSH 10 ML IV PUSH ×3 (14:10→20:10)
[2022-06-22 14:57] LABS: Alveolar/Arterial O2 Gradient 375.9 mmHg; Base Excess ABG -5.1 mEq/l (+/-2.0); Fractional Inspired Oxygen 75 %; HCO3 ABG 21.7 mEq/l (22.0-26.0); Oxygen Content ABG 17.2 %vol (16.0-22.0); Oxygen Saturation ABG 97.4 % (95.0-100.0); PCO2 ABG 47.3 mmHg (35.0-45.0); PO2 ABG 108.6 mmHg (80.0-100.0); PO2 FiO2 Ratio Arterial Blood 1.45 %; Total Hemoglobin 12.6 g/dL (12.0-18.0)
[2022-06-22 15:02] LABS: Arterial Blood Gas PEEP 8 cmH2O; Arterial Blood Gas Tidal Volume 500 ml; Arterial Blood Gas Vent Mode CMV; Arterial Blood Gas Ventilator rate 20 /MIN; Device VENTILATOR; Modified Allen's Test Unable to perform; Site Drawn RIGHT RADIAL
[2022-06-22 15:23] LABS: Procalcitonin 4.4 ng/mL
[2022-06-22] MEDS: LEVALBUTEROL NEB 1.25 MG/3 ML INHALATION ×2 (15:52→20:05)
[2022-06-22] MEDS: IPRATROPIUM BR 0.02% INH SOLN 0.5 MG/2.5 ML VIAL INHALATION ×2 (15:52→20:05)
[2022-06-22 16:04] LABS: Reflex Lactic Acid Yes or No Add Lactic
[2022-06-22] MEDS: CEFEPIME 1 GM/NS 50 ML 1 GM/50 ML BAG IVPB (16:22)
[2022-06-22] MEDS: methylPREDNISolone SOD SUCC 40 MG VIAL IV PUSH (16:24)
[2022-06-22] MEDS: INSULIN ASPART (*BKC) 100 UNITS/ML SUB-Q (16:33)
[2022-06-22 16:38] LABS: Glucose Point of Care 213 mg/dl (65-105)
[2022-06-22 17:47] LABS: Lactic Acid 1.7 mmol/L (0.7-2.0)
[2022-06-22 17:51] LABS: Partial Thromboplastin Time 114.3 SECONDS (22.3-36.8)
[2022-06-22] MEDS: AMIODARONE 360 MG/D5W 200 ML 360 MG/200 ML BAG 16.67 MG IV CONT (19:40)
[2022-06-22] MEDS: BUDESONIDE RESPULE NEB 0.5 MG/2 ML AMP INHALATION (20:05)
[2022-06-22] MEDS: MINERAL OIL/WHITE PETROLATUM OINTMENT 1 APPLIC EACH EYE (20:09)
[2022-06-22 23:13] LABS: Appearance Urine Clear (Clear); Bacteria Urine None Seen /hpf; Bilirubin Urine Negative (Negative); Blood Urine Trace (Negative); Color Urine Yellow (Yellow); Glucose Urine UA 3+ mg/dL (Negative); Hyaline Casts Urine Present /lpf; Ketones Urine Negative (Negative); Leukocyte Esterase Ur Negative LEU/UL (Negative); Mucus Urine Present /lpf; Nitrate Urine Negative (Negative); Non Pathogenic Casts >20; Protein Urine Trace mg/dL (Negative); RBC Urine 0-2 /hpf (0-2); Specific Grav Ur 1.021 (1.001-1.035); Squamous Epithelial Cell Urine None seen /hpf (Few); WBC Urine 0-5 /hpf
[2022-06-22 23:16] LABS: Add Urine Microscopic? YES
[2022-06-23] VITALS (48 sets, daily range): BP systolic 87–162; BP diastolic 47–109; PULSE 65–106; RESP 22–24; TEMP 36.5–38.7; O2SAT 97–100; BMI 33.2
[2022-06-23] MEDS: methylPREDNISolone SOD SUCC 40 MG VIAL IV PUSH ×2 (00:11→06:29)
[2022-06-23 00:26] LABS: Glucose Point of Care 210 mg/dl (65-105)
[2022-06-23 00:43] LABS: Partial Thromboplastin Time 66.3 SECONDS (22.3-36.8)
[2022-06-23] MEDS: IPRATROPIUM BR 0.02% INH SOLN 0.5 MG/2.5 ML VIAL INHALATION ×4 (01:59→20:12)
[2022-06-23] MEDS: LEVALBUTEROL NEB 1.25 MG/3 ML INHALATION ×4 (01:59→20:12)
[2022-06-23] MEDS: PANTOPRAZOLE SODIUM IV 80 MG in SODIUM CHLORIDE 0.9% IV 500 ML 50 MG IV CONT ×3 (01:59→21:56)
[2022-06-23] MEDS: HEPARIN SOD/D5W 100 UNITS/ML 25,000 UNITS/250 ML BAG 13 UNITS IV CONT (02:58)
[2022-06-23] MEDS: NOREPINEPHRINE 8 MG/D5W 250 ML 8 MG/250 ML BAG 30 MG IV CONT (02:59)
[2022-06-23] MEDS: CEFEPIME 1 GM/NS 50 ML 1 GM/50 ML BAG IVPB ×2 (04:10→17:13)
[2022-06-23 05:02] LABS: Carboxyhemoglobin 0.3 % THb (0-2.0); Fractional Inspired Oxygen 65 %; HCO3 ABG 20.1 mEq/l (22.0-26.0); Methemoglobin ABG 0.4 %THb (0-1.5); Oxygen Content ABG 16.7 %vol (16.0-22.0); Oxygen Saturation ABG 99.1 % (95.0-100.0); Oxyhemoglobin 97.5 % THb (90.0-100.0); PCO2 ABG 33.7 mmHg (35.0-45.0); PO2 ABG 167.8 mmHg (80.0-100.0); PO2 FiO2 Ratio Arterial Blood 2.58 %; Reduced Hemoglobin 1.8 %THb (0-5.0); Total Hemoglobin 11.9 g/dL (12.0-18.0); pH ABG 7.394 (7.350-7.450)
[2022-06-23 05:03] LABS: Arterial Blood Gas Ventilator rate 22 /MIN; Device VENTILATOR; Modified Allen's Test Pass; Site Drawn RIGHT RADIAL
[2022-06-23 05:04] LABS: Arterial Blood Gas PEEP 8 cmH2O; Arterial Blood Gas Tidal Volume 500 ml; Arterial Blood Gas Vent Mode CMV
[2022-06-23 06:26] LABS: Basophils Percent Auto 0.1 % (0.2-1.2); Hematocrit 33.4 % (42.0-52.0); Immature Granulocyte Absolute 0.11 K/mm3 (0.00-0.031); Immature Granulocyte Percent A 0.5 % (0-0.5); Lymphocytes Absolute Auto 0.53 K/mm3 (0.9-3.2); Lymphocytes Percent Auto 2.6 % (18.3-44.2); Mean Corpuscular HGB Conc 32.9 g/dl (32-36); Mean Corpuscular Hemoglobin 30.7 pg (26-34); Mean Corpuscular Volume 93.3 fl (80-100); Monocytes Absolute Auto 0.4 K/mm3 (0.1-0.6); Neutrophils Absolute Auto 19.1 K/mm3 (1.3-6.7); Neutrophils Percent Auto 94.8 % (45.5-73.1); Platelet Count Result 335 k/mm3 (150-375); Red Blood Count 3.58 M/mm3 (4.6-6.20); White Blood Count 20.1 K/mm3 (4.5-10.0)
[2022-06-23] MEDS: CENTRAL LINE FLUSH 10 ML IV PUSH ×4 (06:29→21:50)
[2022-06-23 06:40] LABS: Alanine Aminotransferase 15 U/L (6-50); Albumin Level 3.1 g/dL (3.5-5.1); Alkaline Phosphatase 84 U/L (38-126); Anion Gap 10 mmol/L (8-16); Aspartate Amino Transferase 28 U/L (17-59); Bilirubin,Total 0.7 mg/dL (0.2-1.3); Blood Urea Nitrogen 83 mg/dL (9-20); Carbon Dioxide 23 mmol/L (22-30); Chloride 100 mmol/L (98-107); Estimated CRCL calculation 26 ml/min; Estimated Glomerular Filt Rate 21; Glucose 201 mg/dL (65-110); Magnesium 2.6 mg/dL (1.6-2.3); Phosphorus 5.5 mg/dL (2.5-4.5); Potassium 4.4 mmol/L (3.4-5.0); Sodium 133 mmol/L (137-145)
[2022-06-23 06:41] LABS: Lactic Acid Reflex 1.5 mmol/L (0.7-2.0)
[2022-06-23 06:45] LABS: Partial Thromboplastin Time 52.9 SECONDS (22.3-36.8)
[2022-06-23] MEDS: BUDESONIDE RESPULE NEB 0.5 MG/2 ML AMP INHALATION ×2 (07:05→20:12)
--- NOTE | 2022-06-23 07:32 | WPDPROCEDUR ---
Procedures Central Line Placement Right Femoral: Central Line Date: 06/22/22 Central Line Time: 09:45 Discussed w/ the patient/family/POA,the placement of a central venous catheter, including its clinical necessity/indication & associated potential risks, benifits and alternatives.: Yes The patient/family/POA understand(s) and acknowledge(s) the need to proceed with central venous catheter insertion as an important element of the patient's clinical management.: Yes Consent: I have discussed with the patient and/or surrogate, the non-emergent placement of a central venous catheter, including its clinical necessity/indication and associated potential risks and complications. The patient and/or surrogate understand(s) and acknowledge(s) the need to proceed with central venous catheter insertion as an important element of the patient's clinical management. Time Out Performed: Yes Patient Position: supine Patient placed on monitor/pulse ox: Yes Central line prep: 2% Chlorhexidine scrub Local anesthesia used: lidocaine 1% Amount of anesthesia used (ml): 3 Sterile US Technique with sterile gel/sterile probe covers: Yes Central line lumen inserted: triple Hebrew: 7 Length (cm): 16 Depth of Insertion (cm): 16 Post Procedure: sutured in place, good blood return, all ports aspirated, flushed, capped, transparent dressing, hemostatic product, antimicrobial product, securement product and aseptic technique maintained throughout procedure Post procedure x-ray: other (Not indicated) Patient tolerated procedure: well Complications: none
[2022-06-23] MEDS: AMIODARONE 360 MG/D5W 200 ML 360 MG/200 ML BAG 16.67 MG IV CONT (07:39)
[2022-06-23] MEDS: ASPIRIN 81 MG CHEWABLE TABLET PO (08:56)
[2022-06-23] MEDS: cycloSPORINE 0.4 ML OPHTH SOLUTION 1 DROP EACH EYE ×2 (08:57→21:49)
[2022-06-23] MEDS: LOVASTATIN 20 MG TABLET PO (08:58)
[2022-06-23] MEDS: MINERAL OIL/WHITE PETROLATUM OINTMENT 1 APPLIC EACH EYE (08:58)
[2022-06-23] MEDS: TICAGRELOR 90 MG TABLET BY MOUTH ×2 (08:59→21:48)
[2022-06-23] MEDS: HYDROCORTISONE SODIUM SUCCINATE 100 MG/2 ML VIAL IV PUSH ×3 (09:22→21:49)
[2022-06-23 09:29] LABS: Glucose Point of Care 175 mg/dl (65-105)
--- NOTE | 2022-06-23 09:31 | PM.PNORT ---
Progress Note: A&P Assessment and Plan (1) Closed intertrochanteric fracture of left femur: Qualifiers: Encounter type: initial encounter Fracture alignment: displaced Qualified Code(s): S72.142A - Displaced intertrochanteric fracture of left femur, initial encounter for closed fracture Code(s): S72.142A - Displaced intertrochanteric fracture of left femur, initial encounter for closed fracture Status: Acute Plan 76-year-old male postop day five ORIF left ID hip fracture. Overall situation does not look great at this point. I had a lengthy discussion with his daughter she has a good and her standing of what all of the hurdles are. I will continue to follow while he is in the hospital. Subjective Subjective Date/Time Seen: 06/23/22 09:31 Post Op day: 5 Interval history: Postop day five status post ORIF left ID hip fracture. Is currently intubated. Does not seem to be making any real progress. Exam Resp: Other: Currently vented Extrem: Other: Scant drainage left proximal hip wound. No erythema, no swelling in the left hip and thigh. Objective Data Vital Signs Vital Signs: Vital Signs - 24 hr 06/22/22 12:00 06/22/22 12:00 06/22/22 12:08 Temperature 98.4 F Pulse Rate 116 H 121 H 115 H Respiratory Rate 26 H 25 H Blood Pressure 223/101 H Pulse Oximetry 97 97 Oxygen Delivery BiPAP Fraction of Inspired Oxygen 06/22/22 12:11 06/22/22 12:00 06/22/22 13:15 Temperature Pulse Rate 115 H 114 H Respiratory Rate 25 H 20 Blood Pressure Pulse Oximetry 97 Oxygen Delivery BiPAP Fraction of Inspired Oxygen 06/22/22 13:16 06/22/22 13:18 06/22/22 14:20 Temperature Pulse Rate 114 H 114 H Respiratory Rate 20 Blood Pressure Pulse Oximetry 92 Oxygen Delivery Mechanical Ventilation Mechanical Ventilation Fraction of Inspired Oxygen 50 75 06/22/22 14:21 06/22/22 13:59 06/22/22 14:09 Temperature 101.7 F H Pulse Rate 128 H Respiratory Rate Blood Pressure 111/77 Pulse Oximetry Oxygen Delivery Fraction of Inspired Oxygen 75 06/22/22 14:23 06/22/22 14:39 06/22/22 14:58 Temperature 100.1 F H Pulse Rate 133 H Respiratory Rate 22 H Blood Pressure 83/71 L Pulse Oximetry Oxygen Delivery Fraction of Inspired Oxygen 06/22/22 15:53 06/22/22 16:00 06/22/22 16:00 Temperature Pulse Rate 71 Respiratory Rate 19 Blood Pressure Pulse Oximetry Oxygen Delivery Mechanical Ventilation Fraction of Inspired Oxygen 65 65 06/22/22 16:00 06/22/22 16:00 06/22/22 16:00 Temperature 98.5 F Pulse Rate 80 80 78 Respiratory Rate 22 H Blood Pressure 110/51 L Pulse Oximetry 98 96 Oxygen Delivery Mechanical Ventilation Fraction of Inspired Oxygen 65 06/22/22 18:09 06/22/22 18:00 06/22/22 18:00 Temperature Pulse Rate 89 81 80 Respiratory Rate 22 H Blood Pressure 108/56 L Pulse Oximetry 100 99 Oxygen Delivery Mechanical Ventilation Fraction of Inspired Oxygen 65 06/22/22 19:40 06/22/22 20:00 06/22/22 20:18 Temperature 98.3 F Pulse Rate 84 78 72 Respiratory Rate 22 H Blood Pressure 115/51 L 99/52 L 74/50 L Pulse Oximetry 100 Oxygen Delivery Fraction of Inspired Oxygen 06/22/22 20:18 06/22/22 20:18 06/22/22 20:18 Temperature Pulse Rate 72 72 72 Respiratory Rate 22 H 22 H Blood Pressure 74/50 L Pulse Oximetry Oxygen Delivery Fraction of Inspired Oxygen 06/22/22 20:08 06/22/22 20:08 06/22/22 20:17 Temperature Pulse Rate 84 84 84 Respiratory Rate 22 H 22 H Blood Pressure Pulse Oximetry 100 Oxygen Delivery Mechanical Ventilation Fraction of Inspired Oxygen 65 06/22/22 20:49 06/22/22 20:00 06/22/22 20:00 Temperature Pulse Rate 82 88 Respiratory Rate Blood Pressure 66/50 L Pulse Oximetry Oxygen Delivery Fraction of Inspired Oxygen 65 06/22/22 20:00 06/22/22 22:47
--- NOTE | 2022-06-23 09:52 | WPDINTPN ---
Progress Note: A&P Assessment and Plan (1) Acute respiratory failure with hypoxia: Code(s): J96.01 - Acute respiratory failure with hypoxia Status: Acute Assessment and Plan: 06/22: Patient was transferred from the medical floor in the early hours with tachycardia, tachypnea, hypotension, diaphoresis -could be related to volume overload, PE as patient recently had left hip surgery, COPD exacerbation, CHF -06/22: V/Q scan showed intermediate probability for PE, started on heparin infusion, orthopedic surgeon was okay with heparin infusion -06/22: Lower extremity venous Dopplers: Indwelling catheter obscures evaluation of the right common femoral, greater saphenous, and profunda femoral veins. Otherwise patent bilateral lower extremity veins. No evidence of deep venous thrombosis. -06/22: patient developed more tachypneic and shortness of breath, placed on BiPAP 10/5 with adequate tidal volumes, and 40% FiO2 with adequate O2 sats, requiring intubation Currently on CMV mode of ventilation, peep of 8 and 65% FiO2, ABGs and chest x-ray reviewed, ventilator adjusted -continue cefepime and vancomycin (06/22) -continue bronchodilators -continue Pulmicort (2) Shock: Code(s): R57.9 - Shock, unspecified Status: Acute Assessment and Plan: Lactic acid is normal, -patient remains on Levophed, will maintain systolic blood pressures > 100 mmHg at all times for adequate end organ perfusion -continue cefepime, vancomycin (06/22) -06/22: Blood cultures -primary blood cultures are negative for -UA was unremarkable -06/22: MRSA screen is pending -added stress dose steroids (3) Acute on chronic combined systolic and diastolic CHF (congestive heart failure): Code(s): I50.43 - Acute on chronic combined systolic (congestive) and diastolic (congestive) heart failure Status: Acute Assessment and Plan: Patient with CHF with reduced ejection fraction -echocardiogram on 04/13/2022 showed an EF of 20%, grade 1 diastolic dysfunction, concentric LVH with moderate global left ventricular systolic dysfunction mild mitral valve regurg, normal-appearing aortic valve bioprosthesis RVSP estimated at 34 mmHg -Cardiology following the patient -Patient was on Entresto, Lasix, spironolactone, amlodipine which are currently on hold due to low blood pressures requiring vasopressors 06/22/2022: Echo showed LV systolic function severely reduced, EF of 20-25%, grade 1 diastolic dysfunction, RV chamber moderately enlarged, L a chamber moderately enlarged, RA chamber moderately enlarged, mild mitral valve regurg, moderate tricuspid regurg, RVSP of 42 mmHg. (4) CKD (chronic kidney disease), stage III: Code(s): N18.3 - Chronic kidney disease, stage 3 (moderate) Status: Acute Assessment and Plan: Patient has a history of chronic kidney disease stage III -06/22: creatinine has increased this morning likely related to hypotension, shock -patient was given IV fluid bolus -increased dyspnea with chest x-ray showing volume overload -continue to monitor urine output, renal function and electrolytes -urine lytes not reflective of prerenal picture, urine eosinophils were negative, CK levels are normal -appreciate Nephrology evaluation and recommendations (5) Closed intertrochanteric fracture of left femur: Qualifiers: Encounter type: initial encounter Fracture alignment: displaced Qualified Code(s): S72.142A - Displaced intertrochanteric fracture of left femur, initial encounter for closed fracture Code(s): S72.142A - Displaced intertrochanteric fracture of left femur, initial encounter for closed fracture Status: Acute Assessment and Plan: 06/17/2022 patient had a fall with left hip pain and left intertrochanteric fracture s 06/18: Status postORIF left intertrochanteric hip fracture with trochanteric nail device -patient on fentanyl infusion for pain control -orthopedics following
--- NOTE | 2022-06-23 10:29 | PM.PNCARD ---
Progress Note: A&P Assessment and Plan (1) Cardiomyopathy: Code(s): I42.9 - Cardiomyopathy, unspecified <MYLES Herrera - Last Filed: 06/23/22 14:45> Status: Acute <MYLES Herrera - Last Filed: 06/23/22 14:45> Assessment and Plan: Severe cardiomyopathy with EF 20-25%. Repeat echocardiogram yesterday stable, EF remains 20-25%. Mild MR, moderate TR. All cardiac medications currently on hold as he remains on pressor support. Resume GDMT when blood pressure allows. Will continue to follow. <MYLES Herrera - Last Filed: 06/23/22 14:45> (2) CAD (coronary artery disease): Code(s): I25.10 - Atherosclerotic heart disease of [place] coronary artery without angina pectoris <MYLES Herrera - Last Filed: 06/23/22 14:45> Status: Acute <MYLES Herrera - Last Filed: 06/23/22 14:45> Assessment and Plan: Continue ASA 81mg once daily and Brilinta 90mg BID without any interruption given recent PCI on 06/08. <MYLSE Herrera - Last Filed: 06/23/22 14:45> (3) Closed intertrochanteric fracture of left femur: Qualifiers: Encounter type: initial encounter Fracture alignment: displaced Qualified Code(s): S72.142A - Displaced intertrochanteric fracture of left femur, initial encounter for closed fracture <MYLES Herrera - Last Filed: 06/23/22 14:45> Code(s): S72.142A - Displaced intertrochanteric fracture of left femur, initial encounter for closed fracture <MYLES Herrera - Last Filed: 06/23/22 14:45> Status: Acute <MYLES Herrera - Last Filed: 06/23/22 14:45> Assessment and Plan: He is now s/p ORIF Continue ASA 81mg once daily and Brilinta 90mg BID without any interruption. <MYLES Herrera - Last Filed: 06/23/22 14:45> (4) Shock: Code(s): R57.9 - Shock, unspecified <MYLES Herrera - Last Filed: 06/23/22 14:45> Status: Acute <MYLES Herrera - Last Filed: 06/23/22 14:45> Assessment and Plan: Concern for septic shock. Blood cultures negative so far. Continue broad-spectrum antibiotics. Management per critical care service <MYLES Herrera - Last Filed: 06/23/22 14:45> Assessment and Plan: Attending addendum: I agree with the above documentation and plan of care as outlined. <Don Munoz MD - Last Filed: 06/23/22 17:44> Subjective Date/time seen: 06/23/22 10:29 <MYLES Herrera - Last Filed: 06/23/22 14:45> Interval history: He decompensated overnight, was tachycardic and hypotensive. He was transferred to the ICU and is on pressor support now. He states he doesn't know what happened but he just didn't feel right. Currently does not have any cardiac complaints but he does feel like he is having difficulty speaking. Date of service 06/23/2022: Decompensated further yesterday afternoon is now intubated. <MYLES Herrera - Last Filed: 06/23/22 14:45> Review of Systems Review of Systems: All systems reviewed & are unremarkable except as noted in HPI and below <MYLES Herrera - Last Filed: 06/23/22 14:45> Neurologic: Reports Abnormal speech present <MYLES Herrera - Last Filed: 06/23/22 14:45> Exam Const: General: comfortable, no acute distress, ill appearing and lethargic <MYLES Herrera - Last Filed: 06/23/22 14:45> Orientation/consciousness: patient oriented x3 and lethargic <MYLES Herrera - Last Filed: 06/23/22 14:45> HENMT: Mouth: Yes moist mucous membranes <MYLES Herrera - Last Filed: 06/23/22 14:45> Eyes: General: appearance normal, both eyes and all related structures <MYLES Herrera - Last Filed: 06/23/22 14:45> Sclera: sclerae normal <MYLES Herrera Last Filed: 06/23/22 14:45> Pupils: Equal, round and reactive pupils present and Pupil size comments bilaterally 2 <MYLES Herrera - Last F
--- NOTE | 2022-06-23 10:43 | PCPTNOTE ---
Pt currently not medically appropriate to participate in skilled therapy at this time. Please re-order when pt becomes appropriate.
[2022-06-23] MEDS: SENNA/DOCUSATE SODIUM TABLET 2 TAB PO ×2 (11:18→16:48)
--- NOTE | 2022-06-23 11:26 | P.PNNP_ITS ---
Progress Note: A&P Assessment and Plan (1) EDGAR (acute kidney injury): Code(s): N17.9 - Acute kidney failure, unspecified Status: Acute Assessment and Plan: * most likely related to hypotension/hemodynamic instability and shock * complicated by CXR evidence of volume overload (limitimg further IVF resuscitation) * evaluation to date: * renal ultrasound normal * urine electrolyte prerenal (likely a manifestion of his poor EF) * urine eosinophils negative * CPK normal * follow repeat labs and UOP * follow response to PRN IV diuretics (2) Stage 3b chronic kidney disease: Code(s): N18.32 - Chronic kidney disease, stage 3b Status: Chronic Assessment and Plan: * baseline creatiine runs around 1.8 - 2.3mg/dl * secondary to hypertension based on previous outpatient evaluation (3) Acute respiratory failure with hypoxia: Code(s): J96.01 - Acute respiratory failure with hypoxia Status: Acute Assessment and Plan: * volume overload versus pulmonary embolus (mutliple risk factors) versus COPD versus CHF versus all of these issues... * V/Q scan intermediate probability * initiated on heparin gtt * LE dopplers negative * on ventilator support * empiric antibiotics for sepsis * IV lasix PRN * complicated by known COPD * on steroids and bronchodilators * follow respiratory status (4) Shock: Code(s): R57.9 - Shock, unspecified Status: Acute Assessment and Plan: * concern for sepsis given elevated WBC, low BP, and fevers * follow culture data * on antibiotics * vasopressor therapy as needed (5) Acute on chronic combined systolic and diastolic CHF (congestive heart failure): Code(s): I50.43 - Acute on chronic combined systolic (congestive) and diastolic (congestive) heart failure Status: Acute Assessment and Plan: * known cardiomyopathy * last echo (04/13/22) with EF of 20%, grade 1 diastolic dysfunction, concentric LVH with moderate global left ventricular systolic dysfunction mild mitral valve regurgitation, normal-appearing aortic valve bioprosthesis RVSP estimated at 34 mmHg * entresto, Lasix, spironolactone, amlodipine on hold (due to low blood pressures requiring vasopressors) * repeat Echo with EF ~ 20 - 25% * recent PCI on 06/08/2022 with stent to proximal mid LAD * continue Brilinta, aspirin, statin * Cardiology following (6) Closed intertrochanteric fracture of left femur: Qualifiers: Encounter type: initial encounter Fracture alignment: displaced Be lified Code(s): S72.142A - Displaced intertrochanteric fracture of left femur, initial encounter for closed fracture Code(s): S72.142A - Displaced intertrochanteric fracture of left femur, initial encounter for closed fracture Status: Acute Assessment and Plan: * s/p ORIF left intertrochanteric hip fracture with trochanteric nail device * Orthopedics following (7) Prostate cancer metastatic to bone: Code(s): C61 - Malignant neoplasm of prostate; C79.51 - Secondary malignant neoplasm of bone Status: Acute Assessment and Plan: * on enzalutamide * continue supportive therapy Will continue to follow. Subjective Date/time seen: 06/23/22 11:26 Interval history: Follow-up for acute kidney injury on chronic kidney disease. Respiratory status deteriorate requiring intubation and placement on mechanical ventilation; remains intubated/sedated and on mechanical ventilation at the time of my visi
--- NOTE | 2022-06-23 11:26 | PM.PNNEP ---
Progress Note: A&P Assessment and Plan (1) EDGAR (acute kidney injury): Code(s): N17.9 - Acute kidney failure, unspecified Status: Acute Assessment and Plan: most likely related to hypotension/hemodynamic instability and shock complicated by CXR evidence of volume overload (limitimg further IVF resuscitation) evaluation to date: renal ultrasound normal urine electrolyte prerenal (likely a manifestion of his poor EF) urine eosinophils negative CPK normal follow repeat labs and UOP follow response to PRN IV diuretics (2) Stage 3b chronic kidney disease: Code(s): N18.32 - Chronic kidney disease, stage 3b Status: Chronic Assessment and Plan: baseline creatiine runs around 1.8 - 2.3mg/dl secondary to hypertension based on previous outpatient evaluation (3) Acute respiratory failure with hypoxia: Code(s): J96.01 - Acute respiratory failure with hypoxia Status: Acute Assessment and Plan: volume overload versus pulmonary embolus (mutliple risk factors) versus COPD versus CHF versus all of these issues... V/Q scan intermediate probability initiated on heparin gtt LE dopplers negative on ventilator support empiric antibiotics for sepsis IV lasix PRN complicated by known COPD on steroids and bronchodilators follow respiratory status (4) Shock: Code(s): R57.9 - Shock, unspecified Status: Acute Assessment and Plan: concern for sepsis given elevated WBC, low BP, and fevers follow culture data on antibiotics vasopressor therapy as needed (5) Acute on chronic combined systolic and diastolic CHF (congestive heart failure): Code(s): I50.43 - Acute on chronic combined systolic (congestive) and diastolic (congestive) heart failure Status: Acute Assessment and Plan: known cardiomyopathy last echo (04/13/22) with EF of 20%, grade 1 diastolic dysfunction, concentric LVH with moderate global left ventricular systolic dysfunction mild mitral valve regurgitation, normal-appearing aortic valve bioprosthesis RVSP estimated at 34 mmHg entresto, Lasix, spironolactone, amlodipine on hold (due to low blood pressures requiring vasopressors) repeat Echo with EF ~ 20 - 25% recent PCI on 06/08/2022 with stent to proximal mid LAD continue Brilinta, aspirin, statin Cardiology following (6) Closed intertrochanteric fracture of left femur: Qualifiers: Encounter type: initial encounter Fracture alignment: displaced Qualified Code(s): S72.142A - Displaced intertrochanteric fracture of left femur, initial encounter for closed fracture Code(s): S72.142A - Displaced intertrochanteric fracture of left femur, initial encounter for closed fracture Status: Acute Assessment and Plan: s/p ORIF left intertrochanteric hip fracture with trochanteric nail device Orthopedics following (7) Prostate cancer metastatic to bone: Code(s): C61 - Malignant neoplasm of prostate; C79.51 - Secondary malignant neoplasm of bone Status: Acute Assessment and Plan: on enzalutamide continue supportive therapy Will continue to follow. Subjective Date/time seen: 06/23/22 11:26 Interval history: Follow-up for acute kidney injury on chronic kidney disease. Respiratory status deteriorate requiring intubation and placement on mechanical ventilation; remains intubated/sedated and on mechanical ventilation at the time of my visit; on levophed, amiodarone, and heparin gtt as well; reasonable urine noted in response to diuretics. Exam Narrative: General: elderly male intubated/sedated and on mechanical ventilation Heart: IRRR, normal S1 and S2; no rub Lungs: coarse breath sounds Abdomen: soft, nontender, nondistended, positive bowel sounds Extremities: no cyanosis or clubbing; 1 - 2+ edema Skin: warm and dry; left hip dressings in place Objective Data Vital Signs Vital Sign
[2022-06-23 11:31] LABS: Partial Thromboplastin Time 44.9 SECONDS (22.3-36.8)
[2022-06-23] MEDS: HEPARIN SODIUM 5,000 UNITS/ML VIAL 7500 UNITS IV PUSH (11:45)
[2022-06-23 12:36] LABS: Glucose Point of Care 182 mg/dl (65-105)
[2022-06-23] MEDS: NOREPINEPHRINE 8 MG/D5W 250 ML 8 MG/250 ML BAG 18.75 MG IV CONT (14:09)
--- NOTE | 2022-06-23 14:47 | P.PNIM_ITS ---
Progress Note: A&P Assessment and Plan (1) Acute respiratory failure with hypoxia: Code(s): J96.01 - Acute respiratory failure with hypoxia Status: Acute Assessment and Plan: Decompensation on 06/22/2022 with tachycardia tachypnea and hypotension diaphoresis Chest x-ray with pulmonary edema V/Q scan with intermediate probability Started on heparin infusion Venous duplex with obscured evaluation of right common femoral greater saphenous and profundus femoral vein. Otherwise patent bilateral lower extremity veins BiPAP placed 06/22/2022 eventually intubated and placed on mechanical ventilation 06/22/2022 Broad-spectrum antibiotic with cefepime and vancomycin started on 06/22/2022 Diuresis as tolerated as patient already hypotensive. Continue bronchodilators (2) Shock: Code(s): R57.9 - Shock, unspecified Status: Acute Assessment and Plan: Likely related to sepsis with leukocytosis, hypotension, fevers started patient on cefepime, vancomycin (06/22) -06/22: Blood cultures have been obtained and pending -check UA and culture (3) Acute on chronic combined systolic and diastolic CHF (congestive heart failure): Code(s): I50.43 - Acute on chronic combined systolic (congestive) and diastolic (congestive) heart failure Status: Acute Assessment and Plan: Patient with CHF with reduced ejection fraction -echocardiogram on 04/13/2022 showed an EF of 20%, grade 1 diastolic dysfunction, concentric LVH with moderate global left ventricular systolic dysfunction mild mitral valve regurg, normal-appearing aortic valve bioprosthesis RVSP estimated at 34 mmHg Patient was on Entresto, Lasix, spironolactone, amlodipine which are currently on hold due to low blood pressures requiring vasopressors 06/22/2022: Repeat echo EF 20-25% grade 1 diastolic dysfunction RV chamber moderately enlarged LA chamber moderately enlarged mild mitral valve regurgitation RA chamber moderately enlarged moderate tricuspid regurgitation RVSP 42 mm hg (4) CKD (chronic kidney disease), stage III: Code(s): N18.3 - Chronic kidney disease, stage 3 (moderate) Status: Acute Assessment and Plan: Patient has a history of chronic kidney disease stage III EDGAR on CKD stage 3 likely due to hypotension and shock. Received IV fluid bolus now on vasopressors Chest x-ray with volume overload signs. Diuresis as tolerated now off IV fluids. Nephrology consulted. (5) Closed intertrochanteric fracture of left femur: Qualifiers: Encounter type: initial encounter Fracture alignment: displaced Qualified Code(s): S72.142A - Displaced intertrochanteric fracture of left femur, initial encounter for closed fracture Code(s): S72.142A - Displaced intertrochanteric fracture of left femur, initial encounter for closed fracture Status: Acute Assessment and Plan: 06/17/2022 patient had a fall with left hip pain and left intertrochanteric fracture s 06/18: Status post ORIF left intertrochanteric hip fracture with trochanteric nail device -continue pain control -orthopedics following the patient (6) COPD (chronic obstructive pulmonary disease): Code(s): J44.9 - Chronic obstructive pulmonary disease, unspecified Status: Acute Assessment and Plan: Patient has a history of chronic COPD, continue bronchodilators, BiPAP 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
[2022-06-23] MEDS: MIDAZOLAM 100MG/NS 100ML(*CRX) 100 MG/100 ML BAG IV CONT (15:45)
[2022-06-23 17:06] LABS: Glucose Point of Care 162 mg/dl (65-105)
[2022-06-23 18:28] LABS: Partial Thromboplastin Time 102.1 SECONDS (22.3-36.8)
[2022-06-23] MEDS: HEPARIN SOD/D5W 100 UNITS/ML 25,000 UNITS/250 ML BAG 17 UNITS IV CONT (20:04)
[2022-06-23] MEDS: FENTANYL 2,500MCG/NS250ML(*CRX 2,500 MCG/250 ML BAG 7.5 MCG IV CONT (22:41)
[2022-06-24] VITALS (72 sets, daily range): BP systolic 88–171; BP diastolic 52–94; PULSE 16–117; RESP 13–28; TEMP 36.4–37.4; O2SAT 91–99
[2022-06-24 00:24] LABS: Glucose Point of Care 91 mg/dl (65-105)
[2022-06-24 00:40] LABS: Partial Thromboplastin Time 81.4 SECONDS (22.3-36.8)
[2022-06-24] MEDS: LEVALBUTEROL NEB 1.25 MG/3 ML INHALATION ×4 (02:19→20:20)
[2022-06-24] MEDS: IPRATROPIUM BR 0.02% INH SOLN 0.5 MG/2.5 ML VIAL INHALATION ×4 (02:19→20:19)
[2022-06-24 05:25] LABS: Base Excess ABG -2.8 mEq/l (+/-2.0); Carboxyhemoglobin 0.3 % THb (0-2.0); Fractional Inspired Oxygen 35 %; HCO3 ABG 21.7 mEq/l (22.0-26.0); Methemoglobin ABG 0.3 %THb (0-1.5); Modified Allen's Test Pass; Oxygen Content ABG 17.8 %vol (16.0-22.0); Oxygen Saturation ABG 97.1 % (95.0-100.0); Oxyhemoglobin 95.6 % THb (90.0-100.0); PCO2 ABG 36.9 mmHg (35.0-45.0); PO2 ABG 92.7 mmHg (80.0-100.0); PO2 FiO2 Ratio Arterial Blood 2.65 %; Reduced Hemoglobin 3.8 %THb (0-5.0); Site Drawn LEFT RADIAL; Total Hemoglobin 13.2 g/dL (12.0-18.0); pH ABG 7.387 (7.350-7.450)
[2022-06-24 05:26] LABS: Arterial Blood Gas PEEP 8 cmH2O; Arterial Blood Gas Tidal Volume 500 ml; Arterial Blood Gas Vent Mode CMV; Arterial Blood Gas Ventilator rate 22 /MIN; Device VENTILATOR
[2022-06-24] MEDS: CEFEPIME 1 GM/NS 50 ML 1 GM/50 ML BAG IVPB ×2 (05:27→17:22)
[2022-06-24] MEDS: CENTRAL LINE FLUSH 10 ML IV PUSH ×4 (05:27→20:06)
[2022-06-24] MEDS: HYDROCORTISONE SODIUM SUCCINATE 100 MG/2 ML VIAL IV PUSH (05:28)
[2022-06-24 05:44] LABS: Basophils Percent Auto 0.1 % (0.2-1.2); Hematocrit 31.2 % (42.0-52.0); Hemoglobin 10.2 g/dL (14.0-18.0); Immature Granulocyte Absolute 0.12 K/mm3 (0.00-0.031); Immature Granulocyte Percent A 0.9 % (0-0.5); Lymphocytes Absolute Auto 0.61 K/mm3 (0.9-3.2); Lymphocytes Percent Auto 4.5 % (18.3-44.2); Mean Corpuscular HGB Conc 32.7 g/dl (32-36); Mean Corpuscular Volume 91.8 fl (80-100); Mean Platelet Volume 10.2 fl (7.4-10.4); Monocytes Absolute Auto 0.6 K/mm3 (0.1-0.6); Monocytes Percent Auto 4.5 % (2.6-8.5); Neutrophils Absolute Auto 12.2 K/mm3 (1.3-6.7); Platelet Count Result 250 k/mm3 (150-375); Red Cell Distribution Width 16.1 % (11.5-14.5); White Blood Count 13.6 K/mm3 (4.5-10.0)
[2022-06-24 05:55] LABS: Lactic Acid Reflex 0.9 mmol/L (0.7-2.0)
[2022-06-24 05:57] LABS: Alanine Aminotransferase 12 U/L (6-50); Albumin Level 3.1 g/dL (3.5-5.1); Alkaline Phosphatase 81 U/L (38-126); Anion Gap 8 mmol/L (8-16); Aspartate Amino Transferase 21 U/L (17-59); Bilirubin,Total 0.7 mg/dL (0.2-1.3); Blood Urea Nitrogen 83 mg/dL (9-20); Calcium 8.2 mg/dL (8.4-10.2); Carbon Dioxide 24 mmol/L (22-30); Chloride 101 mmol/L (98-107); Estimated CRCL calculation 31 ml/min; Estimated Glomerular Filt Rate 27; Glucose 166 mg/dL (65-110); Magnesium 2.6 mg/dL (1.6-2.3); Potassium 3.7 mmol/L (3.4-5.0); Sodium 133 mmol/L (137-145)
[2022-06-24] MEDS: BUDESONIDE RESPULE NEB 0.5 MG/2 ML AMP INHALATION ×2 (07:33→20:19)
[2022-06-24] MEDS: PANTOPRAZOLE SODIUM IV 80 MG in SODIUM CHLORIDE 0.9% IV 500 ML 50 MG IV CONT ×2 (08:03→17:22)
--- NOTE | 2022-06-24 09:33 | WPDINTPN ---
Progress Note: A&P Assessment and Plan (1) Acute respiratory failure with hypoxia: Code(s): J96.01 - Acute respiratory failure with hypoxia Status: Acute Assessment and Plan: 06/22: Patient was transferred from the medical floor in the early hours with tachycardia, tachypnea, hypotension, diaphoresis -could be related to volume overload, PE as patient recently had left hip surgery, COPD exacerbation, CHF -06/22: V/Q scan showed intermediate probability for PE, started on heparin infusion, orthopedic surgeon was okay with heparin infusion -06/22: Lower extremity venous Dopplers: Indwelling catheter obscures evaluation of the right common femoral, greater saphenous, and profunda femoral veins. Otherwise patent bilateral lower extremity veins. No evidence of deep venous thrombosis. -06/22: patient developed more tachypneic and shortness of breath, placed on BiPAP 10/5 with adequate tidal volumes, and 40% FiO2 with adequate O2 sats, requiring intubation Currently on CMV mode of ventilation, peep of 8 and 35% FiO2, ABGs and chest x-ray reviewed, will decrease PEEP to 5 -have asked the bedside RN to wean sedation, will place him on SBT and evaluate for extubation -continue cefepime and vancomycin (06/22) -continue bronchodilators -continue Pulmicort (2) Shock: Code(s): R57.9 - Shock, unspecified Status: Acute Assessment and Plan: Lactic acid is normal, -off Levophed -continue cefepime, vancomycin (06/22) -06/22: Blood cultures -primary blood cultures are negative for -UA was unremarkable -06/22: MRSA screen is negative -wean stress dose steroids (3) Acute on chronic combined systolic and diastolic CHF (congestive heart failure): Code(s): I50.43 - Acute on chronic combined systolic (congestive) and diastolic (congestive) heart failure Status: Acute Assessment and Plan: Patient with CHF with reduced ejection fraction -echocardiogram on 04/13/2022 showed an EF of 20%, grade 1 diastolic dysfunction, concentric LVH with moderate global left ventricular systolic dysfunction mild mitral valve regurg, normal-appearing aortic valve bioprosthesis RVSP estimated at 34 mmHg -Cardiology following the patient -Patient was on Entresto, Lasix, spironolactone, amlodipine which are currently on hold due to low blood pressures requiring vasopressors 06/22/2022: Echo showed LV systolic function severely reduced, EF of 20-25%, grade 1 diastolic dysfunction, RV chamber moderately enlarged, L a chamber moderately enlarged, RA chamber moderately enlarged, mild mitral valve regurg, moderate tricuspid regurg, RVSP of 42 mmHg. (4) CKD (chronic kidney disease), stage III: Code(s): N18.3 - Chronic kidney disease, stage 3 (moderate) Status: Acute Assessment and Plan: Patient has a history of chronic kidney disease stage III -06/22: creatinine has increased this morning likely related to hypotension, shock -increased dyspnea with chest x-ray showing volume overload -continue to monitor urine output, renal function and electrolytes -urine lytes not reflective of prerenal picture, urine eosinophils were negative, CK levels are normal -appreciate Nephrology evaluation and recommendations -creatinine gradually improving (5) Closed intertrochanteric fracture of left femur: Qualifiers: Encounter type: initial encounter Fracture alignment: displaced Qualified Code(s): S72.142A - Displaced intertrochanteric fracture of left femur, initial encounter for closed fracture Code(s): S72.142A - Displaced intertrochanteric fracture of left femur, initial encounter for closed fracture Status: Acute Assessment and Plan: 06/17/2022 patient had a fall with left hip pain and left intertrochanteric fracture s 06/18: Status postORIF left intertrochanteric hip fracture with trochanteric nail device -patient on fentanyl infusion for pain control -orthopedics following the patient
[2022-06-24] MEDS: ACETAMINOPHEN 325 MG TABLET 650 MG PO (09:36)
[2022-06-24] MEDS: ASPIRIN 81 MG CHEWABLE TABLET PO (09:36)
[2022-06-24] MEDS: SENNA/DOCUSATE SODIUM TABLET 2 TAB PO (09:37)
[2022-06-24] MEDS: HYDROCORTISONE SODIUM SUCCINATE 100 MG/2 ML VIAL 50 MG IV PUSH ×2 (09:38→20:04)
[2022-06-24] MEDS: TICAGRELOR 90 MG TABLET BY MOUTH (09:38)
[2022-06-24] MEDS: MINERAL OIL/WHITE PETROLATUM OINTMENT 1 APPLIC EACH EYE (09:38)
[2022-06-24] MEDS: cycloSPORINE 0.4 ML OPHTH SOLUTION 1 DROP EACH EYE ×2 (09:38→20:06)
[2022-06-24] MEDS: HEPARIN SOD/D5W 100 UNITS/ML 25,000 UNITS/250 ML BAG 17 UNITS IV CONT ×2 (09:52→23:59)
--- NOTE | 2022-06-24 10:16 | PM.PNORT ---
Progress Note: A&P Assessment and Plan (1) Closed intertrochanteric fracture of left femur: Qualifiers: Encounter type: initial encounter Fracture alignment: displaced Qualified Code(s): S72.142A - Displaced intertrochanteric fracture of left femur, initial encounter for closed fracture Code(s): S72.142A - Displaced intertrochanteric fracture of left femur, initial encounter for closed fracture Status: Acute Plan Nothing new to add from the orthopedic perspective at this point. Hopefully will be able to start to mobilize in the next few days. Subjective Subjective Date/Time Seen: 06/24/22 10:16 Interval history: 76-year-old male postop day six ORIF left IT hip fracture. Reviewing the chart it appears that he has made some progress. Family shared with me that he communicated with them through writing on a tablet. Noted plans for trying to decrease vent use. Exam Const: General: cooperative Extrem: Other: Left hip wound dry. No significant swelling noted in the thigh. No new bruising. Objective Data Vital Signs Vital Signs: Vital Signs - 24 hr 06/23/22 12:00 06/23/22 12:00 06/23/22 12:00 Temperature 98.0 F Pulse Rate 67 65 Respiratory Rate 22 H Blood Pressure 106/68 106/68 Pulse Oximetry 99 Oxygen Delivery Fraction of Inspired Oxygen 50 06/23/22 12:15 06/23/22 12:00 06/23/22 12:00 Temperature Pulse Rate 67 65 67 Respiratory Rate 22 H 22 H Blood Pressure 119/60 Pulse Oximetry Oxygen Delivery Fraction of Inspired Oxygen 06/23/22 13:05 06/23/22 13:05 06/23/22 13:15 Temperature Pulse Rate 73 73 86 Respiratory Rate 22 H 22 H Blood Pressure Pulse Oximetry 99 Oxygen Delivery Mechanical Ventilation Fraction of Inspired Oxygen 50 06/23/22 14:09 06/23/22 14:00 06/23/22 14:00 Temperature Pulse Rate 94 69 69 Respiratory Rate 22 H 22 H Blood Pressure 119/62 Pulse Oximetry Oxygen Delivery Fraction of Inspired Oxygen 06/23/22 14:00 06/23/22 12:00 06/23/22 14:00 Temperature 98.2 F Pulse Rate 69 72 69 Respiratory Rate 22 H Blood Pressure 119/62 Pulse Oximetry 100 Oxygen Delivery Fraction of Inspired Oxygen 06/23/22 12:00 06/23/22 15:45 06/23/22 16:30 Temperature Pulse Rate 94 73 71 Respiratory Rate 22 H 22 H Blood Pressure Pulse Oximetry 100 100 Oxygen Delivery Mechanical Ventilation Mechanical Ventilation Fraction of Inspired Oxygen 50 50 06/23/22 16:00 06/23/22 16:00 06/23/22 16:00 Temperature 98.4 F Pulse Rate 67 67 67 Respiratory Rate 22 H 22 H Blood Pressure 114/66 114/66 Pulse Oximetry 100 Oxygen Delivery Fraction of Inspired Oxygen 06/23/22 16:43 06/23/22 16:00 06/23/22 16:00 Temperature Pulse Rate 69 67 68 Respiratory Rate 22 H Blood Pressure 134/78 Pulse Oximetry Oxygen Delivery Fraction of Inspired Oxygen 06/23/22 18:00 06/23/22 18:00 06/23/22 16:00 Temperature 98.5 F Pulse Rate 84 74 Respiratory Rate 22 H Blood Pressure 114/62 Pulse Oximetry 99 Oxygen Delivery Mechanical Ventilation Fraction of Inspired Oxygen 50 06/23/22 16:00 06/23/22 18:00 06/23/22 18:00 Temperature Pulse Rate 74 74 Respiratory Rate 22 H Blood Pressure 114/62 Pulse Oximetry Oxygen Delivery Fraction of Inspired Oxygen 50 06/23/22 18:00 06/23/22 12:00 06/23/22 16:00 Temperature Pulse Rate 74 74 73 Respiratory Rate 22 H Blood Pressure 106/68 114/66 Pulse Oximetry Oxygen Delivery Fraction of Inspired Oxygen 06/23/22 19:30 06/23/22 19:30 06/23/22 19:30 Temperature Pulse Rate 74 74 74 Respiratory Rate 22 H 22 H Blood Pressure 110/65 Pulse Oximetry Oxygen Delivery Fraction of Inspired Oxygen 06/23/22 20:00 06/23/22 20:17 06/23/22 20:13 Temperature Pulse Rate 77 80 80 Respiratory Rate 23 H Blood Pressure 130/68 Pulse Oximetry 99 Oxygen
--- NOTE | 2022-06-24 11:22 | PM.PNNEP ---
Progress Note: A&P Assessment and Plan (1) EDGAR (acute kidney injury): Code(s): N17.9 - Acute kidney failure, unspecified Status: Acute Assessment and Plan: improvement noted most likely related to hypotension/hemodynamic instability and shock complicated by CXR evidence of volume overload (limitimg further IVF resuscitation) evaluation to date: renal ultrasound normal urine electrolyte prerenal (likely a manifestion of his poor EF) urine eosinophils negative CPK normal follow repeat labs and UOP follow response to PRN IV diuretics (2) Stage 3b chronic kidney disease: Code(s): N18.32 - Chronic kidney disease, stage 3b Status: Chronic Assessment and Plan: baseline creatiine runs around 1.8 - 2.3mg/dl secondary to hypertension based on previous outpatient evaluation (3) Acute respiratory failure with hypoxia: Code(s): J96.01 - Acute respiratory failure with hypoxia Status: Acute Assessment and Plan: volume overload versus pulmonary embolus (mutliple risk factors) versus COPD versus CHF versus all of these issues... V/Q scan intermediate probability initiated on heparin gtt LE dopplers negative on ventilator support - wean as tolerated empiric antibiotics for sepsis IV lasix PRN complicated by known COPD on steroids and bronchodilators follow respiratory status (4) Shock: Code(s): R57.9 - Shock, unspecified Status: Acute Assessment and Plan: concern for sepsis given elevated WBC, low BP, and fevers follow culture data on antibiotics vasopressor therapy as needed (off currently) (5) Acute on chronic combined systolic and diastolic CHF (congestive heart failure): Code(s): I50.43 - Acute on chronic combined systolic (congestive) and diastolic (congestive) heart failure Status: Acute Assessment and Plan: known cardiomyopathy last echo (04/13/22) with EF of 20%, grade 1 diastolic dysfunction, concentric LVH with moderate global left ventricular systolic dysfunction mild mitral valve regurgitation, normal-appearing aortic valve bioprosthesis RVSP estimated at 34 mmHg entresto, Lasix, spironolactone, amlodipine on hold (due to low blood pressures requiring vasopressors) repeat Echo with EF ~ 20 - 25% recent PCI on 06/08/2022 with stent to proximal mid LAD continue Brilinta, aspirin, statin Cardiology following (6) Closed intertrochanteric fracture of left femur: Qualifiers: Encounter type: initial encounter Fracture alignment: displaced Qualified Code(s): S72.142A - Displaced intertrochanteric fracture of left femur, initial encounter for closed fracture Code(s): S72.142A - Displaced intertrochanteric fracture of left femur, initial encounter for closed fracture Status: Acute Assessment and Plan: s/p ORIF left intertrochanteric hip fracture with trochanteric nail device Orthopedics following (7) Prostate cancer metastatic to bone: Code(s): C61 - Malignant neoplasm of prostate; C79.51 - Secondary malignant neoplasm of bone Status: Acute Assessment and Plan: on enzalutamide continue supportive therapy Will continue to follow. Subjective Date/time seen: 06/24/22 11:22 Interval history: Follow-up for acute kidney injury on chronic kidney disease. Remains intubated and on mechanical ventilation but following simple commands and responsive off sedation; weaned off levophed with reasonable urine output and improvement in renal function/creatinine; remains on heparin gtt. Exam Narrative: General: elderly male intubated and on mechanical ventilation Heart: IRRR, normal S1 and S2; no rub Lungs: coarse breath sounds Abdomen: soft, nontender, nondistended, positive bowel sounds Extremities: no cyanosis or clubbing; 1 - 2+ edema Skin: warm and intact; left hip dressings in place Objective Data Vital Signs Vital Si
--- NOTE | 2022-06-24 11:22 | P.PNNP_ITS ---
Progress Note: A&P Assessment and Plan (1) EDGAR (acute kidney injury): Code(s): N17.9 - Acute kidney failure, unspecified Status: Acute Assessment and Plan: * improvement noted * most likely related to hypotension/hemodynamic instability and shock * complicated by CXR evidence of volume overload (limitimg further IVF resuscitation) * evaluation to date: * renal ultrasound normal * urine electrolyte prerenal (likely a manifestion of his poor EF) * urine eosinophils negative * CPK normal * follow repeat labs and UOP * follow response to PRN IV diuretics (2) Stage 3b chronic kidney disease: Code(s): N18.32 - Chronic kidney disease, stage 3b Status: Chronic Assessment and Plan: * baseline creatiine runs around 1.8 - 2.3mg/dl * secondary to hypertension based on previous outpatient evaluation (3) Acute respiratory failure with hypoxia: Code(s): J96.01 - Acute respiratory failure with hypoxia Status: Acute Assessment and Plan: * volume overload versus pulmonary embolus (mutliple risk factors) versus COPD versus CHF versus all of these issues... * V/Q scan intermediate probability * initiated on heparin gtt * LE dopplers negative * on ventilator support - wean as tolerated * empiric antibiotics for sepsis * IV lasix PRN * complicated by known COPD * on steroids and bronchodilators * follow respiratory status (4) Shock: Code(s): R57.9 - Shock, unspecified Status: Acute Assessment and Plan: * concern for sepsis given elevated WBC, low BP, and fevers * follow culture data * on antibiotics * vasopressor therapy as needed (off currently) (5) Acute on chronic combined systolic and diastolic CHF (congestive heart failure): Code(s): I50.43 - Acute on chronic combined systolic (congestive) and diastolic (congestive) heart failure Status: Acute Assessment and Plan: * known cardiomyopathy * last echo (04/13/22) with EF of 20%, grade 1 diastolic dysfunction, concentric LVH with moderate global left ventricular systolic dysfunction mild mitral valve regurgitation, normal-appearing aortic valve bioprosthesis RVSP estimated at 34 mmHg * entresto, Lasix, spironolactone, amlodipine on hold (due to low blood pressures requiring vasopressors) * repeat Echo with EF ~ 20 - 25% * recent PCI on 06/08/2022 with stent to proximal mid LAD * continue Brilinta, aspirin, statin * Cardiology following (6) Closed intertrochanteric fracture of left femur: Qualifiers: Encounter type: initial encounter Fracture alignment: displaced Qualified Code(s): S72.142A - Displaced intertrochanteric fracture of left femur, initial encounter for closed fracture Code(s): S72.142A - Displaced intertrochanteric fracture of left femur, initial encounter for closed fracture Status: Acute Assessment and Plan: * s/p ORIF left intertrochanteric hip fracture with trochanteric nail device * Orthopedics following (7) Prostate cancer metastatic to bone: Code(s): C61 - Malignant neoplasm of prostate; C79.51 - Secondary malignant neoplasm of bone Status: Acute Assessment and Plan: * on enzalutamide * continue supportive therapy Will continue to follow. Subjective Date/time seen: 06/24/22 11:22 Interval history: Follow-up for acute kidney injury on chronic kidney disease. Remains intubated and on mechanical ventilation but following simple commands and responsive off sedation; weaned
[2022-06-24 14:11] LABS: Alveolar/Arterial O2 Gradient 82.6 mmHg; Base Excess ABG -2.5 mEq/l (+/-2.0); Fractional Inspired Oxygen 30 %; HCO3 ABG 21.4 mEq/l (22.0-26.0); Oxygen Content ABG 15.7 %vol (16.0-22.0); Oxygen Saturation ABG 97.2 % (95.0-100.0); Oxyhemoglobin 95.3 % THb (90.0-100.0); PCO2 ABG 33.6 mmHg (35.0-45.0); PO2 ABG 91.8 mmHg (80.0-100.0); PO2 FiO2 Ratio Arterial Blood 3.06 %; Total Hemoglobin 11.6 g/dL (12.0-18.0); pH ABG 7.421 (7.350-7.450)
[2022-06-24 14:12] LABS: Device VENTILATOR; Modified Allen's Test Pass; Site Drawn LEFT RADIAL
[2022-06-24 14:13] LABS: Arterial Blood Gas PEEP 5 cmH2O; Arterial Blood Gas Pressure Support 8 cmH2O; Arterial Blood Gas Vent Mode PRESSURE SUPPORT; Peak Inspiratory Pressure 8 cmH2O
[2022-06-24 14:15] LABS: Glucose Point of Care 148 mg/dl (65-105)
[2022-06-24] MEDS: racEPINEPHrine 2.25% NEBU SOLN 0.5 ML VIAL.NEB INHALATION (14:34)
--- NOTE | 2022-06-24 14:37 | PM.IMPN ---
Progress Note: A&P Assessment and Plan (1) Acute respiratory failure with hypoxia: Code(s): J96.01 - Acute respiratory failure with hypoxia Status: Acute Assessment and Plan: Decompensation on 06/22/2022 with tachycardia tachypnea and hypotension diaphoresis Chest x-ray with pulmonary edema V/Q scan with intermediate probability Started on heparin infusion Venous duplex with obscured evaluation of right common femoral greater saphenous and profundus femoral vein. Otherwise patent bilateral lower extremity veins BiPAP placed 06/22/2022 eventually intubated and placed on mechanical ventilation 06/22/2022 Broad-spectrum antibiotic with cefepime and vancomycin started on 06/22/2022 Diuresis as tolerated as patient already hypotensive. Continue bronchodilators (2) Shock: Code(s): R57.9 - Shock, unspecified Status: Acute Assessment and Plan: Likely related to sepsis with leukocytosis, hypotension, fevers started patient on cefepime, vancomycin (06/22) -06/22: Blood cultures have been obtained and pending -check UA and culture (3) Acute on chronic combined systolic and diastolic CHF (congestive heart failure): Code(s): I50.43 - Acute on chronic combined systolic (congestive) and diastolic (congestive) heart failure Status: Acute Assessment and Plan: Patient with CHF with reduced ejection fraction -echocardiogram on 04/13/2022 showed an EF of 20%, grade 1 diastolic dysfunction, concentric LVH with moderate global left ventricular systolic dysfunction mild mitral valve regurg, normal-appearing aortic valve bioprosthesis RVSP estimated at 34 mmHg Patient was on Entresto, Lasix, spironolactone, amlodipine which are currently on hold due to low blood pressures requiring vasopressors 06/22/2022: Repeat echo EF 20-25% grade 1 diastolic dysfunction RV chamber moderately enlarged LA chamber moderately enlarged mild mitral valve regurgitation RA chamber moderately enlarged moderate tricuspid regurgitation RVSP 42 mm hg (4) CKD (chronic kidney disease), stage III: Code(s): N18.3 - Chronic kidney disease, stage 3 (moderate) Status: Acute Assessment and Plan: Patient has a history of chronic kidney disease stage III EDGAR on CKD stage 3 likely due to hypotension and shock. Received IV fluid bolus now on vasopressors Chest x-ray with volume overload signs. Diuresis as tolerated now off IV fluids. Nephrology consulted. (5) Closed intertrochanteric fracture of left femur: Qualifiers: Encounter type: initial encounter Fracture alignment: displaced Qualified Code(s): S72.142A - Displaced intertrochanteric fracture of left femur, initial encounter for closed fracture Code(s): S72.142A - Displaced intertrochanteric fracture of left femur, initial encounter for closed fracture Status: Acute Assessment and Plan: 06/17/2022 patient had a fall with left hip pain and left intertrochanteric fracture s 06/18: Status post ORIF left intertrochanteric hip fracture with trochanteric nail device -continue pain control -orthopedics following the patient (6) COPD (chronic obstructive pulmonary disease): Code(s): J44.9 - Chronic obstructive pulmonary disease, unspecified Status: Acute Assessment and Plan: Patient has a history of chronic COPD, continue bronchodilators, BiPAP Started on steroid by communication and outreach manager (7) CAD (coronary artery disease): Code(s): I25.10 - Atherosclerotic heart disease of [place] coronary artery without angina pectoris Status: Acute Assessment and Plan: Patient had a recent PCI on 06/08/2022 with stent to proximal mid LAD -continue Brilinta, aspirin, statin -hold Entresto, spironolactone, Lasix and amlodipine since patient is on pressors (8) Prostate cancer metastatic to bone: Code(s): C61 - Malignant neoplasm of prostate; C79.51 - Secondary malignant neoplasm of bone Status: Acute Assessm
[2022-06-24] MEDS: LORazepam INJ (*CRX) 2 MG/ML VIAL 0.5 MG IV PUSH (15:06)
[2022-06-24] MEDS: DEXAMETHASONE SOD PHOS INJ 4 MG/ML VIAL IV PUSH ×2 (17:17→23:53)
[2022-06-24 17:46] LABS: Glucose Point of Care 150 mg/dl (65-105)
[2022-06-24] MEDS: fentaNYL CITRATE INJ (*CRX) 100 MCG/2 ML VIAL 12.5 MCG IV PUSH (21:36)
[2022-06-25] VITALS (69 sets, daily range): BP systolic 110–193; BP diastolic 58–104; PULSE 70–126; RESP 12–24; TEMP 34.7–37.2; O2SAT 89–98
[2022-06-25 00:04] LABS: Glucose Point of Care 94 mg/dl (65-105)
[2022-06-25] MEDS: fentaNYL CITRATE INJ (*CRX) 100 MCG/2 ML VIAL 12.5 MCG IV PUSH ×2 (01:02→04:46)
[2022-06-25] MEDS: LEVALBUTEROL NEB 1.25 MG/3 ML INHALATION ×4 (02:39→20:20)
[2022-06-25] MEDS: IPRATROPIUM BR 0.02% INH SOLN 0.5 MG/2.5 ML VIAL INHALATION ×4 (02:39→20:20)
[2022-06-25] MEDS: PANTOPRAZOLE SODIUM IV 80 MG in SODIUM CHLORIDE 0.9% IV 500 ML 50 MG IV CONT (04:11)
[2022-06-25 05:27] LABS: Basophils Percent Auto 0.1 % (0.2-1.2); Hematocrit 29.9 % (42.0-52.0); Hemoglobin 9.8 g/dL (14.0-18.0); Immature Granulocyte Absolute 0.08 K/mm3 (0.00-0.031); Immature Granulocyte Percent A 0.8 % (0-0.5); Lymphocytes Absolute Auto 0.58 K/mm3 (0.9-3.2); Lymphocytes Percent Auto 5.9 % (18.3-44.2); Mean Corpuscular HGB Conc 32.8 g/dl (32-36); Mean Corpuscular Hemoglobin 30.8 pg (26-34); Mean Platelet Volume 10.1 fl (7.4-10.4); Monocytes Absolute Auto 0.4 K/mm3 (0.1-0.6); Monocytes Percent Auto 4.3 % (2.6-8.5); Neutrophils Absolute Auto 8.7 K/mm3 (1.3-6.7); Neutrophils Percent Auto 88.9 % (45.5-73.1); Platelet Count Result 257 k/mm3 (150-375); Red Blood Count 3.18 M/mm3 (4.6-6.20); Red Cell Distribution Width 16.5 % (11.5-14.5); White Blood Count 9.8 K/mm3 (4.5-10.0)
[2022-06-25 05:39] LABS: Alveolar/Arterial O2 Gradient 74.9 mmHg; Base Excess ABG -2.1 mEq/l (+/-2.0); Carboxyhemoglobin 0.2 % THb (0-2.0); Fractional Inspired Oxygen 28 %; HCO3 ABG 21.4 mEq/l (22.0-26.0); Methemoglobin ABG 0.2 %THb (0-1.5); Oxygen Saturation ABG 96.7 % (95.0-100.0); Oxyhemoglobin 95.3 % THb (90.0-100.0); PCO2 ABG 33.3 mmHg (35.0-45.0); PO2 ABG 85.4 mmHg (80.0-100.0); PO2 FiO2 Ratio Arterial Blood 3.05 %; Reduced Hemoglobin 4.3 %THb (0-5.0); Total Hemoglobin 14.9 g/dL (12.0-18.0); pH ABG 7.425 (7.350-7.450)
[2022-06-25 05:39] LABS: Alanine Aminotransferase 14 U/L (6-50); Alkaline Phosphatase 58 U/L (38-126); Anion Gap 7 mmol/L (8-16); Aspartate Amino Transferase 21 U/L (17-59); Bilirubin,Total 0.7 mg/dL (0.2-1.3); Blood Urea Nitrogen 81 mg/dL (9-20); Calcium 8.1 mg/dL (8.4-10.2); Carbon Dioxide 24 mmol/L (22-30); Chloride 107 mmol/L (98-107); Estimated CRCL calculation 44 ml/min; Estimated Glomerular Filt Rate 39; Glucose 131 mg/dL (65-110); Magnesium 2.7 mg/dL (1.6-2.3); Phosphorus 3.8 mg/dL (2.5-4.5); Potassium 3.6 mmol/L (3.4-5.0); Sodium 138 mmol/L (137-145)
[2022-06-25 05:40] LABS: Device NASAL CANNULA; Modified Allen's Test Pass; Site Drawn RIGHT RADIAL
[2022-06-25 05:46] LABS: Partial Thromboplastin Time 78.4 SECONDS (22.3-36.8)
[2022-06-25] MEDS: DEXAMETHASONE SOD PHOS INJ 4 MG/ML VIAL IV PUSH ×2 (05:47→12:23)
[2022-06-25] MEDS: CEFEPIME 1 GM/NS 50 ML 1 GM/50 ML BAG IVPB ×2 (05:47→16:33)
[2022-06-25] MEDS: CENTRAL LINE FLUSH 10 ML IV PUSH ×3 (05:47→16:36)
[2022-06-25] MEDS: BUDESONIDE RESPULE NEB 0.5 MG/2 ML AMP INHALATION ×2 (08:23→20:20)
[2022-06-25] MEDS: METOPROLOL TARTRATE INJ 5 MG/5 ML VIAL IV PUSH ×3 (08:41→21:51)
[2022-06-25] MEDS: cycloSPORINE 0.4 ML OPHTH SOLUTION 1 DROP EACH EYE ×2 (08:42→21:58)
[2022-06-25] MEDS: HYDROCORTISONE SODIUM SUCCINATE 100 MG/2 ML VIAL 50 MG IV PUSH (08:42)
[2022-06-25] MEDS: FUROSEMIDE INJ 40 MG/4 ML VIAL IV PUSH (08:42)
[2022-06-25] MEDS: HYDROmorphone HCL INJ (*CRX) 1 MG/ML SYR 0.5 MG IV PUSH ×4 (08:47→21:42)
--- NOTE | 2022-06-25 10:55 | WPDINTPN ---
Progress Note: A&P Assessment and Plan (1) Acute respiratory failure with hypoxia: Code(s): J96.01 - Acute respiratory failure with hypoxia Status: Acute Assessment and Plan: 06/22: Patient was transferred from the medical floor in the early hours with tachycardia, tachypnea, hypotension, diaphoresis -could be related to volume overload, PE as patient recently had left hip surgery, COPD exacerbation, CHF -06/22: V/Q scan showed intermediate probability for PE, started on heparin infusion, orthopedic surgeon was okay with heparin infusion -06/22: Lower extremity venous Dopplers: Indwelling catheter obscures evaluation of the right common femoral, greater saphenous, and profunda femoral veins. Otherwise patent bilateral lower extremity veins. No evidence of deep venous thrombosis. -06/22: patient developed more tachypneic and shortness of breath, placed on BiPAP 10/5 with adequate tidal volumes, and 40% FiO2 with adequate O2 sats, requiring intubation 06/24: Extubated -currently on 2 L nasal cannula -operative incentive spirometry -continue cefepime and vancomycin (06/22) -continue bronchodilators -continue Pulmicort (2) Shock: Code(s): R57.9 - Shock, unspecified Status: Acute Assessment and Plan: RESOLVED Lactic acid is normal, -off Levophed -continue cefepime, vancomycin (06/22) -06/22: Blood cultures -primary blood cultures are negative X2 -UA was unremarkable -06/22: MRSA screen is negative -discontinue status to steroids (3) Acute on chronic combined systolic and diastolic CHF (congestive heart failure): Code(s): I50.43 - Acute on chronic combined systolic (congestive) and diastolic (congestive) heart failure Status: Acute Assessment and Plan: Patient with CHF with reduced ejection fraction -echocardiogram on 04/13/2022 showed an EF of 20%, grade 1 diastolic dysfunction, concentric LVH with moderate global left ventricular systolic dysfunction mild mitral valve regurg, normal-appearing aortic valve bioprosthesis RVSP estimated at 34 mmHg -Cardiology following the patient -Patient was on metoprolol, Entresto, Lasix, spironolactone, amlodipine which were held as patient was on vasopressors -06/25 will start metoprolol and Lasix. Will start Entresto when able 06/22/2022: Echo showed LV systolic function severely reduced, EF of 20-25%, grade 1 diastolic dysfunction, RV chamber moderately enlarged, L a chamber moderately enlarged, RA chamber moderately enlarged, mild mitral valve regurg, moderate tricuspid regurg, RVSP of 42 mmHg. (4) CKD (chronic kidney disease), stage III: Code(s): N18.3 - Chronic kidney disease, stage 3 (moderate) Status: Acute Assessment and Plan: Patient has a history of chronic kidney disease stage III -06/22: creatinine has increased this morning likely related to hypotension, shock -increased dyspnea with chest x-ray showing volume overload -continue to monitor urine output, renal function and electrolytes -urine lytes not reflective of prerenal picture, urine eosinophils were negative, CK levels are normal -appreciate Nephrology evaluation and recommendations -creatinine gradually improving (5) Closed intertrochanteric fracture of left femur: Qualifiers: Encounter type: initial encounter Fracture alignment: displaced Qualified Code(s): S72.142A - Displaced intertrochanteric fracture of left femur, initial encounter for closed fracture Code(s): S72.142A - Displaced intertrochanteric fracture of left femur, initial encounter for closed fracture Status: Acute Assessment and Plan: 06/17/2022 patient had a fall with left hip pain and left intertrochanteric fracture s 06/18: Status postORIF left intertrochanteric hip fracture with trochanteric nail device -pain control with Dilaudid -PT/OT has been reordered -orthopedics following the patient (6) COPD (chronic obstructive pulmonary disease):
--- NOTE | 2022-06-25 10:56 | PCSTNOTE ---
Please refer to the Bedside Swallow Evaluation in the EMR. Please note, silent aspiration cannot be ruled out at bedside.
--- NOTE | 2022-06-25 11:31 | P.PNNP_ITS ---
Progress Note: A&P Assessment and Plan (1) EDGAR (acute kidney injury): Code(s): N17.9 - Acute kidney failure, unspecified Status: Acute Assessment and Plan: * improvement noted * most likely related to hypotension/hemodynamic instability and shock * complicated by CXR evidence of volume overload (limitimg further IVF resuscitation) * evaluation to date: * renal ultrasound normal * urine electrolyte prerenal (likely a manifestion of his poor EF) * urine eosinophils negative * CPK normal * follow repeat labs and UOP (2) Stage 3b chronic kidney disease: Code(s): N18.32 - Chronic kidney disease, stage 3b Status: Chronic Assessment and Plan: * baseline creatinine runs around 1.8 - 2.3mg/dl * better than baseline by recent testing (likely due to being off entresto and diuretic therapy) * secondary to hypertension based on previous outpatient evaluation (3) Acute respiratory failure with hypoxia: Code(s): J96.01 - Acute respiratory failure with hypoxia Status: Acute Assessment and Plan: * resolving (extubated) * volume overload versus pulmonary embolus (mutliple risk factors) versus COPD versus CHF versus all of these issues... * V/Q scan intermediate probability * initiated on heparin gtt * LE dopplers negative * empiric antibiotics for sepsis * IV lasix PRN * complicated by known COPD * on steroids and bronchodilators * follow respiratory status (4) Shock: Code(s): R57.9 - Shock, unspecified Status: Acute Assessment and Plan: * concern for sepsis given elevated WBC, low BP, and fevers * follow culture data * on antibiotics * vasopressor therapy as needed (off currently) (5) Acute on chronic combined systolic and diastolic CHF (congestive heart failure): Code(s): I50.43 - Acute on chronic combined systolic (congestive) and diastolic (congestive) heart failure Status: Acute Assessment and Plan: * known cardiomyopathy * last echo (04/13/22) with EF of 20%, grade 1 diastolic dysfunction, concentric LVH with moderate global left ventricular systolic dysfunction mild mitral valve regurgitation, normal-appearing aortic valve bioprosthesis RVSP estimated at 34 mmHg * entresto, Lasix, spironolactone, amlodipine on hold * repeat Echo with EF ~ 20 - 25% * recent PCI on 06/08/2022 with stent to proximal mid LAD * continue Brilinta, aspirin, statin * Cardiology following (6) Closed intertrochanteric fracture of left femur: Qualifiers: Encounter type: initial encounter Fracture alignment: displaced Qualified Code(s): S72.142A - Displaced intertrochanteric fracture of left femur, initial encounter for closed fracture Code(s): S72.142A - Displaced intertrochanteric fracture of left femur, initial encounter for closed fracture Status: Acute Assessment and Plan: * s/p ORIF left intertrochanteric hip fracture with trochanteric nail device * Orthopedics following (7) Prostate cancer metastatic to bone: Code(s): C61 - Malignant neoplasm of prostate; C79.51 - Secondary malignant neoplasm of bone Status: Acute Assessment and Plan: * on enzalutamide * continue supportive therapy Will continue to follow. Subjective Date/time seen: 06/25/22 11:31 Interval history: Follow-up for acute kidney injury on chronic kidney disease. Extubated successfully yesterday without any issue or problems; respiratory status has remained relatively stable (on 2
--- NOTE | 2022-06-25 11:31 | PM.PNNEP ---
Progress Note: A&P Assessment and Plan (1) EDGAR (acute kidney injury): Code(s): N17.9 - Acute kidney failure, unspecified Status: Acute Assessment and Plan: improvement noted most likely related to hypotension/hemodynamic instability and shock complicated by CXR evidence of volume overload (limitimg further IVF resuscitation) evaluation to date: renal ultrasound normal urine electrolyte prerenal (likely a manifestion of his poor EF) urine eosinophils negative CPK normal follow repeat labs and UOP (2) Stage 3b chronic kidney disease: Code(s): N18.32 - Chronic kidney disease, stage 3b Status: Chronic Assessment and Plan: baseline creatinine runs around 1.8 - 2.3mg/dl better than baseline by recent testing (likely due to being off entresto and diuretic therapy) secondary to hypertension based on previous outpatient evaluation (3) Acute respiratory failure with hypoxia: Code(s): J96.01 - Acute respiratory failure with hypoxia Status: Acute Assessment and Plan: resolving (extubated) volume overload versus pulmonary embolus (mutliple risk factors) versus COPD versus CHF versus all of these issues... V/Q scan intermediate probability initiated on heparin gtt LE dopplers negative empiric antibiotics for sepsis IV lasix PRN complicated by known COPD on steroids and bronchodilators follow respiratory status (4) Shock: Code(s): R57.9 - Shock, unspecified Status: Acute Assessment and Plan: concern for sepsis given elevated WBC, low BP, and fevers follow culture data on antibiotics vasopressor therapy as needed (off currently) (5) Acute on chronic combined systolic and diastolic CHF (congestive heart failure): Code(s): I50.43 - Acute on chronic combined systolic (congestive) and diastolic (congestive) heart failure Status: Acute Assessment and Plan: known cardiomyopathy last echo (04/13/22) with EF of 20%, grade 1 diastolic dysfunction, concentric LVH with moderate global left ventricular systolic dysfunction mild mitral valve regurgitation, normal-appearing aortic valve bioprosthesis RVSP estimated at 34 mmHg entresto, Lasix, spironolactone, amlodipine on hold repeat Echo with EF ~ 20 - 25% recent PCI on 06/08/2022 with stent to proximal mid LAD continue Brilinta, aspirin, statin Cardiology following (6) Closed intertrochanteric fracture of left femur: Qualifiers: Encounter type: initial encounter Fracture alignment: displaced Qualified Code(s): S72.142A - Displaced intertrochanteric fracture of left femur, initial encounter for closed fracture Code(s): S72.142A - Displaced intertrochanteric fracture of left femur, initial encounter for closed fracture Status: Acute Assessment and Plan: s/p ORIF left intertrochanteric hip fracture with trochanteric nail device Orthopedics following (7) Prostate cancer metastatic to bone: Code(s): C61 - Malignant neoplasm of prostate; C79.51 - Secondary malignant neoplasm of bone Status: Acute Assessment and Plan: on enzalutamide continue supportive therapy Will continue to follow. Subjective Date/time seen: 06/25/22 11:31 Interval history: Follow-up for acute kidney injury on chronic kidney disease. Extubated successfully yesterday without any issue or problems; respiratory status has remained relatively stable (on 2L nasal cannula)although did have some issues with stridor post-extubation so given racemic epinephrine and steroids with improvement; only major complaint is that of left hip pain; reasonable urine output and renal function/creatinine improving as well. Exam Narrative: General: elderly male in NAD Heart: IRRR, normal S1 and S2; no rub Lungs: coarse breath sounds Abdomen: soft, nontender, nondistended, positive bowel sounds Extremities: no cyanosis or clubbing; 1
[2022-06-25 14:07] LABS: Glucose Point of Care 158 mg/dl (65-105)
[2022-06-25] MEDS: HEPARIN SOD/D5W 100 UNITS/ML 25,000 UNITS/250 ML BAG 17 UNITS IV CONT (14:28)
--- NOTE | 2022-06-25 14:33 | PM.IMPN ---
Progress Note: A&P Assessment and Plan (1) Acute respiratory failure with hypoxia: Code(s): J96.01 - Acute respiratory failure with hypoxia Status: Acute Assessment and Plan: Decompensation on 06/22/2022 with tachycardia tachypnea and hypotension diaphoresis Chest x-ray with pulmonary edema V/Q scan with intermediate probability Started on heparin infusion Venous duplex with obscured evaluation of right common femoral greater saphenous and profundus femoral vein. Otherwise patent bilateral lower extremity veins BiPAP placed 06/22/2022 eventually intubated and placed on mechanical ventilation 06/22/2022 Broad-spectrum antibiotic with cefepime and vancomycin started on 06/22/2022 Diuresis as tolerated as patient already hypotensive. Continue bronchodilators Extubated 06/24/2022 Remains on nasal cannula (2) Shock: Code(s): R57.9 - Shock, unspecified Status: Acute Assessment and Plan: Likely related to sepsis with leukocytosis, hypotension, fevers started patient on cefepime, vancomycin (06/22) -06/22: Blood cultures have been obtained and pending -check UA and culture MRSA negative. Vancomycin stop. Continue is on cefepime (3) Acute on chronic combined systolic and diastolic CHF (congestive heart failure): Code(s): I50.43 - Acute on chronic combined systolic (congestive) and diastolic (congestive) heart failure Status: Acute Assessment and Plan: Patient with CHF with reduced ejection fraction -echocardiogram on 04/13/2022 showed an EF of 20%, grade 1 diastolic dysfunction, concentric LVH with moderate global left ventricular systolic dysfunction mild mitral valve regurg, normal-appearing aortic valve bioprosthesis RVSP estimated at 34 mmHg Patient was on Entresto, Lasix, spironolactone, amlodipine which are currently on hold due to low blood pressures requiring vasopressors 06/22/2022: Repeat echo EF 20-25% grade 1 diastolic dysfunction RV chamber moderately enlarged LA chamber moderately enlarged mild mitral valve regurgitation RA chamber moderately enlarged moderate tricuspid regurgitation RVSP 42 mm hg On Entresto metoprolol when able to take p.o. (4) CKD (chronic kidney disease), stage III: Code(s): N18.3 - Chronic kidney disease, stage 3 (moderate) Status: Acute Assessment and Plan: Patient has a history of chronic kidney disease stage III EDGAR on CKD stage 3 likely due to hypotension and shock. Received IV fluid bolus now on vasopressors Chest x-ray with volume overload signs. Diuresis as tolerated now off IV fluids. Nephrology consulted. Chest x-ray with congestive changes. Lasix initiated x1 given today (5) Closed intertrochanteric fracture of left femur: Qualifiers: Encounter type: initial encounter Fracture alignment: displaced Qualified Code(s): S72.142A - Displaced intertrochanteric fracture of left femur, initial encounter for closed fracture Code(s): S72.142A - Displaced intertrochanteric fracture of left femur, initial encounter for closed fracture Status: Acute Assessment and Plan: 06/17/2022 patient had a fall with left hip pain and left intertrochanteric fracture s 06/18: Status post ORIF left intertrochanteric hip fracture with trochanteric nail device -continue pain control -orthopedics following the patient (6) COPD (chronic obstructive pulmonary disease): Code(s): J44.9 - Chronic obstructive pulmonary disease, unspecified Status: Acute Assessment and Plan: Patient has a history of chronic COPD, continue bronchodilators, BiPAP Started on steroid by car worker (7) CAD (coronary artery disease): Code(s): I25.10 - Atherosclerotic heart disease of [place] coronary artery without angina pectoris Status: Acute Assessment and Plan: Patient had a recent PCI on 06/08/2022 with stent to proximal mid LAD -continue Brilinta, aspirin, statin -hold Entresto, spironolactone, Las
--- NOTE | 2022-06-25 15:03 | PCSTNOTE ---
Please refer to the Modified Barium Swallow Evaluation in the EMR.
[2022-06-25 17:56] LABS: Glucose Point of Care 147 mg/dl (65-105)
[2022-06-25] MEDS: PANTOPRAZOLE SODIUM IV 40 MG VIAL IV PUSH (21:49)
[2022-06-26] VITALS (26 sets, daily range): BP systolic 133–155; BP diastolic 74–93; PULSE 64–102; RESP 12–18; TEMP 36.3–36.8; O2SAT 94–100
[2022-06-26] MEDS: IPRATROPIUM BR 0.02% INH SOLN 0.5 MG/2.5 ML VIAL INHALATION ×4 (02:10→19:56)
[2022-06-26] MEDS: LEVALBUTEROL NEB 1.25 MG/3 ML INHALATION ×4 (02:10→19:56)
[2022-06-26] MEDS: METOPROLOL TARTRATE INJ 5 MG/5 ML VIAL IV PUSH ×4 (02:31→19:36)
[2022-06-26] MEDS: HEPARIN SOD/D5W 100 UNITS/ML 25,000 UNITS/250 ML BAG 17 UNITS IV CONT ×2 (04:40→21:50)
[2022-06-26] MEDS: CENTRAL LINE FLUSH 10 ML IV PUSH (04:43)
[2022-06-26] MEDS: HYDROmorphone HCL INJ (*CRX) 1 MG/ML SYR 0.5 MG IV PUSH ×5 (05:36→21:47)
[2022-06-26] MEDS: CEFEPIME 1 GM/NS 50 ML 1 GM/50 ML BAG IVPB (05:42)
[2022-06-26 06:30] LABS: Basophils Percent Auto 0.1 % (0.2-1.2); Eosinophils Percent Auto 0.5 % (0-4.4); Hematocrit 30.3 % (42.0-52.0); Hemoglobin 9.8 g/dL (14.0-18.0); Immature Granulocyte Absolute 0.15 K/mm3 (0.00-0.031); Immature Granulocyte Percent A 1.9 % (0-0.5); Lymphocytes Percent Auto 13.7 % (18.3-44.2); Mean Corpuscular HGB Conc 32.3 g/dl (32-36); Mean Corpuscular Hemoglobin 30.2 pg (26-34); Mean Corpuscular Volume 93.5 fl (80-100); Monocytes Absolute Auto 0.7 K/mm3 (0.1-0.6); Monocytes Percent Auto 8.6 % (2.6-8.5); Neutrophils Percent Auto 75.2 % (45.5-73.1); Platelet Count Result 268 k/mm3 (150-375); Red Blood Count 3.24 M/mm3 (4.6-6.20); Red Cell Distribution Width 16.4 % (11.5-14.5)
[2022-06-26 06:35] LABS: Partial Thromboplastin Time 72.5 SECONDS (22.3-36.8)
[2022-06-26 06:38] LABS: Alanine Aminotransferase 14 U/L (6-50); Albumin Level 2.9 g/dL (3.5-5.1); Alkaline Phosphatase 64 U/L (38-126); Anion Gap 4 mmol/L (8-16); Aspartate Amino Transferase 24 U/L (17-59); Bilirubin,Total 0.8 mg/dL (0.2-1.3); Blood Urea Nitrogen 75 mg/dL (9-20); Calcium 8.4 mg/dL (8.4-10.2); Carbon Dioxide 27 mmol/L (22-30); Chloride 109 mmol/L (98-107); Estimated CRCL calculation 41 ml/min; Estimated Glomerular Filt Rate 37; Glucose 97 mg/dL (65-110); Magnesium 2.7 mg/dL (1.6-2.3); Phosphorus 3.1 mg/dL (2.5-4.5); Potassium 3.3 mmol/L (3.4-5.0); Sodium 140 mmol/L (137-145)
[2022-06-26] MEDS: BUDESONIDE RESPULE NEB 0.5 MG/2 ML AMP INHALATION (08:20)
[2022-06-26] MEDS: UMECLIDINIUM BROMIDE 62.5 MCG ELLIPTA 2 PUFF INHALATION (08:27)
--- NOTE | 2022-06-26 08:34 | PCOTNOTE ---
Will complete OT evaluation after removal of femoral line, will follow.
[2022-06-26] MEDS: PANTOPRAZOLE SODIUM IV 40 MG VIAL IV PUSH ×2 (08:42→21:46)
[2022-06-26] MEDS: cycloSPORINE 0.4 ML OPHTH SOLUTION 1 DROP EACH EYE (08:42)
--- NOTE | 2022-06-26 09:17 | P.PNNP_ITS ---
Progress Note: A&P Assessment and Plan (1) EDGAR (acute kidney injury): Code(s): N17.9 - Acute kidney failure, unspecified Status: Acute Assessment and Plan: * improvement noted * most likely related to hypotension/hemodynamic instability and shock * evaluation to date: * renal ultrasound normal * urine electrolyte prerenal (likely a manifestion of his poor EF) * urine eosinophils negative * CPK normal * off entresto and diuretic therapy at this time * follow repeat labs and UOP (2) Stage 3b chronic kidney disease: Code(s): N18.32 - Chronic kidney disease, stage 3b Status: Chronic Assessment and Plan: * baseline creatinine runs around 1.8 - 2.3mg/dl * secondary to hypertension based on previous outpatient evaluation (3) Acute respiratory failure with hypoxia: Code(s): J96.01 - Acute respiratory failure with hypoxia Status: Acute Assessment and Plan: * resolving (extubated) * volume overload versus pulmonary embolus (mutliple risk factors) versus COPD versus CHF versus all of these issues... * V/Q scan intermediate probability * initiated on heparin gtt * LE dopplers negative * empiric antibiotics for sepsis * IV lasix PRN * complicated by known COPD * on steroids and bronchodilators * follow respiratory status (4) Shock: Code(s): R57.9 - Shock, unspecified Status: Acute Assessment and Plan: * concern for sepsis given elevated WBC, low BP, and fevers * follow culture data * on antibiotics * vasopressor therapy as needed (off currently) (5) Acute on chronic combined systolic and diastolic CHF (congestive heart failure): Code(s): I50.43 - Acute on chronic combined systolic (congestive) and diastolic (congestive) heart failure Status: Acute Assessment and Plan: * known cardiomyopathy * last echo (04/13/22) with EF of 20%, grade 1 diastolic dysfunction, concentric LVH with moderate global left ventricular systolic dysfunction mild mitral valve regurgitation, normal-appearing aortic valve bioprosthesis RVSP estimated at 34 mmHg * entresto, Lasix, spironolactone, amlodipine on hold * repeat Echo with EF ~ 20 - 25% * recent PCI on 06/08/2022 with stent to proximal mid LAD * continue Brilinta, aspirin, statin * Cardiology following (6) Closed intertrochanteric fracture of left femur: Qualifiers: Encounter type: initial encounter Fracture alignment: displaced Qualified Code(s): S72.142A - Displaced intertrochanteric fracture of left femur, initial encounter for closed fracture Code(s): S72.142A - Displaced intertrochanteric fracture of left femur, initial encounter for closed fracture Status: Acute Assessment and Plan: * s/p ORIF left intertrochanteric hip fracture with trochanteric nail device * Orthopedics following (7) Prostate cancer metastatic to bone: Code(s): C61 - Malignant neoplasm of prostate; C79.51 - Secondary malignant neoplasm of bone Status: Acute Assessment and Plan: * on enzalutamide * continue supportive therapy Will continue to follow. Subjective Date/time seen: 06/26/22 09:17 Interval history: Follow-up for acute kidney injury on chronic kidney disease. Respiratory status remains relatively stable at this time; stable hemodynamics without the need for vasopressor therapy; no other acute issues/events overnight or earlier this morning; major complaint is that of pain given his recent hip surgery. Exam
--- NOTE | 2022-06-26 09:17 | PM.PNNEP ---
Progress Note: A&P Assessment and Plan (1) EDGAR (acute kidney injury): Code(s): N17.9 - Acute kidney failure, unspecified Status: Acute Assessment and Plan: improvement noted most likely related to hypotension/hemodynamic instability and shock evaluation to date: renal ultrasound normal urine electrolyte prerenal (likely a manifestion of his poor EF) urine eosinophils negative CPK normal off entresto and diuretic therapy at this time follow repeat labs and UOP (2) Stage 3b chronic kidney disease: Code(s): N18.32 - Chronic kidney disease, stage 3b Status: Chronic Assessment and Plan: baseline creatinine runs around 1.8 - 2.3mg/dl secondary to hypertension based on previous outpatient evaluation (3) Acute respiratory failure with hypoxia: Code(s): J96.01 - Acute respiratory failure with hypoxia Status: Acute Assessment and Plan: resolving (extubated) volume overload versus pulmonary embolus (mutliple risk factors) versus COPD versus CHF versus all of these issues... V/Q scan intermediate probability initiated on heparin gtt LE dopplers negative empiric antibiotics for sepsis IV lasix PRN complicated by known COPD on steroids and bronchodilators follow respiratory status (4) Shock: Code(s): R57.9 - Shock, unspecified Status: Acute Assessment and Plan: concern for sepsis given elevated WBC, low BP, and fevers follow culture data on antibiotics vasopressor therapy as needed (off currently) (5) Acute on chronic combined systolic and diastolic CHF (congestive heart failure): Code(s): I50.43 - Acute on chronic combined systolic (congestive) and diastolic (congestive) heart failure Status: Acute Assessment and Plan: known cardiomyopathy last echo (04/13/22) with EF of 20%, grade 1 diastolic dysfunction, concentric LVH with moderate global left ventricular systolic dysfunction mild mitral valve regurgitation, normal-appearing aortic valve bioprosthesis RVSP estimated at 34 mmHg entresto, Lasix, spironolactone, amlodipine on hold repeat Echo with EF ~ 20 - 25% recent PCI on 06/08/2022 with stent to proximal mid LAD continue Brilinta, aspirin, statin Cardiology following (6) Closed intertrochanteric fracture of left femur: Qualifiers: Encounter type: initial encounter Fracture alignment: displaced Qualified Code(s): S72.142A - Displaced intertrochanteric fracture of left femur, initial encounter for closed fracture Code(s): S72.142A - Displaced intertrochanteric fracture of left femur, initial encounter for closed fracture Status: Acute Assessment and Plan: s/p ORIF left intertrochanteric hip fracture with trochanteric nail device Orthopedics following (7) Prostate cancer metastatic to bone: Code(s): C61 - Malignant neoplasm of prostate; C79.51 - Secondary malignant neoplasm of bone Status: Acute Assessment and Plan: on enzalutamide continue supportive therapy Will continue to follow. Subjective Date/time seen: 06/26/22 09:17 Interval history: Follow-up for acute kidney injury on chronic kidney disease. Respiratory status remains relatively stable at this time; stable hemodynamics without the need for vasopressor therapy; no other acute issues/events overnight or earlier this morning; major complaint is that of pain given his recent hip surgery. Exam Narrative: General: elderly male in NAD Heart: IRRR, normal S1 and S2; no rub Lungs: coarse breath sounds Abdomen: soft, nontender, nondistended, positive bowel sounds Extremities: no cyanosis or clubbing; 1 - 2+ edema Skin: warm and intact; left hip dressings in place Objective Data Vital Signs Vital Signs: Vital Signs Temp Pulse Resp BP Pulse Ox O2 Del Method O2 Flow Rate 06/26/22 08:00 71 06/26/22 08:00 83 16 96 Nasal Cannula 2
--- NOTE | 2022-06-26 10:11 | PCPTNOTE ---
Will complete PT evaluation after removal of femoral line, will follow.
--- NOTE | 2022-06-26 11:47 | PCDIET ---
Patient had MBS on 06/25 recommending Non-oral feedings. Diet order is NPO at this time. Will continue to monitor patient every 3 days.
[2022-06-26 12:54] LABS: Glucose Point of Care 102 mg/dl (65-105)
--- NOTE | 2022-06-26 13:31 | PM.PNCARD ---
Progress Note: A&P Assessment and Plan (1) Cardiomyopathy: Code(s): I42.9 - Cardiomyopathy, unspecified Status: Acute (2) History of aortic valve replacement with tissue graft: Code(s): Z95.4 - Presence of other heart-valve replacement Status: Acute (3) S/P AVR: Code(s): Z95.2 - Presence of prosthetic heart valve Status: Acute Plan 76-year-old man with coronary artery disease ischemic cardiomyopathy recent PCI to his LAD on dual anti-platelet therapy. Presented to the hospital unfortunate with a fall and a femoral fracture which has been repaired. Resuming low-dose of metoprolol because of his myopathy and arrhythmias. Will gradually resume Entresto as he is able to take it hemodynamically once he has been cleared to swallow. Swallowing study was not successful as of now Rodrigo Lorenzo MD [facility] Subjective Date/time seen: Date of service: 06/26/22 13:31 Interval history: He decompensated overnight, was tachycardic and hypotensive. He was transferred to the ICU and is on pressor support now. He states he doesn't know what happened but he just didn't feel right. Currently does not have any cardiac complaints but he does feel like he is having difficulty speaking. Date of service 06/23/2022: Decompensated further yesterday afternoon is now intubated. Date of service 06/26/2022: Patient is extubated in the ICU receiving a breathing treatment. In sinus rhythm with frequent ventricular ectopic activity. No cardiovascular symptoms or complaints. Now he is off of pressors. Low-dose metoprolol has been started. Patient's only complaint has to do with pain at the site of his fracture. Exam Const: General: comfortable, no acute distress, ill appearing and lethargic Orientation/consciousness: No patient oriented x3 and lethargic Other: Obese white male receiving a breathing treatment offers no cardiovascular complaints HENMT: Mouth: Yes moist mucous membranes Eyes: General: appearance normal, both eyes and all related structures Sclera: sclerae normal Pupils: Equal, round and reactive pupils present and Pupil size comments bilaterally 2 Neck: Neck: supple Resp: Effort & Inspection: normal respiratory effort and other ( Mechanically ventilated) Auscultation: clear to auscultation bilaterally and crackles Cardio: Rate: regular rate Rhythm: regular rhythm and abnormal rhythm with ectopic beats Heart sounds: no murmurs Urinary Catheter: Urinary Catheter: patent and draining Skin: General skin exam: normal color Other: bilateral forearm ecchymosis Neuro: General: No patient oriented x3 and moves all extremities Cranial nerves: Yes CN's II-XII intact bilaterally, Yes Equal, round and reactive pupils present, Yes Normal facial strength present, Yes facial symmetry and Yes Midline tongue present Speech: No normal speech and Abnormal speech present slurred Motor exam (neuro): 5/5 motor strength present throughout Pupils: Normal pupillary reactivity/response: bilateral Extrem: General: normal to inspection Left lower extremity: hip/thigh (dressing clean, dry, intact. ) Details: other Psych: Mental Status: mental status grossly abnormal Affect: normal affect Objective Data Vital Signs Vital Signs: Vital Signs - 24 hr 06/25/22 13:58 06/25/22 14:00 06/25/22 16:00 Temperature Pulse Rate 89 80 86 Respiratory Rate 16 Blood Pressure Pulse Oximetry 95 Oxygen Delivery Nasal Cannula Oxygen Flow Rate 2 06/25/22 16:00 06/25/22 13:45 06/25/22 14:00 Temperature 36.8 C 36.7 C Pulse Rate 76 96 93 Respiratory Rate 15 16 Blood Pressure Pulse Oximetry 96 95 Oxygen Delivery Oxygen Flow Rate 06/25/22 14:02 06/25/22 14:15 06/25/22 14:30 Temperature 36.7 C 36.7 C 36.7 C Pulse Rate 84 78 75 Respiratory Rate 24 H 16 13 Blood Pressure 146/58 H Pulse Oximetry 94 95 95 Oxygen Delivery Oxygen Flow Rate 06/25/22 14
--- NOTE | 2022-06-26 14:18 | PM.PNORT ---
Progress Note: A&P Assessment and Plan (1) Closed intertrochanteric fracture of left femur: Qualifiers: Encounter type: initial encounter Fracture alignment: displaced Qualified Code(s): S72.142A - Displaced intertrochanteric fracture of left femur, initial encounter for closed fracture Code(s): S72.142A - Displaced intertrochanteric fracture of left femur, initial encounter for closed fracture Status: Acute Plan Now that this gentleman is extubated hopefully he will be able to have the strength to start some degree of mobilization. Scant drainage from the hip so will start with a hip spica dressing. Following. Subjective Subjective Date/Time Seen: 06/26/22 14:18 Interval history: Postop day eight 76-year-old male postop day eight ORIF left IT fracture with trochanteric nail. Patient has been extubated. Is experiencing some soreness in his left thigh but still not unexpected given the surgery. Exam Const: General: cooperative and no acute distress Extrem: Other: left hip incisions have scant serous drainage on the dressing. No erythema. Left thigh is not tense. Objective Data Vital Signs Vital Signs: Vital Signs - 24 hr 06/25/22 16:00 06/25/22 16:00 06/25/22 14:30 Temperature 98.1 F Pulse Rate 86 76 75 Respiratory Rate 16 13 Blood Pressure Pulse Oximetry 95 95 Oxygen Delivery Nasal Cannula Oxygen Flow Rate 2 06/25/22 14:32 06/25/22 14:45 06/25/22 15:00 Temperature 98.2 F 98.2 F 98.1 F Pulse Rate 76 80 74 Respiratory Rate 13 14 23 H Blood Pressure 153/67 H Pulse Oximetry 95 97 98 Oxygen Delivery Oxygen Flow Rate 06/25/22 15:02 06/25/22 15:15 06/25/22 15:30 Temperature 98.1 F 98.1 F 98.1 F Pulse Rate 78 75 89 Respiratory Rate 16 19 17 Blood Pressure 137/78 Pulse Oximetry 96 97 95 Oxygen Delivery Oxygen Flow Rate 06/25/22 15:31 06/25/22 15:45 06/25/22 16:00 Temperature 98.1 F 98.0 F 98.0 F Pulse Rate 79 85 82 Respiratory Rate 19 18 17 Blood Pressure 116/86 Pulse Oximetry 94 95 98 Oxygen Delivery Oxygen Flow Rate 06/25/22 16:01 06/25/22 16:15 06/25/22 16:30 Temperature 98.0 F 98.0 F 98.1 F Pulse Rate 94 83 86 Respiratory Rate 16 21 H 15 Blood Pressure 111/79 Pulse Oximetry 89 L 95 Oxygen Delivery Oxygen Flow Rate 06/25/22 16:32 06/25/22 16:45 06/25/22 18:00 Temperature 98.1 F 98.2 F Pulse Rate 82 86 85 Respiratory Rate 12 13 Blood Pressure 140/74 Pulse Oximetry 96 95 Oxygen Delivery Oxygen Flow Rate 06/25/22 20:20 06/25/22 20:20 06/25/22 20:40 Temperature Pulse Rate 79 70 78 Respiratory Rate 14 14 17 Blood Pressure Pulse Oximetry 97 Oxygen Delivery Nasal Cannula Oxygen Flow Rate 2 06/25/22 20:00 06/25/22 21:51 06/25/22 20:00 Temperature Pulse Rate 79 80 86 Respiratory Rate 12 Blood Pressure 154/104 H Pulse Oximetry 95 Oxygen Delivery Oxygen Flow Rate 06/25/22 22:00 06/26/22 00:16 06/26/22 00:00 Temperature Pulse Rate 73 72 72 Respiratory Rate 16 Blood Pressure 133/83 Pulse Oximetry 95 Oxygen Delivery Oxygen Flow Rate 06/26/22 02:31 06/26/22 02:10 06/26/22 02:20 Temperature Pulse Rate 82 70 64 Respiratory Rate 15 15 Blood Pressure Pulse Oximetry Oxygen Delivery Oxygen Flow Rate 06/26/22 02:00 06/26/22 04:00 06/26/22 04:00 Temperature Pulse Rate 74 82 Respiratory Rate Blood Pressure Pulse Oximetry 94 Oxygen Delivery Nasal Cannula Oxygen Flow Rate 2 06/26/22 04:00 06/26/22 06:00 06/26/22 08:22 Temperature 97.5 F L Pulse Rate 102 H 75 77 Respiratory Rate 17 12 Blood Pressure 139/93 H Pulse Oximetry 94 Oxygen Delivery Oxygen Flow Rate 06/26/22 08:26 06/26/22 08:48 06/26/22 08:41 Temperature Pulse Rate 71 85 88 Respiratory Rate 12 16 Blood Pressure Pulse Oximetry 98 Oxygen Delivery Nasal Cannula Oxygen Flow Rate 2
--- NOTE | 2022-06-26 16:11 | PM.IMPN ---
Progress Note: A&P Assessment and Plan (1) Acute respiratory failure with hypoxia: Code(s): J96.01 - Acute respiratory failure with hypoxia Status: Acute Assessment and Plan: Decompensation on 06/22/2022 with tachycardia tachypnea and hypotension diaphoresis Chest x-ray with pulmonary edema V/Q scan with intermediate probability Started on heparin infusion Venous duplex with obscured evaluation of right common femoral greater saphenous and profundus femoral vein. Otherwise patent bilateral lower extremity veins BiPAP placed 06/22/2022 eventually intubated and placed on mechanical ventilation 06/22/2022 Broad-spectrum antibiotic with cefepime and vancomycin started on 06/22/2022 Diuresis as tolerated as patient already hypotensive. Continue bronchodilators Extubated 06/24/2022 Remains on nasal cannula (2) Shock: Code(s): R57.9 - Shock, unspecified Status: Acute Assessment and Plan: Likely related to sepsis with leukocytosis, hypotension, fevers started patient on cefepime, vancomycin (06/22) -06/22: Blood cultures have been obtained and pending -check UA and culture MRSA negative. Vancomycin stop. Continue is on cefepime (3) Acute on chronic combined systolic and diastolic CHF (congestive heart failure): Code(s): I50.43 - Acute on chronic combined systolic (congestive) and diastolic (congestive) heart failure Status: Acute Assessment and Plan: Patient with CHF with reduced ejection fraction -echocardiogram on 04/13/2022 showed an EF of 20%, grade 1 diastolic dysfunction, concentric LVH with moderate global left ventricular systolic dysfunction mild mitral valve regurg, normal-appearing aortic valve bioprosthesis RVSP estimated at 34 mmHg Patient was on Entresto, Lasix, spironolactone, amlodipine which are currently on hold due to low blood pressures requiring vasopressors 06/22/2022: Repeat echo EF 20-25% grade 1 diastolic dysfunction RV chamber moderately enlarged LA chamber moderately enlarged mild mitral valve regurgitation RA chamber moderately enlarged moderate tricuspid regurgitation RVSP 42 mm hg On Entresto metoprolol when able to take p.o. (4) CKD (chronic kidney disease), stage III: Code(s): N18.3 - Chronic kidney disease, stage 3 (moderate) Status: Acute Assessment and Plan: Patient has a history of chronic kidney disease stage III EDGAR on CKD stage 3 likely due to hypotension and shock. Received IV fluid bolus now on vasopressors Chest x-ray with volume overload signs. Diuresis as tolerated now off IV fluids. Nephrology consulted. Chest x-ray with congestive changes. Lasix initiated x1 given 06/25/2022 Chest x-ray 06/26/2022 with improved congestion continue to monitor (5) Closed intertrochanteric fracture of left femur: Qualifiers: Encounter type: initial encounter Fracture alignment: displaced Qualified Code(s): S72.142A - Displaced intertrochanteric fracture of left femur, initial encounter for closed fracture Code(s): S72.142A - Displaced intertrochanteric fracture of left femur, initial encounter for closed fracture Status: Acute Assessment and Plan: 06/17/2022 patient had a fall with left hip pain and left intertrochanteric fracture s 06/18: Status post ORIF left intertrochanteric hip fracture with trochanteric nail device -continue pain control -orthopedics following the patient (6) COPD (chronic obstructive pulmonary disease): Code(s): J44.9 - Chronic obstructive pulmonary disease, unspecified Status: Acute Assessment and Plan: Patient has a history of chronic COPD, continue bronchodilators, BiPAP Started on steroid by [employer] football [employer] (7) CAD (coronary artery disease): Code(s): I25.10 - Atherosclerotic heart disease of [place] coronary artery without angina pectoris Status: Acute Assessment and Plan: Patient had a recent PCI on 06/08/2022 with stent to proximal mid LAD
[2022-06-26] MEDS: ALBUTEROL SULFATE (*SP) AEROSOL 1 PUFF 2 PUFF INHALATION (16:40)
--- NOTE | 2022-06-26 18:12 | PC.NURSE ---
Unsuccessful insertion attempt of NG tube, both nares attempted. Patient unable to tolerate. Dr. Mckeon notified, and order obtained for dobhoff placement with radiology.
[2022-06-26 18:13] LABS: Glucose Point of Care 123 mg/dl (65-105)
[2022-06-26] MEDS: CEFEPIME 2 GM/NS 50 ML 2 GM/50 ML BAG IVPB (19:25)
[2022-06-26] MEDS: SALINE LOCK FLUSH 10 ML IV PUSH (21:50)
[2022-06-27] VITALS (21 sets, daily range): BP systolic 121–167; BP diastolic 65–91; PULSE 75–114; RESP 15–20; TEMP 36.9–37; O2SAT 91–98; BMI 10.0
[2022-06-27] MEDS: HYDROmorphone HCL INJ (*CRX) 1 MG/ML SYR 0.5 MG IV PUSH ×4 (00:46→14:17)
[2022-06-27] MEDS: METOPROLOL TARTRATE INJ 5 MG/5 ML VIAL IV PUSH ×3 (01:19→12:18)
[2022-06-27] MEDS: SALINE LOCK FLUSH 10 ML IV PUSH ×2 (01:20→13:02)
[2022-06-27] MEDS: IPRATROPIUM BR 0.02% INH SOLN 0.5 MG/2.5 ML VIAL INHALATION ×3 (01:44→13:25)
[2022-06-27] MEDS: LEVALBUTEROL NEB 1.25 MG/3 ML INHALATION ×3 (01:45→13:25)
[2022-06-27] MEDS: CEFEPIME 2 GM/NS 50 ML 2 GM/50 ML BAG IVPB (05:52)
[2022-06-27 06:15] LABS: Basophils Percent Auto 0.4 % (0.2-1.2); Eosinophils Absolute Auto 0.2 K/mm3 (0-0.3); Eosinophils Percent Auto 2.1 % (0-4.4); Hematocrit 32.5 % (42.0-52.0); Hemoglobin 10.3 g/dL (14.0-18.0); Immature Granulocyte Percent A 2.6 % (0-0.5); Lymphocytes Percent Auto 13.2 % (18.3-44.2); Mean Corpuscular HGB Conc 31.7 g/dl (32-36); Mean Corpuscular Volume 94.8 fl (80-100); Mean Platelet Volume 9.9 fl (7.4-10.4); Monocytes Absolute Auto 0.7 K/mm3 (0.1-0.6); Monocytes Percent Auto 8.7 % (2.6-8.5); Neutrophils Absolute Auto 5.5 K/mm3 (1.3-6.7); Platelet Count Result 240 k/mm3 (150-375); Red Blood Count 3.43 M/mm3 (4.6-6.20); Red Cell Distribution Width 16.7 % (11.5-14.5); White Blood Count 7.6 K/mm3 (4.5-10.0)
[2022-06-27 06:27] LABS: Partial Thromboplastin Time 63.3 SECONDS (22.3-36.8)
[2022-06-27 06:32] LABS: Alanine Aminotransferase 16 U/L (6-50); Alkaline Phosphatase 68 U/L (38-126); Anion Gap 6 mmol/L (8-16); Aspartate Amino Transferase 24 U/L (17-59); Bilirubin,Total 0.9 mg/dL (0.2-1.3); Blood Urea Nitrogen 60 mg/dL (9-20); Calcium 8.6 mg/dL (8.4-10.2); Carbon Dioxide 26 mmol/L (22-30); Chloride 112 mmol/L (98-107); Estimated CRCL calculation 46 ml/min; Estimated Glomerular Filt Rate 42; Glucose 116 mg/dL (65-110); Magnesium 2.4 mg/dL (1.6-2.3); Potassium 3.5 mmol/L (3.4-5.0); Sodium 144 mmol/L (137-145)
[2022-06-27] MEDS: UMECLIDINIUM BROMIDE 62.5 MCG ELLIPTA 2 PUFF INHALATION (07:20)
[2022-06-27] MEDS: PANTOPRAZOLE SODIUM IV 40 MG VIAL IV PUSH (08:20)
[2022-06-27] MEDS: HEPARIN SODIUM 5,000 UNITS/ML VIAL 3500 UNITS IV PUSH (08:20)
[2022-06-27] MEDS: FLUTICASONE/SALMETEROL 115-21 MCG INHALER 1 PUFF 2 PUFF INHALATION (08:23)
--- NOTE | 2022-06-27 09:36 | PM.PNNEP ---
Progress Note: A&P Assessment and Plan (1) EDGAR (acute kidney injury): Code(s): N17.9 - Acute kidney failure, unspecified Status: Acute Assessment and Plan: improvement noted most likely related to hypotension/hemodynamic instability and shock evaluation to date: renal ultrasound normal urine electrolyte prerenal (likely a manifestion of his poor EF) urine eosinophils negative CPK normal off entresto and diuretic therapy at this time follow repeat labs and UOP (2) Stage 3b chronic kidney disease: Code(s): N18.32 - Chronic kidney disease, stage 3b Status: Chronic Assessment and Plan: baseline creatinine runs around 1.8 - 2.3mg/dl better than baseline currently (but is off diuretics and entresto) secondary to hypertension based on previous outpatient evaluation (3) Acute respiratory failure with hypoxia: Code(s): J96.01 - Acute respiratory failure with hypoxia Status: Acute Assessment and Plan: resolving (extubated) volume overload versus pulmonary embolus (mutliple risk factors) versus COPD versus CHF versus all of these issues... V/Q scan intermediate probability initiated on heparin gtt LE dopplers negative empiric antibiotics for sepsis IV lasix PRN (and eventually will need chronic diuretic restarted) complicated by known COPD on bronchodilators follow respiratory status (4) Shock: Code(s): R57.9 - Shock, unspecified Status: Acute Assessment and Plan: resolved concern for sepsis given elevated WBC, low BP, and fevers follow culture data on antibiotics vasopressor therapy as needed (off currently) (5) Acute on chronic combined systolic and diastolic CHF (congestive heart failure): Code(s): I50.43 - Acute on chronic combined systolic (congestive) and diastolic (congestive) heart failure Status: Acute Assessment and Plan: known cardiomyopathy last echo (04/13/22) with EF of 20%, grade 1 diastolic dysfunction, concentric LVH with moderate global left ventricular systolic dysfunction mild mitral valve regurgitation, normal-appearing aortic valve bioprosthesis RVSP estimated at 34 mmHg entresto, lasix, spironolactone, amlodipine on hold repeat Echo with EF ~ 20 - 25% recent PCI on 06/08/2022 with stent to proximal mid LAD continue Brilinta, aspirin, statin Cardiology following (6) Closed intertrochanteric fracture of left femur: Qualifiers: Encounter type: initial encounter Fracture alignment: displaced Qualified Code(s): S72.142A - Displaced intertrochanteric fracture of left femur, initial encounter for closed fracture Code(s): S72.142A - Displaced intertrochanteric fracture of left femur, initial encounter for closed fracture Status: Acute Assessment and Plan: s/p ORIF left intertrochanteric hip fracture with trochanteric nail device Orthopedics following (7) Prostate cancer metastatic to bone: Code(s): C61 - Malignant neoplasm of prostate; C79.51 - Secondary malignant neoplasm of bone Status: Acute Assessment and Plan: on enzalutamide continue supportive therapy Will continue to follow. Subjective Date/time seen: 06/27/22 09:36 Interval history: Follow-up for acute kidney injury on chronic kidney disease. Remains NPO due to failed MBS; some on/off shortness of breath at the time of my visit; renal function stable if not improving with reasonable urine output; remains hemodynamically stable without the need for vasopressor therapy; no acute issues/events overnight or this morning. Exam Narrative: General: elderly male in NAD Heart: IRRR, normal S1 and S2; no rub Lungs: coarse breath sounds Abdomen: soft, nontender, nondistended, positive bowel sounds Extremities: no cyanosis or clubbing; 1 - 2+ edema Skin: warm and intact; left hip dressings in place Objective Data Vital Signs Vital Sig
--- NOTE | 2022-06-27 09:36 | P.PNNP_ITS ---
Progress Note: A&P Assessment and Plan (1) EDGAR (acute kidney injury): Code(s): N17.9 - Acute kidney failure, unspecified Status: Acute Assessment and Plan: * improvement noted * most likely related to hypotension/hemodynamic instability and shock * evaluation to date: * renal ultrasound normal * urine electrolyte prerenal (likely a manifestion of his poor EF) * urine eosinophils negative * CPK normal * off entresto and diuretic therapy at this time * follow repeat labs and UOP (2) Stage 3b chronic kidney disease: Code(s): N18.32 - Chronic kidney disease, stage 3b Status: Chronic Assessment and Plan: * baseline creatinine runs around 1.8 - 2.3mg/dl * better than baseline currently (but is off diuretics and entresto) * secondary to hypertension based on previous outpatient evaluation (3) Acute respiratory failure with hypoxia: Code(s): J96.01 - Acute respiratory failure with hypoxia Status: Acute Assessment and Plan: * resolving (extubated) * volume overload versus pulmonary embolus (mutliple risk factors) versus COPD versus CHF versus all of these issues... * V/Q scan intermediate probability * initiated on heparin gtt * LE dopplers negative * empiric antibiotics for sepsis * IV lasix PRN (and eventually will need chronic diuretic restarted) * complicated by known COPD * on bronchodilators * follow respiratory status (4) Shock: Code(s): R57.9 - Shock, unspecified Status: Acute Assessment and Plan: * resolved * concern for sepsis given elevated WBC, low BP, and fevers * follow culture data * on antibiotics * vasopressor therapy as needed (off currently) (5) Acute on chronic combined systolic and diastolic CHF (congestive heart priyanka lure): Code(s): I50.43 - Acute on chronic combined systolic (congestive) and diastolic (congestive) heart failure Status: Acute Assessment and Plan: * known cardiomyopathy * last echo (04/13/22) with EF of 20%, grade 1 diastolic dysfunction, concentric LVH with moderate global left ventricular systolic dysfunction mild mitral valve regurgitation, normal-appearing aortic valve bioprosthesis RVSP estimated at 34 mmHg * entresto, lasix, spironolactone, amlodipine on hold * repeat Echo with EF ~ 20 - 25% * recent PCI on 06/08/2022 with stent to proximal mid LAD * continue Brilinta, aspirin, statin * Cardiology following (6) Closed intertrochanteric fracture of left femur: Qualifiers: Encounter type: initial encounter Fracture alignment: displaced Qualified Code(s): S72.142A - Displaced intertrochanteric fracture of left femur, initial encounter for closed fracture Code(s): S72.142A - Displaced intertrochanteric fracture of left femur, initial encounter for closed fracture Status: Acute Assessment and Plan: * s/p ORIF left intertrochanteric hip fracture with trochanteric nail device * Orthopedics following (7) Prostate cancer metastatic to bone: Code(s): C61 - Malignant neoplasm of prostate; C79.51 - Secondary malignant neoplasm of bone Status: Acute Assessment and Plan: * on enzalutamide * continue supportive therapy Will continue to follow. Subjective Date/time seen: 06/27/22 09:36 Interval history: Follow-up for acute kidney injury on chronic kidney disease. Remains NPO due to failed MBS; some on/off shortness of breath at the time of my visit; renal function stable if not improving with reasonable
[2022-06-27] MEDS: ALBUTEROL SULFATE (*SP) AEROSOL 1 PUFF 2 PUFF INHALATION (09:55)
--- NOTE | 2022-06-27 10:54 | PCNFU ---
Nutrition Follow-Up Complete: Inadequate energy intake related to hemodynamic instability, mechanical ventilation as evidenced by need for trophic tube feeds. Goal: Meet estimated nutritional needs when medically able Patient will continue current goal. Pt current nutrition is NPO. Nutrition recommendation: Jevity 1.2 goal rate at 70 ml/hr Last recorded weight is 111.13 kg. Bowel Motility:No BM reported since 06/20 Labs Reviewed:Glu 116, GFR 42, BUN 60, Cr 1.6,Alb 3.0 Meds Noted:Lopressor, Protonix Skin:WNL Additional Notes: Patient failed MBS on 06/25. Plans for [place] today. Tube feeding recommendations: Jevity 1.2 at 30 ml/hr advance by 10 ml q 4 hours to goal rate of 70 ml/hr. Tube feedings at goal rate providing 1848 kcals/ 85 gms protein/1243 ml water. Flush 50 ml q 4 hours. Following daily in ICU rounds Reassess Sunday and Sunday
[2022-06-27] MEDS: HEPARIN SOD/D5W 100 UNITS/ML 25,000 UNITS/250 ML BAG 19 UNITS IV CONT (11:00)
[2022-06-27 12:21] LABS: Glucose Point of Care 134 mg/dl (65-105)
--- NOTE | 2022-06-27 13:59 | PM.PNCARD ---
Progress Note: A&P Assessment and Plan (1) CAD (coronary artery disease): Code(s): I25.10 - Atherosclerotic heart disease of [place] coronary artery without angina pectoris Status: Acute Assessment and Plan: History of CAD and CABG, status post drug-eluting stent to the proximal mid Left anterior descending on June 08. --must continue aspirin due to recent stent; will give rectal suppository until able to take p.o.. --must continue p.o. Brilinta due to recent stent; hopefully will get an NG tube soon. --the patient unable to take any p.o. medications may end up starting Integrilin IV --patient also on heparin for possible PE so is at risk of bleeding. (2) Cardiomyopathy: Code(s): I42.9 - Cardiomyopathy, unspecified Status: Acute Assessment and Plan: EF 20-25%, previously on Entresto, metoprolol and Jardiance which are held because he is at been NPO. --resume beta-jae with Lopressor 5 mg IV push q.6 hours until patient is able to take oral meds. (3) Chronic combined systolic and diastolic CHF (congestive heart failure): Code(s): I50.42 - Chronic combined systolic (congestive) and diastolic (congestive) heart failure Status: Acute Assessment and Plan: Chronic CHF --IV diuretic p.r.n., got a dose today. (4) History of aortic valve replacement with tissue graft: Code(s): Z95.4 - Presence of other heart-valve replacement Status: Acute Assessment and Plan: For history of aortic valve replacement, normal function by recent echo. (5) PVCs (premature ventricular contractions): Code(s): I49.3 - Ventricular premature depolarization Status: Acute Assessment and Plan: Continue beta-blockers tolerated (6) Shock: Code(s): R57.9 - Shock, unspecified Status: Acute Assessment and Plan: Recent shock, probably septic shock. Resolving. Blood pressure improved. Extubated. Cultures are negative. (7) Closed intertrochanteric fracture of left femur: Qualifiers: Encounter type: initial encounter Fracture alignment: displaced Qualified Code(s): S72.142A - Displaced intertrochanteric fracture of left femur, initial encounter for closed fracture Code(s): S72.142A - Displaced intertrochanteric fracture of left femur, initial encounter for closed fracture Status: Acute Assessment and Plan: Status post ORIF. Subjective Date/time seen: 06/27/22 13:59 Interval history: Follow-up CAD, CHF and ischemic cardiomyopathy ( EF 20-25%), status post stent to the Left anterior descending in May 2022. History of CHF, CAD and CABG, aortic valve replacement in 2019. Admitted with a fall and hip fracture, status post ORIF. Developed septic shock and respiratory failure on 06/22/2022. Date of service 06/22/2022:He decompensated overnight, was tachycardic and hypotensive. He was transferred to the ICU and is on pressor support now. He states he doesn't know what happened but he just didn't feel right. Currently does not have any cardiac complaints but he does feel like he is having difficulty speaking. Date of service 06/23/2022: Decompensated further yesterday afternoon is now intubated. Date of service 06/26/2022: Patient is extubated in the ICU receiving a breathing treatment. In sinus rhythm with frequent ventricular ectopic activity. No cardiovascular symptoms or complaints. Now he is off of pressors. Low-dose metoprolol has been started. Patient's only complaint has to do with pain at the site of his fracture. Date of service 06/27/2022: Patient worked with physical therapy this morning but now having a lot of back pain and generalized pain. Blood pressure more robust, now 140-160s systolic. Remains extubated, On 2 L nasal cannula. BUN and creatinine are improving. Unable to pass a feeding tube and remains NPO; some epistaxis. Remains on heparin for indeterminate V/Q scan b
[2022-06-27] MEDS: OXYMETAZOLINE HCL 0.05% NAS 15 ML BTL (*BKC) 1 SPRAY NASAL (14:08)
[2022-06-27] MEDS: FUROSEMIDE INJ 40 MG/4 ML VIAL IV PUSH (14:17)
--- NOTE | 2022-06-27 15:31 | PM.IMPN ---
Progress Note: A&P Assessment and Plan (1) Acute respiratory failure with hypoxia: Code(s): J96.01 - Acute respiratory failure with hypoxia Status: Acute Assessment and Plan: Decompensation on 06/22/2022 with tachycardia tachypnea and hypotension diaphoresis Chest x-ray with pulmonary edema V/Q scan with intermediate probability Started on heparin infusion Venous duplex with obscured evaluation of right common femoral greater saphenous and profundus femoral vein. Otherwise patent bilateral lower extremity veins BiPAP placed 06/22/2022 eventually intubated and placed on mechanical ventilation 06/22/2022 Broad-spectrum antibiotic with cefepime and vancomycin started on 06/22/2022 Diuresis as tolerated as patient already hypotensive. Continue bronchodilators Extubated 06/24/2022 Remains on nasal cannula Chest x-ray reviewed 06/27/2022. Will give a dose of Lasix 40 mg IV x1 today (2) Shock: Code(s): R57.9 - Shock, unspecified Status: Acute Assessment and Plan: Likely related to sepsis with leukocytosis, hypotension, fevers started patient on cefepime, vancomycin (06/22) -06/22: Blood cultures have been obtained and pending -check UA and culture MRSA negative. Vancomycin stop. Continue is on cefepime end date 06/28/2022 (3) Acute on chronic combined systolic and diastolic CHF (congestive heart failure): Code(s): I50.43 - Acute on chronic combined systolic (congestive) and diastolic (congestive) heart failure Status: Acute Assessment and Plan: Patient with CHF with reduced ejection fraction -echocardiogram on 04/13/2022 showed an EF of 20%, grade 1 diastolic dysfunction, concentric LVH with moderate global left ventricular systolic dysfunction mild mitral valve regurg, normal-appearing aortic valve bioprosthesis RVSP estimated at 34 mmHg Patient was on Entresto, Lasix, spironolactone, amlodipine which are currently on hold due to low blood pressures requiring vasopressors 06/22/2022: Repeat echo EF 20-25% grade 1 diastolic dysfunction RV chamber moderately enlarged LA chamber moderately enlarged mild mitral valve regurgitation RA chamber moderately enlarged moderate tricuspid regurgitation RVSP 42 mm hg On Entresto metoprolol when able to take p.o. (4) CKD (chronic kidney disease), stage III: Code(s): N18.3 - Chronic kidney disease, stage 3 (moderate) Status: Acute Assessment and Plan: Patient has a history of chronic kidney disease stage III EDGAR on CKD stage 3 likely due to hypotension and shock. Received IV fluid bolus now on vasopressors Chest x-ray with volume overload signs. Diuresis as tolerated now off IV fluids. Nephrology consulted. Chest x-ray with congestive changes. Lasix initiated x1 given 06/25/2022 Chest x-ray 06/26/2022 with improved congestion continue to monitor (5) Closed intertrochanteric fracture of left femur: Qualifiers: Encounter type: initial encounter Fracture alignment: displaced Qualified Code(s): S72.142A - Displaced intertrochanteric fracture of left femur, initial encounter for closed fracture Code(s): S72.142A - Displaced intertrochanteric fracture of left femur, initial encounter for closed fracture Status: Acute Assessment and Plan: 06/17/2022 patient had a fall with left hip pain and left intertrochanteric fracture s 06/18: Status post ORIF left intertrochanteric hip fracture with trochanteric nail device -continue pain control -orthopedics following the patient (6) COPD (chronic obstructive pulmonary disease): Code(s): J44.9 - Chronic obstructive pulmonary disease, unspecified Status: Acute Assessment and Plan: Patient has a history of chronic COPD, continue bronchodilators, BiPAP Started on steroid by baccarat manager which has been tapered off. Reinitiate steroid once a day (7) CAD (coronary artery disease): Code(s): I25.10 - Atherosclerotic heart disease of [place]
[2022-06-27 15:50] LABS: Partial Thromboplastin Time 113.4 SECONDS (22.3-36.8)
[2022-06-27 16:19] LABS: Chloride Rand Ur 21 mmol/L (32-290); Chloride/Creatinine Rand Ur 21 (23-275); Creatinine Random Urine 100 mg/dL (20-320)
--- NOTE | 2022-06-27 17:28 | PM.DS ---
DS: Admitting Diagnosis Discharge Date 06/27/2022 Admitting Diagnosis Fall and hip fracture DS: Discharge Diagnosis Discharge Diagnosis (1) Acute respiratory failure with hypoxia: Code(s): J96.01 - Acute respiratory failure with hypoxia Status: Acute (2) Shock: Code(s): R57.9 - Shock, unspecified Status: Acute (3) Acute on chronic combined systolic and diastolic CHF (congestive heart failure): Code(s): I50.43 - Acute on chronic combined systolic (congestive) and diastolic (congestive) heart failure Status: Acute (4) CKD (chronic kidney disease), stage III: Code(s): N18.3 - Chronic kidney disease, stage 3 (moderate) Status: Acute (5) Closed intertrochanteric fracture of left femur: Qualifiers: Encounter type: initial encounter Fracture alignment: displaced Qualified Code(s): S72.142A - Displaced intertrochanteric fracture of left femur, initial encounter for closed fracture Code(s): S72.142A - Displaced intertrochanteric fracture of left femur, initial encounter for closed fracture Status: Acute (6) COPD (chronic obstructive pulmonary disease): Code(s): J44.9 - Chronic obstructive pulmonary disease, unspecified Status: Acute (7) CAD (coronary artery disease): Code(s): I25.10 - Atherosclerotic heart disease of [place] coronary artery without angina pectoris Status: Acute Assessment and Plan: Patient had a recent PCI on 06/08/2022 with stent to proximal mid LAD -continue Brilinta, aspirin, statin -hold Entresto, spironolactone, Lasix and amlodipine since patient is on pressors (8) Prostate cancer metastatic to bone: Code(s): C61 - Malignant neoplasm of prostate; C79.51 - Secondary malignant neoplasm of bone Status: Acute DS: Summary Hospital Course Hospital Course: # acute respiratory failure with hypoxia: Decompensation on 06/22/2022 with tachycardia tachypnea and hypotension diaphoresis Chest x-ray with pulmonary edema V/Q scan with intermediate probability Started on heparin infusion Venous duplex with obscured evaluation of right common femoral greater saphenous and profundus femoral vein.? Otherwise patent bilateral lower extremity veins BiPAP placed 06/22/2022 eventually intubated and placed on mechanical ventilation 06/22/2022 Broad-spectrum antibiotic with cefepime and vancomycin started on 06/22/2022 Diuresis as tolerated as patient already hypotensive. Continue bronchodilators Extubated 06/24/2022 Remains on nasal cannula Chest x-ray reviewed 06/27/2022.? Intermittently diuresed with Lasix IV. Patient continues to struggle with respiratory failure post extubation and eventually patient opted for hospice enrollment and was discharged home per his request with hospice # shock: Likely related to sepsis with leukocytosis, hypotension, fevers started patient on cefepime, vancomycin (06/22) -06/22: Blood cultures have been obtained and pending -check UA and culture MRSA negative.? Vancomycin stop.? Continue is on cefepime end date 06/28/2022 # acute on chronic systolic and diastolic congestive heart failure: Patient with CHF with reduced ejection fraction -echocardiogram on 04/13/2022 showed an EF of 20%, grade 1 diastolic dysfunction, concentric LVH with moderate global left ventricular systolic dysfunction mild mitral valve regurg, normal-appearing aortic valve bioprosthesis RVSP estimated at 34 mmHg Patient was on Entresto, Lasix, spironolactone, amlodipine which are currently on hold due to low blood pressures requiring vasopressors 06/22/2022: Repeat echo EF 20-25% grade 1 diastolic dysfunction RV chamber moderately enlarged LA chamber moderately enlarged mild mitral valve regurgitation RA chamber moderately enlarged moderate tricuspid regurgitation RVSP 42 mm hg On Entresto metoprolol when able to take p.o. # chronic kidney disease stage 3 with EDGAR: Patient has a history of chronic kidney disease stage
[2022-06-27] MEDS: MORPHINE SULFATE (*CRX) 2 MG/ML INJ IV PUSH (17:43)
== END 2022-06-27 18:09 | disposition hospice, home (50) | DRG 480 ==
LOC: ANHED 07:26 → ANH3MEDSUR 08:13 → ANH2MED 14:38 → ANHIMU 06-19 08:22 → ANH2MED 06-19 13:30 → ANHICU 06-26 11:34 → ANH2MED 06-28 12:07 → ANHICU 06-28 12:07 → ANHIMU 06-28 12:07
PROVIDERS: Internal Medicine; Nurse Practitioner; Orthopaedic Surgery; Admitting Provider Internal Medicine; Emergency Provider Preventive Medicine Aerospace Medicine; PCP Family Medicine; Visit Provider Hospitalist
PROC: 0QS734Z Reposition Left Upper Femur with Internal Fixation Device, Percutaneous Approach (ICD-10-PCS; CPT 27245; principal; 2022-06-18 07:30)
DX: S72.142A Displaced intertrochanteric fracture of left femur, initial encounter for closed fracture (principal); A41.9 Sepsis, unspecified organism; I50.43 Acute on chronic combined systolic (congestive) and diastolic (congestive) heart failure; J96.01 Acute respiratory failure with hypoxia; R65.21 Severe sepsis with septic shock; I13.0 Hypertensive heart and chronic kidney disease with heart failure and stage 1 through stage 4 chronic kidney disease, or unspecified chronic kidney disease; C77.5 Secondary and unspecified malignant neoplasm of intrapelvic lymph nodes; C79.51 Secondary malignant neoplasm of bone; I42.9 Cardiomyopathy, unspecified; N17.9 Acute kidney failure, unspecified; R57.9 Shock, unspecified; J95.89 Other postprocedural complications and disorders of respiratory system, not elsewhere classified; N18.32 Chronic kidney disease, stage 3b; I49.3 Ventricular premature depolarization; I25.10 Atherosclerotic heart disease of native coronary artery without angina pectoris; J44.9 Chronic obstructive pulmonary disease, unspecified; J45.40 Moderate persistent asthma, uncomplicated; C61 Malignant neoplasm of prostate; N40.0 Benign prostatic hyperplasia without lower urinary tract symptoms; E78.5 Hyperlipidemia, unspecified; R04.0 Epistaxis; R73.02 Impaired glucose tolerance (oral); W19.XXXA Unspecified fall, initial encounter; Z79.82 Long term (current) use of aspirin; Z87.891 Personal history of nicotine dependence; Z95.3 Presence of xenogenic heart valve; Z95.5 Presence of coronary angioplasty implant and graft; Z79.02 Long term (current) use of antithrombotics/antiplatelets; Z51.5 Encounter for palliative care; Z85.828 Personal history of other malignant neoplasm of skin
CPT/HCPCS: 31500; 36415; 36569; 36600; 43752; 70450; 71045; 72125; 73502; 76775; 78580; 80048; 80053; 80069; 80202; 81001; 82375; 82436; 82550; 82570; 82805; 82948; 83036; 83050; 83605; 83735; 83880; 84100; 84133; 84145; 84300; 84484; 85025; 85027; 85610; 85730; 85999; 87040; 87081; 92526; 92610; 92611; 93005; 93970; 94002; 94003; 94640; 94660; 96375; 96376; 97110; 97161; 97162; 97165; 97530; 97535; 99199; A9270; A9540; C1713; C1751; C8929; C9113; G0378; J0131; J0282; J0690; J0692; J1100; J1170; J1644; J1720; J1815; J1940; J2060; J2250; J2270; J2405; J2543; J2704; J2920; J2930; J3010; J3370; J7030; J7040; J7050; J7120; J7512; Q9957